=== PATIENT | female | born 1960 | race Caucasian/White ===

== ENCOUNTER 2016-08-14 12:41 | Emergency (ER) | payer MEDICARE, MEDICAID ==
[2016-08-14 13:06] VITALS: BP 107/64
--- NOTE | 2016-08-14 13:34 | ERNOTE ---
Medical Problem HPI - Narrative Date of Service: 08/14/16 - General Chief Complaint: Diabetes Related Problem Time Seen by Provider: 08/14/16 13:24 Source: patient Exam Limitations: no limitations - Immun/Allergies/Home Medications Immunizations: IMMUNIZATION HX Immunizations Up to Date Yes History of Influenza Vaccine Yes Hx Pneumococcal Vaccination Yes Allergies/Adverse Reactions: Allergies bee venom (honey bee) Allergy (Severe, Verified 04/22/15 00:54) Anaphylaxis cefaclor [Cefaclor] Allergy (Severe, Verified 04/22/15 00:54) THROAT SWELLING, SOB penicillin G Allergy (Severe, Verified 04/22/15 00:54) Anaphylaxis Penicillins Allergy (Severe, Verified 04/22/15 00:54) Anaphylaxis codeine Allergy (Intermediate, Verified 04/22/15 00:54) Shortness of Breath meperidine [Meperidine] Allergy (Intermediate, Verified 04/22/15 00:54) HIVES, CANT BREATHE nabumetone [Nabumetone] Allergy (Intermediate, Verified 04/22/15 00:54) DIFF BREATHING prochlorperazine Allergy (Intermediate, Verified 04/22/15 00:54) Shortness of Breath bethanechol [Bethanechol] Allergy (Mild, Verified 04/22/15 00:54) HIVES, MIGRAINES chlorpheniramine maleate [From Ornade] Allergy (Mild, Verified 04/22/15 00:54) Hives chocolate flavor Allergy (Mild, Verified 04/22/15 00:54) Hives ciprofloxacin Allergy (Mild, Verified 04/22/15 00:54) Hives digoxin Allergy (Mild, Verified 04/22/15 00:54) Hives doxycycline Allergy (Mild, Verified 04/22/15 00:54) Hives Fish Containing Products Allergy (Mild, Verified 04/22/15 00:54) Hives FISH latex Allergy (Mild, Verified 04/22/15 00:54) Hives metoclopramide Allergy (Mild, Verified 04/22/15 00:54) HIVES, CANT BREATHE metolazone [Metolazone] Allergy (Mild, Verified 04/22/15 00:54) Hives phenylpropanolamine HCl [From Ornade] Allergy (Mild, Verified 04/22/15 00:54) Hives salmeterol Allergy (Mild, Verified 04/22/15 00:54) HIVES, LEG CRAMPS strawberry [[place]] Allergy (Mild, Verified 04/22/15 00:54) Hives sulfamethoxazole Allergy (Mild, Verified 04/22/15 00:54) Hives trimethoprim Allergy (Mild, Verified 04/22/15 00:54) Hives bumetanide Allergy (Unknown, Verified 04/22/15 00:54) chlorpheniramine Allergy (Unknown, Verified 04/22/15 00:54) furosemide Allergy (Unknown, Verified 04/22/15 00:54) phenazopyridine [Phenazopyridine] Allergy (Unknown, Verified 04/22/15 00:54) phenylpropanolamine Allergy (Unknown, Verified 04/22/15 00:54) atorvastatin Adverse Reaction (Mild, Verified 04/22/15 00:54) LEG CRAMPS cisapride [Cisapride] Adverse Reaction (Mild, Verified 04/22/15 00:54) Vomiting fenofibrate Adverse Reaction (Mild, Verified 04/22/15 00:54) LEG CRAMPS gabapentin Adverse Reaction (Mild, Verified 04/22/15 00:54) MIGRAINE, SEVERE LETHARGY glyburide Adverse Reaction (Mild, Verified 04/22/15 00:54) Vomiting hydrochlorothiazide Adverse Reaction (Mild, Verified 04/22/15 00:54) LEG CRAMPS, MIGRAINE irbesartan Adverse Reaction (Mild, Verified 04/22/15 00:54) Hives omeprazole Adverse Reaction (Mild, Verified 04/22/15 00:54) Vomiting repaglinide Adverse Reaction (Mild, Verified 04/22/15 00:54) LEG CRAMPS rosuvastatin Adverse Reaction (Mild, Verified 04/22/15 00:54) LEG CRAMPS triamterene [Triamterene] Adverse Reaction (Mild, Verified 04/22/15 00:54) LEG CRAMPS, MIGRAINES Home Medications: HOME MEDICATIONS Aspirin [Aspirin Enteric Coated] 81 mg PO DAILY 12/29/14 [Last Taken 12/29/14] Diclofenac Sodium 75 mg PO BID 12/29/14 [Last Taken 12/29/14] Docusate Sodium [Stool Softener] 100 mg PO TID 12/29/14 [Last Taken 12/29/14] Hydroxychloroquine Sulfate [Plaquenil] 200 mg PO BID 12/29/14 [Last Taken ] Lactobacillus Combo No.10 [Probiotic] 1 each PO DAILY 12/29/14 [Last Taken 12/29] Omeprazole [Prilosec] 40 mg PO DAILY 12/29/14 [Last Taken 12/28/14] Rosuvastatin Calcium [Crestor] 40 mg PO DAILY 12/29/14 [Last Taken 12/29/14] Topiramate [Topiragen] 150 mg PO BID 12/29/14 [Last Taken 12/29/14] metFORMIN HCL [Glucophage] 1,000 mg PO BID 12/29/14 [Last Taken 12/29/14] Albuterol Sulfate [Proair Hfa] 2 puff IH Q4H PRN 01/19/15 [Last Taken Unknown] Blood Sugar Diagnostic, Drum [Accu-Chek Compact] 1 each [facility] 01/19/15 [Last Taken Unknown] Butalb/Acetaminophen/Caffeine [Fioricet 50-300-40 mg Capsule] 1 - 2 each PO Q4H PRN 01/19/15 [Last Taken Unknown] EPINEPHrine [Epipen] 0.3 mg IM ONCE PRN 01/19/15 [Last Taken Unknown] Glucagon,Human Recombinant [Glucagen] 1 mg IJ ONCE PRN 01/19/15 [Last Taken Unknown] Levothyroxine Sodium [Synthroid] 88 mcg PO DAILY 01/19/15 [Last Taken Unknown] Acetaminophen [Tylenol] 650 mg PO QID PRN #0 tablet 03/28/15 [Last Taken Unknown ] Fluconazole [Diflucan] 200 mg PO DAILY PRN #30 tablet 03/28/15 [Last Taken Unknown] Ondansetron [Zofran Odt] 8 mg PO Q6H #1 tab.rapdis 03/28/15 [Last Taken Unknown] Polyethylene Glycol 3350 [Miralax] 17 gm PO DAILY btl 03/28/15 [Last Taken Unknown] Polyvinyl Alcohol [Artificial Tears] 1 drop EACHEYE Q1H PRN #0 btl 03/28/15 [ Last Taken Unknown] Insulin Glargine,Hum.rec.anlog [Lantus] 25 units SC BID #4 vial 04/22/15 [Last Taken Unknown] Insulin Regular, Human [Humulin R U-500] 12 unit SC AC #1 vial 04/22/15 [Last Taken Unknown] Clindamycin HCl [Cleocin HCl] 300 mg PO Q8H #30 capsule 08/14/16 [Last Taken Unknown] Duloxetine HCl [Cymbalta] 30 mg PO DAILY 08/14/16 [Last Taken Unknown] - Pain Score Pain Score #1 Pain Score: 6 - History of Present History Narrative: 55yo, F reports to ED for onset of blisters to 1st, 2nd and 3rd toes. She reports having no blisters to the the area yesterday am. States she went to [place] for doctors appts and "light shopping", when she returned home she removed her shoes and socks and noted 3 large blisters to 1st, 2nd and 3rd toes. Minimal serous drainage from 3rd toe, otherwise no dc. No erythema, no fever or warmth. She does have some burning discomfort at 6/10, which is slight more intense than her usual neuropathy. She denies any changes in her shoes, socks or medications. Review of Systems - Review of Systems Constitutional: Absent: fever, chills, weakness, fatigue, malaise ENT: Absent: throat swelling, other - no oral lesions Respiratory: Absent: shortness of breath, cough Cardiology: Absent: chest pain, edema Gastrointestinal/Abdominal: Absent: nausea, vomiting Skin: Present: other - blisters. Absent: rash - no itching, change in color - Patient's Past Medical History Patient History - Medical: Anemia, Chronic Pain, Diabetes Type 2 Insulin Dependent, GERD, Headache, Hypothyroidism, Liver Disease, Renal Disease, Other Patient History - Cardiac/Respiratory: Asthma, Pneumonia Patient History - Cancer: No Hx of Cancer Patient History - Surgical Procedures: Appendectomy, Cholecystectomy, Colon Resection, , EGD, Hysterectomy, Other - Family History Mother Family History - Medical: Diabetes Type 2 Family History - Cardiac/Respiratory: No pertinent hx Father Family History - Medical: , Renal Disease, Renal Failure Family History - Cardiac/Respiratory: COPD - Social History Living Situations: alone Alcohol Use: none Drug Use: none Physical Exam - Physical Exam General Appearance: Present: wd/wn, alert, no apparent distress Ears, Nose, Throat: Absent: pharyngeal erythema, pharyngeal swelling, other - mucous membranes moist and intact Respiratory: Present: normal breath sounds, lungs clear. Absent: rales, rhonchi , wheezing Cardiovascular/Chest: Present: regular rate, rhythm Extremity Exam: Present: no edema, other - mild tenderness over distal aspect R. foot. Absent: calf tenderness Neurological Exam: Present: alert, oriented, normal mood/affect Skin Exam: Present: normal color, warm/dry, other - bullae to r. foot 1st toe, 2nd toe and 3rd toe, no erythema, no warmth, scant amt of serous dc draining from 3rd toe, otherwise no dc ED Progress - Date and Time Seen: Date and Time: 08/14/16 15:30 Discussed discharge plan and tx with pt. She is scheduled to see Dr. Stanley on , discussed that she would need to have him recheck her R. foot at appt, as she may require wound care appt if symptoms not improving or wounds developed. - Results and Orders Patient's Lab Results:: I have reviewed the patient's lab results. Results and Orders: Labs reviewed, no acute changes in comparison to lab studies over the past year. - Vital Signs Patient's Vital Signs:: I have reviewed the patient's vital signs. Vital Signs: Vital Signs 08/14/16 12:58 Temperature 34.6 C L Pulse Rate 82 Respiratory 16 Rate Blood Pressure 107/64 O2 Sat by Pulse 100 Oximetry - X-Ray X-Ray #1 X-Ray: foot Interpretation: Reviewed by me X-ray Comments: Patient Patient Name:LORETO AREVALO Date: 1960 Sex: F Order Number: [id number] Unique Exam ID: [id number] Exam Requested: [id number] - Foot 3 Views RT * Date Scheduled: Study Priority: Requesting Service: Requesting Physician: Awilda Foreman Reason for Exam: Radiological Report : Exam Date: 08/14/2016 13:40 Ordering Physician: Awilda Foreman HISTORY/INDICATION: Tenderness and blisters on foot. No history of injury. Patient is diabetic. TECHNIQUE: 3 views of the right foot. COMPARISONS: 10/02/15 Foot 3 Views RT * No definable fracture lucency or cortical discontinuity. Joint spaces are in gross normal alignment without subluxation or dislocation. Lisfranc joint grossly intact. Lateral view demonstrates pes planus. Soft tissue swelling of the first through fifth toes noted. IMPRESSION: 1. Soft tissue swelling of the right toes. Consider infection. 2. No definite radiographic signs of acute osteomyelitis. If there is a persistent concern, consider further evaluation by MRI or bone scan as clinically indicated. 3. Pes planus, stable. Electronically signed by Frankie Prince M.D.. Approved by: Approval Date: 08-14-2016 Approval Time: 02:35 PM - Progress/Reassessment Chief Complaint: Diabetes Related Problem Departure - Departure Clinical Impression: Bullous eruption, localized Disposition: Home self-care Condition: Good Instructions: Diabetes and Foot Care Additional Instructions: Change dressing and exam foot daily, monitor for redness or worsening of symptoms Do not wear tight fitting shoes or shoes that touch blister sites. keep leg elevated as much as possible Keep your appointment with Dr. Satnley next week, it is essential that you have him recheck your foot at your appointment, as further testing and treatment may be needed Schedule follow up with Dermatology to evaluate Return to ER if symptoms worsen, you develop fever, redness, or increased swelling to foot or leg Referrals: Mateusz Stanley DO [Primary Care Provider] - Sami Gamble MD [Staff Physician] - Prescriptions: Clindamycin HCl [Cleocin HCl] 300 mg PO Q8H #30 capsule
[2016-08-14 14:04] LABS: Hematocrit 31.9 % (37.0-47.0); Mean Cell Volume 87.9 fl (78-100); Mean Corpuscular Hemoglobin 27.5 pg (27-31); Mean Corpuscular Hgb Conc 31.3 g/dl (32-36); Mean Platelet Volume 12.5 fl (6.0-9.5); Neutrophil # 5.8 K/mm3 (1.3-6.0); Neutrophil % 47.9 % (42-75.0); Platelet Count 252 K/mm3 (150-450); Red Blood Count 3.63 M/mm3 (4.2-5.4); Red Cell Distribution Width 14.6 % (11.5-14.0); White Blood Count 12.1 K/mm3 (4.0-10.5)
[2016-08-14 14:16] LABS: Albumin * 3.4 gm/dl (3.4-5.0); Anion Gap 17.9 mmol/L (6.8-13.8); BUN/Creatinine Ratio 25.7 (9.0-21.6); Bilirubin, Total 0.2 mg/dL (0.0-1.1); Ca. Corrected For Albumin 9.2 mg/dL (8.4-10.2); Carbon Dioxide 19.4 mmol/L (24-32.6); Potassium 4.3 mmol/L (3.4-4.6)
== END 2016-08-14 15:45 | disposition home or self-care (01) ==
LOC: ER 12:41
DX: L13.8 Other specified bullous disorders (principal); R21 Rash and other nonspecific skin eruption; Z90.49 Acquired absence of other specified parts of digestive tract; Z90.710 Acquired absence of both cervix and uterus; E11.9 Type 2 diabetes mellitus without complications; Z79.4 Long term (current) use of insulin; E03.9 Hypothyroidism, unspecified; K21.9 Gastro-esophageal reflux disease without esophagitis

== ENCOUNTER 2016-08-28 11:10 | Emergency (ER) | payer MEDICARE, MEDICAID ==
--- NOTE | 2016-08-28 11:31 | ERNOTE ---
Medical Problem HPI - Narrative Date of Service: 08/28/16 - General Chief Complaint: Nausea/Vomiting Time Seen by Provider: 08/28/16 11:24 Source: patient Exam Limitations: no limitations - Immun/Allergies/Home Medications Immunizations: IMMUNIZATION HX Immunizations Up to Date Yes History of Influenza Vaccine Yes Hx Pneumococcal Vaccination Yes Allergies/Adverse Reactions: Allergies bee venom (honey bee) Allergy (Severe, Verified 08/28/16 11:18) Anaphylaxis cefaclor [Cefaclor] Allergy (Severe, Verified 08/28/16 11:18) THROAT SWELLING, SOB penicillin G Allergy (Severe, Verified 08/28/16 11:18) Anaphylaxis Penicillins Allergy (Severe, Verified 08/28/16 11:18) Anaphylaxis codeine Allergy (Intermediate, Verified 08/28/16 11:18) Shortness of Breath meperidine [Meperidine] Allergy (Intermediate, Verified 08/28/16 11:18) HIVES, CANT BREATHE nabumetone [Nabumetone] Allergy (Intermediate, Verified 08/28/16 11:18) DIFF BREATHING prochlorperazine Allergy (Intermediate, Verified 08/28/16 11:18) Shortness of Breath bethanechol [Bethanechol] Allergy (Mild, Verified 08/28/16 11:18) HIVES, MIGRAINES chlorpheniramine maleate [From Ornade] Allergy (Mild, Verified 08/28/16 11:18) Hives chocolate flavor Allergy (Mild, Verified 08/28/16 11:18) Hives ciprofloxacin Allergy (Mild, Verified 08/28/16 11:18) Hives digoxin Allergy (Mild, Verified 08/28/16 11:18) Hives doxycycline Allergy (Mild, Verified 08/28/16 11:18) Hives Fish Containing Products Allergy (Mild, Verified 08/28/16 11:18) Hives FISH latex Allergy (Mild, Verified 08/28/16 11:18) Hives metoclopramide Allergy (Mild, Verified 08/28/16 11:18) HIVES, CANT BREATHE metolazone [Metolazone] Allergy (Mild, Verified 08/28/16 11:18) Hives phenylpropanolamine HCl [From Ornade] Allergy (Mild, Verified 08/28/16 11:18) Hives salmeterol Allergy (Mild, Verified 08/28/16 11:18) HIVES, LEG CRAMPS strawberry [[place]] Allergy (Mild, Verified 08/28/16 11:18) Hives sulfamethoxazole Allergy (Mild, Verified 08/28/16 11:18) Hives trimethoprim Allergy (Mild, Verified 08/28/16 11:18) Hives bumetanide Allergy (Unknown, Verified 08/28/16 11:18) chlorpheniramine Allergy (Unknown, Verified 08/28/16 11:18) furosemide Allergy (Unknown, Verified 08/28/16 11:18) phenazopyridine [Phenazopyridine] Allergy (Unknown, Verified 08/28/16 11:18) phenylpropanolamine Allergy (Unknown, Verified 08/28/16 11:18) atorvastatin Adverse Reaction (Mild, Verified 08/28/16 11:18) LEG CRAMPS cisapride [Cisapride] Adverse Reaction (Mild, Verified 08/28/16 11:18) Vomiting fenofibrate Adverse Reaction (Mild, Verified 08/28/16 11:18) LEG CRAMPS gabapentin Adverse Reaction (Mild, Verified 08/28/16 11:18) MIGRAINE, SEVERE LETHARGY glyburide Adverse Reaction (Mild, Verified 08/28/16 11:18) Vomiting hydrochlorothiazide Adverse Reaction (Mild, Verified 08/28/16 11:18) LEG CRAMPS, MIGRAINE irbesartan Adverse Reaction (Mild, Verified 08/28/16 11:18) Hives omeprazole Adverse Reaction (Mild, Verified 08/28/16 11:18) Vomiting repaglinide Adverse Reaction (Mild, Verified 08/28/16 11:18) LEG CRAMPS rosuvastatin Adverse Reaction (Mild, Verified 08/28/16 11:18) LEG CRAMPS triamterene [Triamterene] Adverse Reaction (Mild, Verified 08/28/16 11:18) LEG CRAMPS, MIGRAINES Home Medications: HOME MEDICATIONS Aspirin [Aspirin Enteric Coated] 81 mg PO DAILY 12/29/14 [Last Taken 12/29/14] Diclofenac Sodium 75 mg PO BID 12/29/14 [Last Taken 12/29/14] Docusate Sodium [Stool Softener] 100 mg PO TID 12/29/14 [Last Taken 12/29/14] Hydroxychloroquine Sulfate [Plaquenil] 200 mg PO BID 12/29/14 [Last Taken ] Lactobacillus Combo No.10 [Probiotic] 1 each PO DAILY 12/29/14 [Last Taken 12/29] Omeprazole [Prilosec] 40 mg PO DAILY 12/29/14 [Last Taken 12/28/14] Rosuvastatin Calcium [Crestor] 40 mg PO DAILY 12/29/14 [Last Taken 12/29/14] Topiramate [Topiragen] 150 mg PO BID 12/29/14 [Last Taken 12/29/14] metFORMIN HCL [Glucophage] 1,000 mg PO BID 12/29/14 [Last Taken 12/29/14] Albuterol Sulfate [Proair Hfa] 2 puff IH Q4H PRN 01/19/15 [Last Taken Unknown] Blood Sugar Diagnostic, Drum [Accu-Chek Compact] 1 each [facility] 01/19/15 [Last Taken Unknown] Butalb/Acetaminophen/Caffeine [Fioricet 50-300-40 mg Capsule] 1 - 2 each PO Q4H PRN 01/19/15 [Last Taken Unknown] EPINEPHrine [Epipen] 0.3 mg IM ONCE PRN 01/19/15 [Last Taken Unknown] Glucagon,Human Recombinant [Glucagen] 1 mg IJ ONCE PRN 01/19/15 [Last Taken Unknown] Levothyroxine Sodium [Synthroid] 88 mcg PO DAILY 01/19/15 [Last Taken Unknown] Acetaminophen [Tylenol] 650 mg PO QID PRN #0 tablet 03/28/15 [Last Taken Unknown ] Fluconazole [Diflucan] 200 mg PO DAILY PRN #30 tablet 03/28/15 [Last Taken Unknown] Ondansetron [Zofran Odt] 8 mg PO Q6H #1 tab.rapdis 03/28/15 [Last Taken Unknown] Polyethylene Glycol 3350 [Miralax] 17 gm PO DAILY btl 03/28/15 [Last Taken Unknown] Polyvinyl Alcohol [Artificial Tears] 1 drop EACHEYE Q1H PRN #0 btl 03/28/15 [ Last Taken Unknown] Insulin Glargine,Hum.rec.anlog [Lantus] 25 units SC BID #4 vial 04/22/15 [Last Taken Unknown] Insulin Regular, Human [Humulin R U-500] 12 unit SC AC #1 vial 04/22/15 [Last Taken Unknown] Clindamycin HCl [Cleocin HCl] 300 mg PO Q8H #30 capsule 08/14/16 [Last Taken Unknown] Duloxetine HCl [Cymbalta] 30 mg PO DAILY 08/14/16 [Last Taken Unknown] Levofloxacin [Levaquin] 500 mg PO DAILY #10 tablet 08/28/16 [Last Taken Unknown] - Pain Score Pain Score #1 Pain Score: 5 - History of Present History Narrative: 56yo, F, presents to ED for evaluation of N/V, which has been present since 08/24. She reports having approx 5-6 episodes of vomiting per day since onset. She denies any abdominal pain, but is having some R. flank pain for the past 2 weeks. States she has had some intermittent nausea and vomiting for 2 weeks. Date (Duration): 08/24/16 Review of Systems - Review of Systems Constitutional: Present: chills, weakness - generalized. Absent: fever Respiratory: Absent: shortness of breath, cough, wheezing Cardiology: Present: chest pain - heaviness, intermittently occuring, improves after vomiting Gastrointestinal/Abdominal: Present: nausea, vomiting, other - last BM 08/27/16, which she reports as a normal soft stool. Absent: diarrhea, constipation, abdominal pain Genitourinary: Absent: frequency, pain, dysuria, hematuria Musculoskeletal: Present: back pain - R. flank Skin: Absent: rash - Patient's Past Medical History Patient History - Medical: Anemia, Chronic Pain, Diabetes Type 2 Insulin Dependent, GERD, Headache, Hypothyroidism, Liver Disease, Renal Disease, Other Patient History - Cardiac/Respiratory: Asthma, Pneumonia Patient History - Cancer: No Hx of Cancer Patient History - Surgical Procedures: Appendectomy, Cholecystectomy, Colon Resection, , EGD, Hysterectomy, Other - Family History Mother Family History - Medical: Diabetes Type 2 Family History - Cardiac/Respiratory: No pertinent hx Father Family History - Medical: , Renal Disease, Renal Failure Family History - Cardiac/Respiratory: COPD - Social History Living Situations: alone Smoking Status: Never smoker Have you smoked in the past 12 months: No Alcohol Use: none Drug Use: none Physical Exam - Physical Exam General Appearance: Present: wd/wn, alert, no apparent distress Respiratory: Present: no respiratory distress, normal breath sounds, no accessory muscle use, lungs clear. Absent: crackles, rhonchi, wheezing Cardiovascular/Chest: Present: regular rate, rhythm, no murmur Gastrointestinal/Abdominal: Present: normal bowel sounds, nondistended, soft, tenderness - mild to LUQ and LLQ Back Exam: Present: CVA tenderness (R) Skin Exam: Present: warm/dry ED Progress - Date and Time Seen: Date and Time: 08/28/16 13:[address] results with pt. Levaquin infusing, tolerated well. Did have 50ml of emesis, will repeat Zofran. 08/28/16 14:31 Pt reports some improvement of nausea since taking Zofran. Did have 1 episode of vomiting very shortly after second dose of Zofran administered. Does continue to have some R. flank pain. She reports tolerating Ibuprofen well in the past and would like Ibuprofen. 08/28/16 16:15 Feeling improved. Tolerating 7up in room. No further vomiting episodes. As she tolerating PO will start outpt tx for pyelonephritis. Discussed dc POC and that if symptoms worsen to return to ER - Results and Orders Patient's Lab Results:: I have reviewed the patient's lab results. - Vital Signs Patient's Vital Signs:: I have reviewed the patient's vital signs. Vital Signs: Vital Signs 08/28/16 11:16 Temperature 35.2 C L Pulse Rate 72 Respiratory 14 Rate Blood Pressure 158/93 O2 Sat by Pulse 100 Oximetry - CT/Ultrasound CT/Ultrasound Narrative: [facility] PATIENT RADIOLOGY STUDY REPORT Patient Patient Name:LORETO AREVALO Date: 1960 Sex: F Order Number: [id number] Unique Exam ID: [id number] Exam Requested: [id number] - CT Abdomen/Pelvis W/O Contrast Date Scheduled: Study Priority: Requesting Service: Requesting Physician: Awilda Foreman Reason for Exam: Radiological Report : Exam Date: 08/28/2016 11:38 Ordering Physician: Awilda Foreman History: Right flank pain. Nausea. Vomiting. Stage III kidney disease. Technique: 3 mm axial imaging from a level above the kidneys through the bladder performed without IV contrast enhancement per kidney stone protocol. Comparison: 06/19/2011 Findings: There are no renal, ureteral, or bladder calcifications. There is no hydronephrosis or hydroureter. Evaluation of the remainder of the abdomen and pelvis is otherwise limited by noncontrast protocol. There are atherosclerotic calcifications. Patient is status post splenectomy. There are surgical clips in the gallbladder fossa. Patient is status post hysterectomy. There are degenerative changes in the lumbar spine. There are changes of diverticulosis. There is no bowel obstruction or free air. IMPRESSION: NO KIDNEY STONES OR ASSOCIATED COMPLICATIONS IDENTIFIED. DIVERTICULOSIS. ATHEROSCLEROTIC DISEASE. Electronically signed by Maxim Umaña M.D.. Approved by: Approval Date: 08-28-2016 Approval Time: 12:18 PM THIS REPORT WAS RECEIVED FROM THE [employer] SYSTEM - Progress/Reassessment Chief Complaint: Nausea/Vomiting Progress:: Improved Departure - Departure Clinical Impression: Pyelonephritis Disposition: Home self-care Condition: Good Instructions: Pyelonephritis, Adult, [id number] Additional Instructions: Frequent, small amounts of fluid such as gatorade. May advance to BRAT diet ( bananas, rice, applesauce, toast), as tolerated Start antibiotics tomorrow am, as first dose given in ER Return to ER if you are vomiting and unable to keep down oral fluids or antibiotics, or if symptoms worsen Schedule follow up with your doctor next week Referrals: Mateusz Stanley DO [Primary Care Provider] - Prescriptions: Levofloxacin [Levaquin] 500 mg PO DAILY #10 tablet
[2016-08-28] MEDS ORDERED: ONDANSETRON HCL/PF 2 MG/ML VIAL IV ONE ×2 (11:37→13:32)
[2016-08-28] MEDS ORDERED: NORMAL SALINE 1,000 ML IV ONE (11:37)
[2016-08-28] MEDS ORDERED: ONDANSETRON HCL/PF 2 MG/ML VIAL ONE ×2 (11:43→13:40)
[2016-08-28 11:50] LABS: Hematocrit 36.8 % (37.0-47.0); Hemoglobin 11.3 gm/dL (12.5-16.0); Mean Cell Volume 88.2 fl (78-100); Mean Corpuscular Hemoglobin 27.1 pg (27-31); Mean Corpuscular Hgb Conc 30.7 g/dl (32-36); Mean Platelet Volume 13.3 fl (6.0-9.5); Neutrophil # 11.1 K/mm3 (1.3-6.0); Neutrophil % 68.4 % (42-75.0); Platelet Count 291 K/mm3 (150-450); Red Blood Count 4.17 M/mm3 (4.2-5.4); Red Cell Distribution Width 14.5 % (11.5-14.0); White Blood Count 16.2 K/mm3 (4.0-10.5)
[2016-08-28 12:11] LABS: Urine Bilirubin 1 mg/dl (NEGATIVE); Urine Blood Negative /ul (NEGATIVE); Urine Ketone 5 mg/dL (NEGATIVE); Urine Nitrite Negative (NEGATIVE); Urine Protein 100 mg/dL (NEGATIVE); Urine Specific Gravity >=1.030 SP.GR. (1.005-1.010); Urine Urobilinogen Normal (NORMAL)
[2016-08-28 12:13] LABS: ALT 166 U/L (19-67); AST 116 U/L (0-48); Albumin * 3.8 gm/dl (3.4-5.0); Alkaline Phosphatase * 94 U/L (50-170); Amylase * 34 U/L (25-115); Anion Gap 14.1 mmol/L (6.8-13.8); BUN/Creatinine Ratio 19.3 (9.0-21.6); Bilirubin, Total 0.3 mg/dL (0.0-1.1); Blood Urea Nitrogen 21 mg/dL (3-23); Ca. Corrected For Albumin 9.4 mg/dL (8.4-10.2); Calcium * 9.6 mg/dL (7.9-10.9); Carbon Dioxide 25.3 mmol/L (24-32.6); Chloride 109 mmol/L (97-106); Glucose * 140 mg/dL (70-110); Lipase 86 U/L (73-393); Potassium 4.4 mmol/L (3.4-4.6); Sodium 144 mmol/L (132-142); Total Protein 7.3 gm/dL (6.2-8.2); Troponin I Less than 0.017 ng/ml (0.00-0.10)
[2016-08-28 12:17] LABS: Urine Appearance Slightly Cloudy; Urine Bacteria 2+; Urine Color Yellow; Urine Mucus Moderate - 2+; Urine RBC 0-5 /hpf (0-5); Urine Renal Epithelial Cell Few - 1+ /hpf
[2016-08-28] MEDS ORDERED: LEVOFLOXACIN/D5W 500 MG/100 ML BAG IV SCH (12:45)
[2016-08-28] MEDS ORDERED: IBUPROFEN 400 MG TABLET PO ONE (14:27)
[2016-08-28] MEDS ORDERED: IBUPROFEN 600 MG TABLET ONE (14:35)
[2016-08-28 15:39] VITALS: BP 119/67
== END 2016-08-28 16:29 | disposition home or self-care (01) ==
LOC: ER 11:10
DX: N12 Tubulo-interstitial nephritis, not specified as acute or chronic (principal); Z90.710 Acquired absence of both cervix and uterus

== ENCOUNTER 2016-09-07 15:51 | Emergency (ER) | payer MEDICARE, MEDICAID ==
[2016-09-07 16:26] LABS: Hematocrit 33.7 % (37.0-47.0); Hemoglobin 10.6 gm/dL (12.5-16.0); Mean Cell Volume 87.1 fl (78-100); Mean Corpuscular Hemoglobin 27.4 pg (27-31); Mean Corpuscular Hgb Conc 31.5 g/dl (32-36); Mean Platelet Volume 12.7 fl (6.0-9.5); Neutrophil # 6.1 K/mm3 (1.3-6.0); Neutrophil % 53.2 % (42-75.0); Platelet Count 213 K/mm3 (150-450); Red Blood Count 3.87 M/mm3 (4.2-5.4); Red Cell Distribution Width 15.2 % (11.5-14.0); White Blood Count 11.4 K/mm3 (4.0-10.5)
[2016-09-07] MEDS: NORMAL SALINE 1,000 ML IV ONE (16:34)
[2016-09-07 16:41] LABS: Albumin * 3.5 gm/dl (3.4-5.0); Anion Gap 10.9 mmol/L (6.8-13.8); BUN/Creatinine Ratio 16.7 (9.0-21.6); Bilirubin, Total 0.2 mg/dL (0.0-1.1); Ca. Corrected For Albumin 9.3 mg/dL (8.4-10.2); Calcium * 9.2 mg/dL (7.9-10.9); Carbon Dioxide 26.9 mmol/L (24-32.6); Potassium 3.8 mmol/L (3.4-4.6); Total Protein 6.7 gm/dL (6.2-8.2)
[2016-09-07 17:06] LABS: Urine Bilirubin 1 mg/dl (NEGATIVE); Urine Blood Negative /ul (NEGATIVE); Urine Ketone 5 mg/dL (NEGATIVE); Urine Nitrite Negative (NEGATIVE); Urine Protein 100 mg/dL (NEGATIVE); Urine Specific Gravity >=1.030 SP.GR. (1.005-1.010); Urine Urobilinogen Normal (NORMAL)
[2016-09-07 17:18] LABS: Urine Appearance Cloudy; Urine Bacteria TRACE; Urine Color Yellow; Urine RBC None Seen /hpf (0-5); Urine WBC 0-5 /hpf (0-5)
[2016-09-07 17:19] LABS: Urine Mucus Few - 1+
[2016-09-07 17:51] VITALS: BP 153/76
--- NOTE | 2016-09-07 17:53 | ERNOTE ---
Medical Problem HPI - Narrative Date of Service: 09/07/16 - General Chief Complaint: General Assessment Time Seen by Provider: 09/07/16 16:06 Source: patient Exam Limitations: no limitations - Immun/Allergies/Home Medications Immunizations: IMMUNIZATION HX Immunizations Up to Date Yes History of Influenza Vaccine Yes Hx Pneumococcal Vaccination Yes Allergies/Adverse Reactions: Allergies bee venom (honey bee) Allergy (Severe, Verified 09/07/16 16:03) Anaphylaxis cefaclor [Cefaclor] Allergy (Severe, Verified 09/07/16 16:03) THROAT SWELLING, SOB penicillin G Allergy (Severe, Verified 09/07/16 16:03) Anaphylaxis Penicillins Allergy (Severe, Verified 09/07/16 16:03) Anaphylaxis codeine Allergy (Intermediate, Verified 09/07/16 16:03) Shortness of Breath meperidine [Meperidine] Allergy (Intermediate, Verified 09/07/16 16:03) HIVES, CANT BREATHE nabumetone [Nabumetone] Allergy (Intermediate, Verified 09/07/16 16:03) DIFF BREATHING prochlorperazine Allergy (Intermediate, Verified 09/07/16 16:03) Shortness of Breath bethanechol [Bethanechol] Allergy (Mild, Verified 09/07/16 16:03) HIVES, MIGRAINES chlorpheniramine maleate [From Ornade] Allergy (Mild, Verified 09/07/16 16:03) Hives chocolate flavor Allergy (Mild, Verified 09/07/16 16:03) Hives ciprofloxacin Allergy (Mild, Verified 09/07/16 16:03) Hives digoxin Allergy (Mild, Verified 09/07/16 16:03) Hives doxycycline Allergy (Mild, Verified 09/07/16 16:03) Hives Fish Containing Products Allergy (Mild, Verified 09/07/16 16:03) Hives FISH latex Allergy (Mild, Verified 09/07/16 16:03) Hives metoclopramide Allergy (Mild, Verified 09/07/16 16:03) HIVES, CANT BREATHE metolazone [Metolazone] Allergy (Mild, Verified 09/07/16 16:03) Hives phenylpropanolamine HCl [From Ornade] Allergy (Mild, Verified 09/07/16 16:03) Hives salmeterol Allergy (Mild, Verified 09/07/16 16:03) HIVES, LEG CRAMPS strawberry [[place]] Allergy (Mild, Verified 09/07/16 16:03) Hives sulfamethoxazole Allergy (Mild, Verified 09/07/16 16:03) Hives trimethoprim Allergy (Mild, Verified 09/07/16 16:03) Hives bumetanide Allergy (Unknown, Verified 09/07/16 16:03) chlorpheniramine Allergy (Unknown, Verified 09/07/16 16:03) furosemide Allergy (Unknown, Verified 09/07/16 16:03) phenazopyridine [Phenazopyridine] Allergy (Unknown, Verified 09/07/16 16:03) phenylpropanolamine Allergy (Unknown, Verified 09/07/16 16:03) atorvastatin Adverse Reaction (Mild, Verified 09/07/16 16:03) LEG CRAMPS cisapride [Cisapride] Adverse Reaction (Mild, Verified 09/07/16 16:03) Vomiting fenofibrate Adverse Reaction (Mild, Verified 09/07/16 16:03) LEG CRAMPS gabapentin Adverse Reaction (Mild, Verified 09/07/16 16:03) MIGRAINE, SEVERE LETHARGY glyburide Adverse Reaction (Mild, Verified 09/07/16 16:03) Vomiting hydrochlorothiazide Adverse Reaction (Mild, Verified 09/07/16 16:03) LEG CRAMPS, MIGRAINE irbesartan Adverse Reaction (Mild, Verified 09/07/16 16:03) Hives omeprazole Adverse Reaction (Mild, Verified 09/07/16 16:03) Vomiting repaglinide Adverse Reaction (Mild, Verified 09/07/16 16:03) LEG CRAMPS rosuvastatin Adverse Reaction (Mild, Verified 09/07/16 16:03) LEG CRAMPS triamterene [Triamterene] Adverse Reaction (Mild, Verified 09/07/16 16:03) LEG CRAMPS, MIGRAINES Home Medications: HOME MEDICATIONS Aspirin [Aspirin Enteric Coated] 81 mg PO DAILY 12/29/14 [Last Taken 12/29/14] Diclofenac Sodium 75 mg PO BID 12/29/14 [Last Taken 12/29/14] Docusate Sodium [Stool Softener] 100 mg PO TID 12/29/14 [Last Taken 12/29/14] Hydroxychloroquine Sulfate [Plaquenil] 200 mg PO BID 12/29/14 [Last Taken ] Lactobacillus Combo No.10 [Probiotic] 1 each PO DAILY 12/29/14 [Last Taken 12/29] Omeprazole [Prilosec] 40 mg PO DAILY 12/29/14 [Last Taken 12/28/14] Rosuvastatin Calcium [Crestor] 40 mg PO DAILY 12/29/14 [Last Taken 12/29/14] Topiramate [Topiragen] 150 mg PO BID 12/29/14 [Last Taken 12/29/14] metFORMIN HCL [Glucophage] 1,000 mg PO BID 12/29/14 [Last Taken 12/29/14] Albuterol Sulfate [Proair Hfa] 2 puff IH Q4H PRN 01/19/15 [Last Taken Unknown] Blood Sugar Diagnostic, Drum [Accu-Chek Compact] 1 each ACHS 01/19/15 [Last Taken Unknown] Butalb/Acetaminophen/Caffeine [Fioricet 50-300-40 mg Capsule] 1 - 2 each PO Q4H PRN 01/19/15 [Last Taken Unknown] EPINEPHrine [Epipen] 0.3 mg IM ONCE PRN 01/19/15 [Last Taken Unknown] Glucagon,Human Recombinant [Glucagen] 1 mg IJ ONCE PRN 01/19/15 [Last Taken Unknown] Levothyroxine Sodium [Synthroid] 88 mcg PO DAILY 01/19/15 [Last Taken Unknown] Acetaminophen [Tylenol] 650 mg PO QID PRN #0 tablet 03/28/15 [Last Taken Unknown ] Fluconazole [Diflucan] 200 mg PO DAILY PRN #30 tablet 03/28/15 [Last Taken Unknown] Ondansetron [Zofran Odt] 8 mg PO Q6H #1 tab.rapdis 03/28/15 [Last Taken Unknown] Polyethylene Glycol 3350 [Miralax] 17 gm PO DAILY btl 03/28/15 [Last Taken Unknown] Polyvinyl Alcohol [Artificial Tears] 1 drop EACHEYE Q1H PRN #0 btl 03/28/15 [ Last Taken Unknown] Insulin Glargine,Hum.rec.anlog [Lantus] 25 units SC BID #4 vial 04/22/15 [Last Taken Unknown] Insulin Regular, Human [Humulin R U-500] 12 unit SC AC #1 vial 04/22/15 [Last Taken Unknown] Clindamycin HCl [Cleocin HCl] 300 mg PO Q8H #30 capsule 08/14/16 [Last Taken Unknown] Duloxetine HCl [Cymbalta] 30 mg PO DAILY 08/14/16 [Last Taken Unknown] Levofloxacin [Levaquin] 500 mg PO DAILY #10 tablet 08/28/16 [Last Taken Unknown] - History of Present History Narrative: Patient presents to the ED feeling dehydrated. She relates she had recent UTI and just finished 10 days of Levaquin. She relates some mild diarrhea from the antibiotic. She states she was having right back tim nwith the UTI and had a CT for this with no kidney stone and still has some of that pain on the right side. No fever. No vomiting. She states she just feels like she needs some fluids. Nothing really seems to make this better or worse for her. Timing: constant Severity: moderate Modifying Factors - (Improves): Present: other - none Modifying Factors - (Worsens): Present: other - none Review of Systems - Review of Systems Constitutional: Absent: fever ENT: Present: no symptoms reported Respiratory: Absent: shortness of breath Cardiology: Absent: chest pain Gastrointestinal/Abdominal: Present: nausea. Absent: abdominal pain Genitourinary: Present: other - recent UTI Musculoskeletal: Present: other - right low back pain Skin: Absent: rash Neurological: Present: other - mild generalized weakness - Patient's Past Medical History Patient History - Medical: Anemia, Chronic Pain, Diabetes Type 2 Insulin Dependent, GERD, Headache, Hypothyroidism, Liver Disease, Renal Disease, Other Patient History - Cardiac/Respiratory: No pertinent hx, Pneumonia Patient History - Cancer: No Hx of Cancer Patient History - Surgical Procedures: Appendectomy, Cholecystectomy, Colon Resection, , EGD, Hysterectomy, Other Patient History - Other: None - Family History Mother Family History - Medical: Diabetes Type 2 Family History - Cardiac/Respiratory: No pertinent hx Father Family History - Medical: , Renal Disease, Renal Failure Family History - Cardiac/Respiratory: COPD - Social History Living Situations: alone Smoking Status: Never smoker Have you smoked in the past 12 months: No Do you dip or chew tobacco: No Patient requests Smoking Cessation Consult: No Initiate information on Smoking Cessation: No Alcohol Use: none Drug Use: none - Immunizations Immunizations Up to Date: Yes Hx Pneumococcal Vaccination: Yes History of Influenza Vaccine: Yes Physical Exam - Physical Exam General Appearance: Present: alert, no apparent distress Eye Exam: Normal inspection: bilateral, PERRL: bilateral Ears, Nose, Throat: Present: normal ENT inspection. Absent: dry mucous membranes Neck: Present: normal inspection Respiratory: Present: no respiratory distress, normal breath sounds, no accessory muscle use, lungs clear Cardiovascular/Chest: Present: regular rate, rhythm Gastrointestinal/Abdominal: Present: normal bowel sounds, nontender, soft, no organomegaly. Absent: tenderness, guarding, rebound Back Exam: Present: other - Tenderness right low back paraspinal musculature. 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 Absent: motor weakness Skin Exam: Absent: skin rash ED Progress - Results and Orders Patient's Lab Results:: I have reviewed the patient's lab results. - Vital Signs Patient's Vital Signs:: I have reviewed the patient's vital signs. Vital Signs: Vital Signs 09/07/16 15:56 Temperature 35.7 C L Pulse Rate 73 Respiratory 14 Rate Blood Pressure 124/66 O2 Sat by Pulse 99 Oximetry - Progress/Reassessment Chief Complaint: General Assessment Progress:: Improved Progress Note-Subjective: 09/07/16 17:50 At 1750 she feels much better. She wishes to go home. I discussed a repeat CT but she is not interested in this. She is stable, non-toxic and in no distress. She wishes to go home. She has an appointment within 48 hours with her PCP. I discussed warning signs and reasons to return as well as the need for close f/u. Departure - Departure Clinical Impression: Generalized weakness Disposition: Home self-care Condition: Stable Instructions: Dehydration, Adult, [id number] Additional Instructions: Rest. FLuids. Keep your appointment with your primary doctor Thursday. Return for fever, vomiting, abdominal pain or if your condition worsens or changes in any way. Referrals: Mateusz Stanley DO [Primary Care Provider] -
== END 2016-09-07 18:01 | disposition home or self-care (01) ==
LOC: ER 15:51
DX: R53.1 Weakness (principal); Z90.49 Acquired absence of other specified parts of digestive tract; Z90.710 Acquired absence of both cervix and uterus; E03.9 Hypothyroidism, unspecified; E11.9 Type 2 diabetes mellitus without complications; Z79.4 Long term (current) use of insulin; K21.9 Gastro-esophageal reflux disease without esophagitis

== ENCOUNTER 2016-09-19 14:33 | Emergency (ER) | payer MEDICARE, MEDICAID ==
[2016-09-19 15:01] VITALS: BP 112/66
--- OUTSIDE RECORDS SUMMARY | 2016-09-19 15:54 | XMS REPORT | Continuity of Care Document ---
:1960 Author Organization [facility] [place] [address] Care Team Providers Name Role Phone Yajaira Quinton Merle Primary Care Provider [phone] Source Comments This disclosure is being made pursuant to the [employer] program and maynot contain all information available regarding this patient.[facility] Active Allergies and Adverse Reactions Not on File Current Medications Be aware that medications may not be up to date as of this document. Alwaysverify current medications with the patient. Not on file Active Problems Not on file Social History Tobacco Use Types Packs/Day Years Used Date Never Smoker Last Filed Vital Signs Vital Sign Reading Time Taken Blood Pressure 132/85 11/05/2011 9:22 AM CDT Pulse 104 11/05/2011 9:22 AM CDT Temperature - - Respiratory Rate - - Height - - Weight 79.379 kg (175 lb) 11/05/2011 9:22 AM CDT Body Mass Index - - Oxygen Saturation - - Plan of Care Health Maintenance Due Date Last Done Comments Lab-Lipids 1960 LAB-HgA1C 1966 Eye (Ophthalmology) Exam 1971 Foot Exam 1971 Retired-Pertussis Vaccine Adult 1980 Retired-Tetanus Vaccine Adult 1980 Pap Smear 1982 Mammogram 2001 Colonoscopy 2011 Well Adult Visit 2011 Retired-INFLUENZA VACCINE 04/10/2015 Results from Last 3 Months Not on file
[2016-09-19 15:55] LABS: Hematocrit 31.3 % (37.0-47.0); Hemoglobin 9.7 gm/dL (12.5-16.0); Mean Cell Volume 88.7 fl (78-100); Mean Corpuscular Hemoglobin 27.5 pg (27-31); Mean Platelet Volume 12.2 fl (6.0-9.5); Neutrophil % 45.2 % (42-75.0); Platelet Count 284 K/mm3 (150-450); Red Blood Count 3.53 M/mm3 (4.2-5.4); Red Cell Distribution Width 15.1 % (11.5-14.0); White Blood Count 8.8 K/mm3 (4.0-10.5)
--- OUTSIDE RECORDS SUMMARY | 2016-09-19 15:55 | XMS REPORT | Continuity of Care Document ---
:1960 Author Organization ([facility]) Address [address] [place] [address] Phone [phone] Care Team Providers Name Role Phone Mateusz Stanley Primary Care Provider [phone] Source Comments This disclosure is being made pursuant to the Care Everywhere program, applicable federal and state laws, and may not contain all informaitonavailable regarding this patient. ([facility]) Active Allergies and Adverse Reactions Allergen Noted Date Severity Reactions Comments Atorvastatin OTHER leg muscle aches Bethanechol Urticaria (Hives) Cefaclor Urticaria (Hives),Unknown Celecoxib Unknown Chlorpheniramine-Dm Respiratory Distress Chocolate Flavor Urticaria (Hives) Ciprofloxacin Unknown Cisapride Respiratory Distress Codeine Urticaria (Hives),Unknown Digoxin Respiratory Distress Doxycycline Nausea & Vomiting Fish Containing Products Nausea & Vomiting,Stomach Pain Furosemide OTHER depleats pottassium level Gabapentin Agitation Glyburide OTHER,Unknown unknown Hydrochlorothiazide OTHER LOW BLOOD SUGAR Irbesartan Respiratory Distress Latex, Natural Rubber Urticaria (Hives) Meperidine Respiratory Distress Metoclopramide Respiratory Distress Metolazone Respiratory Distress Omeprazole Unknown Other Agent 06/22/2012 Rash [place] and green pepper Penicillins Respiratory Distress Phenazopyridine Unknown Phenylpropanolamine Respiratory Distress Prochlorperazine Respiratory Distress Repaglinide OTHER LOW BLOOD SUGAR Salmeterol Respiratory Distress [place] Urticaria (Hives) Sulfamethoxazole Nausea & Vomiting Triamterene OTHER LOW BLOOD SUGAR Trimethoprim Nausea & Vomiting Unclassified Drug Urticaria Tuna and peppers (Hives),Nausea & cause rash or Vomiting vomiting Current Medications Prescription Sig. Disp. Refills Start End Status Date Date LACTOBACILLUS Take by mouth 2 times Active RHAMNOSUS GG daily. (PROBIOTIC PO) aspirin 81 mg EC Take 81 mg by mouth Active tablet daily. EPINEPHrine inject 0.3 mg Active (EPI-PEN) 0.3 mg/0.3 intramuscularly once mL injection syringe as needed. glucagon (GLUCAGEN inject 1 Kit Active HYPOKIT) 1 mg intramuscularly once 014 injection as needed. Indications: HYPOGLYCEMIC DISORDER SUPPLY KETOSTIX test For use in the event 50 Strip Active strips of sustained 014 hyperglycemia Indications: DIAGNOSTIC TEST FOR KETONURIA topiramate 100 mg Take 150 mg by mouth 2 Active tablet times daily. Taking 100 mg tab omeprazole 40 mg Take 40 mg by mouth Active extended release daily. Indications: capsule GASTROESOPHAGEAL REFLUX levothyroxine 88 mcg Take 88 mcg by mouth Active tablet every morning before breakfast multivitamin with Take 1 Tab by mouth Active minerals (HAIR,SKIN daily. & NAILS) tablet docusate 100 mg Take 100 mg by mouth 3 Active capsule times daily as needed. cholecalciferol Take 1,000 Units by Active (VITAMIN D3) 2,000 mouth daily . unit tablet rosuvastatin Take 1 Tab by mouth 90 Tab 3 Active (CRESTOR) 40 mg daily. Indications: 014 tablet HYPERCHOLESTEROLEMIA hydroxychloroquine Take 200 mg by mouth 2 Active 200 mg tablet times daily diclofenac 75 mg EC Take 75 mg by mouth 2 Active tablet times daily. SUPPLY FREESTYLE For fingerstick 1 Each 0 Active FREEDOM LITE meter glucose testing 015 Indications: TYPE 2 DIABETES MELLITUS metFORMIN 500 mg Take 2 Tabs (1,000 mg 360 Tab 3 Active tablet total) by mouth 2 015 times daily with meals LYRICA 200 mg Take 200 mg by mouth 3 Active capsule times daily. 015 SUPPLY FREESTYLE 4 times daily 400 Strip 3 Active LITE test strips 015 SUPPLY lancets Use to check blood 300 Each 3 Active sugar 4 times daily. 015 PSEUDOEPHEDRINE HCL Take by mouth as Active (SUDOGEST PO) needed. traMADol 50 mg Take 1 tablet (50 mg 60 tablet 1 Active tablet total) by mouth 3 016 times daily as needed. lubiprostone Take 24 mcg by mouth 2 Active (AMITIZA) 24 mcg times daily. Take with capsule food and water. sulfaSALAzine 500 mg Start with 1 tabs 120 1 Active EC tablet daily, titrate up to 2 tablet 016 tab twice a day as tolerated. magnesium citrate Take 148 mL by mouth Active solution once. TAKES EVERY THREE DAYS bumetanide 2 mg Take 2 mg by mouth Active tablet daily. PRN for edema, insulin aspart Take three times per 40 mL 11 Active (NovoLOG) 100 day before meals. 016 unit/mL injection Total daily dose vial approximately 100U. cyclobenzaprine 5 mg Take 1 tablet (5 mg 30 tablet 0 Active tablet total) by mouth 2 016 times daily as needed for Muscle spasms. etanercept (ENBREL Inject 50 mg 12 Each 3 Active SURECLICK) 50 mg/mL subcutaneously every 016 injection pen week. ondansetron 8 mg Take 1 tablet (8 mg 60 tablet 1 Active tablet total) by mouth every 016 12 hours as needed. SUPPLY insulin Inject subcutaneously 300 3 Active syringe w/ needle 3 times daily. Syringe 016 U-100 0.5 mL 30 g x 5/16" lactulose 10 g/15 mL Take 30 mL (20 g 1892 mL 11 Active solution total) by mouth 2 017 times daily. insulin glargine Use as directed twice 15 mL Active (BASAGLAR KWIKPEN) daily. Total daily 017 100 unit/mL (3 mL) dose approximately 50 injection pen units per day. SUPPLY BD insulin UF Use to inject insulin 200 Each 3 Active short 31 X 8 MM pen 2 times daily. 017 needle Insulin dependent. Diagnosis code E11.21 LANTUS 100 unit/mL Take twice per day. 40 mL 11 injection vial Total daily dose 016 2016 approximately 100U per day. Active Problems Problem Noted Date Inflammatory arthritis 05/19/2016 Overview: Has hand pain. Responded to HCQ and then addition of enbrel. Low back pain is from DDD and given PT for it. Long-term use of immunosuppressant medication 05/19/2016 Overview: Enbrel. Diabetes mellitus, type 2 11/06/2015 Arthralgia of both ankles 10/22/2015 Overview: Also in the back and hands Slow transit constipation 09/03/2015 Diabetic peripheral neuropathy 07/28/2013 Lymphocytosis 05/03/2013 Leukocytosis 05/03/2013 Anemia associated with acute blood loss 06/28/2012 Warm reactive antibody 06/22/2012 Overview: Anti-Jka antibody is identified in this patient's plasma. As a result, approximately 24% of type specific donors will be antigen compatible, and a complete antiglobulin crossmatch is necessary befor e blood is transfused. Extra time will be required to find compatible blood. If you anticipate transfusion needs, please notify the blood bank as soon as possible to facilitate the acquisition of compatible units. Splenic laceration, s/p splenectomy 06/20/2012 Multiple fractures of ribs of left side #5 thru #8 (2012) 06/20/2012 Gastroparesis 05/12/2012 DEEPTI (obstructive sleep apnea) 05/05/2011 Overview: * unable to tolerable CPAP Hypothyroidism 05/05/2011 Obstructive airway disease, believed to be asthma. 05/05/2011 Overview: Features of asthma / copd Bone tumor (benign) 05/05/2011 Overview: * endochondroma of left humerus Diverticulosis 05/05/2011 Overview: * s/p partial colon resection of diverticulitis Recurrent infections, including UTI (monthly) and sinus (every 2 months) 05/05 infections Syncope 05/05/2011 Overview: * orthostatic with - tilt table, echo, holter * ? Autonomic dysfunction from DM Erosive gastritis 07/10/2009 Overview: History of EGD: 2004: Gastritis 2006: gastritis; diverticulum in duodenum Fatty Liver, biopsy 200612/18/2008 Overview: Formatting of this note may be different from the original. * associated with intermittently + LFTs [id number] Jul 19, 2007 1:00 PM COIL WINDER REPAIR Component Results DIAGNOSIS: Liver, biopsy: Fragmented core of hepatic parenchyma with marked macrovesicular steatosis and mild active inflammation (see comment). Comment: Lakeshia Jones M.D., R1 Marco Antonio Chowdhury M.D. Date reported: 07/22/07 Pathologist (Electronic Signature) COMMENT: The fragmentation of the core strongly suggests the presence of cirrhosis despite the relative paucity of the fibrosis as indicated by the trichrome stain. The histologic appearance suggests steatohepatitis as the underlying etiology. Migraine 12/18/2008 Thyroid Nodule, 200712/18/2008 Overview: FNA negative 06/17 Vitamin D Deficiency 09/07/2008 Agoraphobia with panic disorder 05/15/2008 Depression 05/15/2008 Traumatic Arthropathy, Shoulder 02/07/2008 Hyperlipidemia 01/19/2008 Dysphagia, pharyngeal phase 01/17/2008 Overview: For both solids and liquids. Due to diabetes neuropathy. Mixed Incontinence Urge and Stress 11/19/2007 Hypertension, history of 08/12/2006 Type 2 diabetes mellitus with renal manifestations 05/26/2005 Overview: * with peripheral neuropathy & gastoparesis * on insulin pump Cervical spondylosis without myelopathy 07/27/2001 Resolved Problems Problem Noted Date Resolved Date S/P splenectomy 06/23/2012 07/08/2012 Hyperkalemia 06/21/2012 07/08/2012 Hyperglycemia 06/21/2012 07/08/2012 Delirium 05/27/2012 07/08/2012 Personality Disorder, Medication non-compliance 12/18/2008 07/08/2012 Overview: She has long history of not taking medication as prescribed leading to poor diabetes control; see endocrine note of Sep 2008. Acute pharyngitis 10/24/2008 12/18/2008 Leukorrhea, not specified as infective 10/18/2008 05/05/2011 Type II or unspecified type diabetes mellitus without mention 09/19/200806/2009 of complication, not stated as uncontrolled Nontoxic uninodular goiter 05/16/2008 05/05/2011 Pain in joint, hand 01/18/2008 12/18/2008 Urinary frequency 01/10/2008 05/05/2011 Cervicalgia 12/23/2007 12/18/2008 Lumbago 12/23/2007 12/18/2008 Ulceration of Vulva 11/19/2007 05/05/2011 Other specified disorder of intestines 09/23/2007 12/18/2008 Urinary Incontinence 09/23/2007 12/18/2008 Abdominal pain, unspecified site 07/19/2007 12/18/2008 Other nonspecific abnormal serum enzyme levels 07/13/2007 12/18/2008 Unspecified deformity of ankle and foot, acquired 06/01/2007 12/18/2008 Hepatitis, unspecified 05/17/2007 12/18/2008 Pain in joint, shoulder region 12/21/2006 12/18/2008 Dysuria 08/22/2006 12/18/2008 Retention of urine, unspecified 08/21/2006 07/10/2009 Disorders of bursae and tendons in shoulder region, unspecified 07/29/2001 Endochondroma of humerus 07/05/2001 12/18/2008 Pain in limb 07/05/2001 12/18/2008 Disorder of bone and cartilage, unspecified 07/05/2001 12/18/2008 Most Recent Encounters Date Type Specialty Providers Description 09/02/2016 Telephone Med Rheumatology Amina Crandall Chief Comp: Oliver ZAMBRANO Prior Authorization 08/28/2016 Refill Diabetes Services Zurdo Cunningham Dx: 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 (Primary Dx) 08/28/2016 Telephone Diabetes Services Zurdo Cunningham Chief Comp: Clarify MD Manuel Medications/orders 08/22/2016 Refill Diabetes Services Zurdo Cunningham Dx: Type II or MD Manuel unspecified type diabetes mellitus without mention of complication, uncontrolled (Primary Dx) 08/13/2016 Office Visit Pathology Cresencio Chief Comp: Patient MD Enrike Reported Reason For Lab Services, Visit Irl 08/13/2016 Office Visit Med GI/Hepatology Cresencio, Dx: Diverticulosis of MD Enrike large intestine without hemorrhage (Primary Dx) 08/08/2016 Refill Diabetes Services Zurdo Cunningham Dx: Type 2 diabetes MD Manuel mellitus without complication (Primary Dx) 08/07/2016 Telephone Diabetes Services Ashanti Bellamy Chief Comp: Follow- up YVAN Porras 08/06/2016 Telephone Diabetes Services Zurdo Cunningham Chief Comp: Follow- up MD Manuel 08/01/2016 Telephone Diabetes Services Zurdo Cunningham Chief Comp: Other MD Manuel 07/25/2016 Refill Med GI/Hepatology Fer Chavez Dx: Nausea (Primary Dx) 07/11/2016 Telephone Renal and Jihan Ureña Chief Comp: Discuss Hypertension MD Sandeep Test Results 07/11/2016 Telephone Diabetes Services Zurdo Cunningham Chief Comp: Lab MD Manuel Results 07/11/2016 Telephone Renal and Jihan Ureña Chief Comp: Discuss Hypertension MD Sandeep Test Results 07/07/2016 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, with long-term current use of insulin (Primary Dx) 06/27/2016 Telephone Diabetes Services Violette Alcantara Chief Comp: Patient TMD Concern Immunizations Name Dates Previously Given Next Due Hepatitis B, adult 10/16/2014 Hepatitis B, pediatric/adolescent 12/18/2014 Hib, PRP-T 06/23/2012 Influenza, quadrivalent PF 05/19/2016 Influenza, unspecified 06/10/2015,05/24/2014,06/10/2013,,06/03/2007,05/10/2006,1993 Meningococcal Conjugate, MCV4P 06/23/2012 (Menactra) Pneumococcal Conjugate, PCV13 (Prevnar 02/24/2016 13) Pneumococcal Polysaccharide, PPSV23 06/23/2012 (Pneumovax 23) Pneumococcal, unspecified 06/14/2013,06/03/2007,05/27/1994 Td, adult unspecified 06/03/2007 Tdap 06/23/2012 Zoster, live (Zostavax) 02/24/2016 Social History Tobacco Use Types Packs/Day Years Used Date Former Smoker Cigarettes 0.5 0.5 Quit: 08/10/1983 Smokeless Tobacco: Never Used Tobacco Cessation:Counseling Given: No Comments: Alcohol Use Drinks/Week oz/Week Comments No Last Filed Vital Signs Vital Sign Reading Time Taken Blood Pressure 97/63 08/13/2016 11:10 AM COIL WINDER REPAIR Pulse 74 08/13/2016 11:10 AM COIL WINDER REPAIR Temperature 35 C (95 F) 08/13/2016 11:10 AM COIL WINDER REPAIR Respiratory Rate 14 04/20/2013 4:14 PM CDT Height 1.702 m (5' 7") 08/13/2016 11:10 AM COIL WINDER REPAIR Weight 55.9 kg (123 lb 3.8 oz) 08/13/2016 11:10 AM COIL WINDER REPAIR Body Mass Index 19.3 08/13/2016 11:10 AM COIL WINDER REPAIR Oxygen Saturation 96% 04/27/2014 11:28 AM CDT Plan of Care Date Type Specialty Providers Description 10/13/2016 Appointment Radiology Chief Comp: Patient Reported Reason For Visit 10/13/2016 Appointment Med GI/Hepatology Default, Other [facility] [address] [place] [address] [phone] (Fax) Chief Comp: Patient Nila Suarez PA-C [address] [place] [address] [phone] (Fax) Reported Reason For Visit 11/10/2016 Appointment Diabetes Services Zurdo Cunningham, Chief Comp: Patient Reported Reason For [address] [place] [address] [phone] (Fax) 12/11/2016 Appointment Renal and Hypertension Default, Other [facility] - [facility] [address] [place] [address] [phone] (Fax) Chief Comp: Patient Jihan Ureña MD Reported Reason For Visit 12/22/2016 Appointment [facility] Jenise Peck, Chief Comp: Patient Reported Reason For [address] [place] [address] [phone] (Fax) 12/22/2016 Appointment Med Rheumatology Amina Crandall MD [address] [place] [address] [phone] (Fax) Chief Comp: Patient Jakob Ugalde PA-C [address] [place] [address] [phone] (Fax) Reported Reason For Visit 02/18/2017 Appointment Med GI/Hepatology Enrike Dupont, Chief Comp: Patient Reported Reason For [address] [place] [address] [phone] (Fax) 05/18/2017 Appointment Med Rheumatology Amina Crandall MD Chief Comp: Patient [address] [place] [address] Visit [phone] (Fax) Health Maintenance Due Date Last Done Comments MMR Vaccine 1978 Mammogram 10/02/2009 10/02/2008, 10/04/2003 Cervical Cancer Screening 09/23/2010 09/23/2007, 10/04/2003 DIABETIC: Foot Exam 01/21/2011 DIABETIC: Retinal Eye Exam 01/21/2011 Meningococcal Vaccine (2 - 08/23/2012 06/23/2012 MenACWY High Risk Adult Series) DIABETIC: Microalbumin 06/20/2014 06/20/2013, Additional history exists 04/10/2009, 01/11/2008 Hepatitis B Vaccine (3 of 3 - 02/12/2015 12/18/2014, Primary Series) 10/16/2014 DIABETIC: Hemoglobin A1C 11/11/2016 05/13/2016, Additional history exists 11/06/2015, 11/03/2014 DIABETIC: Cholesterol 05/13/2017 05/13/2016, Additional history exists 01/07/2012, 07/30/2011 Diabetic: Hdl 05/13/2017 05/13/2016, Additional history exists 01/07/2012, 07/30/2011 Diabetic: Ldl 05/13/2017 05/13/2016, Additional history exists 06/20/2013, 01/07/2012 DIABETIC: Triglycerides 05/13/2017 05/13/2016, Additional history exists 01/07/2012, 07/30/2011 Pneumococcal Vaccine (3 of 3 06/23/2017 02/24/2016, - PPSV23) 06/23/2012 Colonoscopy 09/07/2017 09/07/2007, 02/19/2004 Td Vaccine 06/23/2022 06/23/2012, 06/03/2007 Hib Vaccine Completed 06/23/2012 Tdap Vaccine Completed 06/23/2012 HCV Screening Completed 10/22/2015, 06/23/2007, 05/17/2007 Influenza Vaccine: Seasonal Completed 05/19/2016, Additional history exists 06/10/2015, 05/24/2014 Results from Last 3 Months DIFFERENTIAL (08/13/2016 12:24 PM) Component Value Range % Neutrophils-Auto Diff 46.3 % Neutrophils-Auto Diff 5280 0800-0408 /MM3 % Lymphocytes-Auto Diff 37.9 % Lymphocytes-Auto Diff 4320(H) 875-3300 /MM3 % Monocytes-Auto Diff 9.1 % Monocytes-Auto Diff 1040(H) 130-860 /MM3 % Eosinophils-Auto Diff 5.7 % Eosinophils-Auto Diff 650(H) 40-390 /MM3 % Basophils 0.8 % Basophils-Auto Diff 90 10-136 /MM3 % Immature Granulocytes-Auto Diff 0.2 % Immature Granulocytes-Auto Diff 20 /MM3 Specimen Whole Blood CBC (COMPLETE BLOOD COUNT) (08/13/2016 12:24 PM) Component Value Range WBC Count 11.4(H) 3.7-10.5 K/MM3 RBC Count 3.92(L) 4.00-5.20 M/MM3 Hemoglobin 10.6(L) 11.9-15.5 g/dL Hematocrit 34(L) 35-47 % MCV (Mean Corpuscular Volume) 88 82-99 FL MCH (Mean Corpuscular Hemoglobin) 27 25-35 PG MCHC (Mean Corpuscular Hemoglobin Concentration) 31(L) 32-36 % Platelet Count 239 150-400 K/MM3 MPV (Mean Platelet Volume) 13.4(H) 9.4-12.3 FL RBC Dist Width-STD 46.7(H) 36.4-46.3 FL RBC Distrib Width 14.9(H) 9.0-14.5 % Specimen Whole Blood CBC WITH DIFFERENTIAL (08/13/2016 12:24 PM) Specimen Whole Blood Narrative The following orders were created for panel order CBC WITH DIFFERENTIAL. Procedure Abnormality Status --------- ------ CBC (COMPLETE BLOOD COUNT)[[id number]] AbnormalFinal result DIFFERENTIAL[[id number]] AbnormalFinal result Please view results for these tests on the individual orders. US RETROPERITONEAL COMP AND RENAL ARTERY DOPPLER ([id number]) (07/07/2016 4: 10 PM) Impressions Impression: 1. Bilateral microvascular renal disease, indicated by high end segmental renal arterial resistive indices. 2. Small right lower pole hyperechoic lesion likely represents an angiomyolipoma. 3. Small right upper pole and left upper pole cysts. 4. Otherwise normal bilateral renal grayscale ultrasound, no evidence of significant renal artery stenosis and no evidence of occlusive renal vein thrombosis. --- Final --- Narrative [facility] Department of Radiology Ultrasound Division [address] [place] [address] ULTRASOUND REPORT NAME:JODI AREVALO Date of Service: 07/07/2016 MRN NO.: [id number] Review Date: 07/07/2016 Patient's : 2Resident/Tech: [id number] Tejas Garcia Patient's Age: 55 years Referring MD:JIHAN UREÑA Indication: 55 F, hx of CKD stage 3, hx of bilateral cysts. Technique: Renal grayscale ultrasound with spectral and color Doppler analysis. Findings: Kidney: + + + + + :Structure :Features:Right : Left : + + + + + :Kidney:Present/Absent:Present :Present : + + + + + ::Size (cm) :10.0 x 4.4 x 4.0:: + + + + + ::Location:Normal: Normal : + + + + + ::Shape :Normal:Normal: + + + + + :Cortex:Echogenicity:Normal:Normal : + + + + + :Renal Pelvis::No hydronephrosis.:No hydronephrosis.: + + + + + ::: :: + + + + + :Ureters ::Normal. :Normal. : + + + + + + + + + + :Right Kidney:Location:Size (cm):Echogenicity: + + + + + :Lesion 1:right lower pole:0.4 x 0.3 x 0.4:hyperechoic : + + + + + :Lesion 2:right upper pole:1.0 x 0.6 x 0.7:anechoic: + + + + + + + + + + :Left Kidney:Location :Size (cm):Echogenicity: + + + + + :Lesion 1 :left upper pole:0.6 x 0.6 x 0.8:anechoic: + + + + + Renal Doppler: Aortic PSV=98.9. + + + + ::Right Kidney :Left Kidney : + + + + :Renal artery PSV:57.7 cm/s. :103 cm/s: + + + + :MRV :biphasic and antegrade :biphasic and antegrade: + + + + + +--------+-------+--------+--------+-------+--------+ : :R Kidney: ::L Kidney: :: + +--------+-------+--------+--------+-------+--------+ : :Superior:Mid:Inferior:Superior:Mid:Inferior: + +--------+-------+--------+--------+-------+--------+ :AT (<70 ms):30:38 :44:52:26 :38: + +--------+-------+--------+--------+-------+--------+ :Acceleration (>3 m/s/s):10.3:8.5:4.7 :4.9 :6.1:5.0 : + +--------+-------+--------+--------+-------+--------+ :Early systolic peak:Normal. :Normal.:Normal. :Normal. :Normal.: Normal. : + +--------+-------+--------+--------+-------+--------+ :RI (0.55 - 0.70) :0.74:0.72 :0.72:0.72:0.78 :0.75: + +--------+-------+--------+--------+-------+--------+ Urinary Bladder: + + + :Size :Nondistended. : + + + :Wall :Normal. : + + + :Ureteral Jets:Bilateral ureteral jets were demonstrated.: + + + Procedure Note Eleazar, Incoming Imaging Results - ThuJul 07, 2016 4:47 PM COIL WINDER REPAIR [facility] Department of Radiology Ultrasound Division [address] [place] [address] ULTRASOUND REPORT NAME: JODI AREVALO Date of Service: 07/07/2016 MRN NO.: [id number] Review Date: 07/07/2016 Patient's : 1960 Resident/Tech: [id number] Tejas Garcia Patient's Age: 55 years Referring MD: JIHAN UREÑA Indication: 55 F, hx of CKD stage 3, hx of bilateral cysts. Technique: Renal grayscale ultrasound with spectral and color Doppler analysis. Findings: Kidney: + + + + + :Structure :Features : Right : Left : + + + + + :Kidney :Present/Absent:Present :Present : + + + + + : :Size (cm) :10.0 x 4.4 x 4.0 : : + + + + + : :Location :Normal :Normal : + + + + + : :Shape :Normal :Normal : + + + + + :Cortex :Echogenicity :Normal :Normal : + + + + + :Renal Pelvis: :No hydronephrosis.:No hydronephrosis.: + + + + + : : : : : + + + + + :Ureters : :Normal. :Normal. : + + + + + + + + + + :Right Kidney:Location :Size (cm) :Echogenicity: + + + + + :Lesion 1 :right lower pole:0.4 x 0.3 x 0.4:hyperechoic : + + + + + :Lesion 2 :right upper pole:1.0 x 0.6 x 0.7:anechoic : + + + + + + + + + + :Left Kidney:Location :Size (cm) :Echogenicity: + + + + + :Lesion 1 :left upper pole:0.6 x 0.6 x 0.8:anechoic : + + + + + Renal Doppler: Aortic PSV=98.9. + + + + : :Right Kidney :Left Kidney : + + + + :Renal artery PSV:57.7 cm/s. :103 cm/s : + + + + :MRV :biphasic and antegrade :biphasic and antegrade: + + + + + +--------+-------+--------+--------+-------+--------+ : :R Kidney: : :L Kidney: :: + +--------+-------+--------+--------+-------+--------+ : :Superior:Mid :Inferior:Superior:Mid:Inferior: + +--------+-------+--------+--------+-------+--------+ :AT (<70 ms) :30 :38 :44 :52 :26 :38: + +--------+-------+--------+--------+-------+--------+ :Acceleration (>3 m/s/s):10.3 :8.5 :4.7 :4.9 :6.1 :5.0: + +--------+-------+--------+--------+-------+--------+ :Early systolic peak :Normal. :Normal.:Normal. :Normal.:Normal.:Normal. : + +--------+-------+--------+--------+-------+--------+ :RI (0.55 - 0.70) :0.74 :0.72 :0.72 :0.72 :0.78 :0.75: + +--------+-------+--------+--------+-------+--------+ Urinary Bladder: + + + :Size :Nondistended. : + + + :Wall :Normal. : + + + :Ureteral Jets:Bilateral ureteral jets were demonstrated.: + + + IMPRESSION Impression: 1. Bilateral microvascular renal disease, indicated by high end segmental renal arterial resistive indices. 2. Small right lower pole hyperechoic lesion likely represents an angiomyolipoma. 3. Small right upper pole and left upper pole cysts. 4. Otherwise normal bilateral renal grayscale ultrasound, no evidence of significant renal artery stenosis and no evidence of occlusive renal vein thrombosis. --- Final --- FRUCTOSAMINE (07/01/2016 11:30 AM) Component Value Range Fructosamine 246Comment: 170-285 umol/L INTERPRETIVE INFORMATION:Fructosamine Variations in levels of serum proteins (albumin and immunoglobulins) may affect fructosamine results. Performed by [facility], [address] [place] [id number] [email or web address], Arnulfo Freeman MD, Lab. Director Specimen Blood Narrative Source: BLOOD Client Accession number: [id number]
--- OUTSIDE RECORDS SUMMARY | 2016-09-19 15:56 | XMS REPORT | Summary of Care ---
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 Refill(s) , Start Date: 02/19/15 10:05:00 CDT Special Instructions: 50mg in the AM and 50mg in the PM Start Date: 02/19/15 Status: Orderedtorsemide Oral, Daily, 0 Refill(s), Start Date: 05/01/15 10:14:00 CDT Start Date: 05/01/15 Stop Date: 09/18/15 Status: Completedtorsemide 10 mg oral tablet 1 tab(s), Oral, BID, # 60 tab(s), 0 Refill(s), Pharmacy: [place], [place] Start Date: 12/30/13 Stop Date: 03/08/14 Status: Discontinuedtorsemide 10 mg oral tablet 1 tab(s), Oral, BID, # 60 tab(s), 0 Refill(s), Pharmacy: [place], [place] Start Date: 12/14/13 Stop Date: 12/30/13 Status: Completedtorsemide 10 mg oral tablet 1 tab(s), Oral, Daily, # 30 tab(s), 0 Refill(s) Start Date: 11/24/13 Stop Date: 12/14/13 Status: Discontinuedtorsemide 20 mg oral tablet 2 tab(s), Oral, Daily, 0 Refill(s), Start Date: 09/18/15 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 Start Date: 09/18/15 Stop Date: 12/25/15 Status: Discontinuedtorsemide 20 mg oral tablet 2 tab(s), Oral, Daily, # 60 tab(s), 0 Refill(s), Start Date: 12/25/15 14:15:00 CDT, other reason (Rx) Start Date: 12/25/15 Status: OrderedtraMADol 50 mg oral tablet tab(s), Oral, q4hr interval, take 1 - 2 Tablet (50MG) by oral route every 8 hours as needed, 0 Refill(s) Special Instructions: take 1 - 2 Tablet (50MG) by oral route every 8 hours as needed Start Date: 11/24/13 Stop Date: 03/08/14 Status: DiscontinuedtraMADol 50 mg oral tablet 1 tab(s), Oral, q4hr interval, PRN for pain, 0 Refill(s), Start Date: 05/01/15 10:14:00 CDT Start Date: 05/01/15 Status: OrderedUltram 50 mg oral tablet See Instructions, PRN for pain, 1-2 tabs QID prn, 0 Refill(s), Start Date: 01/15 10:57:00 CDT Special Instructions: 1-2 tabs QID prn Start Date: 01/15/15 Stop Date: 06/18/15 Status: CompletedVagifem 10 mcg vaginal tablet 1 EA, Vaginal, 2x/Wk, # 9 tab(s), 11 Refill(s), Start Date: 12/11/14 13:48:00 CDT, [facility] [place] Start Date: 12/11/14 Stop Date: 01/15/15 Status: CompletedVitamin C 0 Refill(s) Start Date: 12/14/13 Stop Date: 01/13/14 Status: DiscontinuedVitamin D3 1000 intl units oral tablet 1 tab(s), Oral, Daily, # 30 tab(s), 0 Refill(s), Start Date: 11/24/13 10:11:00 CDT Start Date: 11/24/13 Status: OrderedVoltaren 1% topical gel 1 chastity, Topical, QID, apply 2 grams, # 100 gm, 0 Refill(s), Start Date: 05/23/15 13:39:00 CDT, Pharmacy: [place], [place] Special Instructions: apply 2 grams Start Date: 05/23/15 Stop Date: 09/18/15 Status: CompletedZanaflex 4 mg oral capsule 1 cap(s), Oral, TID, # 90 cap(s), 0 Refill(s) Start Date: 11/24/13 Stop Date: 01/13/14 Status: DiscontinuedZofran 0 Refill(s), Start Date: 05/01/15 10:15:00 CDT Start Date: 05/01/15 Stop Date: 09/18/15 Status: Completedzolpidem 10 mg oral tablet 1 tab(s), Oral, HS, PRN for sleep, 0 Refill(s) Start Date: 11/24/13 Stop Date: 03/08/14 Status: DiscontinuedZyrTEC 10 mg oral tablet 1 tab(s), Oral, Daily, # 30 tab(s), 1 Refill(s), Start Date: 05/29/14 15:33:00 CDT, [facility] [place] Start Date: 05/29/14 Stop Date: 10/18/14 Status: CompletedZyrTEC 10 mg oral tablet 1 tab(s), Oral, Daily, # 30 tab(s), 0 Refill(s) Start Date: 11/24/13 Stop Date: 01/13/14 Status: Discontinued Results No data available for this section Immunizations Vaccine Date Refusal Reason haemophilus b conjugate (PRP-T) vaccine 06/23/12 influenza virus vaccine, inactivated 05/29/14 influenza virus vaccine, inactivated 05/25/13 meningococcal conjugate vaccine 06/23/12 pneumococcal 23-polyvalent vaccine 05/25/13 tetanus/diphtheria/pertussis, acel(Tdap) 06/23/12 tetanus-diphth toxoids (Td) adult/adol 06/03/07 Procedures Procedure Date Related Diagnosis Body Site Release Trigger Finger (Left, Thumb L)1 09/19/15 Release Carpal Tunnel (Left, Hand L)2 10/23/14 Arthroplasty Metacarpal (Right)3 02/15/14 Release Carpal Tunnel (Right)4 12/07/13 Release Cubital Tunnel (Right)5 12/07/13 Eye surgery 1998 Cholecystectomy and exploration of bile duct 1988 CS - section 1987 Hysterectomy/salpingo-oophorectomy 1987 Appendectomy 1979 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 Esophagoduodenostomy with biopsy Foot examination performed (includes examination through visual inspection, sensory exam with monofilament, and pulse exam - report when any of the three components are completed) (DM) Pelvic sling Splenectomy Tonsillectomy Total hysterectomy 1auto-populated from documented surgical [id number] from documented surgical [id number] from documented surgical [id number] from documented surgical [id number] from documented surgical case Social History No data available for this section Assessment and Plan No data available for this section
--- OUTSIDE RECORDS SUMMARY | 2016-09-19 15:57 | XMS REPORT | Summary of Care ---
:1960 Author Organization [facility] Address [address] [place] [address]- Care Team Providers Name Role Phone Jaden Mateusz Bloom Primary Care Physician Encounter Date(s): 12/25/15 - 12/25/[address] [address]- [facility] Discharge Disposition: Discharged to Home or Self Care Attending Physician: Job Velasco MD Admitting Physician: Job Velasco MD Vital Signs No data available for this section Problem List Condition Effective Dates Status Health [...] Vomiting Active 1Abstraction tool stated Bee Sting [id number] Gtutzqntj9PXFF CONTAINING THJCWXZF2Mfzitzveltgg Medications albuterol CFC free 90 mcg/inh inhalation [...] Daily, 0 Refill(s), Start Date: 10/02/14 11:11:00 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 Start Date: 10/02/14 Stop Date: 02/20/15 Status: [...] Refill(s), Start Date: 05/29/14 15:37:00 CDT, [facility] [facility] [place] [place] Start Date: 05/29/14 Stop Date: 10/18/14 [...] tab(s), 0 Refill(s), Start Date: 10/02/14 11:11:00 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 Start Date: 10/02/14 Stop Date: 02/13/15 Status: CompletedDitropan 5 mg oral tablet 1 tab(s), Oral, TID, # 90 tab(s), 11 Refill(s), [facility] [place] [place] Start Date: 11/30/13 Stop Date: 12/11/14 Status: YlsglrtbwfbuFmn-L-Spff 100 mg oral capsule 1 cap(s), Oral, [...] Refill(s), Start Date: 02/13/15 12:46:00 CDT, [facility] [place] [place] Start Date: 02/13/15 Stop Date: 02/20/15 [...] days, # 5 mL, 0 Refill(s), [facility] [place] Start Date: 05/02/14 Stop Date: 05/09/14 [...] units., # 1 QS, 0 Refill(s), Pharmacy: [place], [place] Special Instructions: AM 50 units noon [...] qPM, 0 Refill(s), Start Date: 09/18/15 10:12:00 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 Start Date: 09/18/15 Status: OrderedLantus 25 untis, Subcutaneous, qAM, 0 Refill(s), Start Date: 09/18/15 10:12:00 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 Start Date: 09/18/15 Status: Orderedlevothyroxine 112 mcg [...] cap(s), 0 Refill(s), Start Date: 08/07/14 15:01:00 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, [facility] [facility] [place] [place] Start Date: 08/07/14 Stop Date: 11/13/14 [...] HS, # 30 cap(s), 11 Refill(s), [facility] [place] Start Date: 01/13/14 Stop Date: 03/08/14 Status: Discontinuedomeprazole 40 mg oral delayed release capsule 1 cap(s), Oral, BID, # 30 cap(s), 11 Refill(s), Pharmacy: [place], [place] Start Date: 03/08/14 Stop Date: 03/29/14 Status: Completedomeprazole 40 mg oral delayed release capsule 1 cap(s), Oral, Daily, # 30 cap(s), 11 Refill(s), Pharmacy: [place], [place] Start Date: 03/29/14 Status: Orderedondansetron 8 [...] tab(s), 0 Refill(s), Start Date: 09/19/15 7:02:00 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, Pharmacy: [place], [place] Special Instructions: not to exceed 4000 [...] Start Date: 01/03/15 9:13:29 CDT , Pharmacy: [facility] Start Date: 01/03/15 Stop Date: 06/18/15 Status: CompletedPlaquenil Sulfate 200 mg oral tablet 1 tab(s), Oral, BID, # 180 tab(s), 3 Refill(s), Start Date: 10/11/15 13:38:34 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, Pharmacy: [facility] [place] [place] Start Date: 10/11/15 Stop Date: 10/15/15 Status: CompletedPlaquenil Sulfate 200 mg oral tablet 1 tab(s), Oral, BID, 0 Refill(s), Start Date: 09/17/15 13:24:00 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 Start Date: 09/17/15 Stop Date: 12/03/15 Status: CompletedPlaquenil Sulfate 200 mg oral tablet 1 tab(s), Oral, BID, # 180 tab(s), 3 Refill(s), Start Date: 10/15/15 16:41:40 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, Pharmacy: [facility] [place] [place] Start Date: 10/15/15 Status: OrderedPlaquenil Sulfate 200 mg oral tablet 1 tab(s), Oral, BID, # 60 tab(s), 3 Refill(s), Start Date: 09/01/14 9:49:00 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 , Pharmacy: [facility] [place] [place] Start Date: 09/01/14 Stop Date: 10/02/14 Status: CompletedPlaquenil Sulfate 200 mg oral tablet 1 tab(s), Oral, BID, # 360 tab(s), 3 Refill(s), Start Date: 10/02/14 12:01:00 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, Pharmacy: [facility] [place] [place] Start Date: 10/02/14 Stop Date: 01/03/15 [...] 2x/Wk, # 42 gm, 4 Refill(s), [facility] [place] [place] Start Date: 11/30/13 Stop Date: 10/18/14 [...] tab(s), 11 Refill(s), Start Date: 09/20/14 8:43:11 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, [facility] [place] [place] Start Date: 09/20/14 Status: Orderedranitidine 150 mg oral tablet 0.5 tab(s), Oral, BID, # 30 tab(s), 0 Refill(s), Start Date: 05/29/14 14:45:00 CDT, other reason (Rx) Start Date: 05/29/14 Stop Date: 06/07/14 Status: Completedranitidine 150 mg oral tablet 0.5 tab(s), Oral, BID, # 30 tab(s), 0 Refill(s), Start Date: 06/07/14 11:00:27 CDT, Pharmacy: [facility] [place], [place] Start Date: 06/07/14 Stop Date: 07/04/14 Status: Completedranitidine 150 mg oral tablet 0.5 tab(s), Oral, BID, # 30 tab(s), 0 Refill(s), Start Date: 07/04/14 11:43:04 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, [facility] [place] [place] Start Date: 07/04/14 Stop Date: 08/16/14 Status: Completedranitidine 150 mg oral tablet tab(s), Oral, BID, 0 Refill(s) Start Date: 12/14/13 Stop Date: 05/29/14 Status: Discontinuedranitidine 150 mg oral tablet 0.5 tab(s), Oral, BID, # 30 tab(s), 0 Refill(s), Start Date: 08/16/14 8:21:25 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, [facility] [place] [place] Start Date: 08/16/14 Stop Date: 09/20/14 Status: Completedranitidine 75 mg oral tablet 1 tab(s), Oral, BID, # 60 tab(s), 0 Refill(s), [facility] [place] [place] Start Date: 05/08/14 Stop Date: 05/29/14 Status: Discontinuedranitidine 75 mg oral tablet tab(s), Oral, BID, 0 Refill(s) Start Date: 05/08/14 Stop Date: 05/08/14 Status: Discontinuedranitidine 75 mg oral tablet 1 tab(s), Oral, BID, # 60 tab(s), 0 Refill(s), Pharmacy: [facility] [place] [place] Start Date: 03/29/14 Stop Date: 04/20/14 [...] BID, # 60 tab(s), 0 Refill(s), Pharmacy: [place], [place] Start Date: 12/30/13 Stop Date: 03/08/14 Status: Discontinuedtorsemide 10 mg oral tablet 1 tab(s), Oral, BID, # 60 tab(s), 0 Refill(s), Pharmacy: [place], [place] Start Date: 12/14/13 Stop Date: 12/30/13 Status: Completedtorsemide 10 mg oral tablet 1 tab(s), Oral, Daily, # 30 tab(s), 0 Refill(s) Start Date: 11/24/13 Stop Date: 12/14/13 Status: Discontinuedtorsemide 20 mg oral tablet 2 tab(s), Oral, Daily, 0 Refill(s), Start Date: 09/18/15 10:13:00 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 Start Date: 09/18/15 Stop Date: 12/25/15 Status: [...] Refill(s), Start Date: 12/11/14 13:48:00 CDT, Pharmacy: [place], [place] Start Date: 12/11/14 Stop Date: 01/15/15 [...] Refill(s), Start Date: 05/23/15 13:39:00 CDT, Pharmacy: [place], [place] Special Instructions: apply 2 grams Start [...] Refill(s), Start Date: 05/29/14 15:33:00 CDT, [facility] [facility] [place] Start Date: 05/29/14 Stop Date: 10/18/14 Status: CompletedZyrTEC 10 mg oral tablet 1 tab(s), Oral, Daily, # 30 tab(s), 0 Refill(s) Start Date: 11/24/13 Stop Date: 01/13/14 Status: Discontinued Results Patient Viewable Results Most recent to oldest [Reference Range]: 1 WBC [4.8-10.8 thou/mm3] 9.2 thou/mm3 (12/25/15 10:18 AM) RBC [4.20-5.40 Mil/mm3] 3.89 Mil/mm3 *LOW* (12/25/15 10:18 AM) Hgb [12.0-16.0 g/dL] 10.6 g/dL *LOW* (12/25/15 10:18 AM) Hct [37.0-47.0 %] 34.2 % *LOW* (12/25/15 10:18 AM) MCV [80.0-94.0 fL] 87.9 fL (12/25/15 10:18 AM) MCH [25.0-38.0 pg/cell] 27.2 pg/cell (12/25/15 10:18 AM) MCHC [31.0-37.0 g/dL] 31.0 g/dL (12/25/15 10:18 AM) RDW [1.0-48.0 fL] 54.3 fL *HI* (12/25/15 10:18 AM) Platelet [130-400 thou/mm3] 317 thou/mm3 (12/25/15 10:18 AM) Neutrophils % Auto [50.0-75.0 %] 42.6 % *LOW* (12/25/15 10:18 AM) Immature Granulocyte Auto [0.1-2.0 %] 0.2 % (12/25/15 10:18 AM) Lymphocytes % Auto [15.0-41.0 %] 38.3 % (12/25/15 10:18 AM) Monocytes % Auto [2.0-10.0 %] 9.0 % (12/25/15 10:18 AM) Eosinophils % Auto [0.0-6.0 %] 8.6 % *HI* (12/25/15 10:18 AM) Basophil % Auto [0.0-1.0 %] 1.3 % *HI* (12/25/15:18 AM) Neutrophils Absolute [1.5-5.9 thou/mm3] 3.9 thou/mm3 (12/25/15 10:18 AM) Immature Gran Absolute [0.01-0.03 thou/mm3] 0.02 thou/mm3 (12/25/15 10:18 AM) Lymphocytes Absolute [1.5-4.0 thou/mm3] 3.5 thou/mm3 (12/25/15 10:18 AM) Monocytes Absolute [0.0-0.9 thou/mm3] 0.8 thou/mm3 (12/25/15 10:18 AM) Eosinophil Absolute [0.0-0.7 thou/mm3] 0.8 thou/mm3 *HI* (12/25/15:18 AM) Basophil Absolute [0.0-0.2 thou/mm3] 0.1 thou/mm3 (12/25/15 10:18 AM) Sodium Lvl [135-144 mEq/L] 142 mEq/L (12/25/15 10:18 AM) Potassium Lvl [3.3-4.8 mEq/L] 4.3 mEq/L (12/25/15:18 AM) Chloride Lvl [98-107 mEq/L] 111 mEq/L *HI* (12/25/15 10:18 AM) Bicarbonate Lvl [22-30 mmol/L] 20 mmol/L *LOW* (12/25/15:18 AM) Anion Gap [10.0-20.0] 15.3 (12/25/15 10:18 AM) Glucose Lvl [70-108 mg/dL] 124 mg/dL *HI* (12/25/15:18 AM) BUN [7-21 mg/dL] 32 mg/dL *HI* (12/25/15:18 AM) Creatinine Lvl [0.50-1.20 mg/dL] 1.12 mg/dL (12/25/15:18 AM) BUN/Creat Ratio 28.6 *NA* (12/25/15:18 AM) eGFR AA [>=60] >60 (12/25/15 10:18 AM) eGFR NICCI [>=60] 51 *LOW* (12/25/15: AM) Calcium Lvl [8.6-10.2 mg/dL] 9.1 mg/dL (12/25/15:18 AM) PTH, Intact [14-72 pg/mL] 28 pg/mL (12/25/15: AM) Vitamin D 25 OH [20-100 ng/mL] 38 ng/mL (12/25/15: AM) Albumin Lvl [3.5-5.2 g/dL] 3.9 g/dL (12/25/15:18 AM) Magnesium Lvl [1.6-2.4 mg/dL] 1.8 mg/dL (12/25/15:18 AM) Phosphorus Lvl [2.7-4.5 mg/dL] 3.6 mg/dL (12/25/15:18 AM) FE [50-170 mcg/dL] 72 mcg/dL (12/25/15:18 AM) Iron Binding Capacity, Total [228-428 mcg/dL] 281 mcg/dL (12/25/15 10:18 AM) % Iron Saturation [20-50 %] 26 % (12/25/15:18 AM) Ferritin Lvl [10-291 ng/mL] 79 ng/mL (12/25/15:18 AM) Microalbumin, Ur <12 mg/L *NA* (12/25/15 10:25 AM) Creatinine, Urine MA 70.9 mg/dL *NA* (12/25/15 10:25 AM) Ur Microalb/Creat Ratio [0-29 mg/g Cr] <17 mg/g Cr (12/25/15 10:25 AM) Estimated Creatinine Clearance 55.69 mL/min (12/25/15 10:57 AM) Immunizations Vaccine Date Refusal Reason haemophilus b [...] Tonsillectomy Total hysterectomy 1auto-populated from documented surgical [id number] from documented surgical [id number] from documented surgical [id number] from documented surgical [id number] from documented surgical case Social History No data available for this section Assessment and Plan No data available for this section
--- OUTSIDE RECORDS SUMMARY | 2016-09-19 15:59 | XMS REPORT | Summary of Care ---
:1960 Author Organization [facility] Address [address] [place] [address] Care Team Providers Name Role Phone Mateusz Stanley Primary Care Physician Encounter Date(s): 12/25/15 - 12/25/15 [facility], [address] [place], [place] [address] Discharge Diagnosis: Anemia Discharge Disposition: 01 Discharged to Home or Self Care Attending Physician: Job Velasco MD Referring Physician: Job Velasco MD Vital Signs Most recent to oldest [Reference Range]: 1 Temperature Temporal Artery [36.5-38.0 DegC] 36.3 DegC *LOW* (12/25/15 10:53 AM) Peripheral Pulse Rate [60-100 bpm] 74 bpm (12/25/15 10:53 AM) Respiratory Rate [12-20 br/min] 18 br/min (12/25/15 10:53 AM) SpO2 98 % (12/25/15 10:53 AM) Blood Pressure [90-130/60-90 mmHg] 110/64mmHg (12/25/15 10:53 AM) Mean Arterial Pressure, Cuff 79 mmHg (12/25/15 10:53 AM) Most recent to oldest [Reference Range]: 1 Height/Length Measured 170 cm (12/25/15 10:53 AM) Height/Length Estimated 170 cm (12/25/15 10:53 AM) Weight Estimated 63.8 kg (12/25/15 10:53 AM) Weight Dosing 63.8 kg (12/25/15 10:53 AM) Weight Measured 63.8 kg (5/17/16 10:53 AM) BSA Measured 1.74 m2 (12/25/15 10:53 AM) BSA Estimated 1.74 m2 (12/25/15 10:53 AM) Body Mass Index Measured 22.08 kg/m2 (12/25/15 10:53 AM) Body Mass Index Estimated 22.08 kg/m2 (12/25/15 10:53 AM) Problem List Condition Effective Dates Status Health [...] Vomiting Active 1Abstraction tool stated Bee Sting Lsd8Dixcuhihn Uyhowzwkn6FVBK CONTAINING LXBLTMIS7Nknyrezfebrn Medications albuterol CFC free 90 mcg/inh inhalation [...] Daily, 0 Refill(s), Start Date: 10/02/14 11:11:00 TURBINE SUBASSEMBLER Start Date: 10/02/14 Stop Date: 02/20/15 Status: [...] Refill(s), Start Date: 05/29/14 15:37:00 CDT, [facility] [place] Start Date: 05/29/14 Stop Date: 10/18/14 [...] tab(s), 0 Refill(s), Start Date: 10/02/14 11:11:00 TURBINE SUBASSEMBLER Start Date: 10/02/14 Stop Date: 02/13/15 Status: CompletedDitropan 5 mg oral tablet 1 tab(s), Oral, TID, # 90 tab(s), 11 Refill(s), [facility] [facility] Start Date: 11/30/13 Stop Date: 12/11/14 Status: LsdugcqgebocPxp-H-Dpuj 100 mg oral capsule 1 cap(s), Oral, [...] Refill(s), Start Date: 02/13/15 12:46:00 CDT, Pharmacy: [place], [place] Start Date: 02/13/15 Stop Date: 02/20/15 [...] days, # 5 mL, 0 Refill(s), Pharmacy: [place] Start Date: 05/02/14 Stop Date: 05/09/14 [...] units., # 1 QS, 0 Refill(s), Pharmacy: [place], [place] Special Instructions: AM 50 units noon [...] qPM, 0 Refill(s), Start Date: 09/18/15 10:12:00 TURBINE SUBASSEMBLER Start Date: 09/18/15 Status: OrderedLantus 25 untis, Subcutaneous, qAM, 0 Refill(s), Start Date: 09/18/15 10:12:00 TURBINE SUBASSEMBLER Start Date: 09/18/15 Status: Orderedlevothyroxine 112 mcg [...] cap(s), 0 Refill(s), Start Date: 08/07/14 15:01:00 TURBINE SUBASSEMBLER, Pharmacy: [place], [place] Start Date: 08/07/14 Stop Date: 11/13/14 [...] HS, # 30 cap(s), 11 Refill(s), Pharmacy: [place], [place] Start Date: 01/13/14 Stop Date: 03/08/14 Status: Discontinuedomeprazole 40 mg oral delayed release capsule 1 cap(s), Oral, BID, # 30 cap(s), 11 Refill(s), Pharmacy: [place], [place] Start Date: 03/08/14 Stop Date: 03/29/14 Status: Completedomeprazole 40 mg oral delayed release capsule 1 cap(s), Oral, Daily, # 30 cap(s), 11 Refill(s), [facility] [place] Start Date: 03/29/14 Status: Orderedondansetron 8 [...] tab(s), 0 Refill(s), Start Date: 09/19/15 7:02:00 TURBINE SUBASSEMBLER, Pharmacy: [facility], [place] Special Instructions: not to exceed 4000 [...] tab(s), 3 Refill(s), Start Date: 10/11/15 13:38:34 TURBINE SUBASSEMBLER, Pharmacy: [facility] [place], [place] Start Date: 10/11/15 Stop Date: 10/15/15 Status: CompletedPlaquenil Sulfate 200 mg oral tablet 1 tab(s), Oral, BID, 0 Refill(s), Start Date: 09/17/15 13:24:00 TURBINE SUBASSEMBLER Start Date: 09/17/15 Stop Date: 12/03/15 Status: CompletedPlaquenil Sulfate 200 mg oral tablet 1 tab(s), Oral, BID, # 180 tab(s), 3 Refill(s), Start Date: 10/15/15 16:41:40 TURBINE SUBASSEMBLER, Pharmacy: [facility] [place], [place] Start Date: 10/15/15 Status: OrderedPlaquenil Sulfate 200 mg oral tablet 1 tab(s), Oral, BID, # 60 tab(s), 3 Refill(s), Start Date: 09/01/14 9:49:00 TURBINE SUBASSEMBLER , Pharmacy: [facility] [place], [place] Start Date: 09/01/14 Stop Date: 10/02/14 Status: CompletedPlaquenil Sulfate 200 mg oral tablet 1 tab(s), Oral, BID, # 360 tab(s), 3 Refill(s), Start Date: 10/02/14 12:01:00 TURBINE SUBASSEMBLER, Pharmacy: [facility] [place], [place] Start Date: 10/02/14 Stop Date: 01/03/15 [...] 2x/Wk, # 42 gm, 4 Refill(s), [facility] [facility] [place] Start Date: 11/30/13 Stop Date: 10/18/14 [...] tab(s), 11 Refill(s), Start Date: 09/20/14 8:43:11 TURBINE SUBASSEMBLER, Pharmacy: [facility] [place], [place] Start Date: 09/20/14 Status: Orderedranitidine 150 mg oral tablet 0.5 tab(s), Oral, BID, # 30 tab(s), 0 Refill(s), Start Date: 05/29/14 14:45:00 CDT, other reason (Rx) Start Date: 05/29/14 Stop Date: 06/07/14 Status: Completedranitidine 150 mg oral tablet 0.5 tab(s), Oral, BID, # 30 tab(s), 0 Refill(s), Start Date: 06/07/14 11:00:27 CDT, Pharmacy: [facility] [place], [place] Start Date: 06/07/14 Stop Date: 07/04/14 Status: Completedranitidine 150 mg oral tablet 0.5 tab(s), Oral, BID, # 30 tab(s), 0 Refill(s), Start Date: 07/04/14 11:43:04 TURBINE SUBASSEMBLER, Pharmacy: [place], [place] Start Date: 07/04/14 Stop Date: 08/16/14 Status: Completedranitidine 150 mg oral tablet tab(s), Oral, BID, 0 Refill(s) Start Date: 12/14/13 Stop Date: 05/29/14 Status: Discontinuedranitidine 150 mg oral tablet 0.5 tab(s), Oral, BID, # 30 tab(s), 0 Refill(s), Start Date: 08/16/14 8:21:25 TURBINE SUBASSEMBLER, Pharmacy: [place], [place] Start Date: 08/16/14 Stop Date: 09/20/14 Status: Completedranitidine 75 mg oral tablet 1 tab(s), Oral, BID, # 60 tab(s), 0 Refill(s), Pharmacy: [place], [place] Start Date: 05/08/14 Stop Date: 05/29/14 Status: Discontinuedranitidine 75 mg oral tablet tab(s), Oral, BID, 0 Refill(s) Start Date: 05/08/14 Stop Date: 05/08/14 Status: Discontinuedranitidine 75 mg oral tablet 1 tab(s), Oral, BID, # 60 tab(s), 0 Refill(s), Pharmacy: [place] Start Date: 03/29/14 Stop Date: 04/20/14 [...] BID, # 60 tab(s), 0 Refill(s), Pharmacy: [place] Start Date: 12/30/13 Stop Date: 03/08/14 Status: Discontinuedtorsemide 10 mg oral tablet 1 tab(s), Oral, BID, # 60 tab(s), 0 Refill(s), Pharmacy: [place], [place] Start Date: 12/14/13 Stop Date: 12/30/13 Status: Completedtorsemide 10 mg oral tablet 1 tab(s), Oral, Daily, # 30 tab(s), 0 Refill(s) Start Date: 11/24/13 Stop Date: 12/14/13 Status: Discontinuedtorsemide 20 mg oral tablet 2 tab(s), Oral, Daily, 0 Refill(s), Start Date: 09/18/15 10:13:00 [employer] Start Date: 09/18/15 Stop Date: 12/25/15 Status: [...] Refill(s), Start Date: 12/11/14 13:48:00 CDT, [facility]acy: [facility] [place], [place] Start Date: 12/11/14 Stop Date: 01/15/15 [...] Refill(s), Start Date: 05/23/15 13:39:00 CDT, [facility]acy: [facility] [place], [place] Special Instructions: apply 2 grams Start [...] Start Date: 05/29/14 15:33:00 CDT, [facility]acy: [facility] [place] [place] Start Date: 05/29/14 Stop Date: 10/18/14 Status: CompletedZyrTEC 10 mg oral tablet 1 tab(s), Oral, Daily, # 30 tab(s), 0 Refill(s) Start Date: 11/24/13 Stop Date: 01/13/14 Status: Discontinued Results Patient Viewable Results Most recent to oldest [Reference Range]: 1 Estimated Creatinine Clearance 61.76 mL/min (12/25/15 10:54 AM) Immunizations Vaccine Date Refusal Reason haemophilus [...] Tonsillectomy Total hysterectomy 1auto-populated from documented surgical [id number] from documented surgical [id number] from documented surgical [id number] from documented surgical [id number] from documented surgical case Social History No data available for this section Assessment and Plan No data available for this section
[2016-09-19 16:15] LABS: Albumin * 3.4 gm/dl (3.4-5.0); Anion Gap 12.7 mmol/L (6.8-13.8); BUN/Creatinine Ratio 19.4 (9.0-21.6); Bilirubin, Total 0.2 mg/dL (0.0-1.1); Ca. Corrected For Albumin 9.5 mg/dL (8.4-10.2); Calcium * 9.3 mg/dL (7.9-10.9); Carbon Dioxide 24.5 mmol/L (24-32.6); Potassium 4.2 mmol/L (3.4-4.6); Total Protein 6.5 gm/dL (6.2-8.2)
[2016-09-19 16:18] LABS: Urine Bilirubin Negative (NEGATIVE); Urine Blood Negative /ul (NEGATIVE); Urine Color Yellow; Urine Ketone Negative (NEGATIVE); Urine Nitrite Negative (NEGATIVE); Urine Protein Negative (NEGATIVE); Urine Urobilinogen Normal (NORMAL)
[2016-09-19 16:19] LABS: Urine Bacteria 1+; Urine RBC None Seen /hpf (0-5)
[2016-09-19 16:20] LABS: Urine Appearance Slightly Cloudy
--- NOTE | 2016-09-19 17:04 | ERNOTE ---
Medical Problem HPI - Narrative Date of Service: 09/19/16 - General Chief Complaint: General Assessment Time Seen by Provider: 09/19/16 15:33 Source: patient Exam Limitations: no limitations - Immun/Allergies/Home Medications Immunizations: IMMUNIZATION HX Immunizations Up to Date Yes History of Influenza Vaccine Yes Hx Pneumococcal Vaccination Yes Allergies/Adverse Reactions: Allergies bee venom (honey bee) Allergy (Severe, Verified 09/19/16 15:01) Anaphylaxis cefaclor [Cefaclor] Allergy (Severe, Verified 09/19/16 15:01) THROAT SWELLING, SOB penicillin G Allergy (Severe, Verified 09/19/16 15:01) Anaphylaxis Penicillins Allergy (Severe, Verified 09/19/16 15:01) Anaphylaxis codeine Allergy (Intermediate, Verified 09/19/16 15:01) Shortness of Breath meperidine [Meperidine] Allergy (Intermediate, Verified 09/19/16 15:01) HIVES, CANT BREATHE nabumetone [Nabumetone] Allergy (Intermediate, Verified 09/19/16 15:01) DIFF BREATHING prochlorperazine Allergy (Intermediate, Verified 09/19/16 15:01) Shortness of Breath bethanechol [Bethanechol] Allergy (Mild, Verified 09/19/16 15:01) HIVES, MIGRAINES chlorpheniramine maleate [From Ornade] Allergy (Mild, Verified 09/19/16 15:01) Hives chocolate flavor Allergy (Mild, Verified 09/19/16 15:01) Hives ciprofloxacin Allergy (Mild, Verified 09/19/16 15:01) Hives digoxin Allergy (Mild, Verified 09/19/16 15:01) Hives doxycycline Allergy (Mild, Verified 09/19/16 15:01) Hives Fish Containing Products Allergy (Mild, Verified 09/19/16 15:01) Hives FISH latex Allergy (Mild, Verified 09/19/16 15:01) Hives metoclopramide Allergy (Mild, Verified 09/19/16 15:01) HIVES, CANT BREATHE metolazone [Metolazone] Allergy (Mild, Verified 09/19/16 15:01) Hives phenylpropanolamine HCl [From Ornade] Allergy (Mild, Verified 09/19/16 15:01) Hives salmeterol Allergy (Mild, Verified 09/19/16 15:01) HIVES, LEG CRAMPS strawberry [[place]] Allergy (Mild, Verified 09/19/16 15:) Hives sulfamethoxazole Allergy (Mild, Verified 09/19/16 15:) Hives trimethoprim Allergy (Mild, Verified 09/19/16 15:) Hives bumetanide Allergy (Unknown, Verified 09/19/16 15:) chlorpheniramine Allergy (Unknown, Verified 09/19/16 15:) furosemide Allergy (Unknown, Verified 09/19/16 15:01) phenazopyridine [Phenazopyridine] Allergy (Unknown, Verified 09/19/16 15:) phenylpropanolamine Allergy (Unknown, Verified 09/19/16 15:) atorvastatin Adverse Reaction (Mild, Verified 09/19/16 15:) LEG CRAMPS cisapride [Cisapride] Adverse Reaction (Mild, Verified 09/19/16 15:) Vomiting fenofibrate Adverse Reaction (Mild, Verified 09/19/16 15:) LEG CRAMPS gabapentin Adverse Reaction (Mild, Verified 09/19/16 15:) MIGRAINE, SEVERE LETHARGY glyburide Adverse Reaction (Mild, Verified 09/19/16 15:) Vomiting hydrochlorothiazide Adverse Reaction (Mild, Verified 09/19/16 15:) LEG CRAMPS, MIGRAINE irbesartan Adverse Reaction (Mild, Verified 09/19/16 15:) Hives omeprazole Adverse Reaction (Mild, Verified 09/19/16 15:) Vomiting repaglinide Adverse Reaction (Mild, Verified 09/19/16 15:01) LEG CRAMPS rosuvastatin Adverse Reaction (Mild, Verified 09/19/16 15:01) LEG CRAMPS triamterene [Triamterene] Adverse Reaction (Mild, Verified 09/19/16 15:01) LEG CRAMPS, MIGRAINES Home Medications: HOME MEDICATIONS Aspirin [Aspirin Enteric Coated] 81 mg PO DAILY 12/29/14 [Last Taken 12/29/14] Diclofenac Sodium 75 mg PO BID 12/29/14 [Last Taken 12/29/14] Docusate Sodium [Stool Softener] 100 mg PO TID 12/29/14 [Last Taken 12/29/14] Hydroxychloroquine Sulfate [Plaquenil] 200 mg PO BID 12/29/14 [Last Taken ] Lactobacillus Combo No.10 [Probiotic] 1 each PO DAILY 12/29/14 [Last Taken 12/29] Omeprazole [Prilosec] 40 mg PO DAILY 12/29/14 [Last Taken 12/28/14] Rosuvastatin Calcium [Crestor] 40 mg PO DAILY 12/29/14 [Last Taken 12/29/14] Topiramate [Topiragen] 150 mg PO BID 12/29/14 [Last Taken 12/29/14] metFORMIN HCL [Glucophage] 1,000 mg PO BID 12/29/14 [Last Taken 12/29/14] Albuterol Sulfate [Proair Hfa] 2 puff IH Q4H PRN 01/19/15 [Last Taken Unknown] Blood Sugar Diagnostic, Drum [Accu-Chek Compact] 1 each ACHS 01/19/15 [Last Taken Unknown] Butalb/Acetaminophen/Caffeine [Fioricet 50-300-40 mg Capsule] 1 - 2 each PO Q4H PRN 01/19/15 [Last Taken Unknown] EPINEPHrine [Epipen] 0.3 mg IM ONCE PRN 01/19/15 [Last Taken Unknown] Glucagon,Human Recombinant [Glucagen] 1 mg IJ ONCE PRN 01/19/15 [Last Taken Unknown] Levothyroxine Sodium [Synthroid] 88 mcg PO DAILY 01/19/15 [Last Taken Unknown] Acetaminophen [Tylenol] 650 mg PO QID PRN #0 tablet 03/28/15 [Last Taken Unknown ] Fluconazole [Diflucan] 200 mg PO DAILY PRN #30 tablet 03/28/15 [Last Taken Unknown] Ondansetron [Zofran Odt] 8 mg PO Q6H #1 tab.rapdis 03/28/15 [Last Taken Unknown] Polyethylene Glycol 3350 [Miralax] 17 gm PO DAILY btl 03/28/15 [Last Taken Unknown] Polyvinyl Alcohol [Artificial Tears] 1 drop EACHEYE Q1H PRN #0 btl 03/28/15 [ Last Taken Unknown] Insulin Glargine,Hum.rec.anlog [Lantus] 25 units SC BID #4 vial 04/22/15 [Last Taken Unknown] Insulin Regular, Human [Humulin R U-500] 12 unit SC AC #1 vial 04/22/15 [Last Taken Unknown] Clindamycin HCl [Cleocin HCl] 300 mg PO Q8H #30 capsule 08/14/16 [Last Taken Unknown] Duloxetine HCl [Cymbalta] 30 mg PO DAILY 08/14/16 [Last Taken Unknown] Levofloxacin [Levaquin] 500 mg PO DAILY #10 tablet 08/28/16 [Last Taken Unknown] Ciprofloxacin HCl [Cipro] 500 mg PO BID #20 tab 09/19/16 [Last Taken Unknown] - History of Present History Narrative: Patient presents to the ED feeling fatigued. She relates that she has been feeling fatigued over the last several days. This is how she felt when she had a UTI and is concerned that she may have another UTI. No fever. Nothing really makes her Sx better or worse. 2 days ago she had some vomiting and diarrhea, resolved. She gets occasional low abdominal cramps and low back pains but debi now. No CP or SOB. has not seen anyone else for this. No syncope. Timing: intermittent Severity: mild Modifying Factors - (Improves): Present: other - nothing Modifying Factors - (Worsens): Present: other - nothing Review of Systems - Review of Systems Constitutional: Absent: fever ENT: Present: no symptoms reported Respiratory: Absent: shortness of breath Cardiology: Absent: chest pain Gastrointestinal/Abdominal: Present: See HPI Genitourinary: Present: See HPI Musculoskeletal: Present: See HPI Skin: Absent: rash Neurological: Absent: weakness Endocrine: Absent: other - fatigue - Patient's Past Medical History Patient History - Medical: Anemia, Chronic Pain, Diabetes Type 2 Insulin Dependent, GERD, Headache, Hypothyroidism, Liver Disease, Renal Disease, Other Patient History - Cardiac/Respiratory: No pertinent hx, Pneumonia Patient History - Cancer: No Hx of Cancer Patient History - Surgical Procedures: Appendectomy, Cholecystectomy, Colon Resection, , EGD, Hysterectomy, Other Patient History - Other: None LMP (females 10-50): Menopausal - Family History Mother Family History - Medical: Diabetes Type 2 Family History - Cardiac/Respiratory: No pertinent hx Father Family History - Medical: , Renal Disease, Renal Failure Family History - Cardiac/Respiratory: COPD - Social History Living Situations: home Abuse History: No History of abuse Psych History: No pertinent hx, Current tx/ever been on anti-depressants or anti -anxiety meds Smoking Status: Former smoker Alcohol Use: none Drug Use: none - Immunizations Immunizations Up to Date: Yes Hx Pneumococcal Vaccination: Yes History of Influenza Vaccine: Yes Physical Exam - Physical Exam General Appearance: Present: alert, no apparent distress, other - Sitting in the chair, watching TV. No distress, non-toxic, well hydrated. Eye Exam: Normal inspection: bilateral, PERRL: bilateral Ears, Nose, Throat: Present: normal ENT inspection. Absent: dry mucous membranes Neck: Present: normal inspection Respiratory: Present: no respiratory distress, no accessory muscle use, lungs clear Cardiovascular/Chest: Present: regular rate, rhythm Gastrointestinal/Abdominal: Present: normal bowel sounds, nontender, nondistended, soft Back Exam: Absent: CVA tenderness (R), CVA tenderness (L) Extremity Exam: Present: normal inspection Neurological Exam: Present: alert, normal mood/affect, no motor/sensory deficits , light technician II-XII nml as tested. Absent: motor weakness Skin Exam: Present: normal color. Absent: skin rash ED Progress - Results and Orders Patient's Lab Results:: I have reviewed the patient's lab results. - Vital Signs Patient's Vital Signs:: I have reviewed the patient's vital signs. Vital Signs: Vital Signs 09/19/16 14:54 Temperature 35.8 C L Pulse Rate 71 Respiratory 16 Rate Blood Pressure 112/66 O2 Sat by Pulse 98 Oximetry - Progress/Reassessment Chief Complaint: General Assessment Progress Note-Subjective: 09/19/16 16:58 Patient relates her anemia is chronic and she has been lower than 9. Denies active bleeding. now abdomen non-tender, no clinical findings of sepsis or toxicity. Nothing to suggest kidney stone. Repeat UTI noted. She feels like going home. Will re-start ABx. I discussed warning signs and reasons to return as well as the need for close f/u. Departure - Departure Clinical Impression: UTI (urinary tract infection) Disposition: Home self-care Instructions: Urinary Tract Infection, Adult, [id number] Additional Instructions: Rest. Fluids. Follow-up with primary doctor Thursday for a re-check. Return for fever, vomiting, flank pain or if your condition worsens or changes in any way. Referrals: Mateusz Stanley DO [Primary Care Provider] - Prescriptions: Ciprofloxacin HCl [Cipro] 500 mg PO BID #20 tab
== END 2016-09-19 17:20 | disposition home or self-care (01) ==
LOC: ER 14:33
DX: N39.0 Urinary tract infection, site not specified (principal); E11.9 Type 2 diabetes mellitus without complications; Z79.4 Long term (current) use of insulin; E03.9 Hypothyroidism, unspecified; Z87.891 Personal history of nicotine dependence; K21.9 Gastro-esophageal reflux disease without esophagitis

== ENCOUNTER 2016-10-08 11:31 | Day surgery (SDC) | payer MEDICARE, MEDICAID ==
--- OUTSIDE RECORDS SUMMARY | 2016-10-08 11:34 | XMS REPORT | Continuity of Care Document ---
:1960 Author Organization [employer] [place] [address] Care Team Providers Name Role Phone Yajaira Quinton Merle Primary Care Provider [phone] Source Comments This disclosure is being made pursuant to the [employer] program and maynot contain all information available regarding this patient.[employer] Active Allergies and Adverse Reactions Not on [...] Eye (Ophthalmology) Exam 1971 Foot Exam 1971 Tetanus/Pertussis (1 - Tdap) 1980 Pap Smear 1982 Colonoscopy 2011 Mammogram 2011 Well Adult Visit 2011 Influenza Immunization (#1) 2016 Results from Last 3 Months Not on file
--- OUTSIDE RECORDS SUMMARY | 2016-10-08 11:35 | XMS REPORT | Continuity of Care Document ---
:1960 Author Organization [facility] ([facility]) Address [address] [place] [address] Phone [phone] Care Team Providers Name Role Phone Mateusz Stanley Primary Care Provider [phone] Source Comments This disclosure is being made pursuant to the Care Everywhere program, applicable federal and state laws, and may not contain all informaitonavailable regarding this patient.[facility] ([facility]) Active Allergies and Adverse Reactions Allergen [...] Distress Omeprazole Unknown Other Agent 06/22/2012 Rash [place] and green pepper Penicillins Respiratory Distress Phenazopyridine Unknown Phenylpropanolamine Respiratory Distress Prochlorperazine Respiratory Distress Repaglinide OTHER LOW BLOOD SUGAR Salmeterol Respiratory Distress [place] Urticaria (Hives) Sulfamethoxazole Nausea & Vomiting Triamterene [...] mg by mouth Active tablet daily. EPINEPHrine (EPI-PEN) inject 0.3 mg Active 0.3 mg/0.3 mL intramuscularly once as injection syringe needed. glucagon (GLUCAGEN inject intramuscularly 1 Kit 04/27/20 Active HYPOKIT) 1 mg once as needed. 14 injection Indications: HYPOGLYCEMIC DISORDER SUPPLY KETOSTIX test For use in the event of 50 Strip 04/27/20 Active strips sustained hyperglycemia 14 Indications: DIAGNOSTIC TEST FOR KETONURIA topiramate 100 mg Take 150 mg by mouth 2 Active tablet times daily. Taking 100 mg tab omeprazole 40 mg Take 40 mg by mouth Active extended release daily. Indications: capsule GASTROESOPHAGEAL REFLUX levothyroxine 88 mcg Take 88 mcg by mouth Active tablet every morning before breakfast multivitamin with Take 1 Tab by mouth Active minerals (HAIR,SKIN & daily. NAILS) tablet docusate 100 mg Take 100 mg by mouth 3 Active capsule times daily as needed. cholecalciferol Take 1,000 Units by Active (VITAMIN D3) 2,000 mouth daily . unit tablet rosuvastatin (CRESTOR) Take 1 Tab by mouth 90 Tab 3 07/03/20 Active 40 mg tablet daily. Indications: 14 HYPERCHOLESTEROLEMIA hydroxychloroquine 200 Take 200 mg by mouth 2 Active mg tablet times daily diclofenac 75 mg EC Take 75 mg by mouth 2 Active tablet times daily. SUPPLY FREESTYLE For fingerstick glucose 1 Each 0 11/04/19 Active FREEDOM LITE meter testing Indications: 15 TYPE 2 DIABETES MELLITUS metFORMIN 500 mg Take 2 Tabs (1,000 mg 360 Tab 3 12/30/19 Active tablet total) by mouth 2 times 15 daily with meals LYRICA 200 mg capsule Take 200 mg by mouth 3 01/06/20 Active times daily. 15 SUPPLY FREESTYLE LITE 4 times daily 400 Strip 3 02/02/20 Active test strips 15 SUPPLY lancets Use to check blood 300 Each 3 02/02/20 Active sugar 4 times daily. 15 PSEUDOEPHEDRINE HCL Take by mouth as Active (SUDOGEST PO) needed. traMADol 50 mg tablet Take 1 tablet (50 mg 60 tablet 1 11/19/19 Active total) by mouth 3 times 16 daily as needed. lubiprostone (AMITIZA) Take 24 mcg by mouth 2 Active 24 mcg capsule times daily. Take with food and water. sulfaSALAzine 500 mg Start with 1 tabs 120 tablet 1 02/04/20 Active EC tablet daily, titrate up to 2 16 tab twice a day as tolerated. magnesium citrate Take 148 mL by mouth Active solution once. TAKES EVERY THREE DAYS bumetanide 2 mg tablet Take 2 mg by mouth Active daily. PRN for edema, insulin aspart Take three times per 40 mL 11 05/13/20 Active (NovoLOG) 100 unit/mL day before meals. Total 16 injection vial daily dose approximately 100U. cyclobenzaprine 5 mg Take 1 tablet (5 mg 30 tablet 0 05/13/20 Active tablet total) by mouth 2 times 16 daily as needed for Muscle spasms. etanercept (ENBREL Inject 50 mg 12 Each 3 05/19/20 Active SURECLICK) 50 mg/mL subcutaneously every 16 injection pen week. ondansetron 8 mg Take 1 tablet (8 mg 60 tablet 1 07/25/20 Active tablet total) by mouth every 16 12 hours as needed. SUPPLY insulin syringe Inject subcutaneously 3 300 3 08/08/20 Active w/ needle U-100 0.5 mL times daily. Syringe 16 30 g x 5/16" lactulose 10 g/15 mL Take 30 mL (20 g total) 1892 mL 11 08/13/19 Active solution by mouth 2 times daily. 17 insulin glargine Use as directed twice 15 mL 11 08/26/19 Active (BASAGLAR KWIKPEN) 100 daily. Total daily dose 17 unit/mL (3 mL) approximately 50 units injection pen per day. SUPPLY BD insulin UF Use to inject insulin 2 200 Each 3 08/29/19 Active short 31 X 8 MM pen times daily. Insulin 17 needle dependent. Diagnosis code E11.21 Active Problems Problem Noted Date Inflammatory arthritis [...] original. 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) 08/28/2016 Telephone Diabetes Services Zurdo Cunningham, Chief Comp: Clarify MD Medications/orders 08/22/2016 Refill Diabetes Services Zurdo Cunningham Dx: Type II or MD unspecified type diabetes mellitus without mention of complication, uncontrolled (Primary Dx) 08/13/2016 Office Visit Pathology Enrike Dupont, Chief Comp: Patient MD Reported Reason For Lab Services, Irl Visit 08/13/2016 Office Visit Med GI/Hepatology Enrike Dupont Dx: Diverticulosis of MD large intestine without hemorrhage (Primary Dx) 08/08/2016 Refill Diabetes Services Zurdo Cunningham Dx: Type 2 diabetes MD mellitus without complication (Primary Dx) 08/07/2016 Telephone Diabetes Services Ashanti Bellamy Chief Comp: Follow- up YVAN Porras 08/06/2016 Telephone Diabetes Services Zurdo Cunningham Chief Comp: Follow-up MD 08/01/2016 Telephone Diabetes Services Zurdo Cunningham, Chief Comp: Other MD 07/25/2016 Refill Med GI/Hepatology Fer Chavez Dx: Nausea (Primary Dx) 07/11/2016 Telephone Renal and Twyla Ureña, Chief Comp: Discuss Hypertension MD Test Results 07/11/2016 Telephone Diabetes Services Zurdo Cunningham, Chief Comp: Lab MD Results 07/11/2016 Telephone Renal and Twyla Ureña, Chief Comp: Discuss Hypertension Test Results Immunizations Name Dates Previously Given Next Due [...] Taken Blood Pressure 97/63 08/13/2016 11:10 AM REFERRAL NURSE Pulse 74 08/13/2016 11:10 AM REFERRAL NURSE Temperature 35 C (95 F) 08/13/2016 11:10 AM REFERRAL NURSE Respiratory Rate 14 04/20/2013 4:14 PM CDT Height 1.702 m (5' 7") 08/13/2016 11:10 AM REFERRAL NURSE Weight 55.9 kg (123 lb 3.8 oz) 08/13/2016 11:10 AM REFERRAL NURSE Body Mass Index 19.3 08/13/2016 11:10 AM REFERRAL NURSE Oxygen Saturation 96% 04/27/2014 11:28 AM CDT Plan of Care Date Type Specialty Providers Description 10/13/2016 Appointment Radiology Subj: Upcoming Appt Reminder 10/13/2016 Appointment Med GI/Hepatology Default, Other [facility] [address] [place] [address] [phone] (Fax) Subj: Upcoming Appt Nila Suarez PA-C [address] [place] [address] [phone] (Fax) Reminder 12/22/2016 Appointment [facility] Jenise Peck, Chief Comp: Patient Reported Reason For [address] [facility] [place] [address] [phone] (Fax) 12/22/2016 Appointment Med Rheumatology Amina Crandall MD [address] [place] [address] [phone] (Fax) Chief Comp: Patient Jakob Ugalde PA-C [address] [place] [address] [phone] (Fax) Reported Reason For Visit 01/08/2017 Appointment Renal and Hypertension Default, Other [facility] [address] [place] [address] [phone] (Fax) Chief Comp: Patient Twyla Ureña MD Reported Reason For Visit 02/18/2017 Appointment Med GI/Hepatology Enrike Dupont, Chief Comp: Patient Reported Reason For [address] [place] [address] [phone] (Fax) 03/02/2017 Appointment Diabetes Services Zurdo Cunningham, Chief Comp: Patient Reported Reason For [address] [place] [address] [phone] (Fax) 05/18/2017 Appointment Med Rheumatology Amina Crandall MD Chief Comp: Patient [address] [place] [address] Visit [phone] (Fax) Health Maintenance Due Date Last Done [...] Neutrophils-Auto Diff 46.3 % Neutrophils-Auto Diff 5280 [id number] /MM3 % Lymphocytes-Auto Diff 37.9 % Lymphocytes-Auto [...] Abnormality Status --------- ------ CBC (COMPLETE BLOOD COUNT)[[id number]] AbnormalFinal result DIFFERENTIAL[[id number]] AbnormalFinal result Please view results for these tests on the individual orders.
[2016-10-08] MEDS ORDERED: LIDOCAINE HCL 10 APPL CARTRIDGE TP ONE (13:50)
--- NOTE | 2016-10-08 14:13 | OR ---
Operative Report - Dictated Report Narrative: Location: Main OR Anesthesia: Location: Main OR Anesthesia: None Preoperative Diagnosis: Bladder filling defect on CT Postoperative Diagnosis: No cystoscopic correlation, empties well, there is an abnormal right posterior wall almost diverticular-like look to the bladder but it is isolated. Not sure if prior injury or something but definitely different from the rest of the bladder but looks well-healed without any mesh material or other abnormal findings. Procedure: #1 flexible cystoscopy with washing for cytology and culture Indications: 56-year-old female chronic urinary/pelvic symptomatology possible recurrent infection. Prior sling. Recent CT with possible bladder mass. Above -mentioned procedures indicated to assess bladder Description: Consent obtained. Placed in the frog-leg position. Prepped and draped. Time-out taken . Vaginal introitus significantly narrowed. Voided urine is likely contaminated. Scope inserted into the urethra and navigated to the bladder with ease. No tumors stones or suspicious lesions. bladder was nice and empty. Prior biopsy site well-healed. Mucosa pristine. Right posterior wall has an isolated diverticular-like area on the bladder. Different than the rest. I inspected it thoroughly and there is no visible mesh no other abnormalities. Suspect probably normal for her less likely some sort of prior injury or isolated congenital diverticulum. No other real trabeculation. Ureters normal in number and position, effluxing clear urine Normal bladder neck, no cystocele change Normal urethra without excessive angulation EBL: 0 Specimen: Washing for cytology and culture Condition: tolerate procedure Important Findings: Narrowed introitus with likely contamination and voided urines. Some urethral inflammation externally, would probably benefit from estrogen. Empty normal bladder with the exception of the isolated right posterior wall diverticular finding. My plan is to put her back on an anticholinergic, strongly consider topical estrogen which I do think will help her, and prophylaxis if we document that this is really infectious. I do not believe that is the case to this point. FOLLOW UP: 2 weeks for pathology results, strongly consider estrogen. Add anticholinergic. Condition: tolerate procedure
[2016-10-08 14:48] VITALS: BP 110/66
== END 2016-10-08 11:32 | disposition home or self-care (01) ==
LOC: AMB 11:31
PROVIDERS: ATTEND Urology
PROC: 3E1K88X Irrigation of Genitourinary Tract using Irrigating Substance, Via Natural or Artificial Opening Endoscopic, Diagnostic (ICD-10-PCS; 2016-10-08)
PROC: 0TJB8ZZ Inspection of Bladder, Via Natural or Artificial Opening Endoscopic (ICD-10-PCS; principal; 2016-10-08 18:35)
DX: R30.0 Dysuria (principal)

== ENCOUNTER 2016-10-09 15:31 | Observation (INO) | payer MEDICARE, MEDICAID ==
[2016-10-09] MEDS ORDERED: ALBUTEROL SULFATE/IPRATROPIUM 3 ML NEBU IH ONE ×2 (16:31→16:56)
[2016-10-09] MEDS ORDERED: NORMAL SALINE 1,000 ML IV ONE ×2 (16:34→17:24)
--- OUTSIDE RECORDS SUMMARY | 2016-10-09 16:42 | XMS REPORT | Continuity of Care Document ---
:1960 Author Organization [employer] [place] [address] Care Team Providers Name Role Phone Quinton Gates Merle Primary Care Provider [phone] Source Comments This disclosure is being made pursuant to the [employer] program and maynot contain all information available regarding this patient.[employer] Active Allergies and Adverse Reactions Not on [...]
--- OUTSIDE RECORDS SUMMARY | 2016-10-09 16:43 | XMS REPORT | Continuity of Care Document ---
:1960 Author Organization [facility] ([facility]) Address [address] [place] [address] Phone [phone] Care Team Providers Name Role Phone Mateusz Stanley Primary Care Provider [phone] Source Comments This disclosure is being made pursuant to the Care Everywhere program, applicable federal and state laws, and may not contain all informaitonavailable regarding this patient.[facility] ([facility]) Active Allergies and Adverse Reactions Allergen [...] Distress Omeprazole Unknown Other Agent 06/22/2012 Rash [place] and green pepper Penicillins Respiratory Distress Phenazopyridine Unknown Phenylpropanolamine Respiratory Distress Prochlorperazine Respiratory Distress Repaglinide OTHER LOW BLOOD SUGAR Salmeterol Respiratory Distress [place] Urticaria (Hives) Sulfamethoxazole Nausea & Vomiting Triamterene [...] original. * associated with intermittently + LFTs [id number] Jul 19, 2007 1:00 PM FACILITY SECURITY OFFICER Component Results DIAGNOSIS: Liver, biopsy: Fragmented core [...] Taken Blood Pressure 97/63 08/13/2016 11:10 AM FACILITY SECURITY OFFICER Pulse 74 08/13/2016 11:10 AM FACILITY SECURITY OFFICER Temperature 35 C (95 F) 08/13/2016 11:10 AM FACILITY SECURITY OFFICER Respiratory Rate 14 04/20/2013 4:14 PM CDT Height 1.702 m (5' 7") 08/13/2016 11:10 AM FACILITY SECURITY OFFICER Weight 55.9 kg (123 lb 3.8 oz) 08/13/2016 11:10 AM FACILITY SECURITY OFFICER Body Mass Index 19.3 08/13/2016 11:10 AM FACILITY SECURITY OFFICER Oxygen Saturation 96% 04/27/2014 11:28 AM CDT Plan of Care Date Type Specialty Providers Description 10/13/2016 Appointment Radiology Subj: Upcoming Appt Reminder 10/13/2016 Appointment Med GI/Hepatology Default, Other Billg - Defo [address] [place] [address] [phone] (Fax) Subj: Upcoming Appt Nila Suarez PA-C [address] [place] [address] [phone] (Fax) Reminder 12/22/2016 Appointment [facility] Jenise Peck, Chief Comp: Patient Reported Reason For [address] [facility] [address] [phone] (Fax) 12/22/2016 Appointment Med Rheumatology Amina Crandall MD [address] [place] [address] [phone] (Fax) Chief Comp: Patient Jakob Ugalde PA-C [address] [place] [address] [phone] (Fax) Reported Reason For Visit 01/08/2017 Appointment Renal and Hypertension Default, Other Billg - Defo [address] [place] [address] [phone] (Fax) Chief Comp: Patient Twyla Ureña MD Reported Reason For Visit 02/18/2017 Appointment Med GI/Hepatology Enrike Dupont, Chief Comp: Patient Reported Reason For [address] [place] [address] [phone] (Fax) 03/02/2017 Appointment Diabetes Services Zurdo Cunningham, Chief Comp: Patient Reported Reason For [address] [place] [address] [phone] (Fax) 05/18/2017 Appointment Med Rheumatology Amina Crandall MD Chief Comp: Patient [address] [place] [address] Visit [phone] (Fax) Health Maintenance Due Date Last Done [...] Neutrophils-Auto Diff 46.3 % Neutrophils-Auto Diff 5280 [id number] /MM3 % Lymphocytes-Auto Diff 37.9 % Lymphocytes-Auto [...] Abnormality Status --------- ------ CBC (COMPLETE BLOOD COUNT)[[id number]] AbnormalFinal result DIFFERENTIAL[[id number]] AbnormalFinal result Please view results for these tests on the individual orders.
--- OUTSIDE RECORDS SUMMARY | 2016-10-09 16:44 | XMS REPORT | Summary of Care ---
:1960 Author Organization [facility] Address [address] [place] [address]- Care Team Providers Name Role Phone Jaden Mateusz Bloom Primary Care Physician Encounter Date(s): 10/06/16 - 10/06/16 [facility] [address] [place] [address]- [facility] Discharge Disposition: Discharged to Home or Self Care Attending Physician: JAYDEN Patel Admitting Physician: JAYDEN Patel Vital Signs Most recent to oldest [Reference Range]: 1 2 Temperature Temporal Artery [36-38 DegC] 36.8 DegC (10/06/16 9:57 AM) Peripheral Pulse Rate [60-100 bpm] 70 bpm 82 bpm (10/06/16 12:08 PM) (10/06/16 9:57 AM) Respiratory Rate [12-20 br/min] 16 br/min (10/06/16 9:57 AM) Blood Pressure [90-130/60-90 mmHg] 119/69mmHg 111/69mmHg (10/06/16 12:08 PM) (10/06/16 9:57 AM) Mean Arterial Pressure, Cuff 86 mmHg 83 mmHg (10/06/16 12:08 PM) (10/06/16 9:57 AM) Blood Pressure Location Left arm (10/06/16 9:57 AM) Problem List Condition Effective Dates Status [...] Active neuropathy(Confirmed) Disease of thyroid gland NOS/thyroid 2008 Active nodule(Confirmed) Diverticulosis(Confirmed) 07/07/12 Active DM - [...] Vomiting Active 1Abstraction tool stated Bee Sting Kci6Sflbebazq [id number] CONTAINING AFLVVRZE7Kplnfmgdkicg Medications albuterol CFC free 90 mcg/inh inhalation [...] Daily, 0 Refill(s), Start Date: 10/02/14 11:11:00 SUBASSEMBLER Start Date: 10/02/14 Stop Date: 02/20/15 Status: Discontinuedazithromycin 250 mg oral tablet 0 Refill(s), Start Date: 02/20/15 9:04:00 CDT Start Date: 02/20/15 Stop Date: 06/18/15 Status: Completedbumetanide 2 mg oral tablet 1 tab(s), Oral, Daily, 0 Refill(s), Start Date: 03/18/16 14:01:00 CDT Start Date: 03/18/16 Status: Orderedcapsaicin 0.025% topical cream 1 chastity, Topical, TID, [...] Refill(s), Start Date: 05/29/14 15:37:00 CDT, Pharmacy: [place], [place] Start Date: 05/29/14 Stop Date: 10/18/14 [...] tab(s), 0 Refill(s), Start Date: 10/02/14 11:11:00 SUBASSEMBLER Start Date: 10/02/14 Stop Date: 02/13/15 Status: CompletedDitropan 5 mg oral tablet 1 tab(s), Oral, TID, # 90 tab(s), 11 Refill(s), Pharmacy: [place], [place] Start Date: 11/30/13 Stop Date: 12/11/14 Status: ErazivvnzsepZek-N-Gbsh 100 mg oral capsule 1 cap(s), Oral, BID, PRN for constipation, # 20 cap(s), 0 Refill(s), Start Date : 05/01/15 10:14:00 CDT Start Date: 05/01/15 Stop Date: 06/18/15 Status: Completeddocusate sodium 100 mg oral capsule 1 cap(s), Oral, BID, PRN for constipation, 0 Refill(s), Start Date: 11/24/13 7: 57:00 CDT Start Date: 11/24/13 Status: OrderedEnbrel SureClick 50 mg/mL subcutaneous solution 1 mL, Subcutaneous, qWeek, 0 Refill(s), Start Date: 03/18/16 14:01:00 CDT Start Date: 03/18/16 Status: OrderedEpiPen Auto-Injector 0.3 mg injectable kit See Instructions, inject 0.3 milliliter (0.3MG) by intramuscular route once as needed for anaphylaxis, 0 Refill(s) Special Instructions: inject 0.3 milliliter (0.3MG) by intramuscular route once as needed for anaphylaxis Start Date: 11/24/13 Status: OrderedFioricet oral tablet 2 tab(s), Oral, q6hr interval, PRN for pain, # 100 tab(s), 0 Refill(s), Start Date: 02/13/15 12:46:00 CDT, Pharmacy: [facility],[place], [place] Start Date: 02/13/15 Stop Date: 02/20/15 [...] days, # 5 mL, 0 Refill(s), [facility] [facility] [place] Start Date: 05/02/14 Stop Date: 05/09/14 [...] units., # 1 QS, 0 Refill(s), Pharmacy: [place], [place] Special Instructions: AM 50 units noon [...] qPM, 0 Refill(s), Start Date: 09/18/15 10:12:00 SUBASSEMBLER Start Date: 09/18/15 Status: OrderedLantus 25 untis, Subcutaneous, qAM, 0 Refill(s), Start Date: 09/18/15 10:12:00 SUBASSEMBLER Start Date: 09/18/15 Status: Orderedlevothyroxine 112 [...] cap(s), 0 Refill(s), Start Date: 08/07/14 15:01:00 SUBASSEMBLER, Pharmacy: [facility],[place], [place] Start Date: 08/07/14 Stop Date: 11/13/14 [...] 10/18/14 16:11:00 CDT Start Date: 10/18/14 Status: Orderedmidodrine 10 mg oral tablet TK 1 T PO TID Special Instructions: TK 1 T PO TID Start Date: 09/30/16 Status: Orderedmontelukast 10 mg oral tablet 1 [...] HS, # 30 cap(s), 11 Refill(s), Pharmacy: [place], [place] Start Date: 01/13/14 Stop Date: 03/08/14 Status: Discontinuedomeprazole 40 mg oral delayed release capsule 1 cap(s), Oral, BID, # 30 cap(s), 11 Refill(s), Pharmacy: [place], [place] Start Date: 03/08/14 Stop Date: 03/29/14 Status: Completedomeprazole 40 mg oral delayed release capsule 1 cap(s), Oral, Daily, # 30 cap(s), 11 Refill(s), Pharmacy: [place], [place] Start Date: 03/29/14 Status: Orderedondansetron 8 [...] tab(s), 0 Refill(s), Start Date: 09/19/15 7:02:00 SUBASSEMBLER, Pharmacy: [facility] [place], [place] Special Instructions: not to exceed 4000 [...] tab(s), 3 Refill(s), Start Date: 10/11/15 13:38:34 SUBASSEMBLER, Pharmacy: [facility],[place], [place] Start Date: 10/11/15 Stop Date: 10/15/15 Status: CompletedPlaquenil Sulfate 200 mg oral tablet 1 tab(s), Oral, BID, 0 Refill(s), Start Date: 09/17/15 13:24:00 SUBASSEMBLER Start Date: 09/17/15 Stop Date: 12/03/15 Status: CompletedPlaquenil Sulfate 200 mg oral tablet 1 tab(s), Oral, BID, # 180 tab(s), 3 Refill(s), Start Date: 10/15/15 16:41:40 SUBASSEMBLER, Pharmacy: [facility] [place], [place] Start Date: 10/15/15 Status: OrderedPlaquenil Sulfate 200 mg oral tablet 1 tab(s), Oral, BID, # 60 tab(s), 3 Refill(s), Start Date: 09/01/14 9:49:00 SUBASSEMBLER , Pharmacy: [facility] [place], [place] Start Date: 09/01/14 Stop Date: 10/02/14 Status: CompletedPlaquenil Sulfate 200 mg oral tablet 1 tab(s), Oral, BID, # 360 tab(s), 3 Refill(s), Start Date: 10/02/14 12:01:00 SUBASSEMBLER, Pharmacy: [facility] [place], [place] Start Date: 10/02/14 Stop Date: 01/03/15 [...] # 42 gm, 4 Refill(s), Pharmacy: [facility] [place], [place] Start Date: 11/30/13 Stop Date: 10/18/14 [...] tab(s), 11 Refill(s), Start Date: 09/20/14 8:43:11 SUBASSEMBLER, Pharmacy: [facility] [place], [place] Start Date: 09/20/14 Status: Orderedranitidine 150 mg oral tablet 0.5 tab(s), Oral, BID, # 30 tab(s), 0 Refill(s), Start Date: 05/29/14 14:45:00 CDT, other reason (Rx) Start Date: 05/29/14 Stop Date: 06/07/14 Status: Completedranitidine 150 mg oral tablet 0.5 tab(s), Oral, BID, # 30 tab(s), 0 Refill(s), Start Date: 06/07/14 11:00:27 CDT, Pharmacy: [facility] [place], [place] Start Date: 06/07/14 Stop Date: 07/04/14 Status: Completedranitidine 150 mg oral tablet 0.5 tab(s), Oral, BID, # 30 tab(s), 0 Refill(s), Start Date: 07/04/14 11:43:04 SUBASSEMBLER, Pharmacy: [facility] [place], [place] Start Date: 07/04/14 Stop Date: 08/16/14 Status: Completedranitidine 150 mg oral tablet tab(s), Oral, BID, 0 Refill(s) Start Date: 12/14/13 Stop Date: 05/29/14 Status: Discontinuedranitidine 150 mg oral tablet 0.5 tab(s), Oral, BID, # 30 tab(s), 0 Refill(s), Start Date: 08/16/14 8:21:25 SUBASSEMBLER, Pharmacy: [place], [place] Start Date: 08/16/14 Stop Date: 09/20/14 Status: Completedranitidine 75 mg oral tablet 1 tab(s), Oral, BID, # 60 tab(s), 0 Refill(s), [facility] [place] Start Date: 05/08/14 Stop Date: 05/29/14 Status: Discontinuedranitidine 75 mg oral tablet tab(s), Oral, BID, 0 Refill(s) Start Date: 05/08/14 Stop Date: 05/08/14 Status: Discontinuedranitidine 75 mg oral tablet 1 tab(s), Oral, BID, # 60 tab(s), 0 Refill(s), [facility] [place] Start Date: 03/29/14 Stop Date: 04/20/14 [...] BID, # 60 tab(s), 0 Refill(s), Pharmacy: [place], [place] Start Date: 12/30/13 Stop Date: 03/08/14 Status: Discontinuedtorsemide 10 mg oral tablet 1 tab(s), Oral, BID, # 60 tab(s), 0 Refill(s), Pharmacy: [place], [place] Start Date: 12/14/13 Stop Date: 12/30/13 Status: Completedtorsemide 10 mg oral tablet 1 tab(s), Oral, Daily, # 30 tab(s), 0 Refill(s) Start Date: 11/24/13 Stop Date: 12/14/13 Status: Discontinuedtorsemide 20 mg oral tablet 2 tab(s), Oral, Daily, 0 Refill(s), Start Date: 09/18/15 10:13:00 SUBASSEMBLER Start Date: 09/18/15 Stop Date: 12/25/15 [...] Start Date: 12/11/14 13:48:00 CDT, Pharmacy: [facility] [place], [place] Start Date: 12/11/14 Stop Date: 01/15/15 [...] Refill(s), Start Date: 05/23/15 13:39:00 CDT, [facility] [place] [place] Special Instructions: apply 2 grams Start [...] Date: 05/29/14 15:33:00 CDT, Pharmacy: [facility] [place], [place] Start Date: 05/29/14 Stop Date: 10/18/14 [...] Tonsillectomy Total hysterectomy 1auto-populated from documented surgical [id number] from documented surgical [id number] from documented surgical [id number] from documented surgical [id number] from documented surgical case Social History No data available for this section Assessment and Plan No data available for this section
--- OUTSIDE RECORDS SUMMARY | 2016-10-09 16:46 | XMS REPORT | Summary of Care ---
:1960 Author Organization [facility] Address [address] [place] [address]- Care Team Providers Name Role Phone Stanley Mateusz Bloom Primary Care Physician Encounter Date(s): 09/30/16 - 09/30/16 [facility] [address] [place] [address]- [facility] Discharge Disposition: Discharged to Home or Self Care Attending Physician: JYADEN Patel Admitting Physician: JAYDEN Patel Vital Signs No data available for this [...] Vomiting Active 1Abstraction tool stated Bee Sting Uvo7Npobqxlff Raqcjfihn1IIAE CONTAINING FKFSMIWC1Inhzkvnjkgut Medications albuterol CFC free 90 mcg/inh inhalation [...] Daily, 0 Refill(s), Start Date: 10/02/14 11:11:00 DAIRY FARM SUPERVISOR Start Date: 10/02/14 Stop Date: 02/20/15 Status: [...] Refill(s), Start Date: 05/29/14 15:37:00 CDT, Pharmacy: [place], [place] Start Date: 05/29/14 Stop Date: 10/18/14 [...] tab(s), 0 Refill(s), Start Date: 10/02/14 11:11:00 DAIRY FARM SUPERVISOR Start Date: 10/02/14 Stop Date: 02/13/15 Status: CompletedDitropan 5 mg oral tablet 1 tab(s), Oral, TID, # 90 tab(s), 11 Refill(s), Pharmacy: [place], [place] Start Date: 11/30/13 Stop Date: 12/11/14 Status: MhhcvhqetiagYch-S-Evvz 100 mg oral capsule 1 cap(s), Oral, [...] Refill(s), Start Date: 02/13/15 12:46:00 CDT, [facility] [place] Start Date: 02/13/15 Stop Date: 02/20/15 [...] days, # 5 mL, 0 Refill(s), [place] [place] Start Date: 05/02/14 Stop Date: 05/09/14 [...] units., # 1 QS, 0 Refill(s), Pharmacy: [place], [place] Special Instructions: AM 50 units noon [...] qPM, 0 Refill(s), Start Date: 09/18/15 10:12:00 DAIRY FARM SUPERVISOR Start Date: 09/18/15 Status: OrderedLantus 25 untis, Subcutaneous, qAM, 0 Refill(s), Start Date: 09/18/15 10:12:00 DAIRY FARM SUPERVISOR Start Date: 09/18/15 Status: Orderedlevothyroxine 112 mcg [...] cap(s), 0 Refill(s), Start Date: 08/07/14 15:01:00 DAIRY FARM SUPERVISOR, [place] [facility] [place] Start Date: 08/07/14 Stop Date: 11/13/14 [...] HS, # 30 cap(s), 11 Refill(s), [facility] [place] [place] Start Date: 01/13/14 Stop Date: 03/08/14 Status: Discontinuedomeprazole 40 mg oral delayed release capsule 1 cap(s), Oral, BID, # 30 cap(s), 11 Refill(s), Pharmacy: [place], [place] Start Date: 03/08/14 Stop Date: 03/29/14 Status: Completedomeprazole 40 mg oral delayed release capsule 1 cap(s), Oral, Daily, # 30 cap(s), 11 Refill(s), Pharmacy: [place] Start Date: 03/29/14 Status: Orderedondansetron 8 [...] tab(s), 0 Refill(s), Start Date: 09/19/15 7:02:00 DAIRY FARM SUPERVISOR, Pharmacy: [facility] [place], [place] Special Instructions: not to exceed 4000 [...] tab(s), 3 Refill(s), Start Date: 10/11/15 13:38:34 DAIRY FARM SUPERVISOR, Pharmacy: [place], [place] Start Date: 10/11/15 Stop Date: 10/15/15 Status: CompletedPlaquenil Sulfate 200 mg oral tablet 1 tab(s), Oral, BID, 0 Refill(s), Start Date: 09/17/15 13:24:00 DAIRY FARM SUPERVISOR Start Date: 09/17/15 Stop Date: 12/03/15 Status: CompletedPlaquenil Sulfate 200 mg oral tablet 1 tab(s), Oral, BID, # 180 tab(s), 3 Refill(s), Start Date: 10/15/15 16:41:40 DAIRY FARM SUPERVISOR, Pharmacy: [place], [place] Start Date: 10/15/15 Status: OrderedPlaquenil Sulfate 200 mg oral tablet 1 tab(s), Oral, BID, # 60 tab(s), 3 Refill(s), Start Date: 09/01/14 9:49:00 DAIRY FARM SUPERVISOR , Pharmacy: [place], [place] Start Date: 09/01/14 Stop Date: 10/02/14 Status: CompletedPlaquenil Sulfate 200 mg oral tablet 1 tab(s), Oral, BID, # 360 tab(s), 3 Refill(s), Start Date: 10/02/14 12:01:00 DAIRY FARM SUPERVISOR, [facility] [place] [place] Start Date: 10/02/14 Stop Date: 01/03/15 [...] # 42 gm, 4 Refill(s), Pharmacy: [facility] [place], [place] Start Date: 11/30/13 Stop Date: 10/18/14 [...] tab(s), 11 Refill(s), Start Date: 09/20/14 8:43:11 DAIRY FARM SUPERVISOR, Pharmacy: [facility] [place], [place] Start Date: 09/20/14 Status: Orderedranitidine 150 mg oral tablet 0.5 tab(s), Oral, BID, # 30 tab(s), 0 Refill(s), Start Date: 05/29/14 14:45:00 CDT, other reason (Rx) Start Date: 05/29/14 Stop Date: 06/07/14 Status: Completedranitidine 150 mg oral tablet 0.5 tab(s), Oral, BID, # 30 tab(s), 0 Refill(s), Start Date: 06/07/14 11:00:27 CDT, Pharmacy: [facility] [place], [place] Start Date: 06/07/14 Stop Date: 07/04/14 Status: Completedranitidine 150 mg oral tablet 0.5 tab(s), Oral, BID, # 30 tab(s), 0 Refill(s), Start Date: 07/04/14 11:43:04 DAIRY FARM SUPERVISOR, Pharmacy: [facility] [place], [place] Start Date: 07/04/14 Stop Date: 08/16/14 Status: Completedranitidine 150 mg oral tablet tab(s), Oral, BID, 0 Refill(s) Start Date: 12/14/13 Stop Date: 05/29/14 Status: Discontinuedranitidine 150 mg oral tablet 0.5 tab(s), Oral, BID, # 30 tab(s), 0 Refill(s), Start Date: 08/16/14 8:21:25 DAIRY FARM SUPERVISOR, Pharmacy: [facility] [place], [place] Start Date: 08/16/14 Stop Date: 09/20/14 Status: Completedranitidine 75 mg oral tablet 1 tab(s), Oral, BID, # 60 tab(s), 0 Refill(s), Pharmacy: [facility] [place], [place] Start Date: 05/08/14 Stop Date: 05/29/14 Status: Discontinuedranitidine 75 mg oral tablet tab(s), Oral, BID, 0 Refill(s) Start Date: 05/08/14 Stop Date: 05/08/14 Status: Discontinuedranitidine 75 mg oral tablet 1 tab(s), Oral, BID, # 60 tab(s), 0 Refill(s), [place] [facility] [place] Start Date: 03/29/14 Stop Date: 04/20/14 [...] BID, # 60 tab(s), 0 Refill(s), [facility] [place] [place] Start Date: 12/30/13 Stop Date: 03/08/14 Status: Discontinuedtorsemide 10 mg oral tablet 1 tab(s), Oral, BID, # 60 tab(s), 0 Refill(s), [facility] [place] [place] Start Date: 12/14/13 Stop Date: 12/30/13 Status: Completedtorsemide 10 mg oral tablet 1 tab(s), Oral, Daily, # 30 tab(s), 0 Refill(s) Start Date: 11/24/13 Stop Date: 12/14/13 Status: Discontinuedtorsemide 20 mg oral tablet 2 tab(s), Oral, Daily, 0 Refill(s), Start Date: 09/18/15 10:13:00 DAIRY FARM SUPERVISOR Start Date: 09/18/15 Stop Date: 12/25/15 Status: [...] Refill(s), Start Date: 12/11/14 13:48:00 CDT, Pharmacy: [place], [place] Start Date: 12/11/14 Stop Date: 01/15/15 [...] Refill(s), Start Date: 05/23/15 13:39:00 CDT, [facility] [place] [place] Special Instructions: apply 2 grams Start [...] Refill(s), Start Date: 05/29/14 15:33:00 CDT, [facility] [place] [place] Start Date: 05/29/14 Stop Date: 10/18/14 Status: CompletedZyrTEC 10 mg oral tablet 1 tab(s), Oral, Daily, # 30 tab(s), 0 Refill(s) Start Date: 11/24/13 Stop Date: 01/13/14 Status: Discontinued Results Patient Viewable Results Most recent to oldest [Reference Range]: 1 WBC [4.8-10.8 thou/mm3] 10.4 thou/mm3 (09/30/16 2:22 PM) RBC [4.20-5.40 Mil/mm3] 3.64 Mil/mm3 *LOW* (09/30/16 2:22 PM) Hgb [12.0-16.0 g/dL] 10.0 g/dL *LOW* (09/30/16 2:22 PM) Hct [37.0-47.0 %] 32.0 % *LOW* (09/30/16 2:22 PM) MCV [80.0-94.0 fL] 87.9 fL (2/21/17 2:22 PM) MCH [25.0-38.0 pg/cell] 27.5 pg/cell (09/30/16 2:22 PM) MCHC [31.0-37.0 g/dL] 31.3 g/dL (09/30/16 2:22 PM) RDW [1.0-48.0 fL] 49.9 fL *HI* (09/30/16 2:22 PM) Platelet [130-400 thou/mm3] 246 thou/mm3 (09/30/16 2:22 PM) Neutrophils % Auto [50.0-75.0 %] 43.8 % *LOW* (09/30/16:22 PM) Immature Granulocyte Auto [0.1-2.0 %] 0.3 % (09/30/16:22 PM) Lymphocytes % Auto [15.0-41.0 %] 38.8 % (09/30/16 2:22 PM) Monocytes % Auto [2.0-10.0 %] 13.1 % *HI* (09/30/16 2:22 PM) Eosinophils % Auto [0.0-6.0 %] 3.5 % (09/30/16 2:22 PM) Basophil % Auto [0.0-1.0 %] 0.5 % (09/30/16:22 PM) Neutrophils Absolute [1.5-5.9 thou/mm3] 4.6 thou/mm3 (09/30/16 2:22 PM) Immature Gran Absolute [0.01-0.03 thou/mm3] 0.03 thou/mm3 (09/30/16 2:22 PM) Lymphocytes Absolute [1.5-4.0 thou/mm3] 4.0 thou/mm3 (09/30/16 2:22 PM) Monocytes Absolute [0.0-0.9 thou/mm3] 1.4 thou/mm3 *HI* (09/30/16 2:22 PM) Eosinophil Absolute [0.0-0.7 thou/mm3] 0.4 thou/mm3 (09/30/16 2:22 PM) Basophil Absolute [0.0-0.2 thou/mm3] 0.0 thou/mm3 (09/30/16 2:22 PM) FE [50-170 mcg/dL] 26 mcg/dL *LOW* (09/30/16 2:22 PM) Iron Binding Capacity, Total [228-428 mcg/dL] 296 mcg/dL (09/30/16 2:22 PM) % Iron Saturation [20-50 %] 9 % *LOW* (09/30/16 2:22 PM) Ferritin Lvl [10-291 ng/mL] 35 ng/mL (09/30/16 2:22 PM) Immunizations Vaccine Date Refusal Reason haemophilus b [...] Tonsillectomy Total hysterectomy 1auto-populated from documented surgical [id number] from documented surgical [id number] from documented surgical [id number] from documented surgical [id number] from documented surgical case Social History No data available for this section Assessment and Plan No data available for this section
--- OUTSIDE RECORDS SUMMARY | 2016-10-09 16:49 | XMS REPORT | Summary of Care ---
:1960 Author Organization [facility] Address [address] [facility] [place] [address] Care Team Providers Name Role Phone Mateusz Stanley Primary Care Physician Encounter Date(s): 09/30/16 - 09/30/16 [facility], [address] [place], [place] [address] Discharge Disposition: Discharged to Home or Self Care Attending Physician: JAYDEN Patel Referring Physician: Mateusz Stanley DO Vital Signs Most recent to oldest [Reference Range]: 1 Temperature Oral [35.8-37.3 DegC] 36.2 DegC (09/30/16 2:28 PM) Peripheral Pulse Rate [60-100 bpm] 78 bpm (09/30/16 2:28 PM) Respiratory Rate [12-20 br/min] 18 br/min (09/30/16 2:28 PM) SpO2 [90-100 %] 100 % (09/30/16 2:28 PM) Blood Pressure [90-130/60-90 mmHg] 130/65mmHg (09/30/16 2:28 PM) Mean Arterial Pressure, Cuff 87 mmHg (09/30/16 2:28 PM) Most recent to oldest [Reference Range]: 1 Height/Length Measured 165 cm (09/30/16 2:28 PM) Height/Length Estimated 165 cm (09/30/16 2:28 PM) Weight Estimated 53.4 kg (09/30/16 2:28 PM) Weight Dosing 53.4 kg (09/30/16 2:28 PM) Weight Measured 53.4 kg (09/30/16 2:28 PM) BSA Measured 1.58 m2 (09/30/16 2:28 PM) BSA Estimated 1.56 m2 (09/30/16 2:28 PM) Body Mass Index Measured 19.61 kg/m2 (09/30/16 2:28 PM) Body Mass Index Estimated 19.61 kg/m2 (09/30/16 2:28 PM) Problem List Condition Effective Dates Status [...] Vomiting Active 1Abstraction tool stated Bee Sting Hef8Upmlzieiz [id number] CONTAINING TIYEELIW5Mxbnhkmmppvh Medications albuterol CFC free 90 mcg/inh inhalation [...] Daily, 0 Refill(s), Start Date: 10/02/14 11:11:00 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 Start Date: 10/02/14 Stop Date: 02/20/15 Status: [...] Refill(s), Start Date: 05/29/14 15:37:00 CDT, Pharmacy: [place], [place] Start Date: 05/29/14 Stop Date: 10/18/14 [...] tab(s), 0 Refill(s), Start Date: 10/02/14 11:11:00 [facility] [place] Start Date: 10/02/14 Stop Date: 02/13/15 Status: CompletedDitropan 5 mg oral tablet 1 tab(s), Oral, TID, # 90 tab(s), 11 Refill(s), [facility] [place] Start Date: 11/30/13 Stop Date: 12/11/14 Status: BomrpvpgicyaYdb-N-Eiiu 100 mg oral capsule 1 cap(s), Oral, [...] Refill(s), Start Date: 02/13/15 12:46:00 CDT, Pharmacy: [place], [place] Start Date: 02/13/15 Stop Date: 02/20/15 [...] days, # 5 mL, 0 Refill(s), [facility] [place] Start Date: 05/02/14 Stop Date: 05/09/14 [...] units., # 1 QS, 0 Refill(s), [facility] [place] Special Instructions: AM 50 units noon [...] qPM, 0 Refill(s), Start Date: 09/18/15 10:12:00 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 Start Date: 09/18/15 Status: OrderedLantus 25 untis, Subcutaneous, qAM, 0 Refill(s), Start Date: 09/18/15 10:12:00 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 Start Date: 09/18/15 Status: Orderedlevothyroxine 112 mcg [...] cap(s), 0 Refill(s), Start Date: 08/07/14 15:01:00 [employer]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, [facility] [place] Start Date: 08/07/14 Stop Date: 11/13/14 [...] HS, # 30 cap(s), 11 Refill(s), Pharmacy: [facility] [place], [place] Start Date: 01/13/14 Stop Date: 03/08/14 Status: Discontinuedomeprazole 40 mg oral delayed release capsule 1 cap(s), Oral, BID, # 30 cap(s), 11 Refill(s), Pharmacy: [facility] [place], [place] Start Date: 03/08/14 Stop Date: 03/29/14 Status: Completedomeprazole 40 mg oral delayed release capsule 1 cap(s), Oral, Daily, # 30 cap(s), 11 Refill(s), Pharmacy: [facility] [place], [place] Start Date: 03/29/14 Status: Orderedondansetron 8 [...] tab(s), 0 Refill(s), Start Date: 09/19/15 7:02:00 [employer]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, Pharmacy: [facility] [place], [place] Special Instructions: not to exceed 4000 [...] tab(s), 3 Refill(s), Start Date: 10/11/15 13:38:34 [employer]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, [facility] [place] [place] Start Date: 10/11/15 Stop Date: 10/15/15 Status: CompletedPlaquenil Sulfate 200 mg oral tablet 1 tab(s), Oral, BID, 0 Refill(s), Start Date: 09/17/15 13:24:00 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 Start Date: 09/17/15 Stop Date: 12/03/15 Status: CompletedPlaquenil Sulfate 200 mg oral tablet 1 tab(s), Oral, BID, # 180 tab(s), 3 Refill(s), Start Date: 10/15/15 16:41:40 [employer]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, [facility] [facility] [place] Start Date: 10/15/15 Status: OrderedPlaquenil Sulfate 200 mg oral tablet 1 tab(s), Oral, BID, # 60 tab(s), 3 Refill(s), Start Date: 09/01/14 9:49:00 [employer]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 , Pharmacy: [facility] [place], [place] Start Date: 09/01/14 Stop Date: 10/02/14 Status: CompletedPlaquenil Sulfate 200 mg oral tablet 1 tab(s), Oral, BID, # 360 tab(s), 3 Refill(s), Start Date: 10/02/14 12:01:00 COR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, Pharmacy: [facility] [place], [place] Start Date: 10/02/14 Stop Date: 01/03/15 [...] 42 gm, 4 Refill(s), Pharmacy: [facility] [place], [place] Start Date: 11/30/13 Stop Date: 10/18/14 [...] tab(s), 11 Refill(s), Start Date: 09/20/14 8:43:11 COR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, [facility] [place] [place] Start Date: 09/20/14 Status: Orderedranitidine 150 mg oral tablet 0.5 tab(s), Oral, BID, # 30 tab(s), 0 Refill(s), Start Date: 05/29/14 14:45:00 CDT, other reason (Rx) Start Date: 05/29/14 Stop Date: 06/07/14 Status: Completedranitidine 150 mg oral tablet 0.5 tab(s), Oral, BID, # 30 tab(s), 0 Refill(s), Start Date: 06/07/14 11:00:27 CDT, Pharmacy: [facility] [place], [place] Start Date: 06/07/14 Stop Date: 07/04/14 Status: Completedranitidine 150 mg oral tablet 0.5 tab(s), Oral, BID, # 30 tab(s), 0 Refill(s), Start Date: 07/04/14 11:43:04 [employer]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, [facility] [place] [place] Start Date: 07/04/14 Stop Date: 08/16/14 Status: Completedranitidine 150 mg oral tablet tab(s), Oral, BID, 0 Refill(s) Start Date: 12/14/13 Stop Date: 05/29/14 Status: Discontinuedranitidine 150 mg oral tablet 0.5 tab(s), Oral, BID, # 30 tab(s), 0 Refill(s), Start Date: 08/16/14 8:21:25 [employer]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, Pharmacy: [facility] [place], [place] Start Date: 08/16/14 Stop Date: 09/20/14 Status: Completedranitidine 75 mg oral tablet 1 tab(s), Oral, BID, # 60 tab(s), 0 Refill(s), [facility] [place] [place] Start Date: 05/08/14 Stop Date: 05/29/14 Status: Discontinuedranitidine 75 mg oral tablet tab(s), Oral, BID, 0 Refill(s) Start Date: 05/08/14 Stop Date: 05/08/14 Status: Discontinuedranitidine 75 mg oral tablet 1 tab(s), Oral, BID, # 60 tab(s), 0 Refill(s), Pharmacy: [facility] [place], [place] Start Date: 03/29/14 Stop Date: 04/20/14 [...] BID, # 60 tab(s), 0 Refill(s), Pharmacy: [place], [place] Start Date: 12/30/13 Stop Date: 03/08/14 Status: Discontinuedtorsemide 10 mg oral tablet 1 tab(s), Oral, BID, # 60 tab(s), 0 Refill(s), Pharmacy: [place], [place] Start Date: 12/14/13 Stop Date: 12/30/13 Status: Completedtorsemide 10 mg oral tablet 1 tab(s), Oral, Daily, # 30 tab(s), 0 Refill(s) Start Date: 11/24/13 Stop Date: 12/14/13 Status: Discontinuedtorsemide 20 mg oral tablet 2 tab(s), Oral, Daily, 0 Refill(s), Start Date: 09/18/15 10:13:00 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 Start Date: 09/18/15 Stop Date: 12/25/15 Status: [...] Refill(s), Start Date: 12/11/14 13:48:00 CDT, Pharmacy: [place], [place] Start Date: 12/11/14 Stop Date: 01/15/15 [...] Refill(s), Start Date: 05/23/15 13:39:00 CDT, Pharmacy: [place], [place] Special Instructions: apply 2 grams Start [...] Start Date: 05/29/14 15:33:00 CDT, [place] [facility] [place] Start Date: 05/29/14 Stop Date: 10/18/14 Status: CompletedZyrTEC 10 mg oral tablet 1 tab(s), Oral, Daily, # 30 tab(s), 0 Refill(s) Start Date: 11/24/13 Stop Date: 01/13/14 Status: Discontinued Results Patient Viewable Results Most recent to oldest [Reference Range]: 1 Estimated Creatinine Clearance 47.84 mL/min (09/30/16 2:28 PM) Immunizations Vaccine Date Refusal Reason haemophilus [...] Tonsillectomy Total hysterectomy 1auto-populated from documented surgical [id number] from documented surgical [id number] from documented surgical [id number] from documented surgical [id number] from documented surgical case Social History No data available for this section Assessment and Plan No data available for this section
[2016-10-09 16:51] LABS: Hematocrit 30.7 % (37.0-47.0); Hemoglobin 9.6 gm/dL (12.5-16.0); Mean Corpuscular Hemoglobin 27.8 pg (27-31); Mean Corpuscular Hgb Conc 31.3 g/dl (32-36); Mean Platelet Volume 13.1 fl (6.0-9.5); Platelet Count 185 K/mm3 (150-450); Red Blood Count 3.45 M/mm3 (4.2-5.4); Red Cell Distribution Width 15.9 % (11.5-14.0); White Blood Count 8.7 K/mm3 (4.0-10.5)
[2016-10-09 16:57] LABS: Total Cells Counted 100
--- NOTE | 2016-10-09 17:07 | ERNOTE ---
Date of Service: 10/09/16 Time Seen by Provider: 10/09/16 16:28 Stated Complaint: CONFUSION, DIZZINESS, COLD Presenting Symptoms:: cough, other - Low Blood Pressure Source: patient Exam Limitations: no limitations Immunizations: IMMUNIZATION HX Immunizations Up to Date Yes History of Influenza Vaccine Yes Hx Pneumococcal Vaccination Yes Allergies/Adverse Reactions: Allergies bee venom (honey bee) Allergy (Severe, Verified 10/09/16 16:04) Anaphylaxis cefaclor [Cefaclor] Allergy (Severe, Verified 10/09/16 16:04) THROAT SWELLING, SOB penicillin G Allergy (Severe, Verified 10/09/16 16:04) Anaphylaxis Penicillins Allergy (Severe, Verified 10/09/16 16:04) Anaphylaxis codeine Allergy (Intermediate, Verified 10/09/16 16:04) Shortness of Breath meperidine [Meperidine] Allergy (Intermediate, Verified 10/09/16 16:04) HIVES, CANT BREATHE nabumetone [Nabumetone] Allergy (Intermediate, Verified 10/09/16 16:04) DIFF BREATHING prochlorperazine Allergy (Intermediate, Verified 10/09/16 16:04) Shortness of Breath bethanechol [Bethanechol] Allergy (Mild, Verified 10/09/16 16:04) HIVES, MIGRAINES chlorpheniramine maleate [From Ornade] Allergy (Mild, Verified 10/09/16 16:04) Hives chocolate flavor Allergy (Mild, Verified 10/09/16 16:04) Hives ciprofloxacin Allergy (Mild, Verified 10/09/16 16:04) Hives digoxin Allergy (Mild, Verified 10/09/16 16:04) Hives doxycycline Allergy (Mild, Verified 10/09/16 16:04) Hives Fish Containing Products Allergy (Mild, Verified 10/09/16 16:04) Hives Tuna Fish latex Allergy (Mild, Verified 10/09/16 16:04) Hives metoclopramide Allergy (Mild, Verified 10/09/16 16:04) HIVES, CANT BREATHE metolazone [Metolazone] Allergy (Mild, Verified 10/09/16 16:04) Hives phenylpropanolamine HCl [From Ornade] Allergy (Mild, Verified 10/09/16 16:04) Hives salmeterol Allergy (Mild, Verified 10/09/16 16:04) HIVES, LEG CRAMPS strawberry [[place]] Allergy (Mild, Verified 10/09/16 16:04) Hives sulfamethoxazole Allergy (Mild, Verified 10/09/16 16:04) Hives trimethoprim Allergy (Mild, Verified 10/09/16 16:04) Hives bumetanide Allergy (Unknown, Verified 10/09/16 16:04) chlorpheniramine Allergy (Unknown, Verified 10/09/16 16:04) furosemide Allergy (Unknown, Verified 10/09/16 16:04) phenazopyridine [Phenazopyridine] Allergy (Unknown, Verified 10/09/16 16:04) phenylpropanolamine Allergy (Unknown, Verified 10/09/16 16:04) atorvastatin Adverse Reaction (Mild, Verified 10/09/16 16:04) LEG CRAMPS cisapride [Cisapride] Adverse Reaction (Mild, Verified 10/09/16 16:04) Vomiting fenofibrate Adverse Reaction (Mild, Verified 10/09/16 16:04) LEG CRAMPS gabapentin Adverse Reaction (Mild, Verified 10/09/16 16:04) MIGRAINE, SEVERE LETHARGY glyburide Adverse Reaction (Mild, Verified 10/09/16 16:04) Vomiting hydrochlorothiazide Adverse Reaction (Mild, Verified 10/09/16 16:04) LEG CRAMPS, MIGRAINE irbesartan Adverse Reaction (Mild, Verified 10/09/16 16:04) Hives omeprazole Adverse Reaction (Mild, Verified 10/09/16 16:04) Vomiting repaglinide Adverse Reaction (Mild, Verified 10/09/16 16:04) LEG CRAMPS rosuvastatin Adverse Reaction (Mild, Verified 10/09/16 16:04) LEG CRAMPS triamterene [Triamterene] Adverse Reaction (Mild, Verified 10/09/16 16:04) LEG CRAMPS, MIGRAINES Home Medications: HOME MEDICATIONS Aspirin [Aspirin Enteric Coated] 81 mg PO DAILY 12/29/14 [Last Taken 12/29/14] Lactobacillus Combo No.10 [Probiotic] 1 each PO DAILY 12/29/14 [Last Taken 12/29] Rosuvastatin Calcium [Crestor] 40 mg PO DAILY 12/29/14 [Last Taken 12/29/14] Topiramate [Topiragen] 150 mg PO BID 12/29/14 [Last Taken 12/29/14] metFORMIN HCL [Glucophage] 1,000 mg PO BID 12/29/14 [Last Taken 12/29/14] Albuterol Sulfate [Proair Hfa] 2 puff IH Q4H PRN 01/19/15 [Last Taken Unknown] Blood Sugar Diagnostic, Drum [Accu-Chek Compact] 1 each [facility] 01/19/15 [Last Taken Unknown] EPINEPHrine [Epipen] 0.3 mg IM ONCE PRN 01/19/15 [Last Taken Unknown] Glucagon,Human Recombinant [Glucagen] 1 mg IJ ONCE PRN 01/19/15 [Last Taken Unknown] Levothyroxine Sodium [Synthroid] 88 mcg PO DAILY 01/19/15 [Last Taken Unknown] Acetaminophen [Tylenol] 650 mg PO QID PRN #0 tablet 03/28/15 [Last Taken Unknown ] Polyvinyl Alcohol [Artificial Tears] 1 drop EACHEYE Q1H PRN #0 btl 03/28/15 [ Last Taken Unknown] Insulin Glargine,Hum.rec.anlog [Lantus] 25 units SC BID #4 vial 04/22/15 [Last Taken Unknown] Duloxetine HCl [Cymbalta] 30 mg PO DAILY 08/14/16 [Last Taken Unknown] Bisacodyl [Dulcolax Suppository] 10 mg RC DAILY PRN 10/08/16 [Last Taken Unknown ] Bumetanide 2 mg PO DAILY MDD FLUID 10/08/16 [Last Taken Unknown] Cholecalciferol [Vitamin D] 1,000 unit PO DAILY 10/08/16 [Last Taken Unknown] Etanercept [Enbrel] 50 mg IJ 2XW 10/08/16 [Last Taken Unknown] Fluticasone Propionate [Flonase] 1 spray NS DAILY 10/08/16 [Last Taken Unknown] Insulin Aspart [Novolog] 12 units SC TIDWM 10/08/16 [Last Taken Unknown] Iron Sucrose Complex [Venofer] 50 mg IV ONCE 10/08/16 [Last Taken Unknown] Lactulose [Enulose] 30 ml PO BID 10/08/16 [Last Taken Unknown] Lubiprostone [Amitiza] 24 mcg PO BID 10/08/16 [Last Taken Unknown] Meclizine HCl [Antivert] 25 mg PO QID PRN 10/08/16 [Last Taken Unknown] Midodrine HCl 10 mg PO TID 10/08/16 [Last Taken Unknown] Montelukast Sodium [Singulair] 10 mg PO DAILY 10/08/16 [Last Taken Unknown] Ondansetron [Zofran Odt] 4 mg PO Q6H PRN 10/08/16 [Last Taken Unknown] Pantoprazole Sodium [Protonix] 40 mg PO DAILY 10/08/16 [Last Taken Unknown] Vitamin B Complex & Vit C No.4 [Super B Complex] 150 mg PO DAILY 10/08/16 [Last Taken Unknown] traMADol HCL [Ultram] 50 - 100 mg PO QID PRN 10/08/16 [Last Taken Unknown] - History of Present Ilness Narrative: Patient was send from the clinic due to low blood pressure. Patient reported that she has been coughing and that her chest hurts with each cough. Patient reported that while her BP was low she felt dizzy. Patient did not loss consciousness at any moment and she has been aware of her surrounding at all times. Patient denies any vomiting and no diarrhea. Timing: gone now Severity: moderate Frequency/Possible Cause: Reports: no prior episodes. Denies: foreign travel Modifying Factors - Improves: Reports: rest Modifying Factors - Worsens: Reports: activity, coughing Associated Symptoms: Reports: chest pain/soreness - on coughing, cough, dizziness. Denies: shortness of breath, wheezing, facial pain, nasal congestion , nasal drainage, lightheadedness, earache, headache, sore throat, muscle aches , fever/chills, other Prior Treatment: Reports: recently seen - patient was seen recently due to coughing Review of Systems - Review of Systems Constitutional: Present: weakness. Absent: fever, chills, diaphoresis, fatigue , malaise, weight loss EYE: Present: no symptoms reported ENT: Present: no symptoms reported Respiratory: Present: cough. Absent: shortness of breath Cardiology: Present: chest pain - on palpation and on coughing only Gastrointestinal/Abdominal: Absent: nausea, vomiting, diarrhea, abdominal pain Genitourinary: Present: no symptoms reported Musculoskeletal: Present: no symptoms reported Skin: Present: no symptoms reported Neurological: Present: dizziness/light-headedness, weakness. Absent: anxiety, depressed, emotional problems, headache, seizure, numbness, tingling, tremors, pre-existing deficit Endocrine: Present: no symptoms reported Hematologic/Lymphatic: Present: no symptoms reported Psych: Present: no symptoms reported All Other Systems: All systems neg except as marked - Patient's Past Medical History Patient History - Medical: Anemia, Chronic Pain, Diabetes Type 2 Insulin Dependent, GERD, Headache, Hypothyroidism, Liver Disease, Renal Disease, Other Patient History - Cardiac/Respiratory: No pertinent hx, Pneumonia Patient History - Cancer: No Hx of Cancer Patient History - Surgical Procedures: Appendectomy, Cholecystectomy, Colon Resection, , EGD, Hysterectomy, Other Patient History - Other: None LMP (females 10-50): Menopausal - Family History Mother Family History - Medical: Diabetes Type 2 Family History - Cardiac/Respiratory: No pertinent hx Father Family History - Medical: , Renal Disease, Renal Failure Family History - Cardiac/Respiratory: COPD Family History - Cancer: No pertinent family hx - Social History Living Situations: home Abuse History: No History of abuse Psych History: Current tx/ever been on anti-depressants or anti-anxiety meds Smoking Status: Former smoker Alcohol Use: none Drug Use: none - Immunizations Immunizations Up to Date: Yes Hx Pneumococcal Vaccination: Yes History of Influenza Vaccine: Yes Physical Exam - Physical Exam General Appearance: Present: wd/wn, alert, no apparent distress Eye Exam: Normal inspection: bilateral, PERRL: bilateral, EOMI: bilateral Ears, Nose, Throat: Present: normal ENT inspection, normal pharynx Neck: Present: normal inspection, nontender. Absent: carotid bruit Respiratory: Present: no respiratory distress, normal breath sounds, no accessory muscle use, lungs clear, chest tenderness - on the frontal chest area , expiration (prolonged) - mild. Absent: crackles, rales, rhonchi, wheezing Cardiovascular/Chest: Present: regular rate, rhythm, no murmur, normal peripheral pulses. Absent: JVD Gastrointestinal/Abdominal: Present: normal bowel sounds, nontender, nondistended, soft, no organomegaly Back Exam: Present: normal inspection, no CVA tenderness Extremity Exam: Present: normal inspection, non-tender, normal range of motion, no edema Neurological Exam: Present: alert, oriented, normal mood/affect, no motor/ sensory deficits Skin Exam: Present: normal color, warm/dry Lymphatic Exam: Present: no adenopathy ED Progress - Date and Time Seen: Date and Time: 10/09/16 17:15 Chest X-ray was done yesterday: No acute pathology reported on Radiologist Report 10/09/16 17:25 Call to Hospitalist was placed. 10/09/16 17:43 Case accepted by Hospitalist - Results and Orders Patient's Lab Results:: I have reviewed the patient's lab results. Results and Orders: CBC: Anemia CMP: Hypernatremia Trop: 0.023 - Vital Signs Patient's Vital Signs:: I have reviewed the patient's vital signs. Vital Signs: Vital Signs 10/09/16 16:00 Temperature 36.5 C Pulse Rate 80 Respiratory 16 Rate Blood Pressure 81/49 O2 Sat by Pulse 100 Oximetry - EKG EKG: NSR EKG read: Interp. by me EKG Comments: HR: 82, T waves inversion on V2 to V6 new when compared to 03/11/2015, LAD, LVH , No ST Elevation - Progress/Reassessment Chief Complaint: Upper Respiratory Symptoms Progress:: Unchanged - Transfer of Care Expected Disposition: Admit Plan - Plan Plan: Observation for CP and Hydration Departure - Departure Clinical Impression: Dizziness Chest pain Qualifiers: Chest pain type: unspecified Qualified Code(s): R07.9 - Chest pain, unspecified Hypotension Qualifiers: Hypotension type: unspecified hypotension type Qualified Code(s): I95.9 - Hypotension, unspecified Disposition: [facility] Condition: Fair Referrals: Mateusz Stanley DO [Primary Care Provider] -
[2016-10-09 17:10] LABS: Anion Gap 18.1 mmol/L (6.8-13.8); Bilirubin, Total 0.2 mg/dL (0.0-1.1); Ca. Corrected For Albumin 8.6 mg/dL (8.4-10.2); Calcium * 8.1 mg/dL (7.9-10.9); Carbon Dioxide 21.7 mmol/L (24-32.6); Potassium 3.8 mmol/L (3.4-4.6); Total Protein 6.3 gm/dL (6.2-8.2); Troponin I 0.023 ng/ml (0.00-0.10)
[2016-10-09 17:12] LABS: Urine Bilirubin Negative (NEGATIVE); Urine Blood Negative /ul (NEGATIVE); Urine Ketone 5 mg/dL (NEGATIVE); Urine Nitrite Negative (NEGATIVE); Urine Protein 30 mg/dL (NEGATIVE); Urine Specific Gravity >=1.030 SP.GR. (1.005-1.010); Urine Urobilinogen Normal (NORMAL); Urine pH 5.5 pH (5.0-7.0)
[2016-10-09] MEDS ORDERED: ASPIRIN 81 MG TAB.CHEW PO ONE (17:23)
[2016-10-09 17:37] LABS: Urine Amorphous Sediment TRACE (NONE-FEW); Urine Appearance Clear; Urine Bacteria None Seen; Urine Color Amber; Urine RBC None Seen /hpf (0-5); Urine WBC None Seen /hpf (0-5)
[2016-10-09 17:39] LABS: Atypical (Reactive) Lymph 8 % (0-2); Eosinophil 8 % (0-3); Lymphocyte 35 % (20-51); Monocyte 8 % (0-9); Neutrophil 41 % (42-75); Neutrophil # 3.6 K/mm3 (1.3-6.0)
[2016-10-09 17:40] LABS: Anisocytosis 1+; Hypochromia 1+; Schistocytes 1+; Target Cells Trace
[2016-10-09 17:41] LABS: Poikilocytosis 2+
[2016-10-09] MEDS ORDERED: ASPIRIN 81 MG TAB.CHEW ONE (17:41)
[2016-10-09 17:42] LABS: Platelet Estimate Normal (NORMAL)
--- OUTSIDE RECORDS SUMMARY | 2016-10-09 17:49 | XMS REPORT | Continuity of Care Document ---
:1960 Author Organization [facility] [place] [address] Care Team Providers Name Role Phone Quinton Gates Merle Primary Care Provider [phone] Source Comments This disclosure is being made pursuant to the [employer] program and maynot contain all information available regarding this patient.[facility] Active Allergies and Adverse Reactions Not on [...]
--- OUTSIDE RECORDS SUMMARY | 2016-10-09 17:50 | XMS REPORT | Continuity of Care Document ---
:1960 Author Organization [facility] ([facility]) Address [address] [place] [address] Phone [phone] Care Team Providers Name Role Phone Mateusz Stanley Primary Care Provider [phone] Source Comments This disclosure is being made pursuant to the Care Everywhere program, applicable federal and state laws, and may not contain all informaitonavailable regarding this patient.[facility] ([facility]) Active Allergies and Adverse Reactions Allergen Noted [...] Distress Omeprazole Unknown Other Agent 06/22/2012 Rash Ecru and green pepper Penicillins Respiratory Distress Phenazopyridine Unknown Phenylpropanolamine Respiratory Distress Prochlorperazine Respiratory Distress Repaglinide OTHER LOW BLOOD SUGAR Salmeterol Respiratory Distress [place] Urticaria (Hives) Sulfamethoxazole Nausea & Vomiting Triamterene [...] original. * associated with intermittently + LFTs [id number] Jul 19, 2007 1:00 PM FITNESS COORDINATOR Component Results DIAGNOSIS: Liver, biopsy: Fragmented core [...] Taken Blood Pressure 97/63 08/13/2016 11:10 AM FITNESS COORDINATOR Pulse 74 08/13/2016 11:10 AM FITNESS COORDINATOR Temperature 35 C (95 F) 08/13/2016 11:10 AM FITNESS COORDINATOR Respiratory Rate 14 04/20/2013 4:14 PM CDT Height 1.702 m (5' 7") 08/13/2016 11:10 AM FITNESS COORDINATOR Weight 55.9 kg (123 lb 3.8 oz) 08/13/2016 11:10 AM FITNESS COORDINATOR Body Mass Index 19.3 08/13/2016 11:10 AM FITNESS COORDINATOR Oxygen Saturation 96% 04/27/2014 11:28 AM CDT Plan of Care Date Type Specialty Providers Description 10/13/2016 Appointment Radiology Subj: Upcoming Appt Reminder 10/13/2016 Appointment Med GI/Hepatology Default, Other [facility] - [facility] [address] [place] [address] [phone] (Fax) Subj: Upcoming Appt Nila Suarez PA-C [address] [place] [address] [phone] (Fax) Reminder 12/22/2016 Appointment [facility] Jenise Peck, Chief Comp: Patient Reported Reason For [address] [facility] [place] [address] [phone] (Fax) 12/22/2016 Appointment Med Rheumatology Amina Crandall MD [address] [place] [address] [phone] (Fax) Chief Comp: Patient Jakob Ugalde PA-C [address] [place] [address] [phone] (Fax) Reported Reason For Visit 01/08/2017 Appointment Renal and Hypertension Default, Other Billg - [facility] [address] [place] [address] [phone] (Fax) Chief Comp: Patient Twyla Ureña MD Reported Reason For Visit 02/18/2017 Appointment Med GI/Hepatology Enrike Dupont, Chief Comp: Patient Reported Reason For [address] [place] [address] [phone] (Fax) 03/02/2017 Appointment Diabetes Services Zurdo Cunningham, Chief Comp: Patient Reported Reason For [address] [place] [address] [phone] (Fax) 05/18/2017 Appointment Med Rheumatology Amina Crandall MD Chief Comp: Patient [address] [place] [address] Visit [phone] (Fax) Health Maintenance Due Date Last Done [...] Neutrophils-Auto Diff 46.3 % Neutrophils-Auto Diff 5280 [id number] /MM3 % Lymphocytes-Auto Diff 37.9 % Lymphocytes-Auto [...] Abnormality Status --------- ------ CBC (COMPLETE BLOOD COUNT)[[id number]] AbnormalFinal result DIFFERENTIAL[[id number]] AbnormalFinal result Please view results for these tests on the individual orders.
[2016-10-09] MEDS: DEXTROSE 5 % IN WATER 1,000 ML IV PRN (19:42)
[2016-10-09] MEDS ORDERED: DEXTROSE 5 % IN WATER 1,000 ML IV PRN (19:52)
[2016-10-09] MEDS ORDERED: ALBUTEROL SULFATE 200 PUFF INHALER IH PRN (19:54)
[2016-10-09] MEDS ORDERED: POLYVINYL ALCOHOL 150 DROP BTL EACHEYE PRN (19:54)
[2016-10-09] MEDS ORDERED: MAGNESIUM HYDROXIDE 30 ML UDC PO ONE (19:54)
[2016-10-09] MEDS ORDERED: BISACODYL 10 MG SUPP.RECT RC PRN (19:54)
--- NOTE | 2016-10-09 21:46 | HP ---
Chief Complaint - Chief Complaint Date of Service: 10/09/16 Time of Service: 21:36 Chief Complaint: cough, dizziness, hypotensive History of Present Illness: 56 years old female adm to the hospital from ER with reports of recurrent cough x 2-3 days, facial pain, nasal congestion and throat soreness. pt stated she went to the walkin clinic earlier today due to discomfort. While at clinic her BP was low and she was feeling dizzy. She had venofer transfusion earlier in [facility] due to iron deficiency anemia. She was concern about persistent s/s and was sent to the ER. PMH significant for CKD stage III, uncontrolled diabetes, anxiety, depression, GERD, RA, migraine and hypothyroidism. In ER Hypernatremia, EKG with T wave inversion. - Patient's Past Medical History Patient History - Medical: Anemia, Arthritis, Chronic Pain, Diabetes Type 2 Insulin Dependent, GERD, Headache, Hypothyroidism, Liver Disease, Migraines, Osteoarthritis, Renal Disease - stage III, Rheumatoid Arthritis, UTI'S - recurrent due to ureter stricture Patient History - Cardiac/Respiratory: No pertinent hx, Bronchitis, Pneumonia Patient History - Cancer: No Hx of Cancer Patient History - Surgical Procedures: Appendectomy, Cholecystectomy, Colon Resection - secondary to diverticulosis, , EGD, Hysterectomy, Other - spleenectomy Patient History - Other: None LMP (females 10-50): Menopausal - Family History Mother Family History - Medical: Diabetes Type 2 Family History - Cardiac/Respiratory: No pertinent hx Family History - Cancer: Breast Father Family History - Medical: , Diabetes Type 2 Insulin Dependent, Renal Disease, Renal Failure Family History - Cardiac/Respiratory: COPD Family History - Cancer: No pertinent family hx - Social History Living Situations: alone Abuse History: No History of abuse Psych History: Current tx/ever been on anti-depressants or anti-anxiety meds Smoking Status: Former smoker Have you smoked in the past 12 months: No Do you dip or chew tobacco: No Alcohol Use: none Drug Use: none - Immunizations Immunizations Up to Date: Yes Hx Pneumococcal Vaccination: Yes History of Influenza Vaccine: Yes Review Of Systems (GEN) - Review of Systems Generalized/Overall Review: Present: No Symptoms Reported EENTM: Present: Nose Congestion, Throat Pain Respiratory: Present: Cough - productive with yellow mucus Cardiac: Present: No Symptoms Reported Abdominal: Present: Constipation Genitourinary: Present: Retention Musculoskeletal: Present: No Symptoms Reported Neurological: Present: No Symptoms Reported Skin: Present: No Symptoms Reported Endocrine: Present: No Symptoms Reported Immunizations: IMMUNIZATION HX Immunizations Up to Date Yes History of Influenza Vaccine Yes Hx Pneumococcal Vaccination Yes Allergies/Adverse Reactions: Allergies Allergy/AdvReac Type Severity Reaction Status Date / Time bee venom (honey bee) Allergy Severe Anaphylaxis Verified 10/09/16 16:04 cefaclor [Cefaclor] Allergy Severe THROAT Verified 10/09/16 16:04 SWELLING, SOB penicillin G Allergy Severe Anaphylaxis Verified 10/09/16 16:04 Penicillins Allergy Severe Anaphylaxis Verified 10/09/16 16:04 codeine Allergy Intermediate Shortness Verified 10/09/16 16:04 of Breath meperidine [Meperidine] Allergy Intermediate HIVES, Verified 10/09/16 16:04 CANT BREATHE nabumetone [Nabumetone] Allergy Intermediate DIFF Verified 10/09/16 16:04 BREATHING prochlorperazine Allergy Intermediate Shortness Verified 10/09/16 16:04 of Breath bethanechol [Bethanechol] Allergy Mild HIVES, Verified 10/09/16 16:04 MIGRAINES chlorpheniramine maleate Allergy Mild Hives Verified 10/09/16 16:04 [From Ornade] chocolate flavor Allergy Mild Hives Verified 10/09/16 16:04 ciprofloxacin Allergy Mild Hives Verified 10/09/16 16:04 digoxin Allergy Mild Hives Verified 10/09/16 16:04 doxycycline Allergy Mild Hives Verified 10/09/16 16:04 Fish Containing Products Allergy Mild Hives Verified 10/09/16 16:04 latex Allergy Mild Hives Verified 10/09/16 16:04 metoclopramide Allergy Mild HIVES, Verified 10/09/16 16:04 CANT BREATHE metolazone [Metolazone] Allergy Mild Hives Verified 10/09/16 16:04 phenylpropanolamine HCl Allergy Mild Hives Verified 10/09/16 16:04 [From Ornade] salmeterol Allergy Mild HIVES, LEG Verified 10/09/16 16:04 CRAMPS strawberry [[place]] Allergy Mild Hives Verified 10/09/16 16:04 sulfamethoxazole Allergy Mild Hives Verified 10/09/16 16:04 trimethoprim Allergy Mild Hives Verified 10/09/16 16:04 bumetanide Allergy Unknown Verified 10/09/16 16:04 chlorpheniramine Allergy Unknown Verified 10/09/16 16:04 furosemide Allergy Unknown Verified 10/09/16 16:04 phenazopyridine Allergy Unknown Verified 10/09/16 16:04 [Phenazopyridine] phenylpropanolamine Allergy Unknown Verified 10/09/16 16:04 atorvastatin AdvReac Mild LEG CRAMPS Verified 10/09/16 16:04 cisapride [Cisapride] AdvReac Mild Vomiting Verified 10/09/16 16:04 fenofibrate AdvReac Mild LEG CRAMPS Verified 10/09/16 16:04 gabapentin AdvReac Mild MIGRAINE, Verified 10/09/16 16:04 SEVERE LETHARGY glyburide AdvReac Mild Vomiting Verified 10/09/16 16:04 hydrochlorothiazide AdvReac Mild LEG Verified 10/09/16 16:04 CRAMPS, MIGRAINE irbesartan AdvReac Mild Hives Verified 10/09/16 16:04 omeprazole AdvReac Mild Vomiting Verified 10/09/16 16:04 repaglinide AdvReac Mild LEG CRAMPS Verified 10/09/16 16:04 rosuvastatin AdvReac Mild LEG CRAMPS Verified 10/09/16 16:04 triamterene [Triamterene] AdvReac Mild LEG Verified 10/09/16 16:04 CRAMPS, MIGRAINES Home Medications: HOME MEDICATIONS Aspirin [Aspirin Enteric Coated] 81 mg PO DAILY 12/29/14 [Last Taken 12/29/14] Lactobacillus Combo No.10 [Probiotic] 1 each PO DAILY 12/29/14 [Last Taken 12/29] Rosuvastatin Calcium [Crestor] 40 mg PO DAILY 12/29/14 [Last Taken 12/29/14] Topiramate [Topiragen] 150 mg PO BID 12/29/14 [Last Taken 12/29/14] metFORMIN HCL [Glucophage] 1,000 mg PO BID 12/29/14 [Last Taken 12/29/14] Albuterol Sulfate [Proair Hfa] 2 puff IH Q4H PRN 01/19/15 [Last Taken Unknown] Blood Sugar Diagnostic, Drum [Accu-Chek Compact] 1 each ACHS 01/19/15 [Last Taken Unknown] EPINEPHrine [Epipen] 0.3 mg IM ONCE PRN 01/19/15 [Last Taken Unknown] Glucagon,Human Recombinant [Glucagen] 1 mg IJ ONCE PRN 01/19/15 [Last Taken Unknown] Levothyroxine Sodium [Synthroid] 88 mcg PO DAILY 01/19/15 [Last Taken Unknown] Acetaminophen [Tylenol] 650 mg PO QID PRN #0 tablet 03/28/15 [Last Taken Unknown ] Polyvinyl Alcohol [Artificial Tears] 1 drop EACHEYE Q1H PRN #0 btl 03/28/15 [ Last Taken Unknown] Insulin Glargine,Hum.rec.anlog [Lantus] 25 units SC BID #4 vial 04/22/15 [Last Taken Unknown] Duloxetine HCl [Cymbalta] 30 mg PO DAILY 08/14/16 [Last Taken Unknown] Bisacodyl [Dulcolax Suppository] 10 mg RC DAILY PRN 10/08/16 [Last Taken Unknown ] Bumetanide 2 mg PO DAILY MDD FLUID 10/08/16 [Last Taken Unknown] Cholecalciferol [Vitamin D] 1,000 unit PO DAILY 10/08/16 [Last Taken Unknown] Etanercept [Enbrel] 50 mg IJ 2XW 10/08/16 [Last Taken Unknown] Fluticasone Propionate [Flonase] 1 spray NS DAILY 10/08/16 [Last Taken Unknown] Insulin Aspart [Novolog] 12 units SC TIDWM 10/08/16 [Last Taken Unknown] Iron Sucrose Complex [Venofer] 50 mg IV ONCE 10/08/16 [Last Taken Unknown] Lactulose [Enulose] 30 ml PO BID 10/08/16 [Last Taken Unknown] Lubiprostone [Amitiza] 24 mcg PO BID 10/08/16 [Last Taken Unknown] Meclizine HCl [Antivert] 25 mg PO QID PRN 10/08/16 [Last Taken Unknown] Midodrine HCl 10 mg PO TID 10/08/16 [Last Taken Unknown] Montelukast Sodium [Singulair] 10 mg PO DAILY 10/08/16 [Last Taken Unknown] Ondansetron [Zofran Odt] 4 mg PO Q6H PRN 10/08/16 [Last Taken Unknown] Pantoprazole Sodium [Protonix] 40 mg PO DAILY 10/08/16 [Last Taken Unknown] Vitamin B Complex & Vit C No.4 [Super B Complex] 150 mg PO DAILY 10/08/16 [Last Taken Unknown] traMADol HCL [Ultram] 50 - 100 mg PO QID PRN 10/08/16 [Last Taken Unknown] Exam - Exam Vital Signs: Vital Signs - Last Taken Temp 36.6 C 10/09/16 19:43 Pulse 90 10/09/16 20:34 Resp 18 10/09/16 19:43 BP 139/58 10/09/16 20:34 Pulse Ox 96 10/09/16 19:43 Constitutional: Present: Alert, Oriented x3, Cooperative, Well developed, No distress ENT Exam: Present: nasal congestion, nasal drainage, moist mucous membranes Eye Exam: bilateral eye: PERRL Neck: Present: full range of motion Back Exam: Present: normal inspection, no CVA tenderness Respiratory: Present: chest non-tender, normal breath sounds, no respiratory distress, No wheezing Cardiovascular/Chest: Present: normal peripheral pulses, regular rate, rhythm, no chest tenderness, no edema, no gallop Peripheral Pulses: dorsalis-pedis (R): 3+, dorsalis-pedis (L): 3+ Abdomen: Present: Normal bowel sounds, soft, nontender, nondistended /Rectal: Present: Exam deferred Extremity: Present: normal range of motion, non-tender, normal inspection, no pedal edema, no calf tenderness Skin Exam: Present: normal color, warm/dry, no cyanosis Neurologic: Present: oriented x 3 Appearance: Present: appropriate appearance, appropriate insight Eye contact: Present: cooperative, good eye contact Thoughts: Present: normal thought pattern Diagnostic Studies: Laboratory Results WBC 8.7 K/mm3 (4.0-10.5) 10/09/16 16:45 RBC 3.45 M/mm3 (4.2-5.4) L 10/09/16 16:45 Hgb 9.6 gm/dL (12.5-16.0) L 10/09/16 16:45 Hct 30.7 % (37.0-47.0) L 10/09/16 16:45 MCV 89.0 fl (78-100) 10/09/16 16:45 MCH 27.8 pg (27-31) 10/09/16 16:45 MCHC 31.3 g/dl (32-36) L 10/09/16 16:45 RDW 15.9 % (11.5-14.0) H 10/09/16 16:45 Plt Count 185 K/mm3 (150-450) 10/09/16 16:45 MPV 13.1 fl (6.0-9.5) H 10/09/16 16:45 Neutrophils % (Manual) 41 % (42-75) L 10/09/16 16:45 Lymphocytes % (Manual) 35 % (20-51) 10/09/16 16:45 Monocytes % (Manual) 8 % (0-9) 10/09/16 16:45 Eosinophils % (Manual) 8 % (0-3) H 10/09/16 16:45 Neutrophils # (Manual) 3.6 K/mm3 (1.3-6.0) 10/09/16 16:45 Lymphocytes # (Manual) 3.0 k/mm3 (1.5-3.5) 10/09/16 16:45 Monocytes # (Manual) 0.7 k/mm3 (0.0-1.0) 10/09/16 16:45 Eosinophils # (Manual) 0.7 k/mm3 (0.0-0.7) 10/09/16 16:45 Atypic/Reactive Lymphs 8 % (0-2) H 10/09/16 16:45 Platelet Estimate Normal (NORMAL) 10/09/16 16:45 Hypochromasia 1+ 10/09/16 16:45 Poikilocytosis 2+ 10/09/16 16:45 Anisocytosis 1+ 10/09/16 16:45 Target Cells Trace 10/09/16 16:45 Elliptocytes 1+ 10/09/16 16:45 Schistocytes 1+ 10/09/16 16:45 Sodium 150 mmol/L (132-142) H 10/09/16 16:45 Plasma Sodium 150 mmol/L (130-142) H 10/09/16 16:45 Potassium 3.8 mmol/L (3.4-4.6) 10/09/16 16:45 Chloride 114 mmol/L (97-106) H 10/09/16 16:45 Carbon Dioxide 21.7 mmol/L (24-32.6) L 10/09/16 16:45 Anion Gap 18.1 mmol/L (6.8-13.8) H 10/09/16 16:45 BUN 24 mg/dL (3-23) H 10/09/16 16:45 Creatinine 1.33 mg/dL (0.4-1.4) 10/09/16 16:45 Est GFR (Non-Af Amer) 44 mL/min (60-130) L D 10/09/16 16:45 BUN/Creatinine Ratio 18.0 (9.0-21.6) 10/09/16 16:45 Random Glucose 119 mg/dL (70-110) H 10/09/16 16:45 Calcium 8.1 mg/dL (7.9-10.9) 10/09/16 16:45 Calcium Adj for Albumin 8.6 mg/dL (8.4-10.2) 10/09/16 16:45 Total Bilirubin 0.2 mg/dL (0.0-1.1) 10/09/16 16:45 AST 49 U/L (0-48) H 10/09/16 16:45 ALT 47 U/L (19-67) 10/09/16 16:45 Alkaline Phosphatase 77 U/L (50-170) 10/09/16 16:45 CK-MB (CK-2) 2.4 ng/mL (0.0-9.0) 10/09/16 20:15 Troponin I 0.023 ng/ml (0.00-0.10) 10/09/16 16:45 Total Protein 6.3 gm/dL (6.2-8.2) 10/09/16 16:45 Albumin 3.0 gm/dl (3.4-5.0) L 10/09/16 16:45 Urine Color Brittany 10/09/16 16:54 Urine Appearance Clear 10/09/16 16:54 Urine pH 5.5 pH (5.0-7.0) 10/09/16 16:54 Ur Specific [place] >=1.030 SP.GR. (1.005-1.010) 10/09/16 16:54 Urine Protein 30 mg/dL (NEGATIVE) H 10/09/16 16:54 Urine Glucose (UA) Negative mg/dL (NEGATIVE) 10/09/16 16:54 Urine Ketones 5 mg/dL (NEGATIVE) 10/09/16 16:54 Urine Blood Negative /ul (NEGATIVE) 10/09/16 16:54 Urine Nitrate Negative (NEGATIVE) 10/09/16 16:54 Urine Bilirubin Negative mg/dl (NEGATIVE) 10/09/16 16:54 Prot Sulfosalicylic Acd Negative mg/dL (0) 10/09/16 16:54 Urine Urobilinogen Normal EU/dl (NORMAL) 10/09/16 16:54 Ur Leukocyte Esterase Negative /ul (NEGATIVE) 10/09/16 16:54 Urine RBC None seen /hpf (0-5) 10/09/16 16:54 Urine WBC None seen /hpf (0-5) 10/09/16 16:54 Ur Epithelial Cells 0-5 /hpf (0-5) 10/09/16 16:54 Amorphous Sediment Trace (NONE-FEW) 10/09/16 16:54 Urine Bacteria None seen (NONE) 10/09/16 16:54 Urine Culture Comments No culture indicated 10/09/16 16:54 Assessment/Plan - Narrative Narrative: Moderate Dehydration- likely due to decreased oral intake and URI Continue with IVF and monitor cmp in am On adm Bun/ Cre--->24/1.33 GFR 44 URI vs Viral Rhinosinusitis Influenza antigen pending Flonase spray comfort care with s/s management (Initiate flonase, claritin and mucinex) Hypotensive- due to dehydration On adm to ER BP 81/49 Continue with IV and monitor vital signs. Diabetes Monitor Accu-check AC+HS Hold home dose of metformin and insulin for now and continue to monitor overnight. Consistent carb diet Anemia of chronic disease-S/P spleenectomy several years ago, CKD 10/09/16 venofer infusion in [facility] Continue with oral iron tabs and stool softeners Pt reports constipation MOM given Asthma stable continue with home medications Encourage use of I/S Chronic Recurrent UTI 10/08/16 S/P cystoscopy showing uterine stricture Urinalysis unremarkable Chronic Hypernatemia 03/24 -- 04/24 Na+ ---->143/145previous adm On adm Na+ 150, continue IVF and monitor CMP in am Code status: Full VTE ppx SCD and ambulate GI ppx: Protonix Anticipate discharge 1-3 days Time 45 minutes - Assessment/Plan (1) Diabetes Problem: Chronic Qualifiers: Diabetes mellitus type: type 2 (2) Hypotension Problem: Acute Qualifiers: Hypotension type: unspecified hypotension type Qualified Code(s): I95.9 - Hypotension, unspecified (3) Dehydration, moderate Problem: Acute (4) Anemia of chronic disease Problem: Chronic (5) Hypothyroidism Problem: Chronic
[2016-10-09] MEDS: LORATADINE 10 MG TABLET PO SCH (21:57)
[2016-10-09] MEDS: BENZONATATE 100 MG CAPSULE PO PRN (21:57)
[2016-10-09] MEDS: FLUTICASONE PROPIONATE 120 SPRAY INHALER NS SCH (21:57)
[2016-10-09] MEDS ORDERED: MECLIZINE HCL 25 MG TABLET PO PRN (22:12)
[2016-10-09] MEDS ORDERED: ONDANSETRON 4 MG TAB.RAPDIS PO PRN (22:12)
[2016-10-09 22:25] LABS: Troponin I 0.059 ng/ml (0.00-0.10)
[2016-10-09] MEDS: INSULIN GLARGINE,HUM.REC.ANLOG 100 UNITS/ML VIAL SC SCH (22:47)
[2016-10-10] MEDS: ACETAMINOPHEN 325 MG TABLET PO PRN ×2 (02:23→09:04)
[2016-10-10] MEDS: BENZONATATE 100 MG CAPSULE PO PRN (04:52)
[2016-10-10] MEDS: DEXTROSE 5 % IN WATER 1,000 ML IV PRN (05:53)
[2016-10-10 06:10] LABS: Albumin * 2.4 gm/dl (3.4-5.0); Anion Gap 13.3 mmol/L (6.8-13.8); BUN/Creatinine Ratio 19.3 (9.0-21.6); Bilirubin, Total 0.1 mg/dL (0.0-1.1); Ca. Corrected For Albumin 8.2 mg/dL (8.4-10.2); Calcium * 7.2 mg/dL (7.9-10.9); Carbon Dioxide 22.2 mmol/L (24-32.6); Potassium 3.5 mmol/L (3.4-4.6); Total Protein 5.1 gm/dL (6.2-8.2)
[2016-10-10] MEDS ORDERED: LEVOTHYROXINE SODIUM 88 MCG TABLET PO SCH (07:00)
[2016-10-10] MEDS: LORATADINE 10 MG TABLET PO SCH (08:44)
[2016-10-10] MEDS: MIDODRINE HCL 2.5 MG TABLET PO SCH ×2 (08:45→12:00)
[2016-10-10] MEDS: FLUTICASONE PROPIONATE 120 SPRAY INHALER NS SCH (08:48)
[2016-10-10] MEDS: INSULIN GLARGINE,HUM.REC.ANLOG 100 UNITS/ML VIAL SC SCH (08:52)
[2016-10-10] MEDS: INSULIN ASPART 100 UNITS/ML VIAL SC SCH ×2 (08:54→11:59)
[2016-10-10] MEDS ORDERED: PANTOPRAZOLE SODIUM 40 MG TABLET.EC PO SCH (09:00)
[2016-10-10] MEDS ORDERED: LACTOBACILLUS ACIDOPHILUS 100 CAP BTL PO SCH (09:00)
[2016-10-10] MEDS ORDERED: MONTELUKAST SODIUM 10 MG TABLET PO SCH ×2 (09:00→21:00)
[2016-10-10] MEDS ORDERED: ROSUVASTATIN CALCIUM 10 MG TABLET PO SCH (09:00)
[2016-10-10] MEDS ORDERED: ASPIRIN 81 MG TABLET.DR PO SCH (09:00)
[2016-10-10] MEDS ORDERED: VITAMIN B COMP W-C 1 TAB TABLET PO SCH (09:00)
[2016-10-10] MEDS ORDERED: LACTULOSE 10 G/15 ML BTL PO SCH (09:00)
[2016-10-10] MEDS ORDERED: TOPIRAMATE 50 MG TABLET PO SCH (09:00)
[2016-10-10] MEDS ORDERED: CHOLECALCIFEROL 1,000 UNIT CAPSULE PO SCH (09:00)
[2016-10-10] MEDS ORDERED: DULoxetine HCL 30 MG CAPSULE.SA PO SCH (09:00)
[2016-10-10] MEDS ORDERED: BUMETANIDE 1 MG TABLET PO SCH (09:00)
[2016-10-10] MEDS ORDERED: LUBIPROSTONE 24 MCG PO SCH (09:00)
[2016-10-10] MEDS ORDERED: FLUTICASONE PROPIONATE 120 SPRAY INHALER NS SCH (09:00)
[2016-10-10 11:12] VITALS: BP 113/63
--- NOTE | 2016-10-10 12:49 | DS ---
(1) Hypernatremia Diagnosis(s): Jodi is a 56 yo female who was admitted for hypernatremia of 150. She had reported no drinking very well. Suspected this to be the cause. She was treated with IVF and sodium was monitored and corrected. It improved to 143. She presented to the ER with symptoms of weakness and dizziness and it was suspected that these were caused from the hypernatremia. At discharge this symptoms were resolved. Patient educated to stay well hydrated. Problem: Acute (2) Dehydration, moderate Problem: Acute (3) Bronchitis Problem: Acute Procedures Performed: none Discharge Disposition: Home self care Disposition: Home self-care Condition: Good Discharge Activity: Activity as tolerated Discharge Diet: Consistent carbs Referrals: Mateusz Stanley DO [Primary Care Provider] - (Keep scheduled appointment if in next two weeks, otherwise schedule) Problem Oriented Discharge Instructions to Patient/Family: Dehydration, Adult, [id number] Additional Patient Instructions (free text): Follow up with Dr. Stanley on October at 9:45 AM. Prescriptions (Any new or edited meds): Benzonatate [Tessalon] 100 mg PO TID PRN #60 capsule PRN Reason: Cough Complete Home Medications List: Complete Home Medication List: Aspirin [Aspirin Enteric Coated] 81 mg PO DAILY 12/29/14 Lactobacillus Combo No.10 [Probiotic] 1 each PO DAILY 12/29/14 Rosuvastatin Calcium [Crestor] 40 mg PO DAILY 12/29/14 metFORMIN HCL [Glucophage] 1,000 mg PO BID 12/29/14 Albuterol Sulfate [Proair Hfa] 2 puff IH Q4H PRN 01/19/15 Blood Sugar Diagnostic, Drum [Accu-Chek Compact] 1 each MC ACHS 01/19/15 EPINEPHrine [Epipen] 0.3 mg IM ONCE PRN 01/19/15 Glucagon,Human Recombinant [Glucagen] 1 mg IJ ONCE PRN 01/19/15 Levothyroxine Sodium [Synthroid] 88 mcg PO DAILY 01/19/15 Acetaminophen [Tylenol] 650 mg PO QID PRN #0 tablet 03/28/15 Polyvinyl Alcohol [Artificial Tears] 1 drop EACHEYE Q1H PRN #0 btl 03/28/15 Insulin Glargine,Hum.rec.anlog [Lantus] 25 units SC BID #4 vial 04/22/15 Duloxetine HCl [Cymbalta] 30 mg PO DAILY 08/14/16 Bisacodyl [Dulcolax Suppository] 10 mg RC DAILY PRN 10/08/16 Cholecalciferol [Vitamin D] 1,000 unit PO DAILY 10/08/16 Etanercept [Enbrel] 50 mg IJ 2XW 10/08/16 Fluticasone Propionate [Flonase] 1 spray NS DAILY 10/08/16 Insulin Aspart [Novolog] 12 units SC TIDWM 10/08/16 Iron Sucrose Complex [Venofer] 50 mg IV ONCE 10/08/16 Lactulose [Enulose] 30 ml PO BID 10/08/16 Lubiprostone [Amitiza] 24 mcg PO BID 10/08/16 Meclizine HCl [Antivert] 25 mg PO QID PRN 10/08/16 Montelukast Sodium [Singulair] 10 mg PO DAILY 10/08/16 Ondansetron [Zofran Odt] 4 mg PO Q6H PRN 10/08/16 Pantoprazole Sodium [Protonix] 40 mg PO DAILY 10/08/16 Vitamin B Complex Vit C No.4 [Super B Complex] 150 mg PO DAILY 10/08/16 traMADol HCL [Ultram] 50 - 100 mg PO QID PRN 10/08/16 Benzonatate [Tessalon] 100 mg PO TID PRN #60 capsule 10/10/16
[2016-10-11] MEDS ORDERED: LACTOBACILLUS ACIDOPHILUS 100 CAP BTL PO SCH (09:00)
== END 2016-10-10 13:59 | disposition home or self-care (01) ==
LOC: ER 15:31 → MS 17:43
PROVIDERS: ADMIT Internal Medicine; ATTEND Family Medicine
DX: E86.0 Dehydration (principal); E87.0 Hyperosmolality and hypernatremia; J20.9 Acute bronchitis, unspecified; N18.3 Chronic kidney disease, stage 3 (moderate); Z87.891 Personal history of nicotine dependence; D63.8 Anemia in other chronic diseases classified elsewhere; J45.909 Unspecified asthma, uncomplicated
CPT/HCPCS: 36415; 80053; 81001; 82550; 82553; 84484; 85025; 87400; 93005; 94760; 96360; 96361; 96372; 99284; G0378

== ENCOUNTER 2017-03-03 10:42 | Emergency (ER) | payer MEDICARE, MEDICAID ==
[2017-03-03] MEDS ORDERED: NORMAL SALINE 1,000 ML IV ONE ×2 (10:53→13:11)
--- OUTSIDE RECORDS SUMMARY | 2017-03-03 10:58 | XMS REPORT | Summary of Care ---
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) Agoraphobia with [...] REGION(Confirmed) Urge incontinence of urine(Confirmed) 07/07/12 Active Other abnormal findings in Active urine(Confirmed) Vitamin D deficiency(Confirmed) 07/07/12 Active Allergies, Adverse [...] Vomiting Active 1Abstraction tool stated Bee Sting [id number] CONTAINING [id number] Medications albuterol CFC free 90 mcg/inh inhalation aerosol with adapter 2 puff(s), Inhale, q4hr, PRN for wheezing, 0 Refill(s) Start Date: 11/24/13 Stop Date: 01/13/14 Status: DiscontinuedAmitiza 8 mcg, Oral, BID, 0 Refill(s), Start Date: 01/15/15 10:56:00 CDT Start Date: 01/15/15 Stop Date: 06/18/15 Status: CompletedAmitiza 24 mcg oral capsule 1 cap(s), Oral, BID, # 60 cap(s), 0 Refill(s), Start Date: 11/25/16 11:01:00 CDT Start Date: 11/25/16 Status: OrderedAmitiza 8 mcg oral capsule 1 cap(s), Oral, BID, # 60 tab(s), 0 Refill(s), Start Date: 12/25/15 10:54:00 CDT Start Date: 12/25/15 Stop Date: 11/25/16 Status: Completedascorbic acid 0 Refill(s) Start Date: 11/24/13 Stop Date: 05/29/14 Status: Discontinuedaspirin 81 mg oral delayed release capsule 1 cap(s), Oral, Daily, # 120 cap(s), 0 Refill(s) Start Date: 11/24/13 Stop Date: 12/09/16 Status: DiscontinuedAspirin Enteric Coated 325 mg oral delayed release tablet See Instructions, 1 tab(s) Oral BID for 4 weeks, then 1 tab once a day for 2 weeks take with 6 to 8 ounces of plain water, # 70 tab(s), 0 Refill(s), Start Date: 12/08/16 7:13:00 CDT Special Instructions: 1 tab(s) Oral BID for 4 weeks, then 1 tab once a day for 2 weeks take with 6 to 8 ounces of plain water Start Date: 12/08/16 Status: Orderedazithromycin 250 mg oral tablet 1 tab, Oral, Daily, 0 Refill(s), Start Date: 10/02/14 11:11:00 VENEER REDRIER Start Date: 10/02/14 Stop Date: 02/20/15 Status: Discontinuedazithromycin 250 mg oral tablet 0 Refill(s), Start Date: 02/20/15 9:04:00 CDT Start Date: 02/20/15 Stop Date: 06/18/15 Status: Completedbumetanide 2 mg oral tablet 1 tab(s), Oral, Daily, PRN for fluid retention, 0 Refill(s), Start Date: 14:01:00 CDT Start Date: 03/18/16 Status: Orderedcapsaicin [...] Start Date: 05/29/14 15:37:00 CDT, Pharmacy: [facility] [place] [place] Start Date: 05/29/14 Stop Date: 10/18/14 Status: Completedclobetasol 0.05% topical cream 1 chastity, Topical, BID, apply by topical route 2 times every day a thin layer to the affected area(s), 0 Refill(s) Special Instructions: apply by topical route 2 times every day a thin layer to the affected area(s) Start Date: 11/24/13 Stop Date: 01/13/14 Status: DiscontinuedcloNIDine 0.1 mg/24 hr transdermal film, extended release 1 patch(es), Topical, q7day, # 12 patch(es), 0 Refill(s), Start Date: 12/04/16 15:36:00 CDT Start Date: 12/04/16 Status: OrderedCranberry oral capsule 1 tab, Oral, BID, 0 [...] Date: 12/25/15 14:02:00 CDT Start Date: 12/25/15 Stop Date: 11/25/16 Status: Completeddiclofenac sodium 75 mg oral delayed release tablet 1 tab(s), Oral, BID, # 60 tab(s), 0 Refill(s), Start Date: 10/02/14 11:11:00 VENEER REDRIER Start Date: 10/02/14 Stop Date: 02/13/15 Status: CompletedDitropan 5 mg oral tablet 1 tab(s), Oral, TID, # 90 tab(s), 11 Refill(s), Pharmacy: [facility] ,[place], [place] Start Date: 11/30/13 Stop Date: 12/11/14 Status: DiscontinuedJAZMINE zuleta See Instructions, Diagnosis Code:M16.11 Length of Need:99, # 1 EA, 0 Refill(s), 12/10/16 6:34:00 CDT, Supply Special Instructions: Diagnosis Code:M16.11 Length of Need: 99 Start Date: 12/10/16 Status: ZenobsoXjs-P-Gvux 100 mg oral capsule 1 cap(s), Oral, BID, PRN for constipation, # 20 cap(s), 0 Refill(s), Start Date : 05/01/15 10:14:00 CDT Start Date: 05/01/15 Stop Date: 06/18/15 Status: Completeddocusate sodium 100 mg oral capsule 2 cap(s), Oral, BID, 0 Refill(s), Start Date: 11/24/13 7:57:00 CDT Start Date: 11/24/13 Status: OrderedDULoxetine 30 mg oral delayed release capsule 1 cap(s), Oral, Daily, 0 Refill(s), Start Date: 11/25/16 11:01:00 CDT Start Date: 11/25/16 Status: OrderedEnbrel SureClick 50 mg/mL subcutaneous solution 1 mL, Subcutaneous, qWeek, 0 Refill(s), Start Date: 03/18/16 14:01:00 CDT Start Date: 03/18/16 Status: OrderedEpiPen Auto-Injector 0.3 mg injectable kit See Instructions, inject 0.3 milliliter (0.3MG) by intramuscular route once as needed for anaphylaxis, 0 Refill(s) Special Instructions: inject 0.3 milliliter (0.3MG) by intramuscular route once as needed for anaphylaxis Start Date: 11/24/13 Status: OrderedEstrace Vaginal 0.1 mg/g vaginal cream 0.5 gm, Vaginal, 2x/Wk, # 43 gm, 3 Refill(s), Start Date: 10/22/16 10:48:00 CDT , [facility] [facility] [place] Start Date: 10/22/16 Stop Date: 11/25/16 Status: CompletedFioricet oral tablet 2 tab(s), Oral, q6hr interval, PRN for pain, # 100 tab(s), 0 Refill(s), Start Date: 02/13/15 12:46:00 CDT, [place] Start Date: 02/13/15 Stop Date: 02/20/15 [...] days, # 5 mL, 0 Refill(s), Pharm[place] Start Date: 05/02/14 Stop Date: 05/09/14 Status: CompletedGlucagon Emergency Kit for Low Blood Sugar 1 mg, Subcutaneous, ONETIME, PRN hypoglycemia, 0 Refill(s), Start Date: 6:23:00 CDT Start Date: 10/23/14 Stop Date: 11/25/16 Status: CompletedHair, Skin and Nail Vitamin Hair, Skin and Nail Vitamin, 1 tab, Oral, BID, 0 Refill(s), Compound Start Date: 10/23/14 Stop Date: 11/25/16 Status: CompletedHumaLOG KwikPen 100 units/mL subcutaneous solution 5 unit(s), [...] units., # 1 QS, 0 Refill(s), Pharmacy: [place], [place] Special Instructions: AM 50 units noon [...] Start Date: 11/24/13 Stop Date: 06/18/15 Status: Completedlactulose 10 g/15 mL oral syrup 30 mL, Oral, BID, 0 Refill(s), Start Date: 11/25/16 11:06:00 CDT Start Date: 11/25/16 Status: OrderedLancets Other (See Comment) inject 1 by Transdermal route 8 times daily. Use blood glucose lancets as directed for diabetic testing, 0 Refill(s) Special Instructions: inject 1 by Transdermal route 8 times daily. Use blood glucose lancets as directed for diabetic testing Start Date: 11/24/13 Status: OrderedLantus 28 units, Subcutaneous, qPM, 0 Refill(s), Start Date: 09/18/15 10:12:00 VENEER REDRIER Start Date: 09/18/15 Stop Date: 11/25/16 Status: CompletedLantus 25 untis, Subcutaneous, BID, 0 Refill(s), Start Date: 09/18/15 10:12:00 VENEER REDRIER Start Date: 09/18/15 Status: Orderedlevothyroxine 112 mcg [...] cap(s), 0 Refill(s), Start Date: 08/07/14 15:01:00 VENEER REDRIER, Pharmacy: [place], [place] Start Date: 08/07/14 Stop Date: 11/13/14 Status: DiscontinuedLyrica 200 mg oral capsule 1 cap(s), Oral, TID, 0 Refill(s), Start Date: 10/23/14 6:13:00 CDT Start Date: 10/23/14 Stop Date: 11/25/16 Status: CompletedLyrica 225 mg oral capsule 1 cap(s), Oral, BID, 0 Refill(s) Start Date: 12/14/13 Stop Date: 10/23/14 Status: DiscontinuedMapap 325 mg oral tablet 2 tab(s), Oral, q6hr interval, PRN for pain or fever, 0 Refill(s), Start Date: 12/25/15 14:03:00 CDT [...] 1 T PO TID Start Date: 09/30/16 Stop Date: 11/25/16 Status: Discontinuedmontelukast 10 mg oral tablet 1 tab(s), Oral, [...] HS, # 30 cap(s), 11 Refill(s), [facility] [place] [place] Start Date: 01/13/14 Stop Date: 03/08/14 Status: Discontinuedomeprazole 40 mg oral delayed release capsule 1 cap(s), Oral, BID, # 30 cap(s), 11 Refill(s), [facility] [place] [place] Start Date: 03/08/14 Stop Date: 03/29/14 Status: Completedomeprazole 40 mg oral delayed release capsule 1 cap(s), Oral, Daily, # 30 cap(s), 11 Refill(s), [facility] [place] [place] Start Date: 03/29/14 Stop Date: 11/25/16 Status: Completedondansetron 8 mg oral tablet tab(s), Oral, BID, [...] Start Date: 02/22/14 Stop Date: 05/29/14 Status: Discontinuedpantoprazole 40 mg oral delayed release tablet 1 tab(s), Oral, Daily, 0 Refill(s), Start Date: 11/25/16 10:58:00 CDT Start Date: 11/25/16 Status: OrderedPercocet 5/325 oral tablet 2 tab(s), Oral, q6hr, PRN for pain, not to exceed 4000 mg acetaminophen per day , # 60 tab(s), 0 Refill(s), Start Date: 09/19/15 7:02:00 VENEER REDRIER, Pharmacy: [facility] [place] [place] Special Instructions: not to exceed 4000 [...] oral tablet See Instructions, 1-2 tab(s) Oral q4-6hr interval not to exceed 4000 mg acetaminophen per day, # 40 tab(s), 0 Refill(s), Start Date: 12/26/16 11:48:56 CDT, Pharmacy: [place], [place] Special Instructions: 1-2 tab(s) Oral q4-6hr interval not to exceed 4000 mg acetaminophen per day Start Date: 12/26/16 Status: OrderedPercocet 5/325 oral tablet See Instructions, 1-2 tab(s) Oral q4-6hr, # 40 tab(s), 0 Refill(s) Special Instructions: 1-2 tab(s) Oral q4-6hr Start Date: 02/28/14 Stop Date: 05/29/14 Status: DiscontinuedPercocet 5/325 oral tablet See Instructions, 1-2 tab(s) Oral q4-6hr interval not to exceed 4000 mg acetaminophen per day, # 120 tab(s), 0 Refill(s), Start Date: 12/08/16 7:02:00 CDT Special Instructions: 1-2 tab(s) Oral q4-6hr interval not to exceed 4000 mg acetaminophen per day Start Date: 12/08/16 Stop Date: 12/26/16 Status: Completedpilocarpine 5 mg, Oral, BID, 0 Refill(s), Start [...] tab(s), 3 Refill(s), Start Date: 10/11/15 13:38:34 VENEER REDRIER, Pharmacy: [facility] [place] [place] Start Date: 10/11/15 Stop Date: 10/15/15 Status: CompletedPlaquenil Sulfate 200 mg oral tablet 1 tab(s), Oral, BID, 0 Refill(s), Start Date: 09/17/15 13:24:00 VENEER REDRIER Start Date: 09/17/15 Stop Date: 12/03/15 Status: CompletedPlaquenil Sulfate 200 mg oral tablet 1 tab(s), Oral, BID, # 180 tab(s), 3 Refill(s), Start Date: 10/15/15 16:41:40 VENEER REDRIER, Pharmacy: [facility] [place] [place] Start Date: 10/15/15 Status: OrderedPlaquenil Sulfate 200 mg oral tablet 1 tab(s), Oral, BID, # 60 tab(s), 3 Refill(s), Start Date: 09/01/14 9:49:00 VENEER REDRIER , Pharmacy: [facility] [place] [place] Start Date: 09/01/14 Stop Date: 10/02/14 Status: CompletedPlaquenil Sulfate 200 mg oral tablet 1 tab(s), Oral, BID, # 360 tab(s), 3 Refill(s), Start Date: 10/02/14 12:01:00 VENEER REDRIER, Pharmacy: [facility] [place] [place] Start Date: 10/02/14 Stop Date: 01/03/15 [...] 2x/Wk, # 42 gm, 4 Refill(s), [facility] [place] [place] Start Date: 11/30/13 Stop Date: 10/18/14 Status: CompletedProAir HFA puff(s), Inhale, QID, 0 Refill(s), Start Date: 12/12/14 11:18:00 CDT Start Date: 12/12/14 Stop Date: 06/18/15 Status: CompletedProAir HFA 2 puff(s), Inhale, q4hr interval, PRN as needed for wheezing, 0 Refill(s), Start Date: 11/25/16 11:12:00 CDT Start Date: 11/25/16 Status: OrderedProbiotic Formula oral capsule cap(s), Oral, Daily, 0 [...] tab(s), 11 Refill(s), Start Date: 09/20/14 8:43:11 VENEER REDRIER, Pharmacy: [facility] [place] [place] Start Date: 09/20/14 Stop Date: 11/25/16 Status: Completedranitidine 150 mg oral tablet 0.5 tab(s), Oral, BID, # 30 tab(s), 0 Refill(s), Start Date: 05/29/14 14:45:00 CDT, other reason (Rx) Start Date: 05/29/14 Stop Date: 06/07/14 Status: Completedranitidine 150 mg oral tablet 0.5 tab(s), Oral, BID, # 30 tab(s), 0 Refill(s), Start Date: 06/07/14 11:00:27 CDT, Pharmacy: [facility] [place] Start Date: 06/07/14 Stop Date: 07/04/14 Status: Completedranitidine 150 mg oral tablet 0.5 tab(s), Oral, BID, # 30 tab(s), 0 Refill(s), Start Date: 07/04/14 11:43:04 VENEER REDRIER, Pharmacy: [facility] [place] Start Date: 07/04/14 Stop Date: 08/16/14 Status: Completedranitidine 150 mg oral tablet tab(s), Oral, BID, 0 Refill(s) Start Date: 12/14/13 Stop Date: 05/29/14 Status: Discontinuedranitidine 150 mg oral tablet 0.5 tab(s), Oral, BID, # 30 tab(s), 0 Refill(s), Start Date: 08/16/14 8:21:25 VENEER REDRIER, Pharmacy: [facility] [place] [place] Start Date: 08/16/14 Stop Date: 09/20/14 Status: Completedranitidine 75 mg oral tablet 1 tab(s), Oral, BID, # 60 tab(s), 0 Refill(s), Pharmacy: [facility] [place] Start Date: 05/08/14 Stop Date: 05/29/14 Status: Discontinuedranitidine 75 mg oral tablet tab(s), Oral, BID, 0 Refill(s) Start Date: 05/08/14 Stop Date: 05/08/14 Status: Discontinuedranitidine 75 mg oral tablet 1 tab(s), Oral, BID, # 60 tab(s), 0 Refill(s), [place] [facility] Start Date: 03/29/14 Stop Date: 04/20/14 [...] 50mg in the PM Start Date: 02/19/15 Stop Date: 11/25/16 Status: Completedtorsemide Oral, Daily, 0 Refill(s), Start Date: 05/01/15 10:14:00 CDT Start Date: 05/01/15 Stop Date: 09/18/15 Status: Completedtorsemide 10 mg oral tablet 1 tab(s), Oral, BID, # 60 tab(s), 0 Refill(s), Pharmacy: [place], [place] Start Date: 12/30/13 Stop Date: 03/08/14 Status: Discontinuedtorsemide 10 mg oral tablet 1 tab(s), Oral, BID, # 60 tab(s), 0 Refill(s), Pharmacy: [place], [place] Start Date: 12/14/13 Stop Date: 12/30/13 Status: Completedtorsemide 10 mg oral tablet 1 tab(s), Oral, Daily, # 30 tab(s), 0 Refill(s) Start Date: 11/24/13 Stop Date: 12/14/13 Status: Discontinuedtorsemide 20 mg oral tablet 2 tab(s), Oral, Daily, 0 Refill(s), Start Date: 09/18/15 10:13:00 VENEER REDRIER Start Date: 09/18/15 Stop Date: 12/25/15 Status: Discontinuedtorsemide 20 mg oral tablet 2 tab(s), Oral, Daily, # 60 tab(s), 0 Refill(s), Start Date: 12/25/15 14:15:00 CDT, other reason (Rx) Start Date: 12/25/15 Stop Date: 11/25/16 Status: CompletedtraMADol 50 mg oral tablet tab(s), Oral, q4hr interval, take 1 - 2 Tablet (50MG) by oral route every 8 hours as needed, 0 Refill(s) Special Instructions: take 1 - 2 Tablet (50MG) by oral route every 8 hours as needed Start Date: 11/24/13 Stop Date: 03/08/14 Status: DiscontinuedtraMADol 50 mg oral tablet 2 tab(s), Oral, TID, PRN for pain, 0 Refill(s), Start Date: [...] Refill(s), Start Date: 12/11/14 13:48:00 CDT, Pharmacy: [place], [place] Start Date: 12/11/14 Stop Date: 01/15/15 Status: CompletedVitamin C 0 Refill(s) Start Date: 12/14/13 Stop Date: 01/13/14 Status: DiscontinuedVitamin D3 1000 intl units oral tablet 1 tab(s), Oral, Daily, # 30 tab(s), 0 Refill(s), Start Date: 11/24/13 10:11:00 CDT Start Date: 11/24/13 Stop Date: 11/25/16 Status: DiscontinuedVitamin D3 5000 intl units oral tablet 1 tab(s), Oral, Daily, # 100 tab(s), 0 Refill(s), Start Date: 11/25/16 11:10:00 CDT Start Date: 11/25/16 Status: OrderedVoltaren 1% topical gel 1 chastity, Topical, QID, apply 2 grams, # 100 gm, 0 Refill(s), Start Date: 05/23/15 13:39:00 CDT, Pharmacy: [place], [place] Special Instructions: apply 2 grams Start Date: 05/23/15 Stop Date: 09/18/15 Status: Completedwarfarin 5 mg oral tablet See Instructions, Take 1 tab orally at 6pm evening before surgery, # 1 tab(s), 0 Refill(s), Start Date: 11/05/16 8:04:00 CDT, [facility] [place] Special Instructions: Take 1 tab orally at 6pm evening before surgery Start Date: 11/05/16 Stop Date: 12/09/16 Status: DiscontinuedZanaflex 4 mg oral capsule 1 cap(s), Oral, [...] Refill(s), Start Date: 05/29/14 15:33:00 CDT, [facility] [place] Start Date: 05/29/14 Stop Date: 10/18/14 Status: CompletedZyrTEC 10 mg oral tablet 1 tab(s), Oral, Daily, # 30 tab(s), 0 Refill(s) Start Date: 11/24/13 Stop Date: 01/13/14 Status: Discontinued Results Patient Viewable Results Most recent to oldest [Reference Range]: 1 WBC [4.8-10.8 thou/mm3] 12.0 thou/mm3 *HI* (01/17/17 9:23 AM) RBC [4.20-5.40 Mil/mm3] 3.81 Mil/mm3 *LOW* (01/17/17 9:23 AM) Hgb [12.0-16.0 g/dL] 10.8 g/dL *LOW* (01/17/17 9:23 AM) Hct [37.0-47.0 %] 35.1 % *LOW* (01/17/17:23 AM) MCV [80.0-94.0 fL] 92.1 fL (01/17/17:23 AM) MCH [25.0-38.0 pg/cell] 28.3 pg/cell (01/17/17:23 AM) MCHC [31.0-37.0 g/dL] 30.8 g/dL *LOW* (01/17/17:23 AM) RDW [1.0-48.0 fL] 47.0 fL (01/17/17 9:23 AM) Platelet [130-400 thou/mm3] 328 thou/mm3 (01/17/17 9:23 AM) Neutrophils % Auto [50.0-75.0 %] 47.9 % *LOW* (01/17/17 9:23 AM) Immature Granulocyte Auto [0.1-2.0 %] 0.3 % (01/17/17:23 AM) Lymphocytes % Auto [15.0-41.0 %] 37.4 % (01/17/17 9:23 AM) Monocytes % Auto [2.0-10.0 %] 8.7 % (01/17/17 9:23 AM) Eosinophils % Auto [0.0-6.0 %] 5.4 % (01/17/17 9:23 AM) Basophil % Auto [0.0-1.0 %] 0.3 % (01/17/17 9:23 AM) Neutrophils Absolute [1.5-5.9 thou/mm3] 5.7 thou/mm3 (01/17/17 9:23 AM) Immature Gran Absolute [0.01-0.03 thou/mm3] 0.03 thou/mm3 (01/17/17 9:23 AM) Lymphocytes Absolute [1.5-4.0 thou/mm3] 4.5 thou/mm3 *HI* (01/17/1723 AM) Monocytes Absolute [0.0-0.9 thou/mm3] 1.0 thou/mm3 *HI* (01/17/1723 AM) Eosinophil Absolute [0.0-0.7 thou/mm3] 0.6 thou/mm3 (01/17/17:23 AM) Basophil Absolute [0.0-0.2 thou/mm3] 0.0 thou/mm3 (01/17/1723 AM) Sodium Lvl [135-144 mEq/L] 143 mEq/L (01/17/17 AM) Potassium Lvl [3.3-4.8 mEq/L] 4.3 mEq/L (01/17/17 AM) Chloride Lvl [98-107 mEq/L] 102 mEq/L (01/17/17 AM) Bicarbonate Lvl [22-30 mmol/L] 31 mmol/L *HI* (01/17/17 AM) Anion Gap [10.0-20.0] 14.3 (01/17/1723 AM) Glucose Lvl [70-108 mg/dL] 113 mg/dL *HI* (01/17/1723 AM) BUN [7-21 mg/dL] 18 mg/dL (01/17/1723 AM) Creatinine Lvl [0.50-1.20 mg/dL] 0.80 mg/dL (01/17/17:23 AM) BUN/Creat Ratio 22.5 *NA* (01/17/17 AM) eGFR AA [>=60] >60 (01/17/17:23 AM) eGFR NICCI [>=60] >60 (01/17/17:23 AM) Calcium Lvl [8.6-10.2 mg/dL] 9.4 mg/dL (01/17/1723 AM) Albumin Lvl [3.5-5.2 g/dL] 4.1 g/dL (01/17/17:23 AM) Phosphorus Lvl [2.7-4.5 mg/dL] 4.5 mg/dL (01/17/1723 AM) Estimated Creatinine Clearance 69.99 mL/min (01/17/17 10:28 AM) Immunizations Vaccine Date Refusal Reason haemophilus b conjugate (PRP-T) vaccine 06/23/12 influenza virus vaccine, inactivated 05/19/16 influenza virus vaccine, inactivated 05/29/14 influenza virus vaccine, inactivated 05/25/13 meningococcal conjugate vaccine 06/23/12 pneumococcal 23-polyvalent vaccine 05/25/13 tetanus/diphtheria/pertussis, acel(Tdap) 06/23/12 tetanus-diphth toxoids (Td) adult/adol 06/03/07 Procedures Procedure Date Related Diagnosis Body Site Arthroplasty Hip Total (SCIP) (Right)1 12/08/16 Release Trigger Finger (Left, Thumb L)2 09/19/15 Release Carpal Tunnel (Left, Hand L)3 10/23/14 Arthroplasty Metacarpal (Right)4 02/15/14 Release Carpal Tunnel (Right)5 12/07/13 Release Cubital Tunnel (Right)6 12/07/13 Eye surgery 1998 Cholecystectomy and exploration of bile duct 1988 CS - section 1987 Hysterectomy/salpingo-oophorectomy 1987 Appendectomy 1979 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 Esophagoduodenostomy with biopsy Foot examination performed (includes examination through visual inspection, sensory exam with monofilament, and pulse exam - report when any of the three components are completed) (DM) Pelvic sling Splenectomy Tonsillectomy 1auto-populated from documented surgical [id number] from documented surgical [id number] from documented surgical [id number] from documented surgical [id number] from documented surgical [id number] from documented surgical case Social History No data available for this section Assessment and Plan No data available for this section
--- OUTSIDE RECORDS SUMMARY | 2017-03-03 10:59 | XMS REPORT | Summary of Care ---
:1960 Author Organization [facility] Care Team Providers Name Role Phone Mateusz Stanley Primary Care Physician Encounter Date(s): 11/25/16 - 11/25/16 [place] [id number] Discharge Disposition: Discharged to Home or Self Care Attending Physician: New Moreno DO Admitting Physician: New Moreno DO Vital Signs No data available for this [...] Vomiting Active 1Abstraction tool stated Bee Sting [id number] [id number] CONTAINING [id number] Medications albuterol CFC free 90 mcg/inh inhalation [...] Daily, 0 Refill(s), Start Date: 10/02/14 11:11:00 SENIOR RESEARCH ANALYST Start Date: 10/02/14 Stop Date: 02/20/15 Status: [...] Refill(s), Start Date: 05/29/14 15:37:00 CDT, [facility] [place] Start Date: 05/29/14 Stop Date: 10/18/14 [...] tab(s), 0 Refill(s), Start Date: 10/02/14 11:11:00 SENIOR RESEARCH ANALYST Start Date: 10/02/14 Stop Date: 02/13/15 Status: CompletedDitropan 5 mg oral tablet 1 tab(s), Oral, TID, # 90 tab(s), 11 Refill(s), Pharmacy: [facility] [place] Start Date: 11/30/13 Stop Date: 12/11/14 Status: XpxvmuaqhaxyHuc-W-Gykc 100 mg oral capsule 1 cap(s), Oral, [...] Start Date: 10/22/16 10:48:00 CDT , [facility] [place] Start Date: 10/22/16 Stop Date: 11/25/16 Status: CompletedFioricet oral tablet 2 tab(s), Oral, q6hr interval, PRN for pain, # 100 tab(s), 0 Refill(s), Start Date: 02/13/15 12:46:00 CDT, Pharmacy: [facility], [place] Start Date: 02/13/15 Stop Date: 02/20/15 [...] days, # 5 mL, 0 Refill(s), [place] Start Date: 05/02/14 Stop Date: 05/09/14 [...] units., # 1 QS, 0 Refill(s), Pharmacy: [place], [place] Special Instructions: AM 50 units noon [...] qPM, 0 Refill(s), Start Date: 09/18/15 10:12:00 SENIOR RESEARCH ANALYST Start Date: 09/18/15 Stop Date: 11/25/16 Status: CompletedLantus 25 untis, Subcutaneous, BID, 0 Refill(s), Start Date: 09/18/15 10:12:00 SENIOR RESEARCH ANALYST Start Date: 09/18/15 Status: Orderedlevothyroxine 112 mcg [...] cap(s), 0 Refill(s), Start Date: 08/07/14 15:01:00 SENIOR RESEARCH ANALYST, [facility] [place] Start Date: 08/07/14 Stop Date: 11/13/14 [...] # 30 cap(s), 11 Refill(s), Pharmacy: [facility],[place], [place] Start Date: 01/13/14 Stop Date: 03/08/14 Status: Discontinuedomeprazole 40 mg oral delayed release capsule 1 cap(s), Oral, BID, # 30 cap(s), 11 Refill(s), Pharmacy: [place], [place] Start Date: 03/08/14 Stop Date: 03/29/14 Status: Completedomeprazole 40 mg oral delayed release capsule 1 cap(s), Oral, Daily, # 30 cap(s), 11 Refill(s), Pharmacy: [place], [place] Start Date: 03/29/14 Stop Date: 11/25/16 [...] tab(s), 0 Refill(s), Start Date: 09/19/15 7:02:00 SENIOR RESEARCH ANALYST, [facility] [place] [place] Special Instructions: not to exceed 4000 [...] Date: 01/03/15 9:13:29 CDT , [facility]: [facility] Start Date: 01/03/15 Stop Date: 06/18/15 Status: CompletedPlaquenil Sulfate 200 mg oral tablet 1 tab(s), Oral, BID, # 180 tab(s), 3 Refill(s), Start Date: 10/11/15 13:38:34 SENIOR RESEARCH ANALYST, Pharmacy: [facility] [place] Start Date: 10/11/15 Stop Date: 10/15/15 Status: CompletedPlaquenil Sulfate 200 mg oral tablet 1 tab(s), Oral, BID, 0 Refill(s), Start Date: 09/17/15 13:24:00 SENIOR RESEARCH ANALYST Start Date: 09/17/15 Stop Date: 12/03/15 Status: CompletedPlaquenil Sulfate 200 mg oral tablet 1 tab(s), Oral, BID, # 180 tab(s), 3 Refill(s), Start Date: 10/15/15 16:41:40 SENIOR RESEARCH ANALYST, Pharmacy: [facility] [place] Start Date: 10/15/15 Status: OrderedPlaquenil Sulfate 200 mg oral tablet 1 tab(s), Oral, BID, # 60 tab(s), 3 Refill(s), Start Date: 09/01/14 9:49:00 SENIOR RESEARCH ANALYST , Pharmacy: [facility] [place] Start Date: 09/01/14 Stop Date: 10/02/14 Status: CompletedPlaquenil Sulfate 200 mg oral tablet 1 tab(s), Oral, BID, # 360 tab(s), 3 Refill(s), Start Date: 10/02/14 12:01:00 SENIOR RESEARCH ANALYST, Pharmacy: [facility] [place] Start Date: 10/02/14 Stop Date: 01/03/15 [...] # 42 gm, 4 Refill(s), Pharmacy: [facility],[place], [place] Start Date: 11/30/13 Stop Date: 10/18/14 [...] tab(s), 11 Refill(s), Start Date: 09/20/14 8:43:11 SENIOR RESEARCH ANALYST, Pharmacy: [facility] [place] Start Date: 09/20/14 Stop Date: 11/25/16 Status: Completedranitidine 150 mg oral tablet 0.5 tab(s), Oral, BID, # 30 tab(s), 0 Refill(s), Start Date: 05/29/14 14:45:00 CDT, other reason (Rx) Start Date: 05/29/14 Stop Date: 06/07/14 Status: Completedranitidine 150 mg oral tablet 0.5 tab(s), Oral, BID, # 30 tab(s), 0 Refill(s), Start Date: 06/07/14 11:00:27 CDT, Pharmacy: [facility] [place] Start Date: 06/07/14 Stop Date: 07/04/14 Status: Completedranitidine 150 mg oral tablet 0.5 tab(s), Oral, BID, # 30 tab(s), 0 Refill(s), Start Date: 07/04/14 11:43:04 SENIOR RESEARCH ANALYST, Pharmacy: [facility] [place] Start Date: 07/04/14 Stop Date: 08/16/14 Status: Completedranitidine 150 mg oral tablet tab(s), Oral, BID, 0 Refill(s) Start Date: 12/14/13 Stop Date: 05/29/14 Status: Discontinuedranitidine 150 mg oral tablet 0.5 tab(s), Oral, BID, # 30 tab(s), 0 Refill(s), Start Date: 08/16/14 8:21:25 SENIOR RESEARCH ANALYST, Pharmacy: [facility] [place] Start Date: 08/16/14 Stop Date: 09/20/14 Status: Completedranitidine 75 mg oral tablet 1 tab(s), Oral, BID, # 60 tab(s), 0 Refill(s), Pharmacy: [facility] [place] Start Date: 05/08/14 Stop Date: 05/29/14 Status: Discontinuedranitidine 75 mg oral tablet tab(s), Oral, BID, 0 Refill(s) Start Date: 05/08/14 Stop Date: 05/08/14 Status: Discontinuedranitidine 75 mg oral tablet 1 tab(s), Oral, BID, # 60 tab(s), 0 Refill(s), [place] Start Date: 03/29/14 Stop Date: 04/20/14 [...] BID, # 60 tab(s), 0 Refill(s), Pharmacy: [place], [place] Start Date: 12/30/13 Stop Date: 03/08/14 Status: Discontinuedtorsemide 10 mg oral tablet 1 tab(s), Oral, BID, # 60 tab(s), 0 Refill(s), Pharmacy: [place], [place] Start Date: 12/14/13 Stop Date: 12/30/13 Status: Completedtorsemide 10 mg oral tablet 1 tab(s), Oral, Daily, # 30 tab(s), 0 Refill(s) Start Date: 11/24/13 Stop Date: 12/14/13 Status: Discontinuedtorsemide 20 mg oral tablet 2 tab(s), Oral, Daily, 0 Refill(s), Start Date: 09/18/15 10:13:00 SENIOR RESEARCH ANALYST Start Date: 09/18/15 Stop Date: 12/25/15 Status: [...] Refill(s), Start Date: 12/11/14 13:48:00 CDT, Pharmacy: [place], [place] Start Date: 12/11/14 Stop Date: 01/15/15 [...] Refill(s), Start Date: 05/23/15 13:39:00 CDT, Pharmacy: [place], [place] Special Instructions: apply 2 grams Start Date: 05/23/15 Stop Date: 09/18/15 Status: Completedwarfarin 5 mg oral tablet See Instructions, Take 1 tab orally at 6pm evening before surgery, # 1 tab(s), 0 Refill(s), Start Date: 11/05/16 8:04:00 CDT, [facility] [place] Special Instructions: Take 1 tab orally at 6pm evening before surgery Start Date: 11/05/16 Status: OrderedZanaflex 4 mg oral capsule 1 cap(s), Oral, [...] Refill(s), Start Date: 05/29/14 15:33:00 CDT, Pharmacy: [place], [place] Start Date: 05/29/14 Stop Date: 10/18/14 Status: CompletedZyrTEC 10 mg oral tablet 1 tab(s), Oral, Daily, # 30 tab(s), 0 Refill(s) Start Date: 11/24/13 Stop Date: 01/13/14 Status: Discontinued Results Patient Viewable Results Most recent to oldest [Reference Range]: 1 WBC [4.8-10.8 thou/mm3] 9.2 thou/mm3 (11/25/16 7:50 AM) RBC [4.20-5.40 Mil/mm3] 3.90 Mil/mm3 *LOW* (11/25/16 7:50 AM) Hgb [12.0-16.0 g/dL] 11.1 g/dL *LOW* (11/25/16 7:50 AM) Hct [37.0-47.0 %] 35.6 % *LOW* (11/25/16 7:50 AM) MCV [80.0-94.0 fL] 91.3 fL (11/25/16 7:50 AM) MCH [25.0-38.0 pg/cell] 28.5 pg/cell (11/25/16 7:50 AM) MCHC [31.0-37.0 g/dL] 31.2 g/dL (11/25/16 7:50 AM) RDW [1.0-48.0 fL] 46.8 fL (11/25/16 7:50 AM) Platelet [130-400 thou/mm3] 288 thou/mm3 (11/25/16 7:50 AM) Neutrophils % Auto [50.0-75.0 %] 37.5 % *LOW* (11/25/16 7:50 AM) Immature Granulocyte Auto [0.1-2.0 %] 0.2 % (11/25/16 7:50 AM) Lymphocytes % Auto [15.0-41.0 %] 47.1 % *HI* (11/25/16 7:50 AM) Monocytes % Auto [2.0-10.0 %] 10.5 % *HI* (11/25/16 7:50 AM) Eosinophils % Auto [0.0-6.0 %] 4.2 % (11/25/16 7:50 AM) Basophil % Auto [0.0-1.0 %] 0.5 % (11/25/16 7:50 AM) Neutrophils Absolute [1.5-5.9 thou/mm3] 3.4 thou/mm3 (11/25/16 7:50 AM) Immature Gran Absolute [0.01-0.03 thou/mm3] 0.02 thou/mm3 (11/25/16 7:50 AM) Lymphocytes Absolute [1.5-4.0 thou/mm3] 4.3 thou/mm3 *HI* (11/25/16 7:50 AM) Monocytes Absolute [0.0-0.9 thou/mm3] 1.0 thou/mm3 *HI* (11/25/16 7:50 AM) Eosinophil Absolute [0.0-0.7 thou/mm3] 0.4 thou/mm3 (11/25/16 7:50 AM) Basophil Absolute [0.0-0.2 thou/mm3] 0.0 thou/mm3 (11/25/16 7:50 AM) INR [0.9-1.1 INR] 1.0 INR (11/25/16 7:50 AM) Sodium Lvl [135-144 mEq/L] 144 mEq/L (11/25/16 7:50 AM) Potassium Lvl [3.3-4.8 mEq/L] 3.6 mEq/L (11/25/16 7:50 AM) Chloride Lvl [98-107 mEq/L] 104 mEq/L (11/25/16 7:50 AM) Bicarbonate Lvl [22-30 mmol/L] 31 mmol/L *HI* (11/25/16 7:50 AM) Anion Gap [10.0-20.0] 12.6 (11/25/16 7:50 AM) Glucose Lvl [70-108 mg/dL] 156 mg/dL *HI* (11/25/16 7:50 AM) BUN [7-21 mg/dL] 17 mg/dL (11/25/16 7:50 AM) Creatinine Lvl [0.50-1.20 mg/dL] 0.85 mg/dL (11/25/16 7:50 AM) BUN/Creat Ratio 20.0 *NA* (11/25/16 7:50 AM) eGFR AA [>=60] >60 (11/25/16 7:50 AM) eGFR NICCI [>=60] >60 (11/25/16 7:50 AM) Calcium Lvl [8.6-10.2 mg/dL] 9.3 mg/dL (11/25/16 7:50 AM) Total Protein [6.4-8.3 g/dL] 6.3 g/dL *LOW* (11/25/16 7:50 AM) Albumin Lvl [3.5-5.2 g/dL] 4.0 g/dL (11/25/16 7:50 AM) Globulin 2.3 *NA* (11/25/16 7:50 AM) A/G Ratio [0.9-1.8] 1.7 (11/25/16 7:50 AM) Bilirubin Total [0.1-1.0 mg/dL] 0.2 mg/dL (11/25/16 7:50 AM) Alkaline Phosphatase [39-129 unit/L] 82 unit/L (11/25/16 7:50 AM) AST [0-39 unit/L] 18 unit/L (11/25/16 7:50 AM) ALT [0-40 unit/L] 14 unit/L (11/25/16 7:50 AM) Estimated Creatinine Clearance 63.87 mL/min (11/25/16 8:27 AM) MRSA Screen by PCR [Negative] Negative (11/25/16 7:50 AM) ABO/Rh O POS *Unknown* (11/25/16 7:50 AM) Antibody Screen Negative ABSC (11/25/16 7:50 AM) Immunizations Vaccine Date Refusal Reason haemophilus [...] sling Splenectomy Tonsillectomy 1auto-populated from documented surgical [id number] from documented surgical [id number] from documented surgical [id number] from documented surgical [id number] from documented surgical case Social History No data available for this section Assessment and Plan No data available for this section
--- OUTSIDE RECORDS SUMMARY | 2017-03-03 10:59 | XMS REPORT | Summary of Care ---
:[address] 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 Discharge Disposition: 01 Discharged to Home or Self Care Attending Physician: GRISELDA Landis Admitting Physician: GRISELDA Landis Vital Signs Most recent to oldest 1 2 3 [Reference Range]: Temperature Temporal Artery 36.2 DegC [36.0-38.0 DegC] (02/03/17 5:15 PM) Heart Rate Monitored [60-100 78 bpm 76 bpm 77 bpm bpm] (02/03/17 8:10 PM) (02/03/17 7:54 PM) (02/03/17 7:45 PM) Respiratory Rate [12-20 br/min] 20 br/min 19 br/min 18 br/min (02/03/17 8:10 PM) (02/03/17 7:54 PM) (02/03/17 7:45 PM) SpO2 [90-100 %] 100 % 100 % 100 % (02/03/17 8:10 PM) (02/03/17 7:54 PM) (02/03/17 7:45 PM) Blood Pressure [90-130/60-90 180/69mmHg 182/70mmHg 181/69mmHg mmHg] *HI* *>HHI* *HI* (02/03/17 8:10 PM) (02/03/17 7:54 PM) (02/03/17 7:45 PM) Mean Arterial Pressure Monitor 98 mmHg 100 mmHg 99 mmHg Measure (02/03/17 8:10 PM) (02/03/17 7:54 PM) (02/03/17 7:45 PM) Most recent to oldest [Reference Range]: 1 2 3 Weight Estimated 55 kg (02/03/17 5:15 PM) Weight Dosing 55.00 kg1 (02/03/17 5:19 PM) 1Result Comment: This result was because the dosing weight was either not entered or it is>30 days old. This result is based off: Weight Estimated February 03, 2017 17:15:00 CDT by Linda Billings RN Problem List Condition Effective Dates Status Health [...] Vomiting Active 1Abstraction tool stated Bee Sting [id number] [id number] CONTAINING [id number] Medications albuterol CFC free 90 mcg/inh inhalation [...] Date: 11/24/13 Stop Date: 05/29/14 Status: Discontinuedaspirin 325 mg oral tablet 1 tab(s), Oral, Daily, # 30 tab(s), 0 Refill(s), Start Date: 02/03/17 17:49:00 CDT Start Date: 02/03/17 Status: Orderedaspirin 81 mg oral delayed release capsule 1 [...] ounces of plain water Start Date: 12/08/16 Stop Date: 02/03/17 Status: Completedazithromycin 250 mg oral tablet 1 tab, Oral, Daily, 0 Refill(s), Start Date: 10/02/14 11:11:00 PREDICTIVE MAINTENANCE TECHNICIAN Start Date: 10/02/14 Stop Date: 02/20/15 Status: [...] Refill(s), Start Date: 05/29/14 15:37:00 CDT, Pharmacy: [place], [place] Start Date: 05/29/14 Stop Date: 10/18/14 [...] tab(s), 0 Refill(s), Start Date: 10/02/14 11:11:00 PREDICTIVE MAINTENANCE TECHNICIAN Start Date: 10/02/14 Stop Date: 02/13/15 Status: CompletedDitropan 5 mg oral tablet 1 tab(s), Oral, TID, # 90 tab(s), 11 Refill(s), Pharmacy: [place], [place] Start Date: 11/30/13 Stop Date: 12/11/14 Status: DiscontinuedJAZMINE zuleta See Instructions, Diagnosis Code:M16.11 Length of Need:99, # 1 EA, 0 Refill(s), 12/10/16 6:34:00 CDT, Supply Special Instructions: Diagnosis Code:M16.11 Length of Need: 99 Start Date: 12/10/16 Status: UkslkoxNdp-L-Igta 100 mg oral capsule 1 cap(s), Oral, BID, PRN for constipation, # 20 cap(s), 0 Refill(s), Start Date : 05/01/15 10:14:00 CDT Start Date: 05/01/15 Stop Date: 06/18/15 Status: Completeddocusate sodium 100 mg oral capsule 2 cap(s), Oral, BID, PRN as needed for constipation, 0 Refill(s), Start Date: 7:57:00 CDT Start Date: 11/24/13 Status: OrderedDULoxetine 30 mg oral delayed release capsule 1 cap(s), Oral, Daily, 0 Refill(s), Start Date: 11/25/16 11:01:00 CDT Start Date: 11/25/16 Status: OrderedEnbrel SureClick 50 mg/mL subcutaneous solution 1 mL, Subcutaneous, qWeek, 0 Refill(s), Start Date: 03/18/16 14:01:00 CDT Start Date: 03/18/16 Stop Date: 02/03/17 Status: CompletedEpiPen Auto-Injector 0.3 mg injectable kit See Instructions, inject 0.3 milliliter (0.3MG) by intramuscular route once as needed for anaphylaxis, 0 Refill(s) Special Instructions: inject 0.3 milliliter (0.3MG) by intramuscular route once as needed for anaphylaxis Start Date: 11/24/13 Status: OrderedEstrace Vaginal 0.1 mg/g vaginal cream 0.5 gm, Vaginal, 2x/Wk, # 43 gm, 3 Refill(s), Start Date: 10/22/16 10:48:00 CDT , [facility] [place] Start Date: 10/22/16 Stop Date: 11/25/16 Status: CompletedFioricet oral tablet 2 tab(s), Oral, q6hr interval, PRN for pain, # 100 tab(s), 0 Refill(s), Start Date: 02/13/15 12:46:00 CDT, Pharmacy: [place] Start Date: 02/13/15 Stop Date: 02/20/15 [...] days, # 5 mL, 0 Refill(s), [place] Start Date: 05/02/14 Stop Date: 05/09/14 [...] with severe insulin resistance. Start Date: 05/29/14 Stop Date: 02/03/17 Status: CompletedHumuLIN R (Concentrated) 500 units/mL human recombinant subcutaneous [...] units., # 1 QS, 0 Refill(s), Pharmacy: [place], [place] Special Instructions: AM 50 units noon [...] qPM, 0 Refill(s), Start Date: 09/18/15 10:12:00 PREDICTIVE MAINTENANCE TECHNICIAN Start Date: 09/18/15 Stop Date: 11/25/16 Status: CompletedLantus 25 untis, Subcutaneous, BID, 0 Refill(s), Start Date: 09/18/15 10:12:00 PREDICTIVE MAINTENANCE TECHNICIAN Start Date: 09/18/15 Status: Orderedlevothyroxine 112 mcg [...] cap(s), 0 Refill(s), Start Date: 08/07/14 15:01:00 PREDICTIVE MAINTENANCE TECHNICIAN, Pharmacy: [place], [place] Start Date: 08/07/14 Stop Date: 11/13/14 [...] Date: 10/18/14 16:11:00 CDT Start Date: 10/18/14 Stop Date: 01/20/17 Status: Discontinuedmidodrine 10 mg oral tablet TK 1 T [...] Start Date: 11/24/13 Stop Date: 01/13/14 Status: DiscontinuedNovoLOG sliding scale, Subcutaneous, TIDAC, 0 Refill(s), Start Date: 02/03/17 17:51:00 CDT Start Date: 02/03/17 Status: Orderedomeprazole 40 mg oral delayed release capsule 1 cap(s), Oral, HS, # 30 cap(s), 0 Refill(s) Start Date: 11/24/13 Stop Date: 01/13/14 Status: Discontinuedomeprazole 40 mg oral delayed release capsule 1 cap(s), Oral, HS, # 30 cap(s), 11 Refill(s), Pharmacy: [place], [place] Start Date: 01/13/14 Stop Date: 03/08/14 Status: Discontinuedomeprazole 40 mg oral delayed release capsule 1 cap(s), Oral, BID, # 30 cap(s), 11 Refill(s), Pharmacy: [place], [place] Start Date: 03/08/14 Stop Date: 03/29/14 Status: Completedomeprazole 40 mg oral delayed release capsule 1 cap(s), Oral, Daily, # 30 cap(s), 11 Refill(s), Pharmacy: [place], [place] Start Date: 03/29/14 Stop Date: 11/25/16 [...] tab(s), 0 Refill(s), Start Date: 09/19/15 7:02:00 PREDICTIVE MAINTENANCE TECHNICIAN, Pharmacy: [place], [place] Special Instructions: not to exceed 4000 [...] Date: 02/21/14 Status: CompletedPercocet 5/325 oral tablet 1 tab(s), Oral, q6hr, PRN for pain, X 5 days, # 20 tab(s), 0 Refill(s), Start Date: 02/03/17 19:57:00 CDT Start Date: 02/03/17 Stop Date: 02/08/17 Status: OrderedPercocet 5/325 oral tablet See Instructions, 1-2 tab(s) Oral q4-6hr interval not to exceed 4000 mg acetaminophen per day, # 40 tab(s), 0 Refill(s), Start Date: 12/26/16 11:48:56 CDT, Pharmacy: [place], [place] Special Instructions: 1-2 tab(s) Oral q4-6hr interval not to exceed 4000 mg acetaminophen per day Start Date: 12/26/16 Stop Date: 02/03/17 Status: CompletedPercocet 5/325 oral tablet See Instructions, [...] tab(s), 3 Refill(s), Start Date: 10/11/15 13:38:34 PREDICTIVE MAINTENANCE TECHNICIAN, [place]acy: [place] Start Date: 10/11/15 Stop Date: 10/15/15 Status: CompletedPlaquenil Sulfate 200 mg oral tablet 1 tab(s), Oral, BID, 0 Refill(s), Start Date: 09/17/15 13:24:00 PREDICTIVE MAINTENANCE TECHNICIAN Start Date: 09/17/15 Stop Date: 12/03/15 Status: CompletedPlaquenil Sulfate 200 mg oral tablet 1 tab(s), Oral, BID, # 180 tab(s), 3 Refill(s), Start Date: 10/15/15 16:41:40 PREDICTIVE MAINTENANCE TECHNICIAN, [facility] [place] Start Date: 10/15/15 Status: OrderedPlaquenil Sulfate 200 mg oral tablet 1 tab(s), Oral, BID, # 60 tab(s), 3 Refill(s), Start Date: 09/01/14 9:49:00 PREDICTIVE MAINTENANCE TECHNICIAN , [facility] [place] [place] Start Date: 09/01/14 Stop Date: 10/02/14 Status: CompletedPlaquenil Sulfate 200 mg oral tablet 1 tab(s), Oral, BID, # 360 tab(s), 3 Refill(s), Start Date: 10/02/14 12:01:00 PREDICTIVE MAINTENANCE TECHNICIAN, [facility] [place] [place] Start Date: 10/02/14 Stop Date: 01/03/15 [...] 2x/Wk, # 42 gm, 4 Refill(s), [facility] [place] [place] Start Date: 11/30/13 Stop Date: 10/18/14 [...] tab(s), 11 Refill(s), Start Date: 09/20/14 8:43:11 PREDICTIVE MAINTENANCE TECHNICIAN, Pharmacy: [facility] [place] Start Date: 09/20/14 Stop Date: 11/25/16 Status: Completedranitidine 150 mg oral tablet 0.5 tab(s), Oral, BID, # 30 tab(s), 0 Refill(s), Start Date: 05/29/14 14:45:00 CDT, other reason (Rx) Start Date: 05/29/14 Stop Date: 06/07/14 Status: Completedranitidine 150 mg oral tablet 0.5 tab(s), Oral, BID, # 30 tab(s), 0 Refill(s), Start Date: 06/07/14 11:00:27 CDT, Pharmacy: [facility] [place], [place] Start Date: 06/07/14 Stop Date: 07/04/14 Status: Completedranitidine 150 mg oral tablet 0.5 tab(s), Oral, BID, # 30 tab(s), 0 Refill(s), Start Date: 07/04/14 11:43:04 PREDICTIVE MAINTENANCE TECHNICIAN, [place] [facility] [place] Start Date: 07/04/14 Stop Date: 08/16/14 Status: Completedranitidine 150 mg oral tablet tab(s), Oral, BID, 0 Refill(s) Start Date: 12/14/13 Stop Date: 05/29/14 Status: Discontinuedranitidine 150 mg oral tablet 0.5 tab(s), Oral, BID, # 30 tab(s), 0 Refill(s), Start Date: 08/16/14 8:21:25 PREDICTIVE MAINTENANCE TECHNICIAN, [facility] [facility] [place] Start Date: 08/16/14 Stop Date: 09/20/14 Status: Completedranitidine 75 mg oral tablet 1 tab(s), Oral, BID, # 60 tab(s), 0 Refill(s), Pharmacy: [place], [place] Start Date: 05/08/14 Stop Date: 05/29/14 Status: Discontinuedranitidine 75 mg oral tablet tab(s), Oral, BID, 0 Refill(s) Start Date: 05/08/14 Stop Date: 05/08/14 Status: Discontinuedranitidine 75 mg oral tablet 1 tab(s), Oral, BID, # 60 tab(s), 0 Refill(s), Pharmacy: [place], [place] Start Date: 03/29/14 Stop Date: 04/20/14 [...] BID, # 60 tab(s), 0 Refill(s), [facility] [place] [place] Start Date: 12/30/13 Stop Date: 03/08/14 Status: Discontinuedtorsemide 10 mg oral tablet 1 tab(s), Oral, BID, # 60 tab(s), 0 Refill(s), [facility] [place] [place] Start Date: 12/14/13 Stop Date: 12/30/13 Status: Completedtorsemide 10 mg oral tablet 1 tab(s), Oral, Daily, # 30 tab(s), 0 Refill(s) Start Date: 11/24/13 Stop Date: 12/14/13 Status: Discontinuedtorsemide 20 mg oral tablet 2 tab(s), Oral, Daily, 0 Refill(s), Start Date: 09/18/15 10:13:00 PREDICTIVE MAINTENANCE TECHNICIAN Start Date: 09/18/15 Stop Date: 12/25/15 Status: [...] Refill(s), Start Date: 12/11/14 13:48:00 CDT, Pharmacy: [place], [place] Start Date: 12/11/14 Stop Date: 01/15/15 [...] Refill(s), Start Date: 05/23/15 13:39:00 CDT, [place] [facility] Special Instructions: apply 2 grams Start Date: 05/23/15 Stop Date: 09/18/15 Status: Completedwarfarin 5 mg oral tablet See Instructions, Take 1 tab orally at 6pm evening before surgery, # 1 tab(s), 0 Refill(s), Start Date: 11/05/16 8:04:00 CDT, [facility] [place] Special Instructions: Take 1 tab orally [...] Refill(s), Start Date: 05/29/14 15:33:00 CDT, [place] Start Date: 05/29/14 Stop Date: 10/18/14 Status: CompletedZyrTEC 10 mg oral tablet 1 tab(s), Oral, Daily, # 30 tab(s), 0 Refill(s) Start Date: 11/24/13 Stop Date: 01/13/14 Status: Discontinued Results Patient Viewable Results Most recent to oldest [Reference Range]: 1 Estimated Creatinine Clearance 68.99 mL/min (02/03/17 5:19 PM) Whole Blood Glucose [70-108 mg/dL] 126 mg/dL1 *HI* (02/03/17 7:15 PM) 1Result 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
--- OUTSIDE RECORDS SUMMARY | 2017-03-03 11:00 | XMS REPORT | Summary of Care ---
:1960 Author Organization [facility] Address [address] [place] [address]- Care Team Providers Name Role Phone Stanley Mateusz Bloom Primary Care Physician Encounter Date(s): 10/21/16 - 10/21/16 [facility] [address] [place] [address]- [facility] Discharge Disposition: Discharged to Home or Self Care Attending Physician: JAYDEN Patel Admitting Physician: JAYDEN Patel Vital Signs Most recent to oldest 1 2 3 [Reference Range]: Temperature Temporal Artery 36.5 DegC [36-38 DegC] (10/21/16 10:00 AM) Peripheral Pulse Rate 91 bpm 86 bpm 92 bpm [60-100 bpm] (10/21/16 1:30 PM) (10/21/16 12:14 PM) (10/21/16 10:00 AM) Respiratory Rate [12-20 20 br/min br/min] (10/21/16 10:00 AM) SpO2 [90-100 %] 100 % (10/21/16 10:00 AM) Blood Pressure [90-130/60-90 105/67mmHg 111/63mmHg 104/63mmHg mmHg] (10/21/16 1:30 PM) (10/21/16 12:14 PM) (10/21/16 10:00 AM) Mean Arterial Pressure, Cuff 80 mmHg 77 mmHg (10/21/16 1:30 PM) (10/21/16 10:00 AM) Problem List Condition Effective Dates Status [...] Vomiting Active 1Abstraction tool stated Bee Sting [id number] [id number] CONTAINING [id number] Medications albuterol CFC free 90 mcg/inh inhalation [...] Daily, 0 Refill(s), Start Date: 10/02/14 11:11:00 JOB PLACEMENT OFFICER Start Date: 10/02/14 Stop Date: 02/20/15 Status: [...] Refill(s), Start Date: 05/29/14 15:37:00 CDT, Pharmacy: [place], [place] Start Date: 05/29/14 Stop Date: 10/18/14 [...] tab(s), 0 Refill(s), Start Date: 10/02/14 11:11:00 JOB PLACEMENT OFFICER Start Date: 10/02/14 Stop Date: 02/13/15 Status: CompletedDitropan 5 mg oral tablet 1 tab(s), Oral, TID, # 90 tab(s), 11 Refill(s), [facility]acy: [facility] [place] [place] Start Date: 11/30/13 Stop Date: 12/11/14 Status: DqhkmkqbpqxtBok-Q-Alud 100 mg oral capsule 1 cap(s), Oral, [...] Refill(s), Start Date: 02/13/15 12:46:00 CDT, [facility] [place] Start Date: 02/13/15 Stop Date: 02/20/15 [...] days, # 5 mL, 0 Refill(s), Pharmacy: [place] Start Date: 05/02/14 Stop Date: 05/09/14 [...] units., # 1 QS, 0 Refill(s), Pharmacy: [place], [place] Special Instructions: AM 50 units noon [...] qPM, 0 Refill(s), Start Date: 09/18/15 10:12:00 JOB PLACEMENT OFFICER Start Date: 09/18/15 Status: OrderedLantus 25 untis, Subcutaneous, qAM, 0 Refill(s), Start Date: 09/18/15 10:12:00 JOB PLACEMENT OFFICER Start Date: 09/18/15 Status: Orderedlevothyroxine 112 mcg [...] cap(s), 0 Refill(s), Start Date: 08/07/14 15:01:00 JOB PLACEMENT OFFICER, Pharmacy: [place], [place] Start Date: 08/07/14 Stop Date: 11/13/14 [...] HS, # 30 cap(s), 11 Refill(s), Pharmacy: [place], [place] Start Date: 01/13/14 Stop Date: 03/08/14 Status: Discontinuedomeprazole 40 mg oral delayed release capsule 1 cap(s), Oral, BID, # 30 cap(s), 11 Refill(s), Pharmacy: [place], [place] Start Date: 03/08/14 Stop Date: 03/29/14 Status: Completedomeprazole 40 mg oral delayed release capsule 1 cap(s), Oral, Daily, # 30 cap(s), 11 Refill(s), Pharmacy: [place], [place] Start Date: 03/29/14 Status: Orderedondansetron 8 [...] tab(s), 0 Refill(s), Start Date: 09/19/15 7:02:00 JOB PLACEMENT OFFICER, Pharmacy: [place], [place] Special Instructions: not to exceed 4000 [...] tab(s), 3 Refill(s), Start Date: 10/11/15 13:38:34 JOB PLACEMENT OFFICER, [facility] [place] Start Date: 10/11/15 Stop Date: 10/15/15 Status: CompletedPlaquenil Sulfate 200 mg oral tablet 1 tab(s), Oral, BID, 0 Refill(s), Start Date: 09/17/15 13:24:00 JOB PLACEMENT OFFICER Start Date: 09/17/15 Stop Date: 12/03/15 Status: CompletedPlaquenil Sulfate 200 mg oral tablet 1 tab(s), Oral, BID, # 180 tab(s), 3 Refill(s), Start Date: 10/15/15 16:41:40 JOB PLACEMENT OFFICER, Pharmacy: [facility] [place] [place] Start Date: 10/15/15 Status: OrderedPlaquenil Sulfate 200 mg oral tablet 1 tab(s), Oral, BID, # 60 tab(s), 3 Refill(s), Start Date: 09/01/14 9:49:00 JOB PLACEMENT OFFICER , Pharmacy: [facility] [place] [place] Start Date: 09/01/14 Stop Date: 10/02/14 Status: CompletedPlaquenil Sulfate 200 mg oral tablet 1 tab(s), Oral, BID, # 360 tab(s), 3 Refill(s), Start Date: 10/02/14 12:01:00 JOB PLACEMENT OFFICER, [facility] [place] [place] Start Date: 10/02/14 Stop Date: 01/03/15 [...] 42 gm, 4 Refill(s), Pharmacy: [facility] [place] [place] Start Date: 11/30/13 Stop Date: 10/18/14 [...] tab(s), 11 Refill(s), Start Date: 09/20/14 8:43:11 JOB PLACEMENT OFFICER, Pharmacy: [place], [place] Start Date: 09/20/14 Status: Orderedranitidine 150 mg oral tablet 0.5 tab(s), Oral, BID, # 30 tab(s), 0 Refill(s), Start Date: 05/29/14 14:45:00 CDT, other reason (Rx) Start Date: 05/29/14 Stop Date: 06/07/14 Status: Completedranitidine 150 mg oral tablet 0.5 tab(s), Oral, BID, # 30 tab(s), 0 Refill(s), Start Date: 06/07/14 11:00:27 CDT, Pharmacy: [place], [place] Start Date: 06/07/14 Stop Date: 07/04/14 Status: Completedranitidine 150 mg oral tablet 0.5 tab(s), Oral, BID, # 30 tab(s), 0 Refill(s), Start Date: 07/04/14 11:43:04 JOB PLACEMENT OFFICER, Pharmacy: [facility] [place] [place] Start Date: 07/04/14 Stop Date: 08/16/14 Status: Completedranitidine 150 mg oral tablet tab(s), Oral, BID, 0 Refill(s) Start Date: 12/14/13 Stop Date: 05/29/14 Status: Discontinuedranitidine 150 mg oral tablet 0.5 tab(s), Oral, BID, # 30 tab(s), 0 Refill(s), Start Date: 08/16/14 8:21:25 JOB PLACEMENT OFFICER, Pharmacy: [facility] [place] [place] Start Date: 08/16/14 Stop Date: 09/20/14 Status: Completedranitidine 75 mg oral tablet 1 tab(s), Oral, BID, # 60 tab(s), 0 Refill(s), [facility]acy: [facility] [place] [place] Start Date: 05/08/14 Stop Date: 05/29/14 Status: Discontinuedranitidine 75 mg oral tablet tab(s), Oral, BID, 0 Refill(s) Start Date: 05/08/14 Stop Date: 05/08/14 Status: Discontinuedranitidine 75 mg oral tablet 1 tab(s), Oral, BID, # 60 tab(s), 0 Refill(s), Pharmacy: [facility] [place] [place] Start Date: 03/29/14 Stop Date: 04/20/14 [...] BID, # 60 tab(s), 0 Refill(s), Pharmacy: [place], [place] Start Date: 12/30/13 Stop Date: 03/08/14 Status: Discontinuedtorsemide 10 mg oral tablet 1 tab(s), Oral, BID, # 60 tab(s), 0 Refill(s), Pharmacy: [place], [place] Start Date: 12/14/13 Stop Date: 12/30/13 Status: Completedtorsemide 10 mg oral tablet 1 tab(s), Oral, Daily, # 30 tab(s), 0 Refill(s) Start Date: 11/24/13 Stop Date: 12/14/13 Status: Discontinuedtorsemide 20 mg oral tablet 2 tab(s), Oral, Daily, 0 Refill(s), Start Date: 09/18/15 10:13:00 JOB PLACEMENT OFFICER Start Date: 09/18/15 Stop Date: 12/25/15 Status: [...] Refill(s), Start Date: 12/11/14 13:48:00 CDT, Pharmacy: [place], [place] Start Date: 12/11/14 Stop Date: 01/15/15 [...] Refill(s), Start Date: 05/23/15 13:39:00 CDT, Pharmacy: [place], [place] Special Instructions: apply 2 grams Start [...] Refill(s), Start Date: 05/29/14 15:33:00 CDT, [place] Start Date: 05/29/14 Stop Date: 10/18/14 [...] Tonsillectomy Total hysterectomy 1auto-populated from documented surgical [id number] from documented surgical [id number] from documented surgical [id number] from documented surgical [id number] from documented surgical case Social History No data available for this section Assessment and Plan No data available for this section
--- OUTSIDE RECORDS SUMMARY | 2017-03-03 11:01 | XMS REPORT | Summary of Care ---
:1960 Author Organization [facility] Address [address] [place] [address]- Care Team Providers Name Role Phone Jaden Mateusz Bloom Primary Care Physician Encounter Date(s): 10/09/16 - 10/09/16 [facility] [address] [place] [address]- [facility] Discharge Disposition: Discharged to Home or Self Care Attending Physician: JAYDEN Patel Admitting Physician: JAYDEN Patel Vital Signs Most recent to oldest [Reference Range]: 1 2 Temperature Temporal Artery [36-38 DegC] 36.8 DegC (10/09/16 11:21 AM) Peripheral Pulse Rate [60-100 bpm] 78 bpm 84 bpm (10/09/16 1:30 PM) (10/09/16 11:21 AM) Respiratory Rate [12-20 br/min] 20 br/min (10/09/16 11:21 AM) SpO2 [90-100 %] 100 % (10/09/16 11:21 AM) Blood Pressure [90-130/60-90 mmHg] 91/50mmHg 82/50mmHg (10/09/16 1:30 PM) *LOW* (10/09/16 11:21 AM) Mean Arterial Pressure, Cuff 61 mmHg (10/09/16 11:21 AM) Problem List Condition Effective Dates Status [...] Vomiting Active 1Abstraction tool stated Bee Sting Let1Gzjauryba [id number] CONTAINING [id number] Medications albuterol CFC free 90 mcg/inh inhalation [...] Daily, 0 Refill(s), Start Date: 10/02/14 11:11:00 REMOTE SENSING ANALYST Start Date: 10/02/14 Stop Date: 02/20/15 Status: Discontinuedazithromycin 250 mg oral tablet 0 Refill(s), Start Date: 02/20/15 9:04:00 CDT Start Date: 02/20/15 Stop Date: 06/18/15 Status: Completedbumetanide 2 mg oral tablet 1 tab(s), Oral, Daily, 0 Refill(s), Start Date: 03/18/16 14:01:00 CDT Start Date: 03/18/16 Status: Orderedcapsaicin 0.025% topical cream 1 cahstity, Topical, TID, 0 Refill(s) Start Date: 11/24/13 [...] Refill(s), Start Date: 05/29/14 15:37:00 CDT, [facility] [place] Start Date: 05/29/14 Stop Date: 10/18/14 [...] tab(s), 0 Refill(s), Start Date: 10/02/14 11:11:00 REMOTE SENSING ANALYST Start Date: 10/02/14 Stop Date: 02/13/15 Status: CompletedDitropan 5 mg oral tablet 1 tab(s), Oral, TID, # 90 tab(s), 11 Refill(s), [facility] [place] [place] [place] Start Date: 11/30/13 Stop Date: 12/11/14 Status: HxcmgnnrbydxNsc-O-Rhxm 100 mg oral capsule 1 cap(s), Oral, [...] Refill(s), Start Date: 02/13/15 12:46:00 CDT, Pharmacy: [place], [place] Start Date: 02/13/15 Stop Date: 02/20/15 [...] # 5 mL, 0 Refill(s), [place] Start Date: 05/02/14 Stop Date: 05/09/14 [...] units., # 1 QS, 0 Refill(s), Pharmacy: [place], [place] Special Instructions: AM 50 units noon [...] qPM, 0 Refill(s), Start Date: 09/18/15 10:12:00 REMOTE SENSING ANALYST Start Date: 09/18/15 Status: OrderedLantus 25 untis, Subcutaneous, qAM, 0 Refill(s), Start Date: 09/18/15 10:12:00 REMOTE SENSING ANALYST Start Date: 09/18/15 Status: Orderedlevothyroxine 112 [...] cap(s), 0 Refill(s), Start Date: 08/07/14 15:01:00 REMOTE SENSING ANALYST, Pharmacy: [place] Start Date: 08/07/14 Stop Date: 11/13/14 [...] HS, # 30 cap(s), 11 Refill(s), Pharmacy: [place], [place] Start Date: 01/13/14 Stop Date: 03/08/14 Status: Discontinuedomeprazole 40 mg oral delayed release capsule 1 cap(s), Oral, BID, # 30 cap(s), 11 Refill(s), Pharmacy: [place], [place] Start Date: 03/08/14 Stop Date: 03/29/14 Status: Completedomeprazole 40 mg oral delayed release capsule 1 cap(s), Oral, Daily, # 30 cap(s), 11 Refill(s), [facility] [place] [place] Start Date: 03/29/14 Status: Orderedondansetron 8 [...] tab(s), 0 Refill(s), Start Date: 09/19/15 7:02:00 REMOTE SENSING ANALYST, Pharmacy: [place], [place] Special Instructions: not to exceed 4000 [...] tab(s), 3 Refill(s), Start Date: 10/11/15 13:38:34 REMOTE SENSING ANALYST, [place] [facility] [place] Start Date: 10/11/15 Stop Date: 10/15/15 Status: CompletedPlaquenil Sulfate 200 mg oral tablet 1 tab(s), Oral, BID, 0 Refill(s), Start Date: 09/17/15 13:24:00 REMOTE SENSING ANALYST Start Date: 09/17/15 Stop Date: 12/03/15 Status: CompletedPlaquenil Sulfate 200 mg oral tablet 1 tab(s), Oral, BID, # 180 tab(s), 3 Refill(s), Start Date: 10/15/15 16:41:40 REMOTE SENSING ANALYST, Pharmacy: [facility] [place], [place] Start Date: 10/15/15 Status: OrderedPlaquenil Sulfate 200 mg oral tablet 1 tab(s), Oral, BID, # 60 tab(s), 3 Refill(s), Start Date: 09/01/14 9:49:00 REMOTE SENSING ANALYST , Pharmacy: [facility] [place] [place] Start Date: 09/01/14 Stop Date: 10/02/14 Status: CompletedPlaquenil Sulfate 200 mg oral tablet 1 tab(s), Oral, BID, # 360 tab(s), 3 Refill(s), Start Date: 10/02/14 12:01:00 REMOTE SENSING ANALYST, Pharmacy: [facility] [place] [place] Start Date: 10/02/14 Stop Date: 01/03/15 [...] 42 gm, 4 Refill(s), Pharmacy: [facility] [place] Start Date: 11/30/13 Stop Date: 10/18/14 [...] tab(s), 11 Refill(s), Start Date: 09/20/14 8:43:11 REMOTE SENSING ANALYST, Pharmacy: [facility] [place] [place] Start Date: 09/20/14 Status: Orderedranitidine 150 mg oral tablet 0.5 tab(s), Oral, BID, # 30 tab(s), 0 Refill(s), Start Date: 05/29/14 14:45:00 CDT, other reason (Rx) Start Date: 05/29/14 Stop Date: 06/07/14 Status: Completedranitidine 150 mg oral tablet 0.5 tab(s), Oral, BID, # 30 tab(s), 0 Refill(s), Start Date: 06/07/14 11:00:27 CDT, Pharmacy: [facility] [place] [place] Start Date: 06/07/14 Stop Date: 07/04/14 Status: Completedranitidine 150 mg oral tablet 0.5 tab(s), Oral, BID, # 30 tab(s), 0 Refill(s), Start Date: 07/04/14 11:43:04 REMOTE SENSING ANALYST, Pharmacy: [facility] [place] [place] Start Date: 07/04/14 Stop Date: 08/16/14 Status: Completedranitidine 150 mg oral tablet tab(s), Oral, BID, 0 Refill(s) Start Date: 12/14/13 Stop Date: 05/29/14 Status: Discontinuedranitidine 150 mg oral tablet 0.5 tab(s), Oral, BID, # 30 tab(s), 0 Refill(s), Start Date: 08/16/14 8:21:25 REMOTE SENSING ANALYST, Pharmacy: [facility] [place] [place] Start Date: 08/16/14 Stop Date: 09/20/14 Status: Completedranitidine 75 mg oral tablet 1 tab(s), Oral, BID, # 60 tab(s), 0 Refill(s), Pharmacy: [facility] [place] [place] Start Date: 05/08/14 Stop Date: 05/29/14 Status: Discontinuedranitidine 75 mg oral tablet tab(s), Oral, BID, 0 Refill(s) Start Date: 05/08/14 Stop Date: 05/08/14 Status: Discontinuedranitidine 75 mg oral tablet 1 tab(s), Oral, BID, # 60 tab(s), 0 Refill(s), Pharmacy: [facility] [place] [place] Start Date: 03/29/14 Stop Date: 04/20/14 [...] BID, # 60 tab(s), 0 Refill(s), Pharmacy: [place], [place] Start Date: 12/30/13 Stop Date: 03/08/14 Status: Discontinuedtorsemide 10 mg oral tablet 1 tab(s), Oral, BID, # 60 tab(s), 0 Refill(s), Pharmacy: [place], [place] Start Date: 12/14/13 Stop Date: 12/30/13 Status: Completedtorsemide 10 mg oral tablet 1 tab(s), Oral, Daily, # 30 tab(s), 0 Refill(s) Start Date: 11/24/13 Stop Date: 12/14/13 Status: Discontinuedtorsemide 20 mg oral tablet 2 tab(s), Oral, Daily, 0 Refill(s), Start Date: 09/18/15 10:13:00 REMOTE SENSING ANALYST Start Date: 09/18/15 Stop Date: 12/25/15 [...] Start Date: 12/11/14 13:48:00 CDT, [facility]: [facility] [place] [place] Start Date: 12/11/14 Stop Date: 01/15/15 [...] Refill(s), Start Date: 05/23/15 13:39:00 CDT, [facility] [place] [place] Special Instructions: apply 2 grams Start [...] Date: 05/29/14 15:33:00 CDT, Pharmacy: [facility] [place] [place] Start Date: 05/29/14 Stop Date: 10/18/14 [...] Tonsillectomy Total hysterectomy 1auto-populated from documented surgical [id number] from documented surgical [id number] from documented surgical [id number] from documented surgical [id number] from documented surgical case Social History No data available for this section Assessment and Plan No data available for this section
--- OUTSIDE RECORDS SUMMARY | 2017-03-03 11:01 | XMS REPORT | Summary of Care ---
:1960 Author Organization [facility] Care Team Providers Name Role Phone Mateusz Stanley Primary Care Physician Encounter Date(s): 12/01/16 - 12/01/16 [place] [id number] Discharge Disposition: Discharged to Home [...] Vomiting Active 1Abstraction tool stated Bee Sting [id number] Onbmdajef7HRIU CONTAINING ODJIBJCT5Lxuoukormfgq Medications albuterol CFC free 90 mcg/inh inhalation [...] Daily, 0 Refill(s), Start Date: 10/02/14 11:11:00 REAL ESTATE TRANSACTION COORDINATOR Start Date: 10/02/14 Stop Date: 02/20/15 Status: [...] Refill(s), Start Date: 05/29/14 15:37:00 CDT, [facility] [place] Start Date: 05/29/14 Stop Date: 10/18/14 [...] tab(s), 0 Refill(s), Start Date: 10/02/14 11:11:00 REAL ESTATE TRANSACTION COORDINATOR Start Date: 10/02/14 Stop Date: 02/13/15 Status: CompletedDitropan 5 mg oral tablet 1 tab(s), Oral, TID, # 90 tab(s), 11 Refill(s), [facility]acy: [facility] [place], [place] Start Date: 11/30/13 Stop Date: 12/11/14 Status: DalhfrptiaueNtu-M-Mhpt 100 mg oral capsule 1 cap(s), Oral, [...] Start Date: 10/22/16 10:48:00 CDT , [facility] [place] Start Date: 10/22/16 Stop Date: 11/25/16 Status: CompletedFioricet oral tablet 2 tab(s), Oral, q6hr interval, PRN for pain, # 100 tab(s), 0 Refill(s), Start Date: 02/13/15 12:46:00 CDT, [facility]: [facility], [place] Start Date: 02/13/15 Stop Date: 02/20/15 [...] # 5 mL, 0 Refill(s), [place] Start Date: 05/02/14 Stop Date: 05/09/14 [...] units., # 1 QS, 0 Refill(s), Pharmacy: [place], [place] Special Instructions: AM 50 units noon [...] qPM, 0 Refill(s), Start Date: 09/18/15 10:12:00 REAL ESTATE TRANSACTION COORDINATOR Start Date: 09/18/15 Stop Date: 11/25/16 Status: CompletedLantus 25 untis, Subcutaneous, BID, 0 Refill(s), Start Date: 09/18/15 10:12:00 REAL ESTATE TRANSACTION COORDINATOR Start Date: 09/18/15 Status: Orderedlevothyroxine 112 mcg [...] cap(s), 0 Refill(s), Start Date: 08/07/14 15:01:00 REAL ESTATE TRANSACTION COORDINATOR, [facility] [place] Start Date: 08/07/14 Stop Date: 11/13/14 [...] # 30 cap(s), 11 Refill(s), [facility]acy: [facility], [place] Start Date: 01/13/14 Stop Date: 03/08/14 Status: Discontinuedomeprazole 40 mg oral delayed release capsule 1 cap(s), Oral, BID, # 30 cap(s), 11 Refill(s), Pharmacy: [place], [place] Start Date: 03/08/14 Stop Date: 03/29/14 Status: Completedomeprazole 40 mg oral delayed release capsule 1 cap(s), Oral, Daily, # 30 cap(s), 11 Refill(s), Pharmacy: [place], [place] Start Date: 03/29/14 Stop Date: 11/25/16 [...] tab(s), 0 Refill(s), Start Date: 09/19/15 7:02:00 REAL ESTATE TRANSACTION COORDINATOR, [facility] [place] [place] Special Instructions: not to exceed 4000 [...] Date: 01/03/15 9:13:29 CDT , [facility]: [facility] Start Date: 01/03/15 Stop Date: 06/18/15 Status: CompletedPlaquenil Sulfate 200 mg oral tablet 1 tab(s), Oral, BID, # 180 tab(s), 3 Refill(s), Start Date: 10/11/15 13:38:34 REAL ESTATE TRANSACTION COORDINATOR, Pharmacy: [facility] [place], [place] Start Date: 10/11/15 Stop Date: 10/15/15 Status: CompletedPlaquenil Sulfate 200 mg oral tablet 1 tab(s), Oral, BID, 0 Refill(s), Start Date: 09/17/15 13:24:00 REAL ESTATE TRANSACTION COORDINATOR Start Date: 09/17/15 Stop Date: 12/03/15 Status: CompletedPlaquenil Sulfate 200 mg oral tablet 1 tab(s), Oral, BID, # 180 tab(s), 3 Refill(s), Start Date: 10/15/15 16:41:40 REAL ESTATE TRANSACTION COORDINATOR, Pharmacy: [facility] [place], [place] Start Date: 10/15/15 Status: OrderedPlaquenil Sulfate 200 mg oral tablet 1 tab(s), Oral, BID, # 60 tab(s), 3 Refill(s), Start Date: 09/01/14 9:49:00 REAL ESTATE TRANSACTION COORDINATOR , Pharmacy: [facility] [place], [place] Start Date: 09/01/14 Stop Date: 10/02/14 Status: CompletedPlaquenil Sulfate 200 mg oral tablet 1 tab(s), Oral, BID, # 360 tab(s), 3 Refill(s), Start Date: 10/02/14 12:01:00 REAL ESTATE TRANSACTION COORDINATOR, Pharmacy: [facility] [place], [place] Start Date: 10/02/14 Stop Date: 01/03/15 [...] # 42 gm, 4 Refill(s), Pharmacy: [facility],[place], [place] Start Date: 11/30/13 Stop Date: 10/18/14 [...] tab(s), 11 Refill(s), Start Date: 09/20/14 8:43:11 REAL ESTATE TRANSACTION COORDINATOR, Pharmacy: [facility] [place], [place] Start Date: 09/20/14 Stop Date: 11/25/16 Status: Completedranitidine 150 mg oral tablet 0.5 tab(s), Oral, BID, # 30 tab(s), 0 Refill(s), Start Date: 05/29/14 14:45:00 CDT, other reason (Rx) Start Date: 05/29/14 Stop Date: 06/07/14 Status: Completedranitidine 150 mg oral tablet 0.5 tab(s), Oral, BID, # 30 tab(s), 0 Refill(s), Start Date: 06/07/14 11:00:27 CDT, Pharmacy: [facility] [place], [place] Start Date: 06/07/14 Stop Date: 07/04/14 Status: Completedranitidine 150 mg oral tablet 0.5 tab(s), Oral, BID, # 30 tab(s), 0 Refill(s), Start Date: 07/04/14 11:43:04 REAL ESTATE TRANSACTION COORDINATOR, Pharmacy: [facility] [place], [place] Start Date: 07/04/14 Stop Date: 08/16/14 Status: Completedranitidine 150 mg oral tablet tab(s), Oral, BID, 0 Refill(s) Start Date: 12/14/13 Stop Date: 05/29/14 Status: Discontinuedranitidine 150 mg oral tablet 0.5 tab(s), Oral, BID, # 30 tab(s), 0 Refill(s), Start Date: 08/16/14 8:21:25 REAL ESTATE TRANSACTION COORDINATOR, [facility]acy: [facility] [place] [place] Start Date: 08/16/14 Stop Date: 09/20/14 Status: Completedranitidine 75 mg oral tablet 1 tab(s), Oral, BID, # 60 tab(s), 0 Refill(s), Pharmacy: [facility] [place] [place] Start Date: 05/08/14 Stop Date: 05/29/14 Status: Discontinuedranitidine 75 mg oral tablet tab(s), Oral, BID, 0 Refill(s) Start Date: 05/08/14 Stop Date: 05/08/14 Status: Discontinuedranitidine 75 mg oral tablet 1 tab(s), Oral, BID, # 60 tab(s), 0 Refill(s), [facility] [facility] [place] Start Date: 03/29/14 Stop Date: 04/20/14 [...] BID, # 60 tab(s), 0 Refill(s), Pharmacy: [place], [place] Start Date: 12/30/13 Stop Date: 03/08/14 Status: Discontinuedtorsemide 10 mg oral tablet 1 tab(s), Oral, BID, # 60 tab(s), 0 Refill(s), [facility] [place] Start Date: 12/14/13 Stop Date: 12/30/13 Status: Completedtorsemide 10 mg oral tablet 1 tab(s), Oral, Daily, # 30 tab(s), 0 Refill(s) Start Date: 11/24/13 Stop Date: 12/14/13 Status: Discontinuedtorsemide 20 mg oral tablet 2 tab(s), Oral, Daily, 0 Refill(s), Start Date: 09/18/15 10:13:00 REAL ESTATE TRANSACTION COORDINATOR Start Date: 09/18/15 Stop Date: 12/25/15 Status: [...] Refill(s), Start Date: 12/11/14 13:48:00 CDT, Pharmacy: [place], [place] Start Date: 12/11/14 Stop Date: 01/15/15 [...] 11/25/16 Status: OrderedVoltaren 1% topical gel 1 hcastity, Topical, QID, apply 2 grams, # 100 gm, 0 Refill(s), Start Date: 05/23/15 13:39:00 CDT, Pharmacy: [place], [place] Special Instructions: apply 2 grams Start Date: 05/23/15 Stop Date: 09/18/15 Status: Completedwarfarin 5 mg oral tablet See Instructions, Take 1 tab orally at 6pm evening before surgery, # 1 tab(s), 0 Refill(s), Start Date: 11/05/16 8:04:00 CDT, [facility] [place] Special Instructions: Take 1 tab orally [...] Refill(s), Start Date: 05/29/14 15:33:00 CDT, Pharmacy: [place], [place] Start Date: 05/29/14 Stop Date: 10/18/14 Status: CompletedZyrTEC 10 mg oral tablet 1 tab(s), Oral, Daily, # 30 tab(s), 0 Refill(s) Start Date: 11/24/13 Stop Date: 01/13/14 Status: Discontinued Results Patient Viewable Results Most recent to oldest [Reference Range]: 1 2 WBC [4.8-10.8 thou/mm3] 7.9 thou/mm3 (12/01/16 10:45 AM) RBC [4.20-5.40 Mil/mm3] 4.21 Mil/mm3 (12/01/16 10:45 AM) Hgb [12.0-16.0 g/dL] 11.9 g/dL *LOW* (12/01/16 10:45 AM) Hct [37.0-47.0 %] 38.0 % (12/01/16 10:45 AM) MCV [80.0-94.0 fL] 90.3 fL (12/01/16 10:45 AM) MCH [25.0-38.0 pg/cell] 28.3 pg/cell (12/01/16 10:45 AM) MCHC [31.0-37.0 g/dL] 31.3 g/dL (12/01/16 10:45 AM) RDW [1.0-48.0 fL] 46.2 fL (12/01/16 10:45 AM) Platelet [130-400 thou/mm3] 297 thou/mm3 (12/01/16 10:45 AM) Neutrophils % Auto [50.0-75.0 %] 48.2 % *LOW* (12/01/16 10:45 AM) Immature Granulocyte Auto [0.1-2.0 %] 0.3 % (12/01/16 10:45 AM) Lymphocytes % Auto [15.0-41.0 %] 37.9 % (12/01/16 10:45 AM) Monocytes % Auto [2.0-10.0 %] 8.6 % (12/01/16 10:45 AM) Eosinophils % Auto [0.0-6.0 %] 4.5 % (12/01/16 10:45 AM) Basophil % Auto [0.0-1.0 %] 0.5 % (12/01/16 10:45 AM) Neutrophils Absolute [1.5-5.9 thou/mm3] 3.8 thou/mm3 (12/01/16 10:45 AM) Immature Gran Absolute [0.01-0.03 thou/mm3] 0.02 thou/mm3 (12/01/16 10:45 AM) Lymphocytes Absolute [1.5-4.0 thou/mm3] 3.0 thou/mm3 (12/01/16 10:45 AM) Monocytes Absolute [0.0-0.9 thou/mm3] 0.7 thou/mm3 (12/01/16 10:45 AM) Eosinophil Absolute [0.0-0.7 thou/mm3] 0.4 thou/mm3 (12/01/16 10:45 AM) Basophil Absolute [0.0-0.2 thou/mm3] 0.0 thou/mm3 (12/01/16 10:45 AM) Sodium Lvl [135-144 mEq/L] 144 mEq/L 143 mEq/L (12/01/16 10:45 AM) (12/01/16 10:45 AM) Potassium Lvl [3.3-4.8 mEq/L] 3.5 mEq/L 3.5 mEq/L (12/01/16 10:45 AM) (12/01/16 10:45 AM) Chloride Lvl [98-107 mEq/L] 102 mEq/L 102 mEq/L (12/01/16 10:45 AM) (12/01/16 10:45 AM) Bicarbonate Lvl [22-30 mmol/L] 32 mmol/L 31 mmol/L *HI* *HI* (12/01/16 10:45 AM) (12/01/16 10:45 AM) Anion Gap [10.0-20.0] 13.5 13.5 (12/01/16 10:45 AM) (12/01/16 10:45 AM) Glucose Lvl [70-108 mg/dL] 93 mg/dL 92 mg/dL (12/01/16 10:45 AM) (12/01/16 10:45 AM) BUN [7-21 mg/dL] 11 mg/dL 12 mg/dL (12/01/16 10:45 AM) (12/01/16 10:45 AM) Creatinine Lvl [0.50-1.20 mg/dL] 0.70 mg/dL 0.74 mg/dL (12/01/16 10:45 AM) (12/01/16 10:45 AM) BUN/Creat Ratio 15.7 16.2 *NA* *NA* (12/01/16 10:45 AM) (12/01/16 10:45 AM) eGFR AA [>=60] >60 >60 (12/01/16 10:45 AM) (12/01/16 10:45 AM) eGFR NICCI [>=60] >60 >60 (12/01/16 10:45 AM) (12/01/16 10:45 AM) Calcium Lvl [8.6-10.2 mg/dL] 9.2 mg/dL 9.4 mg/dL (12/01/16 10:45 AM) (12/01/16 10:45 AM) Total Protein [6.4-8.3 g/dL] 6.7 g/dL (12/01/16 10:45 AM) Albumin Lvl [3.5-5.2 g/dL] 4.3 g/dL 4.5 g/dL (12/01/16 10:45 AM) (12/01/16 10:45 AM) Globulin 2.4 *NA* (12/01/16 10:45 AM) A/G Ratio [0.9-1.8] 1.8 (12/01/16 10:45 AM) Bilirubin Total [0.1-1.0 mg/dL] 0.2 mg/dL (12/01/16 10:45 AM) Alkaline Phosphatase [39-129 unit/L] 87 unit/L (12/01/16 10:45 AM) AST [0-39 unit/L] 16 unit/L (12/01/16 10:45 AM) ALT [0-40 unit/L] 11 unit/L (12/01/16 10:45 AM) Phosphorus Lvl [2.7-4.5 mg/dL] 3.8 mg/dL (12/01/16 10:45 AM) Microalbumin, Ur 24 mg/L *NA* (12/01/16 10:50 AM) Creatinine, Urine MA 51.8 mg/dL *NA* (12/01/16 10:50 AM) Ur Microalb/Creat Ratio [0-29 mg/g Cr] 46 mg/g Cr *HI* (12/01/16 10:50 AM) Estimated Creatinine Clearance 73.36 mL/min 77.55 mL/min (12/01/16 11:09 AM) (12/01/16 11:09 AM) Immunizations Vaccine Date Refusal Reason haemophilus [...] sling Splenectomy Tonsillectomy 1auto-populated from documented surgical [id number] from documented surgical [id number] from documented surgical [id number] from documented surgical [id number] from documented surgical case Social History No data available for this section Assessment and Plan No data available for this section
--- OUTSIDE RECORDS SUMMARY | 2017-03-03 11:02 | XMS REPORT | Summary of Care ---
:1960 Author Organization [facility] Address [address] [place] [address] Care Team Providers Name Role Phone Mateusz Stanley Primary Care Physician Encounter Date(s): 01/20/17 - 01/20/17 [facility], [address] [place], [place] [address] Discharge Diagnosis: Chronic kidney disease, stage 2 (mild) Discharge Diagnosis: Benign hypertension with CKD (chronic kidney disease), stage II Discharge Diagnosis: Anemia Discharge Disposition: Discharged to Home or Self Care Attending Physician: JAYDEN Colón Referring Physician: JAYDEN Colón Vital Signs Most recent to oldest [Reference Range]: 1 Temperature Temporal Artery [36.0-38.0 DegC] 36.5 DegC (01/20/17 1:33 PM) Peripheral Pulse Rate [60-100 bpm] 82 bpm (01/20/17 1:33 PM) Respiratory Rate [12-20 br/min] 18 br/min (01/20/17 1:33 PM) Blood Pressure [90-130/60-90 mmHg] 135/73mmHg *HI* (01/20/17 1:33 PM) Mean Arterial Pressure, Cuff 94 mmHg (01/20/17 1:33 PM) Most recent to oldest [Reference Range]: 1 Height/Length Measured 165.1 cm (01/20/17 1:33 PM) Weight Dosing 56.2 kg (01/20/17 1:33 PM) Weight Measured 56.2 kg (01/20/17 1:33 PM) BSA Measured 1.61 m2 (01/20/17 1:33 PM) Body Mass Index Measured 20.62 kg/m2 (01/20/17 1:33 PM) Problem List Condition Effective Dates Status [...] Vomiting Active 1Abstraction tool stated Bee Sting Doa5Qeihigxwe Aydaiotvr2HWZE CONTAINING XMTVOMIP2Tautlivndixs Medications albuterol CFC free 90 mcg/inh inhalation [...] Daily, 0 Refill(s), Start Date: 10/02/14 11:11:00 DISABILITY CASE MANAGER Start Date: 10/02/14 Stop Date: 02/20/15 Status: [...] Refill(s), Start Date: 05/29/14 15:37:00 CDT, Pharmacy: [place], [place] Start Date: 05/29/14 Stop Date: 10/18/14 [...] tab(s), 0 Refill(s), Start Date: 10/02/14 11:11:00 DISABILITY CASE MANAGER Start Date: 10/02/14 Stop Date: 02/13/15 Status: CompletedDitropan 5 mg oral tablet 1 tab(s), Oral, TID, # 90 tab(s), 11 Refill(s), [facility] [place] [place] Start Date: 11/30/13 Stop Date: 12/11/14 Status: DiscontinuedDME - Wheeled walker See Instructions, Diagnosis Code:M16.11 Length of Need:99, # 1 EA, 0 Refill(s), 12/10/16 6:34:00 CDT, Supply Special Instructions: Diagnosis Code:M16.11 Length of Need: 99 Start Date: 12/10/16 Status: RelybibKis-G-Wzeb 100 mg oral capsule 1 cap(s), Oral, [...] Date: 10/22/16 10:48:00 CDT , [facility] [place] Start Date: 10/22/16 Stop Date: 11/25/16 Status: CompletedFioricet oral tablet 2 tab(s), Oral, q6hr interval, PRN for pain, # 100 tab(s), 0 Refill(s), Start Date: 02/13/15 12:46:00 CDT, [facility] [place] Start Date: 02/13/15 Stop Date: 02/20/15 [...] days, # 5 mL, 0 Refill(s), [facility] [place] Start Date: 05/02/14 Stop Date: 05/09/14 [...] at breakfast,lunch,dinner. 0.1mg at bedtime. Prescribed by Nery Horvath. Diabetes Mellistus with severe insulin resistance. Start Date: 04/26/14 Stop Date: 05/29/14 Status: DiscontinuedHumuLIN R 100 units/mL injectable solution Subcutaneous, 0 Refill(s) Start Date: 11/24/13 Stop Date: 04/17/14 Status: DiscontinuedHumuLIN R 100 units/mL injectable solution See Instructions, AM 50 units noon 25 units 40 units., # 1 QS, 0 Refill(s), Pharmacy: [place], [place] Special Instructions: AM 50 units noon [...] qPM, 0 Refill(s), Start Date: 09/18/15 10:12:00 DISABILITY CASE MANAGER Start Date: 09/18/15 Stop Date: 11/25/16 Status: CompletedLantus 25 untis, Subcutaneous, BID, 0 Refill(s), Start Date: 09/18/15 10:12:00 DISABILITY CASE MANAGER Start Date: 09/18/15 Status: Orderedlevothyroxine 112 mcg [...] cap(s), 0 Refill(s), Start Date: 08/07/14 15:01:00 DISABILITY CASE MANAGER, [facility] [facility] [place] Start Date: 08/07/14 Stop Date: 11/13/14 [...] HS, # 30 cap(s), 11 Refill(s), Pharmacy: [place], [place] Start Date: 01/13/14 Stop Date: 03/08/14 Status: Discontinuedomeprazole 40 mg oral delayed release capsule 1 cap(s), Oral, BID, # 30 cap(s), 11 Refill(s), Pharmacy: [place], [place] Start Date: 03/08/14 Stop Date: 03/29/14 Status: Completedomeprazole 40 mg oral delayed release capsule 1 cap(s), Oral, Daily, # 30 cap(s), 11 Refill(s), Pharmacy: [place], [place] Start Date: 03/29/14 Stop Date: 11/25/16 [...] tab(s), 0 Refill(s), Start Date: 09/19/15 7:02:00 DISABILITY CASE MANAGER, [facility] [facility] [place] Special Instructions: not to exceed 4000 [...] Refill(s), Start Date: 12/26/16 11:48:56 CDT, [facility] [place] Special Instructions: 1-2 tab(s) Oral q4-6hr [...] tab(s), 3 Refill(s), Start Date: 10/11/15 13:38:34 DISABILITY CASE MANAGER, [facility] [facility] [place] Start Date: 10/11/15 Stop Date: 10/15/15 Status: CompletedPlaquenil Sulfate 200 mg oral tablet 1 tab(s), Oral, BID, 0 Refill(s), Start Date: 09/17/15 13:24:00 DISABILITY CASE MANAGER Start Date: 09/17/15 Stop Date: 12/03/15 Status: CompletedPlaquenil Sulfate 200 mg oral tablet 1 tab(s), Oral, BID, # 180 tab(s), 3 Refill(s), Start Date: 10/15/15 16:41:40 DISABILITY CASE MANAGER, [facility] [place] Start Date: 10/15/15 Status: OrderedPlaquenil Sulfate 200 mg oral tablet 1 tab(s), Oral, BID, # 60 tab(s), 3 Refill(s), Start Date: 09/01/14 9:49:00 DISABILITY CASE MANAGER , [facility]acy: [facility] [place], [place] Start Date: 09/01/14 Stop Date: 10/02/14 Status: CompletedPlaquenil Sulfate 200 mg oral tablet 1 tab(s), Oral, BID, # 360 tab(s), 3 Refill(s), Start Date: 10/02/14 12:01:00 DISABILITY CASE MANAGER, [facility] [place] [place] Start Date: 10/02/14 Stop Date: 01/03/15 [...] 42 gm, 4 Refill(s), [facility]acy: [facility] [place] Start Date: 11/30/13 Stop Date: 10/18/14 [...] tab(s), 11 Refill(s), Start Date: 09/20/14 8:43:11 DISABILITY CASE MANAGER, [facility] [place] [place] Start Date: 09/20/14 Stop Date: 11/25/16 Status: Completedranitidine 150 mg oral tablet 0.5 tab(s), Oral, BID, # 30 tab(s), 0 Refill(s), Start Date: 05/29/14 14:45:00 CDT, other reason (Rx) Start Date: 05/29/14 Stop Date: 06/07/14 Status: Completedranitidine 150 mg oral tablet 0.5 tab(s), Oral, BID, # 30 tab(s), 0 Refill(s), Start Date: 06/07/14 11:00:27 CDT, [facility] [place] [place] Start Date: 06/07/14 Stop Date: 07/04/14 Status: Completedranitidine 150 mg oral tablet 0.5 tab(s), Oral, BID, # 30 tab(s), 0 Refill(s), Start Date: 07/04/14 11:43:04 DISABILITY CASE MANAGER, Pharmacy: [facility] [place] Start Date: 07/04/14 Stop Date: 08/16/14 Status: Completedranitidine 150 mg oral tablet tab(s), Oral, BID, 0 Refill(s) Start Date: 12/14/13 Stop Date: 05/29/14 Status: Discontinuedranitidine 150 mg oral tablet 0.5 tab(s), Oral, BID, # 30 tab(s), 0 Refill(s), Start Date: 08/16/14 8:21:25 DISABILITY CASE MANAGER, [facility]acy: [facility] [place] Start Date: 08/16/14 Stop Date: 09/20/14 Status: Completedranitidine 75 mg oral tablet 1 tab(s), Oral, BID, # 60 tab(s), 0 Refill(s), [facility] [place] Start Date: 05/08/14 Stop Date: 05/29/14 Status: Discontinuedranitidine 75 mg oral tablet tab(s), Oral, BID, 0 Refill(s) Start Date: 05/08/14 Stop Date: 05/08/14 Status: Discontinuedranitidine 75 mg oral tablet 1 tab(s), Oral, BID, # 60 tab(s), 0 Refill(s), [facility] [place] [place] Start Date: 03/29/14 Stop Date: 04/20/14 [...] BID, # 60 tab(s), 0 Refill(s), Pharmacy: [place], [place] Start Date: 12/30/13 Stop Date: 03/08/14 Status: Discontinuedtorsemide 10 mg oral tablet 1 tab(s), Oral, BID, # 60 tab(s), 0 Refill(s), Pharmacy: [place] Start Date: 12/14/13 Stop Date: 12/30/13 Status: Completedtorsemide 10 mg oral tablet 1 tab(s), Oral, Daily, # 30 tab(s), 0 Refill(s) Start Date: 11/24/13 Stop Date: 12/14/13 Status: Discontinuedtorsemide 20 mg oral tablet 2 tab(s), Oral, Daily, 0 Refill(s), Start Date: 09/18/15 10:13:00 DISABILITY CASE MANAGER Start Date: 09/18/15 Stop Date: 12/25/15 Status: [...] Refill(s), Start Date: 12/11/14 13:48:00 CDT, Pharmacy: [place], [place] Start Date: 12/11/14 Stop Date: 01/15/15 [...] Refill(s), Start Date: 05/23/15 13:39:00 CDT, Pharmacy: [place], [place] Special Instructions: apply 2 grams Start Date: 05/23/15 Stop Date: 09/18/15 Status: Completedwarfarin 5 mg oral tablet See Instructions, Take 1 tab orally at 6pm evening before surgery, # 1 tab(s), 0 Refill(s), Start Date: 11/05/16 8:04:00 CDT, Pharmacy: [place], [place] Special Instructions: Take 1 tab orally [...] Start Date: 05/29/14 15:33:00 CDT, Pharmacy: [facility] [place], [place] Start Date: 05/29/14 Stop Date: 10/18/14 [...] CS - section 1987 Hysterectomy/salpingo-oophorectomy 1987 Appendectomy 1980 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 Esophagoduodenostomy with biopsy Foot examination performed (includes examination through visual inspection, sensory exam with monofilament, and pulse exam - report when any of the three components are completed) (DM) Pelvic sling Splenectomy Tonsillectomy 1auto-populated from documented surgical [id number] from documented surgical [id number] from documented surgical [id number] from documented surgical [id number] from documented surgical grpw1ersn- populated from documented surgical case Social History No data available for this section Assessment and Plan No data available for this section
--- OUTSIDE RECORDS SUMMARY | 2017-03-03 11:02 | XMS REPORT | Summary of Care ---
:1960 Author Organization [facility] Address [address] [place] [address] Care Team Providers Name Role Phone Mateusz Stanley Primary Care Physician Encounter Date(s): 01/23/17 - 01/23/17 [facility] [address] [place], [place] [address] Discharge Disposition: Discharged to Home or Self Care Attending Physician: New Moreno DO Referring Physician: Mateusz Stanley DO Vital Signs Most recent to oldest [Reference Range]: 1 Peripheral Pulse Rate [60-100 bpm] 77 bpm (01/23/17 11:22 AM) Blood Pressure [90-130/60-90 mmHg] 113/72mmHg (01/23/17 11:22 AM) Mean Arterial Pressure, Cuff 86 mmHg (01/23/17 11:22 AM) Most recent to oldest [Reference Range]: 1 Height/Length Measured 165 cm (01/23/17 11:22 AM) Weight Dosing 56.20 kg1 (01/23/17 11:23 AM) Weight Measured 56.2 kg (01/23/17 11:22 AM) BSA Measured 1.61 m2 (01/23/17 11:22 AM) Body Mass Index Measured 20.64 kg/m2 (01/23/17 11:22 AM) 1Result Comment: This result was because the dosing weight was either not entered or it is>30 days old. 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 Start Date: 10/02/14 Stop Date: 02/20/15 Status: [...] Refill(s), Start Date: 05/29/14 15:37:00 CDT, [facility] [place] Start Date: 05/29/14 Stop Date: 10/18/14 [...] tab(s), 0 Refill(s), Start Date: 10/02/14 11:11:00 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 Start Date: 10/02/14 Stop Date: 02/13/15 Status: CompletedDitropan 5 mg oral tablet 1 tab(s), Oral, TID, # 90 tab(s), 11 Refill(s), [facility]acy: [facility] [place] [place] Start Date: 11/30/13 Stop Date: 12/11/14 Status: DiscontinuedDME - Wheeled walker See Instructions, Diagnosis Code:M16.11 Length of Need:99, # 1 EA, 0 Refill(s), 12/10/16 6:34:00 CDT, Supply Special Instructions: Diagnosis Code:M16.11 Length of Need: 99 Start Date: 12/10/16 Status: CgznvmvBqu-M-Milz 100 mg oral capsule 1 cap(s), Oral, [...] Start Date: 10/22/16 10:48:00 CDT , [facility] [place] Start Date: 10/22/16 Stop Date: 11/25/16 Status: CompletedFioricet oral tablet 2 tab(s), Oral, q6hr interval, PRN for pain, # 100 tab(s), 0 Refill(s), Start Date: 02/13/15 12:46:00 CDT, [facility]: [facility] [place] Start Date: 02/13/15 Stop Date: 02/20/15 [...] # 5 mL, 0 Refill(s), [facility] [place] Start Date: 05/02/14 Stop Date: 05/09/14 [...] units., # 1 QS, 0 Refill(s), Pharmacy: [place], [place] Special Instructions: AM 50 units noon [...] qPM, 0 Refill(s), Start Date: 09/18/15 10:12:00 CIRCLE 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 Start Date: 09/18/15 Stop Date: 11/25/16 Status: CompletedLantus 25 untis, Subcutaneous, BID, 0 Refill(s), Start Date: 09/18/15 10:12:00 CIRCLE 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 Start Date: 09/18/15 Status: Orderedlevothyroxine 112 mcg [...] cap(s), 0 Refill(s), Start Date: 08/07/14 15:01:00 CIRCLE 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, Pharmacy: [place], [place] Start Date: 08/07/14 Stop Date: 11/13/14 [...] HS, # 30 cap(s), 11 Refill(s), Pharmacy: [place], [place] Start Date: 01/13/14 Stop Date: 03/08/14 Status: Discontinuedomeprazole 40 mg oral delayed release capsule 1 cap(s), Oral, BID, # 30 cap(s), 11 Refill(s), Pharmacy: [place], [place] Start Date: 03/08/14 Stop Date: 03/29/14 Status: Completedomeprazole 40 mg oral delayed release capsule 1 cap(s), Oral, Daily, # 30 cap(s), 11 Refill(s), Pharmacy: [place], [place] Start Date: 03/29/14 Stop Date: 11/25/16 [...] tab(s), 0 Refill(s), Start Date: 09/19/15 7:02:00 CIRCLE 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, Pharmacy: [place], [place] Special Instructions: not to exceed 4000 [...] Refill(s), Start Date: 12/26/16 11:48:56 CDT, Pharmacy: [place], [place] Special Instructions: 1-2 tab(s) Oral q4-6hr [...] tab(s), 3 Refill(s), Start Date: 10/11/15 13:38:34 CIRCLE 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, [facility]acy: [facility] [place], [place] Start Date: 10/11/15 Stop Date: 10/15/15 Status: CompletedPlaquenil Sulfate 200 mg oral tablet 1 tab(s), Oral, BID, 0 Refill(s), Start Date: 09/17/15 13:24:00 CIRCLE 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 Start Date: 09/17/15 Stop Date: 12/03/15 Status: CompletedPlaquenil Sulfate 200 mg oral tablet 1 tab(s), Oral, BID, # 180 tab(s), 3 Refill(s), Start Date: 10/15/15 16:41:40 CIRCLE 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, Pharmacy: [facility] [place], [place] Start Date: 10/15/15 Status: OrderedPlaquenil Sulfate 200 mg oral tablet 1 tab(s), Oral, BID, # 60 tab(s), 3 Refill(s), Start Date: 09/01/14 9:49:00 CIRCLE 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 , Pharmacy: [facility] [place], [place] Start Date: 09/01/14 Stop Date: 10/02/14 Status: CompletedPlaquenil Sulfate 200 mg oral tablet 1 tab(s), Oral, BID, # 360 tab(s), 3 Refill(s), Start Date: 10/02/14 12:01:00 CIRCLE 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, Pharmacy: [facility] [place], [place] Start Date: 10/02/14 Stop Date: 01/03/15 [...] 42 gm, 4 Refill(s), Pharmacy: [facility] [place], [place] Start Date: 11/30/13 Stop Date: 10/18/14 [...] tab(s), 11 Refill(s), Start Date: 09/20/14 8:43:11 CIRCLE 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, Pharmacy: [facility] [place], [place] Start Date: 09/20/14 Stop Date: 11/25/16 Status: Completedranitidine 150 mg oral tablet 0.5 tab(s), Oral, BID, # 30 tab(s), 0 Refill(s), Start Date: 05/29/14 14:45:00 CDT, other reason (Rx) Start Date: 05/29/14 Stop Date: 06/07/14 Status: Completedranitidine 150 mg oral tablet 0.5 tab(s), Oral, BID, # 30 tab(s), 0 Refill(s), Start Date: 06/07/14 11:00:27 CDT, Pharmacy: [facility] [place], [place] Start Date: 06/07/14 Stop Date: 07/04/14 Status: Completedranitidine 150 mg oral tablet 0.5 tab(s), Oral, BID, # 30 tab(s), 0 Refill(s), Start Date: 07/04/14 11:43:04 CIRCLE 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, Pharmacy: [place], [place] Start Date: 07/04/14 Stop Date: 08/16/14 Status: Completedranitidine 150 mg oral tablet tab(s), Oral, BID, 0 Refill(s) Start Date: 12/14/13 Stop Date: 05/29/14 Status: Discontinuedranitidine 150 mg oral tablet 0.5 tab(s), Oral, BID, # 30 tab(s), 0 Refill(s), Start Date: 08/16/14 8:21:25 CIRCLE 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, Pharmacy: [place], [place] Start Date: 08/16/14 Stop Date: 09/20/14 Status: Completedranitidine 75 mg oral tablet 1 tab(s), Oral, BID, # 60 tab(s), 0 Refill(s), Pharmacy: [place], [place] Start Date: 05/08/14 Stop Date: 05/29/14 Status: Discontinuedranitidine 75 mg oral tablet tab(s), Oral, BID, 0 Refill(s) Start Date: 05/08/14 Stop Date: 05/08/14 Status: Discontinuedranitidine 75 mg oral tablet 1 tab(s), Oral, BID, # 60 tab(s), 0 Refill(s), Pharmacy: [place], [place] Start Date: 03/29/14 Stop Date: 04/20/14 [...] BID, # 60 tab(s), 0 Refill(s), Pharmacy: [place] Start Date: 12/30/13 Stop Date: 03/08/14 Status: Discontinuedtorsemide 10 mg oral tablet 1 tab(s), Oral, BID, # 60 tab(s), 0 Refill(s), Pharmacy: [place] Start Date: 12/14/13 Stop Date: 12/30/13 Status: Completedtorsemide 10 mg oral tablet 1 tab(s), Oral, Daily, # 30 tab(s), 0 Refill(s) Start Date: 11/24/13 Stop Date: 12/14/13 Status: Discontinuedtorsemide 20 mg oral tablet 2 tab(s), Oral, Daily, 0 Refill(s), Start Date: 09/18/15 10:13:00 CIRCLE 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 Start Date: 09/18/15 Stop Date: 12/25/15 Status: [...] Refill(s), Start Date: 12/11/14 13:48:00 CDT, Pharmacy: [place], [place] Start Date: 12/11/14 Stop Date: 01/15/15 [...] Refill(s), Start Date: 05/23/15 13:39:00 CDT, Pharmacy: [place], [place] Special Instructions: apply 2 grams Start Date: 05/23/15 Stop Date: 09/18/15 Status: Completedwarfarin 5 mg oral tablet See Instructions, Take 1 tab orally at 6pm evening before surgery, # 1 tab(s), 0 Refill(s), Start Date: 11/05/16 8:04:00 CDT, Pharmacy: [place], [place] Special Instructions: Take 1 tab orally [...] Date: 05/29/14 15:33:00 CDT, Pharmacy: [facility] [place], [place] Start Date: 05/29/14 Stop Date: 10/18/14 [...] sling Splenectomy Tonsillectomy 1auto-populated from documented surgical [id number] from documented surgical [id number] from documented surgical [id number] from documented surgical [id number] from documented surgical [id number]- populated from documented surgical case Social History No data available for this section Assessment and Plan No data available for this section
--- OUTSIDE RECORDS SUMMARY | 2017-03-03 11:03 | XMS REPORT | Summary of Care ---
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 Start Date: 10/02/14 Stop Date: 02/20/15 Status: [...] Refill(s), Start Date: 05/29/14 15:37:00 CDT, [facility] [place] Start Date: 05/29/14 Stop Date: 10/18/14 [...] tab(s), 0 Refill(s), Start Date: 10/02/14 11:11:00 PATENT LAWYER Start Date: 10/02/14 Stop Date: 02/13/15 Status: CompletedDitropan 5 mg oral tablet 1 tab(s), Oral, TID, # 90 tab(s), 11 Refill(s), [facility] [place] Start Date: 11/30/13 Stop Date: 12/11/14 Status: BzjiiflmgokwFcl-E-Lgra 100 mg oral capsule 1 cap(s), Oral, [...] Start Date: 10/22/16 10:48:00 CDT , Pharmacy: [place], [place] Start Date: 10/22/16 Stop Date: 11/25/16 Status: CompletedFioricet oral tablet 2 tab(s), Oral, q6hr interval, PRN for pain, # 100 tab(s), 0 Refill(s), Start Date: 02/13/15 12:46:00 CDT, [facility] [place] [place] Start Date: 02/13/15 Stop Date: 02/20/15 [...] days, # 5 mL, 0 Refill(s), [facility] [place] [place] Start Date: 05/02/14 Stop Date: 05/09/14 [...] units., # 1 QS, 0 Refill(s), Pharmacy: [place], [place] Special Instructions: AM 50 units [...] qPM, 0 Refill(s), Start Date: 09/18/15 10:12:00 PATENT LAWYER Start Date: 09/18/15 Stop Date: 11/25/16 Status: CompletedLantus 25 untis, Subcutaneous, BID, 0 Refill(s), Start Date: 09/18/15 10:12:00 PATENT LAWYER Start Date: 09/18/15 Status: Orderedlevothyroxine 112 mcg [...] cap(s), 0 Refill(s), Start Date: 08/07/14 15:01:00 PATENT LAWYER, [facility] Start Date: 08/07/14 Stop Date: 11/13/14 [...] HS, # 30 cap(s), 11 Refill(s), Pharmacy: [place], [place] Start Date: 01/13/14 Stop Date: 03/08/14 Status: Discontinuedomeprazole 40 mg oral delayed release capsule 1 cap(s), Oral, BID, # 30 cap(s), 11 Refill(s), Pharmacy: [place], [place] Start Date: 03/08/14 Stop Date: 03/29/14 Status: Completedomeprazole 40 mg oral delayed release capsule 1 cap(s), Oral, Daily, # 30 cap(s), 11 Refill(s), Pharmacy: [place], [place] Start Date: 03/29/14 Stop Date: [...] tab(s), 0 Refill(s), Start Date: 09/19/15 7:02:00 PATENT LAWYER, [facility] Special Instructions: not to exceed 4000 [...] Date: 01/03/15 9:13:29 CDT , Pharmacy: [facility] Start Date: 01/03/15 Stop Date: 06/18/15 Status: CompletedPlaquenil Sulfate 200 mg oral tablet 1 tab(s), Oral, BID, # 180 tab(s), 3 Refill(s), Start Date: 10/11/15 13:38:34 PATENT LAWYER, Pharmacy: [facility] [place] [place] Start Date: 10/11/15 Stop Date: 10/15/15 Status: CompletedPlaquenil Sulfate 200 mg oral tablet 1 tab(s), Oral, BID, 0 Refill(s), Start Date: 09/17/15 13:24:00 PATENT LAWYER Start Date: 09/17/15 Stop Date: 12/03/15 Status: CompletedPlaquenil Sulfate 200 mg oral tablet 1 tab(s), Oral, BID, # 180 tab(s), 3 Refill(s), Start Date: 10/15/15 16:41:40 PATENT LAWYER, Pharmacy: [facility] [place] [place] Start Date: 10/15/15 Status: OrderedPlaquenil Sulfate 200 mg oral tablet 1 tab(s), Oral, BID, # 60 tab(s), 3 Refill(s), Start Date: 09/01/14 9:49:00 PATENT LAWYER , Pharmacy: [facility] [place] [place] Start Date: 09/01/14 Stop Date: 10/02/14 Status: CompletedPlaquenil Sulfate 200 mg oral tablet 1 tab(s), Oral, BID, # 360 tab(s), 3 Refill(s), Start Date: 10/02/14 12:01:00 PATENT LAWYER, [facility]acy: [facility] [place] [place] Start Date: 10/02/14 Stop Date: 01/03/15 [...] # 42 gm, 4 Refill(s), [facility]acy: [facility], [place] Start Date: 11/30/13 Stop Date: 10/18/14 [...] tab(s), 11 Refill(s), Start Date: 09/20/14 8:43:11 PATENT LAWYER, Pharmacy: [facility] [place], [place] Start Date: 09/20/14 Stop Date: 11/25/16 Status: Completedranitidine 150 mg oral tablet 0.5 tab(s), Oral, BID, # 30 tab(s), 0 Refill(s), Start Date: 05/29/14 14:45:00 CDT, other reason (Rx) Start Date: 05/29/14 Stop Date: 06/07/14 Status: Completedranitidine 150 mg oral tablet 0.5 tab(s), Oral, BID, # 30 tab(s), 0 Refill(s), Start Date: 06/07/14 11:00:27 CDT, Pharmacy: [facility] [place] [place] Start Date: 06/07/14 Stop Date: 07/04/14 Status: Completedranitidine 150 mg oral tablet 0.5 tab(s), Oral, BID, # 30 tab(s), 0 Refill(s), Start Date: 07/04/14 11:43:04 PATENT LAWYER, [facility] Start Date: 07/04/14 Stop Date: 08/16/14 Status: Completedranitidine 150 mg oral tablet tab(s), Oral, BID, 0 Refill(s) Start Date: 12/14/13 Stop Date: 05/29/14 Status: Discontinuedranitidine 150 mg oral tablet 0.5 tab(s), Oral, BID, # 30 tab(s), 0 Refill(s), Start Date: 08/16/14 8:21:25 PATENT LAWYER, [facility] Start Date: 08/16/14 Stop Date: 09/20/14 Status: Completedranitidine 75 mg oral tablet 1 tab(s), Oral, BID, # 60 tab(s), 0 Refill(s), Pharmacy: [place], [place] Start Date: 05/08/14 Stop Date: 05/29/14 Status: Discontinuedranitidine 75 mg oral tablet tab(s), Oral, BID, 0 Refill(s) Start Date: 05/08/14 Stop Date: 05/08/14 Status: Discontinuedranitidine 75 mg oral tablet 1 tab(s), Oral, BID, # 60 tab(s), 0 Refill(s), Pharmacy: [place], [place] Start Date: 03/29/14 Stop Date: 04/20/14 [...] 60 tab(s), 0 Refill(s), [facility]acy: [facility] [place] [place] Start Date: 12/30/13 Stop Date: 03/08/14 Status: Discontinuedtorsemide 10 mg oral tablet 1 tab(s), Oral, BID, # 60 tab(s), 0 Refill(s), [facility]acy: [facility] [place] Start Date: 12/14/13 Stop Date: 12/30/13 Status: Completedtorsemide 10 mg oral tablet 1 tab(s), Oral, Daily, # 30 tab(s), 0 Refill(s) Start Date: 11/24/13 Stop Date: 12/14/13 Status: Discontinuedtorsemide 20 mg oral tablet 2 tab(s), Oral, Daily, 0 Refill(s), Start Date: 09/18/15 10:13:00 PATENT LAWYER Start Date: 09/18/15 Stop Date: 12/25/15 Status: [...] Refill(s), Start Date: 12/11/14 13:48:00 CDT, Pharmacy: [place], [place] Start Date: 12/11/14 Stop Date: [...] Refill(s), Start Date: 05/23/15 13:39:00 CDT, Pharmacy: [place], [place] Special Instructions: apply 2 grams Start Date: 05/23/15 Stop Date: 09/18/15 Status: Completedwarfarin 5 mg oral tablet See Instructions, Take 1 tab orally at 6pm evening before surgery, # 1 tab(s), 0 Refill(s), Start Date: 11/05/16 8:04:00 CDT, [facility] [place] Special Instructions: Take 1 tab orally [...] Refill(s), Start Date: 05/29/14 15:33:00 CDT, [facility] [place] Start Date: 05/29/14 Stop Date: 10/18/14 [...] sling Splenectomy Tonsillectomy 1auto-populated from documented surgical [id number] from documented surgical [id number] from documented surgical [id number] from documented surgical [id number] from documented surgical case Social History No data available for this section Assessment and Plan No data available for this section
--- OUTSIDE RECORDS SUMMARY | 2017-03-03 11:04 | XMS REPORT | Summary of Care ---
:1960 Author Organization [facility] Address [address] [place] [address] Care Team Providers Name Role Phone Mateusz Stanley Primary Care Physician Encounter Date(s): 12/26/16 - 12/26/16 [facility] [address] [place], [place] [address] Discharge Disposition: Discharged to Home or Self Care Attending Physician: Sara Mota, PAC Referring Physician: Mateusz Stanley DO Vital Signs Most recent to oldest [Reference Range]: 1 Peripheral Pulse Rate [60-100 bpm] 90 bpm (12/26/16 11:18 AM) Blood Pressure [90-130/60-90 mmHg] 145/80mmHg *HI* (12/26/16 11:18 AM) Mean Arterial Pressure, Cuff 102 mmHg (12/26/16 11:18 AM) Most recent to oldest [Reference Range]: 1 Height/Length Measured 169 cm (12/26/16 11:18 AM) Weight Dosing 55.80 kg1 (12/26/16 11:20 AM) Weight Measured 55.8 kg (12/26/16 11:18 AM) BSA Measured 1.64 m2 (12/26/16 11:18 AM) Body Mass Index Measured 19.54 kg/m2 (12/26/16 11:18 AM) 1Result Comment: This result was because the dosing weight was either not entered or it is>30 days old. This result is based off: Weight Measured December 26, 2016 11:18:00 CDT by Osiris Bonilla CMA Problem List Condition Effective Dates Status [...] Vomiting Active 1Abstraction tool stated Bee Sting [id number] [id number] CONTAINING [id number] Medications albuterol CFC free 90 mcg/inh inhalation [...] Daily, 0 Refill(s), Start Date: 10/02/14 11:11:00 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 Start Date: 10/02/14 Stop Date: 02/20/15 Status: [...] Refill(s), Start Date: 05/29/14 15:37:00 CDT, Pharmacy[place] 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 [place] Start Date: 10/22/16 Stop Date: 11/25/16 Status: CompletedFioricet oral tablet 2 tab(s), Oral, q6hr interval, PRN for pain, # 100 tab(s), 0 Refill(s), Start Date: 02/13/15 12:46:00 CDT, Pharmacy: [facility] Start Date: 02/13/15 Stop Date: 02/20/15 [...] days, # 5 mL, 0 Refill(s), Pharmacy: [place] Start Date: 05/02/14 Stop Date: 05/09/14 [...] units., # 1 QS, 0 Refill(s), Pharmacy: [place], [place] Special Instructions: AM 50 units [...] qPM, 0 Refill(s), Start Date: 09/18/15 10:12:00 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 [place] Start Date: 08/07/14 Stop Date: 4/6/15 Status: DiscontinuedLyrica 200 mg oral capsule 1 [...] HS, # 30 cap(s), 11 Refill(s), Pharmacy: [place], [place] Start Date: 01/13/14 Stop Date: 03/08/14 Status: Discontinuedomeprazole 40 mg oral delayed release capsule 1 cap(s), Oral, BID, # 30 cap(s), 11 Refill(s), Pharmacy: [place], [place] Start Date: 03/08/14 Stop Date: 03/29/14 Status: Completedomeprazole 40 mg oral delayed release capsule 1 cap(s), Oral, Daily, # 30 cap(s), 11 Refill(s), Pharmacy: [place], [place] Start Date: 03/29/14 Stop Date: [...] tab(s), 0 Refill(s), Start Date: 09/19/15 7:02:00 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, Pharmacy: [place], [place] Special Instructions: not to exceed 4000 [...] Refill(s), Start Date: 12/26/16 11:48:56 CDT, Pharmacy: [place], [place] Special Instructions: 1-2 tab(s) Oral q4-6hr [...] tab(s), 3 Refill(s), Start Date: 10/11/15 13:38:34 [employer]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, Pharmacy: [facility] [place], [place] Start Date: 10/11/15 Stop Date: 10/15/15 Status: CompletedPlaquenil Sulfate 200 mg oral tablet 1 tab(s), Oral, BID, 0 Refill(s), Start Date: 09/17/15 13:24:00 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 Start Date: 09/17/15 Stop Date: 12/03/15 Status: CompletedPlaquenil Sulfate 200 mg oral tablet 1 tab(s), Oral, BID, # 180 tab(s), 3 Refill(s), Start Date: 10/15/15 16:41:40 S[employer]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, Pharmacy: [facility] [place], [place] Start Date: 10/15/15 Status: OrderedPlaquenil Sulfate 200 mg oral tablet 1 tab(s), Oral, BID, # 60 tab(s), 3 Refill(s), Start Date: 09/01/14 9:49:00 S[employer]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 , [facility] [place] Start Date: 09/01/14 Stop Date: 10/02/14 Status: CompletedPlaquenil Sulfate 200 mg oral tablet 1 tab(s), Oral, BID, # 360 tab(s), 3 Refill(s), Start Date: 10/02/14 12:01:00 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, Pharmacy: [facility] [place], [place] Start Date: 10/02/14 Stop Date: 01/03/15 [...] 42 gm, 4 Refill(s), Pharmacy: [facility] [place], [place] Start Date: 11/30/13 Stop Date: 10/18/14 [...] tab(s), 11 Refill(s), Start Date: 09/20/14 8:43:11 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, Pharmacy: [facility] [place], [place] Start Date: 09/20/14 Stop Date: 11/25/16 Status: Completedranitidine 150 mg oral tablet 0.5 tab(s), Oral, BID, # 30 tab(s), 0 Refill(s), Start Date: 05/29/14 14:45:00 CDT, other reason (Rx) Start Date: 05/29/14 Stop Date: 06/07/14 Status: Completedranitidine 150 mg oral tablet 0.5 tab(s), Oral, BID, # 30 tab(s), 0 Refill(s), Start Date: 06/07/14 11:00:27 CDT, Pharmacy: [facility] [place], [place] Start Date: 06/07/14 Stop Date: 07/04/14 Status: Completedranitidine 150 mg oral tablet 0.5 tab(s), Oral, BID, # 30 tab(s), 0 Refill(s), Start Date: 07/04/14 11:43:04 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, Pharmacy: [facility] [place], [place] Start Date: 07/04/14 Stop Date: 08/16/14 Status: Completedranitidine 150 mg oral tablet tab(s), Oral, BID, 0 Refill(s) Start Date: 12/14/13 Stop Date: 05/29/14 Status: Discontinuedranitidine 150 mg oral tablet 0.5 tab(s), Oral, BID, # 30 tab(s), 0 Refill(s), Start Date: 08/16/14 8:21:25 [employer]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, Pharmacy: [facility] [place], [place] Start Date: 08/16/14 Stop Date: 09/20/14 Status: Completedranitidine 75 mg oral tablet 1 tab(s), Oral, BID, # 60 tab(s), 0 Refill(s), Pharmacy: [facility] [place], [place] Start Date: 05/08/14 Stop Date: 05/29/14 Status: Discontinuedranitidine 75 mg oral tablet tab(s), Oral, BID, 0 Refill(s) Start Date: 05/08/14 Stop Date: 05/08/14 Status: Discontinuedranitidine 75 mg oral tablet 1 tab(s), Oral, BID, # 60 tab(s), 0 Refill(s), Pharmacy: [facility] [place], [place] Start Date: 03/29/14 Stop Date: 04/20/14 [...] BID, # 60 tab(s), 0 Refill(s), Pharmacy: [place], [place] Start Date: 12/30/13 Stop Date: 03/08/14 Status: Discontinuedtorsemide 10 mg oral tablet 1 tab(s), Oral, BID, # 60 tab(s), 0 Refill(s), Pharmacy: [place], [place] Start Date: 12/14/13 Stop Date: 12/30/13 Status: Completedtorsemide 10 mg oral tablet 1 tab(s), Oral, Daily, # 30 tab(s), 0 Refill(s) Start Date: 11/24/13 Stop Date: 12/14/13 Status: Discontinuedtorsemide 20 mg oral tablet 2 tab(s), Oral, Daily, 0 Refill(s), Start Date: 09/18/15 10:13:00 S[employer]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 Start Date: 09/18/15 Stop Date: 12/25/15 Status: [...] Refill(s), Start Date: 12/11/14 13:48:00 CDT, Pharmacy: [place], [place] Start Date: 12/11/14 Stop Date: [...] Refill(s), Start Date: 05/23/15 13:39:00 CDT, Pharmacy: [place], [place] Special Instructions: apply 2 grams Start Date: 05/23/15 Stop Date: 09/18/15 Status: Completedwarfarin 5 mg oral tablet See Instructions, Take 1 tab orally at 6pm evening before surgery, # 1 tab(s), 0 Refill(s), Start Date: 11/05/16 8:04:00 CDT, Pharmacy: [place], [place] Special Instructions: Take 1 tab orally [...] Date: 05/29/14 15:33:00 CDT, Pharmacy: [facility] [place], [place] Start Date: 05/29/14 Stop Date: 10/18/14 [...] sling Splenectomy Tonsillectomy 1auto-populated from documented surgical [id number] from documented surgical [id number]-wntfdkisp from documented surgical [id number]-kqjekbvrz from documented surgical jrkm6nqhm-qjcfwozdi from documented surgical ygkr2jaju- populated from documented surgical case Social History No data available for this section Assessment and Plan No data available for this section
--- OUTSIDE RECORDS SUMMARY | 2017-03-03 11:04 | XMS REPORT | Summary of Care ---
:1960 Author Organization [facility] Address [address] [place] [address] Care Team Providers Name Role Phone Mateusz Stanley Primary Care Physician Encounter Date(s): 12/01/16 - 12/01/16 [facility], [address] [place], [place] [address] Discharge Diagnosis: Iron deficiency anemia Discharge Disposition: Discharged to Home or Self Care Attending Physician: JAYDEN Patel Referring Physician: Mateusz Stanley DO Vital Signs Most recent to oldest [Reference Range]: 1 Temperature Temporal Artery [36.0-38.0 DegC] 36.7 DegC (12/01/16 11:07 AM) Peripheral Pulse Rate [60-100 bpm] 76 bpm (12/01/16 11:07 AM) Respiratory Rate [12-20 br/min] 17 br/min (12/01/16 11:07 AM) SpO2 [90-100 %] 100 % (12/01/16 11:07 AM) Blood Pressure [90-130/60-90 mmHg] 160/80mmHg *HI* (12/01/16 11:07 AM) Mean Arterial Pressure, Cuff 107 mmHg (12/01/16 11:07 AM) Most recent to oldest [Reference Range]: 1 Height/Length Measured 165 cm (12/01/16 11:07 AM) Height/Length Estimated 165 cm (12/01/16 11:07 AM) Weight Estimated 54.2 kg (12/01/16 11:07 AM) Weight Dosing 54.2 kg (12/01/16 11:07 AM) Weight Measured 54.2 kg (12/01/16 11:07 AM) BSA Measured 1.59 m2 (12/01/16 11:07 AM) BSA Estimated 1.58 m2 (12/01/16 11:07 AM) Body Mass Index Measured 19.91 kg/m2 (12/01/16 11:07 AM) Body Mass Index Estimated 19.91 kg/m2 (12/01/16 11:07 AM) Problem List Condition Effective Dates Status [...] Vomiting Active 1Abstraction tool stated Bee Sting Jxn4Juqvykcut Krvfzvkrd5YTVH CONTAINING FKMYNKVU4Gfkxfshmezpa Medications albuterol CFC free 90 mcg/inh inhalation [...] Daily, 0 Refill(s), Start Date: 10/02/14 11:11:00 HAT MAKER Start Date: 10/02/14 Stop Date: 02/20/15 Status: [...] Refill(s), Start Date: 05/29/14 15:37:00 CDT, Pharmacy: [place], [place] Start Date: 05/29/14 Stop Date: [...] tab(s), 0 Refill(s), Start Date: 10/02/14 11:11:00 HAT MAKER Start Date: 10/02/14 Stop Date: 02/13/15 Status: CompletedDitropan 5 mg oral tablet 1 tab(s), Oral, TID, # 90 tab(s), 11 Refill(s), [place] [facility] Start Date: 11/30/13 Stop Date: 12/11/14 Status: KbutodoudlncNns-L-Sgmt 100 mg oral capsule 1 cap(s), Oral, [...] Start Date: 10/22/16 10:48:00 CDT , [facility] [place] Start Date: 10/22/16 Stop Date: 11/25/16 Status: CompletedFioricet oral tablet 2 tab(s), Oral, q6hr interval, PRN for pain, # 100 tab(s), 0 Refill(s), Start Date: 02/13/15 12:46:00 CDT, Pharmacy: [place] Start Date: 02/13/15 Stop Date: 02/20/15 [...] days, # 5 mL, 0 Refill(s), Pharmacy: [place] Start Date: 05/02/14 Stop Date: 05/09/14 [...] units., # 1 QS, 0 Refill(s), Pharmacy: [place], [place] Special Instructions: AM 50 units noon [...] qPM, 0 Refill(s), Start Date: 09/18/15 10:12:00 HAT MAKER Start Date: 09/18/15 Stop Date: 11/25/16 Status: CompletedLantus 25 untis, Subcutaneous, BID, 0 Refill(s), Start Date: 09/18/15 10:12:00 HAT MAKER Start Date: 09/18/15 Status: Orderedlevothyroxine 112 mcg [...] cap(s), 0 Refill(s), Start Date: 08/07/14 15:01:00 HAT MAKER, Pharmacy: [place] Start Date: 08/07/14 Stop Date: 11/13/14 [...] HS, # 30 cap(s), 11 Refill(s), Pharmacy: [place], [place] Start Date: 01/13/14 Stop Date: 03/08/14 Status: Discontinuedomeprazole 40 mg oral delayed release capsule 1 cap(s), Oral, BID, # 30 cap(s), 11 Refill(s), Pharmacy: [place], [place] Start Date: 03/08/14 Stop Date: 03/29/14 Status: Completedomeprazole 40 mg oral delayed release capsule 1 cap(s), Oral, Daily, # 30 cap(s), 11 Refill(s), Pharmacy: [place], [place] Start Date: 03/29/14 Stop Date: 11/25/16 [...] tab(s), 0 Refill(s), Start Date: 09/19/15 7:02:00 HAT MAKER, Pharmacy: [place], [place] Special Instructions: not to exceed 4000 [...] tab(s), 3 Refill(s), Start Date: 10/11/15 13:38:34 HAT MAKER, Pharmacy: [facility] [place], [place] Start Date: 10/11/15 Stop Date: 10/15/15 Status: CompletedPlaquenil Sulfate 200 mg oral tablet 1 tab(s), Oral, BID, 0 Refill(s), Start Date: 09/17/15 13:24:00 HAT MAKER Start Date: 09/17/15 Stop Date: 12/03/15 Status: CompletedPlaquenil Sulfate 200 mg oral tablet 1 tab(s), Oral, BID, # 180 tab(s), 3 Refill(s), Start Date: 10/15/15 16:41:40 HAT MAKER, Pharmacy: [facility] [place], [place] Start Date: 10/15/15 Status: OrderedPlaquenil Sulfate 200 mg oral tablet 1 tab(s), Oral, BID, # 60 tab(s), 3 Refill(s), Start Date: 09/01/14 9:49:00 HAT MAKER , Pharmacy: [facility] [place], [place] Start Date: 09/01/14 Stop Date: 10/02/14 Status: CompletedPlaquenil Sulfate 200 mg oral tablet 1 tab(s), Oral, BID, # 360 tab(s), 3 Refill(s), Start Date: 10/02/14 12:01:00 HAT MAKER, Pharmacy: [facility] [place], [place] Start Date: [...] # 42 gm, 4 Refill(s), [place] [facility] [place] Start Date: 11/30/13 Stop Date: 10/18/14 [...] tab(s), 11 Refill(s), Start Date: 09/20/14 8:43:11 HAT MAKER, [facility] [facility] [place] Start Date: 09/20/14 Stop Date: 11/25/16 Status: Completedranitidine 150 mg oral tablet 0.5 tab(s), Oral, BID, # 30 tab(s), 0 Refill(s), Start Date: 05/29/14 14:45:00 CDT, other reason (Rx) Start Date: 05/29/14 Stop Date: 06/07/14 Status: Completedranitidine 150 mg oral tablet 0.5 tab(s), Oral, BID, # 30 tab(s), 0 Refill(s), Start Date: 06/07/14 11:00:27 CDT, Pharmacy: [facility] [place], [place] Start Date: 06/07/14 Stop Date: 07/04/14 Status: Completedranitidine 150 mg oral tablet 0.5 tab(s), Oral, BID, # 30 tab(s), 0 Refill(s), Start Date: 07/04/14 11:43:04 HAT MAKER, [facility] [place] [place] Start Date: 07/04/14 Stop Date: 08/16/14 Status: Completedranitidine 150 mg oral tablet tab(s), Oral, BID, 0 Refill(s) Start Date: 12/14/13 Stop Date: 05/29/14 Status: Discontinuedranitidine 150 mg oral tablet 0.5 tab(s), Oral, BID, # 30 tab(s), 0 Refill(s), Start Date: 08/16/14 8:21:25 HAT MAKER, Pharmacy: [facility] [place], [place] Start Date: 08/16/14 Stop Date: 09/20/14 Status: Completedranitidine 75 mg oral tablet 1 tab(s), Oral, BID, # 60 tab(s), 0 Refill(s), Pharmacy: [facility] [place], [place] Start Date: 05/08/14 Stop Date: 05/29/14 Status: Discontinuedranitidine 75 mg oral tablet tab(s), Oral, BID, 0 Refill(s) Start Date: 05/08/14 Stop Date: 05/08/14 Status: Discontinuedranitidine 75 mg oral tablet 1 tab(s), Oral, BID, # 60 tab(s), 0 Refill(s), [facility] [place] [place] Start Date: 03/29/14 Stop Date: 04/20/14 [...] BID, # 60 tab(s), 0 Refill(s), Pharmacy: [place], [place] Start Date: 12/30/13 Stop Date: 03/08/14 Status: Discontinuedtorsemide 10 mg oral tablet 1 tab(s), Oral, BID, # 60 tab(s), 0 Refill(s), Pharmacy: [place], [place] Start Date: 12/14/13 Stop Date: 12/30/13 Status: Completedtorsemide 10 mg oral tablet 1 tab(s), Oral, Daily, # 30 tab(s), 0 Refill(s) Start Date: 11/24/13 Stop Date: 12/14/13 Status: Discontinuedtorsemide 20 mg oral tablet 2 tab(s), Oral, Daily, 0 Refill(s), Start Date: 09/18/15 10:13:00 HAT MAKER Start Date: 09/18/15 Stop Date: 12/25/15 Status: [...] Refill(s), Start Date: 12/11/14 13:48:00 CDT, Pharmacy: [place], [place] Start Date: 12/11/14 Stop Date: [...] Refill(s), Start Date: 05/23/15 13:39:00 CDT, Pharmacy: [place], [place] Special Instructions: apply 2 grams Start Date: 05/23/15 Stop Date: 09/18/15 Status: Completedwarfarin 5 mg oral tablet See Instructions, Take 1 tab orally at 6pm evening before surgery, # 1 tab(s), 0 Refill(s), Start Date: 11/05/16 8:04:00 CDT, [place] Special Instructions: Take 1 tab orally [...] Refill(s), Start Date: 05/29/14 15:33:00 CDT, Pharmacy: [place] Start Date: 05/29/14 Stop Date: 10/18/14 Status: CompletedZyrTEC 10 mg oral tablet 1 tab(s), Oral, Daily, # 30 tab(s), 0 Refill(s) Start Date: 11/24/13 Stop Date: 01/13/14 Status: Discontinued Results Patient Viewable Results Most recent to oldest [Reference Range]: 1 Estimated Creatinine Clearance 73.50 mL/min (12/01/16 11:14 AM) Immunizations Vaccine Date Refusal Reason haemophilus [...] sling Splenectomy Tonsillectomy 1auto-populated from documented surgical [id number] from documented surgical [id number] from documented surgical [id number]-qrzkacixj from documented surgical [id number] from documented surgical case Social History No data available for this section Assessment and Plan No data available for this section
--- OUTSIDE RECORDS SUMMARY | 2017-03-03 11:05 | XMS REPORT | Summary of Care ---
:1960 Author Organization [facility] Address [address] [place] [address] Care Team Providers Name Role Phone Jaden Mateusz Bloom Primary Care Physician Encounter Date(s): 10/22/16 - 10/22/[address] [facility], [address] [place], [place] [address] Discharge Diagnosis: Abnormal findings on diagnostic imaging of urinary organs Discharge Diagnosis: Other abnormal findings in urine Discharge Diagnosis: Urge incontinence of urine Discharge Diagnosis: Chronic kidney disease stage 3 Discharge Disposition: Discharged to Home or Self Care Attending Physician: Tobin Cheng MD Referring Physician: Tobin Cheng MD Vital Signs Most recent to oldest [Reference Range]: 1 Peripheral Pulse Rate [60-100 bpm] 80 bpm (10/22/16 10:42 AM) Blood Pressure [90-130/60-90 mmHg] 100/62mmHg (10/22/16 10:42 AM) Mean Arterial Pressure, Cuff 75 mmHg (10/22/16 10:42 AM) Most recent to oldest [Reference Range]: 1 Height/Length Measured 165 cm (10/22/16 10:42 AM) Weight Dosing 54.1 kg (10/22/16 10:42 AM) Problem List Condition Effective Dates Status [...] Vomiting Active 1Abstraction tool stated Bee Sting Thl1Amtitxnny Cgxwmokmf7UMWT CONTAINING MYLMLNZO5Wjnqiulgkybd Medications albuterol CFC free 90 mcg/inh inhalation [...] Daily, 0 Refill(s), Start Date: 10/02/14 11:11:00 [employer] Start Date: 10/02/14 Stop Date: 02/20/15 [...] Refill(s), Start Date: 05/29/14 15:37:00 CDT, [facility] [place] [place] Start Date: 05/29/14 Stop Date: [...] tab(s), 0 Refill(s), Start Date: 10/02/14 11:11:00 G[employer] PL[employer] TECHNICIAN Start Date: 10/02/14 Stop Date: 02/13/15 Status: CompletedDitropan 5 mg oral tablet 1 tab(s), Oral, TID, # 90 tab(s), 11 Refill(s), [facility] [place] Start Date: 11/30/13 Stop Date: 12/11/14 Status: IrbaratspyzxAsi-G-Uvib 100 mg oral capsule 1 cap(s), Oral, [...] Start Date: 10/22/16 10:48:00 CDT , [facility] [place] Start Date: 10/22/16 Status: OrderedFioricet oral tablet 2 tab(s), Oral, q6hr interval, PRN for pain, # 100 tab(s), 0 Refill(s), Start Date: 02/13/15 12:46:00 CDT, Pharmacy: [facility] [place], [place] Start Date: 02/13/15 Stop Date: 02/20/15 [...] days, # 5 mL, 0 Refill(s), [facility] [place] Start Date: 05/02/14 Stop Date: 05/09/14 [...] Prescribed by [facility]. Diabetes Mellrodneyus with severe insulin resistance. Start Date: 04/26/14 Stop Date: 05/29/14 Status: DiscontinuedHumuLIN R 100 units/mL injectable solution Subcutaneous, 0 Refill(s) Start Date: 11/24/13 Stop Date: 04/17/14 Status: DiscontinuedHumuLIN R 100 units/mL injectable solution See Instructions, AM 50 units noon 25 units 40 units., # 1 QS, 0 Refill(s), Pharmacy: [place], [place] Special Instructions: AM 50 units noon [...] qPM, 0 Refill(s), Start Date: 09/18/15 10:12:00 [employer]CH[employer]ICIAN Start Date: 09/18/15 Status: OrderedLantus 25 untis, Subcutaneous, qAM, 0 Refill(s), Start Date: 09/18/15 10:12:00 [employer] TECHNICIAN Start Date: 09/18/15 Status: Orderedlevothyroxine 112 [...] cap(s), 0 Refill(s), Start Date: 08/07/14 15:01:00 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, Pharmacy: [place], [place] Start Date: 08/07/14 Stop Date: 11/13/14 [...] HS, # 30 cap(s), 11 Refill(s), Pharmacy: [place], [place] Start Date: 01/13/14 Stop Date: 03/08/14 Status: Discontinuedomeprazole 40 mg oral delayed release capsule 1 cap(s), Oral, BID, # 30 cap(s), 11 Refill(s), Pharmacy: [place], [place] Start Date: 03/08/14 Stop Date: 03/29/14 Status: Completedomeprazole 40 mg oral delayed release capsule 1 cap(s), Oral, Daily, # 30 cap(s), 11 Refill(s), Pharmacy: [facility] [place], [place] Start Date: 03/29/14 Status: Orderedondansetron [...] tab(s), 0 Refill(s), Start Date: 09/19/15 7:02:00 [employer] PL[employer] TECHNICIAN, [facility] [place] [place] Special Instructions: not to exceed 4000 [...] tab(s), 3 Refill(s), Start Date: 10/11/15 13:38:34 G[employer] PLANT TECHNICIAN, Pharmacy: [facility], [place] Start Date: 10/11/15 Stop Date: 10/15/15 Status: CompletedPlaquenil Sulfate 200 mg oral tablet 1 tab(s), Oral, BID, 0 Refill(s), Start Date: 09/17/15 13:24:00 [employer]CHNICIAN Start Date: 09/17/15 Stop Date: 12/03/15 Status: CompletedPlaquenil Sulfate 200 mg oral tablet 1 tab(s), Oral, BID, # 180 tab(s), 3 Refill(s), Start Date: 10/15/15 16:41:40 G[employer] PL[employer] TECHNICIAN, Pharmacy: [facility] [place], [place] Start Date: 10/15/15 Status: OrderedPlaquenil Sulfate 200 mg oral tablet 1 tab(s), Oral, BID, # 60 tab(s), 3 Refill(s), Start Date: 09/01/14 9:49:00 G[employer] TECHNICIAN , Pharmacy: [facility] [place], [place] Start Date: 09/01/14 Stop Date: 10/02/14 Status: CompletedPlaquenil Sulfate 200 mg oral tablet 1 tab(s), Oral, BID, # 360 tab(s), 3 Refill(s), Start Date: 10/02/14 12:01:00 GAS PLANT TECHNICIAN, Pharmacy: [facility] [place], [place] Start Date: 10/02/14 Stop Date: 01/03/15 [...] # 42 gm, 4 Refill(s), [place] [facility] [place] Start Date: 11/30/13 Stop Date: 10/18/14 [...] tab(s), 11 Refill(s), Start Date: 09/20/14 8:43:11 G[employer] PL[employer] TECHNICIAN, [facility] [place] [place] Start Date: 09/20/14 Status: Orderedranitidine 150 mg oral tablet 0.5 tab(s), Oral, BID, # 30 tab(s), 0 Refill(s), Start Date: 05/29/14 14:45:00 CDT, other reason (Rx) Start Date: 05/29/14 Stop Date: 06/07/14 Status: Completedranitidine 150 mg oral tablet 0.5 tab(s), Oral, BID, # 30 tab(s), 0 Refill(s), Start Date: 06/07/14 11:00:27 CDT, [facility] [place] [place] Start Date: 06/07/14 Stop Date: 07/04/14 Status: Completedranitidine 150 mg oral tablet 0.5 tab(s), Oral, BID, # 30 tab(s), 0 Refill(s), Start Date: 07/04/14 11:43:04 G[employer] PL[employer] TECHNICIAN, [facility] [place] Start Date: 07/04/14 Stop Date: 08/16/14 Status: Completedranitidine 150 mg oral tablet tab(s), Oral, BID, 0 Refill(s) Start Date: 12/14/13 Stop Date: 05/29/14 Status: Discontinuedranitidine 150 mg oral tablet 0.5 tab(s), Oral, BID, # 30 tab(s), 0 Refill(s), Start Date: 08/16/14 8:21:25 GAS PLANT TECHNICIAN, [facility] [place] Start Date: 08/16/14 Stop Date: 09/20/14 Status: Completedranitidine 75 mg oral tablet 1 tab(s), Oral, BID, # 60 tab(s), 0 Refill(s), [facility] [place] Start Date: 05/08/14 Stop Date: 05/29/14 Status: Discontinuedranitidine 75 mg oral tablet tab(s), Oral, BID, 0 Refill(s) Start Date: 05/08/14 Stop Date: 05/08/14 Status: Discontinuedranitidine 75 mg oral tablet 1 tab(s), Oral, BID, # 60 tab(s), 0 Refill(s), [facility] [place] Start Date: 03/29/14 Stop Date: 04/20/14 [...] BID, # 60 tab(s), 0 Refill(s), Pharmacy: [place], [place] Start Date: 12/30/13 Stop Date: 03/08/14 Status: Discontinuedtorsemide 10 mg oral tablet 1 tab(s), Oral, BID, # 60 tab(s), 0 Refill(s), Pharmacy: [place], [place] Start Date: 12/14/13 Stop Date: 12/30/13 Status: Completedtorsemide 10 mg oral tablet 1 tab(s), Oral, Daily, # 30 tab(s), 0 Refill(s) Start Date: 11/24/13 Stop Date: 12/14/13 Status: Discontinuedtorsemide 20 mg oral tablet 2 tab(s), Oral, Daily, 0 Refill(s), Start Date: 09/18/15 10:13:00 G[employer] TECHNICIAN Start Date: 09/18/15 Stop Date: 12/25/15 [...] Refill(s), Start Date: 12/11/14 13:48:00 CDT, Pharmacy: [place], [place] Start Date: 12/11/14 Stop Date: 01/15/15 [...] Refill(s), Start Date: 05/23/15 13:39:00 CDT, Pharmacy: [place], [place] Special Instructions: apply 2 grams Start [...] Start Date: 05/29/14 15:33:00 CDT, Pharmacy: [facility], [place] Start Date: 05/29/14 Stop Date: 10/18/14 [...] Tonsillectomy Total hysterectomy 1auto-populated from documented surgical [id number] from documented surgical [id number] from documented surgical [id number] from documented surgical [id number] from documented surgical case Social History No data available for this section Assessment and Plan No data available for this section
--- OUTSIDE RECORDS SUMMARY | 2017-03-03 11:05 | XMS REPORT | Summary of Care ---
:1960 Author Organization [facility] Address [address] [place] [address] Care Team Providers Name Role Phone Mateusz Stanley Primary Care Physician Encounter Date(s): 10/08/16 - 10/08/16 [facility] [place], [place] [address] Discharge Diagnosis: Chronic kidney disease stage 3 Discharge Diagnosis: Urge incontinence of urine Discharge Diagnosis: Other abnormal findings in urine Discharge Diagnosis: Abnormal findings on diagnostic imaging of urinary organs Discharge Disposition: Discharged to Home or Self Care Attending Physician: Tobin Cheng MD Referring Physician: Mateusz Stanley DO Vital Signs Most recent to oldest [Reference Range]: 1 Blood Pressure [90-130/60-90 mmHg] 110/60mmHg (10/08/16 11:15 AM) Mean Arterial Pressure, Cuff 77 mmHg (10/08/16 11:15 AM) Most recent to oldest [Reference Range]: 1 Weight Dosing 53.9 kg (10/08/16 11:15 AM) Weight Measured 53.9 kg (10/08/16 11:15 AM) Problem List Condition Effective Dates Status [...] Vomiting Active 1Abstraction tool stated Bee Sting Xni1Sefudnmlw Ydedzoyzz8KLXF CONTAINING WYKLSIRU9Zpiclmssywlh Medications albuterol CFC free 90 mcg/inh inhalation [...] Daily, 0 Refill(s), Start Date: 10/02/14 11:11:00 MACHINE BUNCH MAKER Start Date: 10/02/14 Stop Date: 02/20/15 [...] Refill(s), Start Date: 05/29/14 15:37:00 CDT, Pharmacy: [place], [place] Start Date: 05/29/14 Stop Date: 10/18/14 [...] tab(s), 0 Refill(s), Start Date: 10/02/14 11:11:00 MACHINE B[employer]CH MAKER Start Date: 10/02/14 Stop Date: 02/13/15 Status: CompletedDitropan 5 mg oral tablet 1 tab(s), Oral, TID, # 90 tab(s), 11 Refill(s), Pharmacy: [facility] Start Date: 11/30/13 Stop Date: 12/11/14 Status: NxxfzjkqkwhfJmr-L-Vdix 100 mg oral capsule 1 cap(s), Oral, [...] Refill(s), Start Date: 02/13/15 12:46:00 CDT, [place] Start Date: 02/13/15 Stop Date: 02/20/15 [...] days, # 5 mL, 0 Refill(s), Pharmacy: [place] Start Date: 05/02/14 Stop Date: 05/09/14 [...] units., # 1 QS, 0 Refill(s), Pharmacy: [place], [place] Special Instructions: AM 50 units noon [...] as directed for diabetic testing Start Date: 4/17/14 Status: OrderedLantus 28 units, Subcutaneous, qPM, 0 Refill(s), Start Date: 09/18/15 10:12:00 MACHINE B[employer] MAKER Start Date: 09/18/15 Status: OrderedLantus 25 untis, Subcutaneous, qAM, 0 Refill(s), Start Date: 09/18/15 10:12:00 MACHINE B[employer]CH MAKER Start Date: 09/18/15 Status: Orderedlevothyroxine 112 [...] cap(s), 0 Refill(s), Start Date: 08/07/14 15:01:00 MACHINE BUNCH MAKER, Pharmacy: [place], [place] Start Date: 08/07/14 Stop Date: 11/13/14 [...] HS, # 30 cap(s), 11 Refill(s), Pharmacy: [place], [place] Start Date: 01/13/14 Stop Date: 03/08/14 Status: Discontinuedomeprazole 40 mg oral delayed release capsule 1 cap(s), Oral, BID, # 30 cap(s), 11 Refill(s), Pharmacy: [place], [place] Start Date: 03/08/14 Stop Date: 03/29/14 Status: Completedomeprazole 40 mg oral delayed release capsule 1 cap(s), Oral, Daily, # 30 cap(s), 11 Refill(s), Pharmacy: [place], [place] Start Date: 03/29/14 Status: Orderedondansetron 8 [...] tab(s), 0 Refill(s), Start Date: 09/19/15 7:02:00 MACHINE BUNCH MAKER, Pharmacy: [facility] [place], [place] Special Instructions: not to exceed 4000 [...] tab(s), 3 Refill(s), Start Date: 10/11/15 13:38:34 MACHINE BUNCH MAKER, Pharmacy: [facility] [place], [place] Start Date: 10/11/15 Stop Date: 10/15/15 Status: CompletedPlaquenil Sulfate 200 mg oral tablet 1 tab(s), Oral, BID, 0 Refill(s), Start Date: 09/17/15 13:24:00 MACHINE B[employer]KER Start Date: 09/17/15 Stop Date: 12/03/15 Status: CompletedPlaquenil Sulfate 200 mg oral tablet 1 tab(s), Oral, BID, # 180 tab(s), 3 Refill(s), Start Date: 10/15/15 16:41:40 MACHINE B[employer]CH MAKER, Pharmacy: [facility] [place], [place] Start Date: 10/15/15 Status: OrderedPlaquenil Sulfate 200 mg oral tablet 1 tab(s), Oral, BID, # 60 tab(s), 3 Refill(s), Start Date: 09/01/14 9:49:00 MACHINE B[employer]CH MAKER , Pharmacy: [facility] [place], [place] Start Date: 09/01/14 Stop Date: 10/02/14 Status: CompletedPlaquenil Sulfate 200 mg oral tablet 1 tab(s), Oral, BID, # 360 tab(s), 3 Refill(s), Start Date: 10/02/14 12:01:00 MACHINE BUNCH MAKER, Pharmacy: [facility] [place], [place] Start Date: 10/02/14 Stop Date: 01/03/15 [...] 42 gm, 4 Refill(s), Pharmacy: [facility] [place], [place] Start Date: 11/30/13 Stop Date: 10/18/14 [...] tab(s), 11 Refill(s), Start Date: 09/20/14 8:43:11 MACHINE B[employer]CH MAKER, Pharmacy: [facility] [place], [place] Start Date: 09/20/14 Status: Orderedranitidine 150 mg oral tablet 0.5 tab(s), Oral, BID, # 30 tab(s), 0 Refill(s), Start Date: 05/29/14 14:45:00 CDT, other reason (Rx) Start Date: 05/29/14 Stop Date: 06/07/14 Status: Completedranitidine 150 mg oral tablet 0.5 tab(s), Oral, BID, # 30 tab(s), 0 Refill(s), Start Date: 06/07/14 11:00:27 CDT, Pharmacy: [facility] [place], [place] Start Date: 06/07/14 Stop Date: 07/04/14 Status: Completedranitidine 150 mg oral tablet 0.5 tab(s), Oral, BID, # 30 tab(s), 0 Refill(s), Start Date: 07/04/14 11:43:04 MACHINE BUNCH MAKER, Pharmacy: [facility] [place], [place] Start Date: 07/04/14 Stop Date: 08/16/14 Status: Completedranitidine 150 mg oral tablet tab(s), Oral, BID, 0 Refill(s) Start Date: 12/14/13 Stop Date: 05/29/14 Status: Discontinuedranitidine 150 mg oral tablet 0.5 tab(s), Oral, BID, # 30 tab(s), 0 Refill(s), Start Date: 08/16/14 8:21:25 MACHINE BUNCH MAKER, Pharmacy: [place], [place] Start Date: 08/16/14 Stop Date: 09/20/14 Status: Completedranitidine 75 mg oral tablet 1 tab(s), Oral, BID, # 60 tab(s), 0 Refill(s), [facility] [place] Start Date: 05/08/14 Stop Date: 05/29/14 Status: Discontinuedranitidine 75 mg oral tablet tab(s), Oral, BID, 0 Refill(s) Start Date: 05/08/14 Stop Date: 05/08/14 Status: Discontinuedranitidine 75 mg oral tablet 1 tab(s), Oral, BID, # 60 tab(s), 0 Refill(s), [facility] [place] Start Date: 03/29/14 Stop Date: 04/20/14 [...] BID, # 60 tab(s), 0 Refill(s), Pharmacy: [place], [place] Start Date: 12/30/13 Stop Date: 03/08/14 Status: Discontinuedtorsemide 10 mg oral tablet 1 tab(s), Oral, BID, # 60 tab(s), 0 Refill(s), Pharmacy: [place], [place] Start Date: 12/14/13 Stop Date: 12/30/13 Status: Completedtorsemide 10 mg oral tablet 1 tab(s), Oral, Daily, # 30 tab(s), 0 Refill(s) Start Date: 11/24/13 Stop Date: 12/14/13 Status: Discontinuedtorsemide 20 mg oral tablet 2 tab(s), Oral, Daily, 0 Refill(s), Start Date: 09/18/15 10:13:00 MACHINE B[employer]CH MAKER Start Date: 09/18/15 Stop Date: 12/25/15 [...] Date: 12/11/14 13:48:00 CDT, Pharmacy: [facility] [place], [place] Start Date: 12/11/14 Stop Date: 01/15/15 [...] Refill(s), Start Date: 05/23/15 13:39:00 CDT, [facility] [place] Special Instructions: apply 2 grams Start [...] Date: 05/29/14 15:33:00 CDT, Pharmacy: [facility] [place], [place] Start Date: 05/29/14 Stop Date: 10/18/14 [...] Tonsillectomy Total hysterectomy 1auto-populated from documented surgical [id number] from documented surgical [id number] from documented surgical [id number] from documented surgical [id number] from documented surgical case Social History No data available for this section Assessment and Plan No data available for this section
--- OUTSIDE RECORDS SUMMARY | 2017-03-03 11:06 | XMS REPORT | Summary of Care ---
:1960 Author Organization [facility] Address [address] [place] [address] Care Team Providers Name Role Phone Mateusz Stanley Merle Primary Care Physician Encounter Date(s): 02/05/17 - 02/05/17 [facility] Ruchi Carver, [address] [place], [place] [address] Discharge Disposition: Discharged to Home or Self Care Attending Physician: New Moreno DO Referring Physician: New Moreno DO Vital Signs Most recent to oldest [Reference Range]: 1 Peripheral Pulse Rate [60-100 bpm] 88 bpm (02/05/17 9:40 AM) Blood Pressure [90-130/60-90 mmHg] 114/70mmHg (02/05/17 9:40 AM) Mean Arterial Pressure, Cuff 85 mmHg (02/05/17 9:40 AM) Most recent to oldest [Reference Range]: 1 Height/Length Measured 165 cm (02/05/17 9:40 AM) Weight Dosing 55.00 kg1 (02/05/17 9:43 AM) Weight Measured 55.0 kg (02/05/17 9:40 AM) BSA Measured 1.6 m2 (02/05/17 9:40 AM) Body Mass Index Measured 20.2 kg/m2 (02/05/17 9:40 AM) 1Result Comment: This result was because the dosing weight was either not entered or it is>30 days old. This result is based off: Weight Measured February 05, 2017 09:40:00 CDT by Keila Regalado CMA Problem List [...] Vomiting Active 1Abstraction tool stated Bee Sting [id number] [id number] CONTAINING [id number] Medications albuterol CFC free 90 mcg/inh inhalation [...] Daily, 0 Refill(s), Start Date: 10/02/14 11:11:00 [employer] Start Date: 10/02/14 Stop Date: 02/20/15 Status: [...] Refill(s), Start Date: 05/29/14 15:37:00 CDT, Pharmacy: [place], [place] Start Date: 05/29/14 Stop Date: 10/18/14 [...] tab(s), 0 Refill(s), Start Date: 10/02/14 11:11:00 [employer] Start Date: 10/02/14 Stop Date: 02/13/15 Status: CompletedDitropan 5 mg oral tablet 1 tab(s), Oral, TID, # 90 tab(s), 11 Refill(s), Pharmacy: [place], [place] Start Date: 11/30/13 Stop Date: 12/11/14 Status: DiscontinuedDME - Wheeled walker See Instructions, Diagnosis Code:M16.11 Length of Need:99, # 1 EA, 0 Refill(s), 12/10/16 6:34:00 CDT, Supply Special Instructions: Diagnosis Code:M16.11 Length of Need: 99 Start Date: 12/10/16 Status: FbmissmKom-W-Xhqu 100 mg oral capsule 1 cap(s), Oral, [...] Start Date: 10/22/16 10:48:00 CDT , [facility] [place] Start Date: 10/22/16 Stop Date: 11/25/16 Status: CompletedFioricet oral tablet 2 tab(s), Oral, q6hr interval, PRN for pain, # 100 tab(s), 0 Refill(s), Start Date: 02/13/15 12:46:00 CDT, [facility]: [facility] [place] Start Date: 02/13/15 Stop Date: 02/20/15 [...] days, # 5 mL, 0 Refill(s), [facility] [place] Start Date: 05/02/14 Stop Date: 05/09/14 [...] units., # 1 QS, 0 Refill(s), Pharmacy: [place], [place] Special Instructions: AM 50 units noon [...] qPM, 0 Refill(s), Start Date: 09/18/15 10:12:00 [employer] Start Date: 09/18/15 Stop Date: 11/25/16 Status: CompletedLantus 25 untis, Subcutaneous, BID, 0 Refill(s), Start Date: 09/18/15 10:12:00 [employer] Start Date: 09/18/15 Status: Orderedlevothyroxine 112 mcg [...] cap(s), 0 Refill(s), Start Date: 08/07/14 15:01:00 [employer], [facility] [place] Start Date: 08/07/14 Stop Date: 11/13/14 [...] HS, # 30 cap(s), 11 Refill(s), Pharmacy: [place], [place] Start Date: 01/13/14 Stop Date: 03/08/14 Status: Discontinuedomeprazole 40 mg oral delayed release capsule 1 cap(s), Oral, BID, # 30 cap(s), 11 Refill(s), Pharmacy: [place], [place] Start Date: 03/08/14 Stop Date: 03/29/14 Status: Completedomeprazole 40 mg oral delayed release capsule 1 cap(s), Oral, Daily, # 30 cap(s), 11 Refill(s), Pharmacy: [place] Start Date: 03/29/14 Stop Date: 11/25/16 [...] tab(s), 0 Refill(s), Start Date: 09/19/15 7:02:[address] [facility], Pharmacy: [facility] [place], [place] Special Instructions: not to exceed 4000 [...] Refill(s), Start Date: 12/26/16 11:48:56 CDT, Pharmacy: [place], [place] Special Instructions: 1-2 tab(s) Oral q4-6hr [...] tab(s), 3 Refill(s), Start Date: 10/11/15 13:38:34 [employer], Pharmacy: [facility] [place] [place] Start Date: 10/11/15 Stop Date: 10/15/15 Status: CompletedPlaquenil Sulfate 200 mg oral tablet 1 tab(s), Oral, BID, 0 Refill(s), Start Date: 09/17/15 13:24:00 [employer] Start Date: 09/17/15 Stop Date: 12/03/15 Status: CompletedPlaquenil Sulfate 200 mg oral tablet 1 tab(s), Oral, BID, # 180 tab(s), 3 Refill(s), Start Date: 10/15/15 16:41:40 [employer], Pharmacy: [facility] [place] [place] Start Date: 10/15/15 Status: OrderedPlaquenil Sulfate 200 mg oral tablet 1 tab(s), Oral, BID, # 60 tab(s), 3 Refill(s), Start Date: 09/01/14 9:49:00 [employer] , Pharmacy: [facility] [place] [place] Start Date: 09/01/14 Stop Date: 10/02/14 Status: CompletedPlaquenil Sulfate 200 mg oral tablet 1 tab(s), Oral, BID, # 360 tab(s), 3 Refill(s), Start Date: 10/02/14 12:01:00 [employer], Pharmacy: [facility] [place] [place] Start Date: 10/02/14 Stop Date: 01/03/15 [...] 42 gm, 4 Refill(s), Pharmacy: [facility] [place] [place] Start Date: 11/30/13 Stop Date: 10/18/14 [...] tab(s), 11 Refill(s), Start Date: 09/20/14 8:43:11 [employer], Pharmacy: [facility] [place] [place] Start Date: 09/20/14 Stop Date: 11/25/16 Status: Completedranitidine 150 mg oral tablet 0.5 tab(s), Oral, BID, # 30 tab(s), 0 Refill(s), Start Date: 05/29/14 14:45:00 CDT, other reason (Rx) Start Date: 05/29/14 Stop Date: 06/07/14 Status: Completedranitidine 150 mg oral tablet 0.5 tab(s), Oral, BID, # 30 tab(s), 0 Refill(s), Start Date: 06/07/14 11:00:27 CDT, Pharmacy: [facility] [place] [place] Start Date: 06/07/14 Stop Date: 07/04/14 Status: Completedranitidine 150 mg oral tablet 0.5 tab(s), Oral, BID, # 30 tab(s), 0 Refill(s), Start Date: 07/04/14 11:43:04 [employer], Pharmacy: [facility] [place] [place] Start Date: 07/04/14 Stop Date: 08/16/14 Status: Completedranitidine 150 mg oral tablet tab(s), Oral, BID, 0 Refill(s) Start Date: 12/14/13 Stop Date: 05/29/14 Status: Discontinuedranitidine 150 mg oral tablet 0.5 tab(s), Oral, BID, # 30 tab(s), 0 Refill(s), Start Date: 08/16/14 8:21:25 [employer], Pharmacy: [facility] [place] [place] Start Date: 08/16/14 Stop Date: 09/20/14 Status: Completedranitidine 75 mg oral tablet 1 tab(s), Oral, BID, # 60 tab(s), 0 Refill(s), Pharmacy: [facility] [place] [place] Start Date: 05/08/14 Stop Date: 05/29/14 Status: Discontinuedranitidine 75 mg oral tablet tab(s), Oral, BID, 0 Refill(s) Start Date: 05/08/14 Stop Date: 05/08/14 Status: Discontinuedranitidine 75 mg oral tablet 1 tab(s), Oral, BID, # 60 tab(s), 0 Refill(s), [facility] [place] Start Date: 03/29/14 Stop Date: 04/20/14 [...] BID, # 60 tab(s), 0 Refill(s), Pharmacy: [place] Start Date: 12/30/13 Stop Date: 03/08/14 Status: Discontinuedtorsemide 10 mg oral tablet 1 tab(s), Oral, BID, # 60 tab(s), 0 Refill(s), Pharmacy: [place] Start Date: 12/14/13 Stop Date: 12/30/13 Status: Completedtorsemide 10 mg oral tablet 1 tab(s), Oral, Daily, # 30 tab(s), 0 Refill(s) Start Date: 11/24/13 Stop Date: 12/14/13 Status: Discontinuedtorsemide 20 mg oral tablet 2 tab(s), Oral, Daily, 0 Refill(s), Start Date: 09/18/15 10:13:00 [employer] Start Date: 09/18/15 Stop Date: 12/25/15 Status: [...] Refill(s), Start Date: 12/11/14 13:48:00 CDT, Pharmacy: [facility] Start Date: 12/11/14 Stop Date: 01/15/15 [...] Refill(s), Start Date: 05/23/15 13:39:00 CDT, Pharmacy: [place], [place] Special Instructions: apply 2 grams Start Date: 05/23/15 Stop Date: 09/18/15 Status: Completedwarfarin 5 mg oral tablet See Instructions, Take 1 tab orally at 6pm evening before surgery, # 1 tab(s), 0 Refill(s), Start Date: 11/05/16 8:04:00 CDT, [facility] [place] Special Instructions: Take 1 tab orally [...] Refill(s), Start Date: 05/29/14 15:33:00 CDT, Pharmacy: [place], [place] Start Date: 05/29/14 Stop Date: 10/18/14 [...] sling Splenectomy Tonsillectomy 1auto-populated from documented surgical [id number] from documented surgical [id number] from documented surgical [id number] from documented surgical [id number] from documented surgical [id number]- populated from documented surgical case Social History No data available for this section Assessment and Plan No data available for this section
--- OUTSIDE RECORDS SUMMARY | 2017-03-03 11:06 | XMS REPORT | Summary of Care ---
:1960 Author Organization [facility] Care Team Providers Name Role Phone Mateusz Stanley Primary Care Physician Encounter Date(s): 12/08/16 - 12/11/16 [place] [id number] Discharge Diagnosis: Right shoulder pain Discharge Diagnosis: Left shoulder pain Final: Encounter for preprocedural laboratory examination Discharge Disposition: Discharged/Transferred to [facility] Attending Physician: New Moreno DO Admitting Physician: New Moreno DO Vital Signs Most recent to oldest [Reference 1 2 3 Range]: Temperature Temporal Artery 36.6 DegC 37 DegC 36.9 DegC [36-38 DegC] (12/11/16 7:00 AM) (12/11/16 4:00 AM) (12/11/16 12:17 AM) Heart Rate Monitored [60-100 bpm] 65 bpm 72 bpm 70 bpm (12/11/16 7:00 AM) (12/11/16 4:00 AM) (12/11/16 12:17 AM) Respiratory Rate [12-20 br/min] 18 br/min 18 br/min 18 br/min (12/11/16 7:00 AM) (12/11/16 4:00 AM) (12/11/16 12:17 AM) SpO2 [90-100 %] 99 % 93 % 92 % (12/11/16 7:00 AM) (12/11/16 4:00 AM) (12/11/16 12:17 AM) SpO2 Location Right hand Right hand Right hand (12/11/16 7:00 AM) (12/11/16 4:00 AM) (12/11/16 12:17 AM) Blood Pressure [90-130/60-90 127/61mmHg 108/57mmHg 108/44mmHg mmHg] (12/11/16 7:00 AM) (12/11/16 4:00 AM) (12/11/16 12:17 AM) Blood Pressure Location Left arm Left arm Right arm (12/11/16 7:00 AM) (12/11/16 4:00 AM) (12/10/16 4:00 PM) Most recent to oldest [Reference Range]: 1 2 3 Height/Length Measured 169 cm 169 cm (12/08/16 1:50 PM) (12/08/16 7:01 AM) Height/Length Estimated 170.18 cm (11/19/16 11:55 AM) Weight Estimated 54.4 kg (11/19/16 11:55 AM) Weight Dosing 55.8 kg 55.8 kg (12/08/16 1:50 PM) (12/08/16 7:01 AM) Weight Measured 55.8 kg 55.8 kg (12/08/16 1:50 PM) (12/08/16 7:01 AM) BSA Measured 1.64 m2 1.64 m2 (12/08/16 1:50 PM) (12/08/16 7:01 AM) Body Mass Index Measured 19.54 kg/m2 19.54 kg/m2 (12/08/16 1:50 PM) (12/08/16 7:01 AM) Problem List Condition Effective Dates Status [...] Vomiting Active 1Abstraction tool stated Bee Sting Paw2Asvytuefb [id number] CONTAINING [id number] Medications albuterol CFC free 90 mcg/inh inhalation [...] Daily, 0 Refill(s), Start Date: 10/02/14 11:11:00 [employer]EL[employer] Start Date: 10/02/14 Stop Date: 02/20/15 Status: [...] Refill(s), Start Date: 05/29/14 15:37:00 CDT, [facility] [place] Start Date: 05/29/14 Stop Date: 10/18/14 [...] tab(s), 0 Refill(s), Start Date: 10/02/14 11:11:00 [employer]EL[employer] Start Date: 10/02/14 Stop Date: 02/13/15 Status: CompletedDitropan 5 mg oral tablet 1 tab(s), Oral, TID, # 90 tab(s), 11 Refill(s), [facility]acy: [facility] [place] [place] Start Date: 11/30/13 Stop Date: 12/11/14 Status: DiscontinuedDME - Wheelmauricio walker See Instructions, Diagnosis Code:M16.11 Length of Need:99, # 1 EA, 0 Refill(s), 12/10/16 6:34:00 CDT, Supply Special Instructions: Diagnosis Code:M16.11 Length of Need: 99 Start Date: 12/10/16 Status: PebnppcSfr-O-Hxrp 100 mg oral capsule 1 cap(s), Oral, [...] Start Date: 10/22/16 10:48:00 CDT , [facility] [place] Start Date: 10/22/16 Stop Date: 4/18/17 Status: CompletedFioricet oral tablet 2 tab(s), Oral, q6hr interval, PRN for pain, # 100 tab(s), 0 Refill(s), Start Date: 02/13/15 12:46:00 CDT, [place] [facility] [place] Start Date: 02/13/15 Stop Date: 02/20/15 [...] # 5 mL, 0 Refill(s), [facility] Start Date: 05/02/14 Stop Date: 05/09/14 Status: CompletedGlucagon Emergency Kit for Low Blood Sugar 1 mg, Subcutaneous, ONETIME, PRN hypoglycemia, 0 Refill(s), Start Date: 6:23:00 CDT Start Date: 10/23/14 Stop Date: 11/25/16 Status: CompletedHair, Skin and Nail Vitamin Hair, Skin and Nail Vitamin, 1 tab, Oral, BID, 0 Refill(s), Compound Start Date: 10/23/14 Stop Date: 11/25/16 Status: CompletedHumaLOG AlistairPen 100 units/mL subcutaneous solution 5 unit(s), Subcutaneous, [...] units., # 1 QS, 0 Refill(s), Pharmacy: [place], [place] Special Instructions: AM 50 units noon [...] qPM, 0 Refill(s), Start Date: 09/18/15 10:12:00 [employer] Start Date: 09/18/15 Stop Date: 11/25/16 Status: CompletedLantus 25 untis, Subcutaneous, BID, 0 Refill(s), Start Date: 09/18/15 10:12:00 [employer]EL[employer] Start Date: 09/18/15 Status: Orderedlevothyroxine 112 mcg [...] cap(s), 0 Refill(s), Start Date: 08/07/14 15:01:00 [employer] DEVELOPER, [facility] [facility] [place] Start Date: 08/07/14 Stop Date: 11/13/14 [...] HS, # 30 cap(s), 11 Refill(s), Pharmacy: [place], [place] Start Date: 01/13/14 Stop Date: 03/08/14 Status: Discontinuedomeprazole 40 mg oral delayed release capsule 1 cap(s), Oral, BID, # 30 cap(s), 11 Refill(s), Pharmacy: [place] Start Date: 03/08/14 Stop Date: 03/29/14 Status: Completedomeprazole 40 mg oral delayed release capsule 1 cap(s), Oral, Daily, # 30 cap(s), 11 Refill(s), Pharmacy: [place] Start Date: 03/29/14 Stop Date: 11/25/16 [...] tab(s), 0 Refill(s), Start Date: 09/19/15 7:02:00 [employer]YTHON [employer] DEVELOPER, Pharmacy: [place], [place] Special Instructions: not to exceed 4000 [...] mg acetaminophen per day Start Date: 12/08/16 Status: Orderedpilocarpine 5 mg, Oral, BID, 0 Refill(s), Start Date: 10/23/14 6:15:00 CDT Start Date: 10/23/14 Stop Date: 06/18/15 Status: CompletedPlaquenil Sulfate 200 mg oral tablet 1 tab(s), Oral, BID, # 180 tab(s), 3 Refill(s), Start Date: 01/03/15 9:13:29 CDT , [facility] Start Date: 01/03/15 Stop Date: 06/18/15 Status: CompletedPlaquenil Sulfate 200 mg oral tablet 1 tab(s), Oral, BID, # 180 tab(s), 3 Refill(s), Start Date: 10/11/15 13:38:34 PYTHON [employer]AN[employer] DEVELOPER, Pharmacy: [facility] [place] Start Date: 10/11/15 Stop Date: 10/15/15 Status: CompletedPlaquenil Sulfate 200 mg oral tablet 1 tab(s), Oral, BID, 0 Refill(s), Start Date: 09/17/15 13:24:00 PYTHON [employer]AN[employer] DEVELOPER Start Date: 09/17/15 Stop Date: 12/03/15 Status: CompletedPlaquenil Sulfate 200 mg oral tablet 1 tab(s), Oral, BID, # 180 tab(s), 3 Refill(s), Start Date: 10/15/15 16:41:40 PYTHON DJAN[employer] DEVELOPER, Pharmacy: [facility] [place] Start Date: 10/15/15 Status: OrderedPlaquenil Sulfate 200 mg oral tablet 1 tab(s), Oral, BID, # 60 tab(s), 3 Refill(s), Start Date: 09/01/14 9:49:00 PYTHON DJAN[employer] DEVELOPER , Pharmacy: [facility] [place] [place] Start Date: 09/01/14 Stop Date: 10/02/14 Status: CompletedPlaquenil Sulfate 200 mg oral tablet 1 tab(s), Oral, BID, # 360 tab(s), 3 Refill(s), Start Date: 10/02/14 12:01:00 PYTHON DJAN[employer] DEVELOPER, Pharmacy: [facility] [place] [place] Start Date: 10/02/14 Stop Date: 01/03/15 [...] 42 gm, 4 Refill(s), Pharmacy: [facility] [place] Start Date: 11/30/13 Stop Date: 10/18/14 [...] tab(s), 11 Refill(s), Start Date: 09/20/14 8:43:11 PYTHON DJAN[employer] DEVELOPER, Pharmacy: [facility] [place] Start Date: 09/20/14 Stop Date: 11/25/16 Status: Completedranitidine 150 mg oral tablet 0.5 tab(s), Oral, BID, # 30 tab(s), 0 Refill(s), Start Date: 05/29/14 14:45:00 CDT, other reason (Rx) Start Date: 05/29/14 Stop Date: 06/07/14 Status: Completedranitidine 150 mg oral tablet 0.5 tab(s), Oral, BID, # 30 tab(s), 0 Refill(s), Start Date: 06/07/14 11:00:27 CDT, Pharmacy: [facility] [place] [place] Start Date: 06/07/14 Stop Date: 07/04/14 Status: Completedranitidine 150 mg oral tablet 0.5 tab(s), Oral, BID, # 30 tab(s), 0 Refill(s), Start Date: 07/04/14 11:43:04 PYTHON DJAN[employer] DEVELOPER, Pharmacy: [facility] [place] Start Date: 07/04/14 Stop Date: 08/16/14 Status: Completedranitidine 150 mg oral tablet tab(s), Oral, BID, 0 Refill(s) Start Date: 12/14/13 Stop Date: 05/29/14 Status: Discontinuedranitidine 150 mg oral tablet 0.5 tab(s), Oral, BID, # 30 tab(s), 0 Refill(s), Start Date: 08/16/14 8:21:25 PYTHON DJANGO DEVELOPER, Pharmacy: [facility] [place] Start Date: 08/16/14 Stop Date: 09/20/14 Status: Completedranitidine 75 mg oral tablet 1 tab(s), Oral, BID, # 60 tab(s), 0 Refill(s), Pharmacy: [facility] [place] Start Date: 05/08/14 Stop Date: 05/29/14 Status: Discontinuedranitidine 75 mg oral tablet tab(s), Oral, BID, 0 Refill(s) Start Date: 05/08/14 Stop Date: 05/08/14 Status: Discontinuedranitidine 75 mg oral tablet 1 tab(s), Oral, BID, # 60 tab(s), 0 Refill(s), Pharmacy: [facility] [place] Start Date: 03/29/14 Stop Date: 04/20/14 [...] BID, # 60 tab(s), 0 Refill(s), Pharmacy: [place], [place] Start Date: 12/30/13 Stop Date: 03/08/14 Status: Discontinuedtorsemide 10 mg oral tablet 1 tab(s), Oral, BID, # 60 tab(s), 0 Refill(s), Pharmacy: [place] Start Date: 12/14/13 Stop Date: 12/30/13 Status: Completedtorsemide 10 mg oral tablet 1 tab(s), Oral, Daily, # 30 tab(s), 0 Refill(s) Start Date: 11/24/13 Stop Date: 12/14/13 Status: Discontinuedtorsemide 20 mg oral tablet 2 tab(s), Oral, Daily, 0 Refill(s), Start Date: 09/18/15 10:13:00 PYTHON DJANGO DEVELOPER Start Date: 09/18/15 Stop Date: 12/25/15 Status: [...] Refill(s), Start Date: 12/11/14 13:48:00 CDT, [place] Start Date: 12/11/14 Stop Date: 01/15/15 [...] Refill(s), Start Date: 05/23/15 13:39:00 CDT, [facility] [place] [place] Special Instructions: apply 2 grams Start Date: 05/23/15 Stop Date: 09/18/15 Status: Completedwarfarin 5 mg oral tablet See Instructions, Take 1 tab orally at 6pm evening before surgery, # 1 tab(s), 0 Refill(s), Start Date: 11/05/16 8:04:00 CDT, [facility] [place] Special Instructions: Take 1 tab orally [...] Refill(s), Start Date: 05/29/14 15:33:00 CDT, [facility] [place] [place] Start Date: 05/29/14 Stop Date: 10/18/14 Status: CompletedZyrTEC 10 mg oral tablet 1 tab(s), Oral, Daily, # 30 tab(s), 0 Refill(s) Start Date: 11/24/13 Stop Date: 01/13/14 Status: Discontinued Results Patient Viewable Results Most recent to oldest 1 2 3 [Reference Range]: AN - Fi O2 21 % % 22 % % 22 % % (12/08/16 10:35 AM) (12/08/16 10:30 AM) (12/08/16 10:25 AM) WBC [4.8-10.8 thou/mm3] 14.7 thou/mm3 16.5 thou/mm3 13.1 thou/mm3 *HI* *HI* *HI* (12/11/16 5:29 AM) (12/10/16 5:42 AM) (12/09/16 5:37 AM) RBC [4.20-5.40 Mil/mm3] 3.19 Mil/mm3 3.06 Mil/mm3 3.66 Mil/mm3 *LOW* *LOW* *LOW* (12/11/16 5:29 AM) (12/10/16 5:42 AM) (12/09/16 5:37 AM) Hgb [12.0-16.0 g/dL] 8.9 g/dL 8.6 g/dL 10.5 g/dL *LOW* *LOW* *LOW* (12/11/16 5:29 AM) (12/10/16 5:42 AM) (12/09/16 5:37 AM) Hct [37.0-47.0 %] 28.7 % 27.7 % 33.4 % *LOW* *LOW* *LOW* (12/11/16 5:29 AM) (12/10/16 5:42 AM) (12/09/16 5:37 AM) MCV [80.0-94.0 fL] 90.0 fL 90.5 fL 91.3 fL (12/11/16 5:29 AM) (12/10/16 5:42 AM) (12/09/16 5:37 AM) MCH [25.0-38.0 pg/cell] 27.9 pg/cell 28.1 pg/cell 28.7 pg/cell (12/11/16 5:29 AM) (12/10/16 5:42 AM) (12/09/16 5:37 AM) MCHC [31.0-37.0 g/dL] 31.0 g/dL 31.0 g/dL 31.4 g/dL (12/11/16 5:29 AM) (12/10/16 5:42 AM) (12/09/16 5:37 AM) RDW [1.0-48.0 fL] 45.9 fL 45.8 fL 45.8 fL (12/11/16 5:29 AM) (12/10/16 5:42 AM) (12/09/16 5:37 AM) Platelet [130-400 thou/mm3] 221 thou/mm3 216 thou/mm3 252 thou/mm3 (12/11/16 5:29 AM) (12/10/16 5:42 AM) (12/09/16 5:37 AM) Neutrophils % Auto [50.0-75.0 77.0 % 67.9 % 76.2 % %] *HI* (12/10/16 5:42 AM) *HI* (12/11/16 5:29 AM) (12/09/16 5:37 AM) Immature Granulocyte Auto 0.3 % 0.4 % 0.2 % [0.1-2.0 %] (12/11/16 5:29 AM) (12/10/16 5:42 AM) (12/09/16 5:37 AM) Lymphocytes % Auto [15.0-41.0 13.5 % 18.2 % 13.4 % %] *LOW* (12/10/16 5:42 AM) *LOW* (12/11/16 5:29 AM) (12/09/16 5:37 AM) Monocytes % Auto [2.0-10.0 %] 8.8 % 10.8 % 8.1 % (12/11/16 5:29 AM) *HI* (12/09/16 5:37 AM) (12/10/16 5:42 AM) Eosinophils % Auto [0.0-6.0 %] 0.3 % 2.6 % 1.9 % (12/11/16 5:29 AM) (12/10/16 5:42 AM) (12/09/16 5:37 AM) Basophil % Auto [0.0-1.0 %] 0.1 % 0.1 % 0.2 % (12/11/16 5:29 AM) (12/10/16 5:42 AM) (12/09/16 5:37 AM) Neutrophils Absolute [1.5-5.9 11.3 thou/mm3 11.2 thou/mm3 10.0 thou/mm3 thou/mm3] *HI* *HI* *HI* (12/11/16 5:29 AM) (12/10/16 5:42 AM) (12/09/16 5:37 AM) Immature Gran Absolute 0.05 thou/mm3 0.07 thou/mm3 0.03 thou/mm3 [0.01-0.03 thou/mm3] *HI* *HI* (12/09/16 5:37 AM) (12/11/16 5:29 AM) (12/10/16 5:42 AM) Lymphocytes Absolute [1.5-4.0 2.0 thou/mm3 3.0 thou/mm3 1.8 thou/mm3 thou/mm3] (12/11/16 5:29 AM) (12/10/16 5:42 AM) (12/09/16 5:37 AM) Monocytes Absolute [0.0-0.9 1.3 thou/mm3 1.8 thou/mm3 1.1 thou/mm3 thou/mm3] *HI* *HI* *HI* (12/11/16 5:29 AM) (12/10/16 5:42 AM) (12/09/16 5:37 AM) Eosinophil Absolute [0.0-0.7 0.0 thou/mm3 0.4 thou/mm3 0.2 thou/mm3 thou/mm3] (12/11/16 5:29 AM) (12/10/16 5:42 AM) (12/09/16 5:37 AM) Basophil Absolute [0.0-0.2 0.0 thou/mm3 0.0 thou/mm3 0.0 thou/mm3 thou/mm3] (12/11/16 5:29 AM) (12/10/16 5:42 AM) (12/09/16 5:37 AM) INR [0.9-1.1 INR] 0.9 INR (12/08/16 7:03 AM) Sodium Lvl [135-144 mEq/L] 140 mEq/L 141 mEq/L 142 mEq/L (12/11/16 5:29 AM) (12/10/16 5:42 AM) (12/09/16 5:37 AM) Potassium Lvl [3.3-4.8 mEq/L] 5.0 mEq/L 4.0 mEq/L 4.5 mEq/L *HI* (12/10/16 5:42 AM) (12/09/16 5:37 AM) (12/11/16 5:29 AM) Chloride Lvl [98-107 mEq/L] 103 mEq/L 103 mEq/L 103 mEq/L (12/11/16 5:29 AM) (12/10/16 5:42 AM) (12/09/16 5:37 AM) Bicarbonate Lvl [22-30 mmol/L] 28 mmol/L 30 mmol/L 31 mmol/L (12/11/16 5:29 AM) (12/10/16 5:42 AM) *HI* (12/09/16 5:37 AM) Anion Gap [10.0-20.0] 14.0 12.0 12.5 (12/11/16 5:29 AM) (12/10/16 5:42 AM) (12/09/16 5:37 AM) Glucose Lvl [70-108 mg/dL] 170 mg/dL 75 mg/dL 142 mg/dL *HI* (12/10/16 5:42 AM) *HI* (12/11/16 5:29 AM) (12/09/16 5:37 AM) BUN [7-21 mg/dL] 21 mg/dL 20 mg/dL 13 mg/dL (12/11/16 5:29 AM) (12/10/16 5:42 AM) (12/09/16 5:37 AM) Creatinine Lvl [0.50-1.20 0.83 mg/dL 0.84 mg/dL 0.63 mg/dL mg/dL] (12/11/16 5:29 AM) (12/10/16 5:42 AM) (12/09/16 5:37 AM) BUN/Creat Ratio 25.3 23.8 20.6 *NA* *NA* *NA* (12/11/16 5:29 AM) (12/10/16 5:42 AM) (12/09/16 5:37 AM) eGFR AA [>=60] >60 >60 >60 (12/11/16 5:29 AM) (12/10/16 5:42 AM) (12/09/16 5:37 AM) eGFR NICCI [>=60] >60 >60 >60 (12/11/16 5:29 AM) (12/10/16 5:42 AM) (12/09/16 5:37 AM) Calcium Lvl [8.6-10.2 mg/dL] 9.1 mg/dL 9.0 mg/dL 9.0 mg/dL (12/11/16 5:29 AM) (12/10/16 5:42 AM) (12/09/16 5:37 AM) Estimated Creatinine Clearance 67.46 mL/min 66.66 mL/min 88.88 mL/min (12/11/16 10:50 AM) (12/10/16 6:24 AM) (12/09/16 6:16 AM) Whole Blood Glucose [70-108 138 mg/dL1 212 mg/dL2 110 mg/dL3 mg/dL] *HI* *HI* *HI* (12/11/16 7:54 AM) (12/10/16 8:35 PM) (12/10/16 4:27 PM) 1Result Comment: Professor Of Education: [id number] Juan David Ta [id number] Comment: Professor Of Education : [id number] Billie Quintana [id number] Comment: Professor Of Education: [id number] Kristy Bolton MAST [employer]ER Immunizations Vaccine Date Refusal Reason haemophilus b [...] sling Splenectomy Tonsillectomy 1auto-populated from documented surgical [id number] from documented surgical [id number] from documented surgical [id number] from documented surgical [id number] from documented surgical [id number] from documented surgical case Social History No data available for this section Assessment and Plan No data available for this section
--- OUTSIDE RECORDS SUMMARY | 2017-03-03 11:07 | XMS REPORT | Summary of Care ---
:1960 Author Organization [facility] Address [address] [place] [address]- Care Team Providers Name Role Phone Stanley Mateusz Bloom Primary Care Physician Encounter Date(s): 10/23/16 - 10/23/16 [facility] [address] [place] [id number] [facility] Discharge Disposition: Discharged to Home or Self Care Attending Physician: JAYDEN Patel Admitting Physician: JAYDEN Patel Vital Signs Most recent to oldest 1 2 3 [Reference Range]: Peripheral Pulse Rate [60-100 96 bpm 96 bpm 94 bpm bpm] (10/23/16 3:12 PM) (10/23/16 3:10 PM) (10/23/16 2:00 PM) Respiratory Rate [12-20 20 br/min br/min] (10/23/16 11:48 AM) SpO2 [90-100 %] 100 % (10/23/16 11:48 AM) Blood Pressure [90-130/60-90 118/73mmHg 118/73mmHg 139/74mmHg mmHg] (10/23/16 3:12 PM) (10/23/16 3:10 PM) *HI* (10/23/16 2:00 PM) Problem List Condition Effective Dates Status [...] Vomiting Active 1Abstraction tool stated Bee Sting [id number] CONTAINING [id number] Medications albuterol CFC free 90 mcg/inh inhalation [...] Daily, 0 Refill(s), Start Date: 10/02/14 11:11:00 [employer] ASSESSMENT SPECIALIST Start Date: 10/02/14 Stop Date: 02/20/15 Status: [...] Refill(s), Start Date: 05/29/14 15:37:00 CDT, Pharmacy: [place], [place] Start Date: 05/29/14 Stop Date: 10/18/14 [...] tab(s), 0 Refill(s), Start Date: 10/02/14 11:11:00 SOL[employer] SITE ASSESSMENT SPECIALIST Start Date: 10/02/14 Stop Date: 02/13/15 Status: CompletedDitropan 5 mg oral tablet 1 tab(s), Oral, TID, # 90 tab(s), 11 Refill(s), Pharmacy: [facility], [place] Start Date: 11/30/13 Stop Date: 12/11/14 Status: QnmccpwksatnTin-Q-Fdtd 100 mg oral capsule 1 cap(s), Oral, [...] Start Date: 10/22/16 10:48:00 CDT , [facility] [place] Start Date: 10/22/16 Status: OrderedFioricet oral tablet 2 tab(s), Oral, q6hr interval, PRN for pain, # 100 tab(s), 0 Refill(s), Start Date: 02/13/15 12:46:00 CDT, [facility] [place] Start Date: 02/13/15 Stop Date: 02/20/15 [...] days, # 5 mL, 0 Refill(s), [facility] [place] Start Date: 05/02/14 Stop Date: 05/09/14 [...] units., # 1 QS, 0 Refill(s), Pharmacy: [place], [place] Special Instructions: AM 50 units noon [...] qPM, 0 Refill(s), Start Date: 09/18/15 10:12:00 [employer]ITE ASSESSMENT SPECIALIST Start Date: 09/18/15 Status: OrderedLantus 25 untis, Subcutaneous, qAM, 0 Refill(s), Start Date: 09/18/15 10:12:00 SOL[employer] SITE ASSESSMENT SPECIALIST Start Date: 09/18/15 Status: Orderedlevothyroxine 112 mcg [...] cap(s), 0 Refill(s), Start Date: 08/07/14 15:01:00 SOLAR SITE ASSESSMENT SPECIALIST, [facility] [place] Start Date: 08/07/14 Stop Date: 11/13/14 [...] 30 cap(s), 11 Refill(s), [facility]acy: [facility] [place], [place] Start Date: 01/13/14 Stop Date: 03/08/14 Status: Discontinuedomeprazole 40 mg oral delayed release capsule 1 cap(s), Oral, BID, # 30 cap(s), 11 Refill(s), Pharmacy: [facility] [place], [place] Start Date: 03/08/14 Stop Date: 03/29/14 Status: Completedomeprazole 40 mg oral delayed release capsule 1 cap(s), Oral, Daily, # 30 cap(s), 11 Refill(s), Pharmacy: [place], [place] Start Date: 03/29/14 Status: Orderedondansetron 8 [...] tab(s), 0 Refill(s), Start Date: 09/19/15 7:02:00 SOL[employer] SITE ASSESSMENT SPECIALIST, Pharmacy: [place], [place] Special Instructions: not to exceed 4000 [...] tab(s), 3 Refill(s), Start Date: 10/11/15 13:38:34 SOLAR SITE ASSESSMENT SPECIALIST, Pharmacy: [facility] [place], [place] Start Date: 10/11/15 Stop Date: 10/15/15 Status: CompletedPlaquenil Sulfate 200 mg oral tablet 1 tab(s), Oral, BID, 0 Refill(s), Start Date: 09/17/15 13:24:00 [employer] S[employer] ASSESSMENT SPECIALIST Start Date: 09/17/15 Stop Date: 12/03/15 Status: CompletedPlaquenil Sulfate 200 mg oral tablet 1 tab(s), Oral, BID, # 180 tab(s), 3 Refill(s), Start Date: 10/15/15 16:41:40 SOL[employer] SITE ASSESSMENT SPECIALIST, Pharmacy: [facility] [place], [place] Start Date: 10/15/15 Status: OrderedPlaquenil Sulfate 200 mg oral tablet 1 tab(s), Oral, BID, # 60 tab(s), 3 Refill(s), Start Date: 09/01/14 9:49:00 SOLAR SITE ASSESSMENT SPECIALIST , Pharmacy: [facility] [place], [place] Start Date: 09/01/14 Stop Date: 10/02/14 Status: CompletedPlaquenil Sulfate 200 mg oral tablet 1 tab(s), Oral, BID, # 360 tab(s), 3 Refill(s), Start Date: 10/02/14 12:01:00 SOLAR SITE ASSESSMENT SPECIALIST, [facility] [place] [place] Start Date: 10/02/14 Stop Date: 01/03/15 [...] 42 gm, 4 Refill(s), Pharmacy: [facility] [place], [place] Start Date: 11/30/13 Stop Date: 10/18/14 [...] tab(s), 11 Refill(s), Start Date: 09/20/14 8:43:11 SOL[employer] SITE ASSESSMENT SPECIALIST, Pharmacy: [place], [place] Start Date: 09/20/14 Status: Orderedranitidine 150 mg oral tablet 0.5 tab(s), Oral, BID, # 30 tab(s), 0 Refill(s), Start Date: 05/29/14 14:45:00 CDT, other reason (Rx) Start Date: 05/29/14 Stop Date: 06/07/14 Status: Completedranitidine 150 mg oral tablet 0.5 tab(s), Oral, BID, # 30 tab(s), 0 Refill(s), Start Date: 06/07/14 11:00:27 CDT, Pharmacy: [place], [place] Start Date: 06/07/14 Stop Date: 07/04/14 Status: Completedranitidine 150 mg oral tablet 0.5 tab(s), Oral, BID, # 30 tab(s), 0 Refill(s), Start Date: 07/04/14 11:43:04 SOLAR SITE ASSESSMENT SPECIALIST, Pharmacy: [facility] [place], [place] Start Date: 07/04/14 Stop Date: 08/16/14 Status: Completedranitidine 150 mg oral tablet tab(s), Oral, BID, 0 Refill(s) Start Date: 12/14/13 Stop Date: 05/29/14 Status: Discontinuedranitidine 150 mg oral tablet 0.5 tab(s), Oral, BID, # 30 tab(s), 0 Refill(s), Start Date: 08/16/14 8:21:25 SOLAR SITE ASSESSMENT SPECIALIST, Pharmacy: [facility] [place], [place] Start Date: 08/16/14 Stop Date: 09/20/14 Status: Completedranitidine 75 mg oral tablet 1 tab(s), Oral, BID, # 60 tab(s), 0 Refill(s), Pharmacy: [facility] [place], [place] Start Date: 05/08/14 Stop Date: 05/29/14 Status: Discontinuedranitidine 75 mg oral tablet tab(s), Oral, BID, 0 Refill(s) Start Date: 05/08/14 Stop Date: 05/08/14 Status: Discontinuedranitidine 75 mg oral tablet 1 tab(s), Oral, BID, # 60 tab(s), 0 Refill(s), Pharmacy: [facility] [place], [place] Start Date: 03/29/14 Stop Date: 04/20/14 [...] BID, # 60 tab(s), 0 Refill(s), Pharmacy: [place], [place] Start Date: 12/30/13 Stop Date: 03/08/14 Status: Discontinuedtorsemide 10 mg oral tablet 1 tab(s), Oral, BID, # 60 tab(s), 0 Refill(s), Pharmacy: [place] Start Date: 12/14/13 Stop Date: 12/30/13 Status: Completedtorsemide 10 mg oral tablet 1 tab(s), Oral, Daily, # 30 tab(s), 0 Refill(s) Start Date: 11/24/13 Stop Date: 12/14/13 Status: Discontinuedtorsemide 20 mg oral tablet 2 tab(s), Oral, Daily, 0 Refill(s), Start Date: 09/18/15 10:13:00 SOLAR SITE ASSESSMENT SPECIALIST Start Date: 09/18/15 Stop Date: 12/25/15 Status: [...] Refill(s), Start Date: 12/11/14 13:48:00 CDT, Pharmacy: [place], [place] Start Date: 12/11/14 Stop Date: 01/15/15 [...] Refill(s), Start Date: 05/23/15 13:39:00 CDT, Pharmacy: [place], [place] Special Instructions: apply 2 grams Start [...] Date: 05/29/14 15:33:00 CDT, Pharmacy: [facility] [place], [place] Start Date: 05/29/14 Stop Date: 10/18/14 [...] Tonsillectomy Total hysterectomy 1auto-populated from documented surgical [id number] from documented surgical [id number] from documented surgical [id number] from documented surgical [id number] from documented surgical case Social History No data available for this section Assessment and Plan No data available for this section
[2017-03-03 11:21] LABS: Hematocrit 35.8 % (37.0-47.0); Hemoglobin 11.2 gm/dL (12.5-16.0); Mean Cell Volume 89.9 fl (78-100); Mean Corpuscular Hemoglobin 28.1 pg (27-31); Mean Corpuscular Hgb Conc 31.3 g/dl (32-36); Mean Platelet Volume 11.9 fl (6.0-9.5); Platelet Count 272 K/mm3 (150-450); Red Blood Count 3.98 M/mm3 (4.2-5.4); Red Cell Distribution Width 13.3 % (11.5-14.0); White Blood Count 11.1 K/mm3 (4.0-10.5)
[2017-03-03 11:23] LABS: Total Cells Counted 100
--- NOTE | 2017-03-03 11:26 | ERNOTE ---
Dizziness ER Record Date of Service: 03/03/17 Presenting Symptoms: dizziness Time Seen by Provider: 03/03/17 10:45 Source: patient Immunizations: IMMUNIZATION HX Immunizations Up to Date Yes History of Influenza Vaccine Yes Hx Pneumococcal Vaccination Yes Allergies/Adverse Reactions: Allergies Allergy/AdvReac Type Severity Reaction Status Date / Time cefaclor [Cefaclor] Allergy Severe THROAT Verified 03/03/17 10:50 SWELLING, SOB penicillin G Allergy Severe Anaphylaxis Verified 03/03/17 10:50 Penicillins Allergy Severe Anaphylaxis Verified 03/03/17 10:50 venom-honey bee Allergy Severe Anaphylaxis Verified 03/03/17 10:50 [bee venom (honey bee)] codeine Allergy Intermediate Shortness Verified 03/03/17 10:50 of Breath meperidine [Meperidine] Allergy Intermediate HIVES, Verified 03/03/17 10:50 CANT BREATHE nabumetone [Nabumetone] Allergy Intermediate DIFF Verified 03/03/17 10:50 BREATHING prochlorperazine Allergy Intermediate Shortness Verified 03/03/17 10:50 of Breath bethanechol [Bethanechol] Allergy Mild HIVES, Verified 03/03/17 10:50 MIGRAINES chlorpheniramine maleate Allergy Mild Hives Verified 03/03/17 10:50 [From Ornade] chocolate flavor Allergy Mild Hives Verified 03/03/17 10:50 ciprofloxacin Allergy Mild Hives Verified 03/03/17 10:50 digoxin Allergy Mild Hives Verified 03/03/17 10:50 doxycycline Allergy Mild Hives Verified 03/03/17 10:50 Fish Containing Products Allergy Mild Hives Verified 03/03/17 10:50 latex Allergy Mild Hives Verified 03/03/17 10:50 metoclopramide Allergy Mild HIVES, Verified 03/03/17 10:50 CANT BREATHE metolazone [Metolazone] Allergy Mild Hives Verified 03/03/17 10:50 phenylpropanolamine HCl Allergy Mild Hives Verified 03/03/17 10:50 [From Ornade] salmeterol Allergy Mild HIVES, LEG Verified 03/03/17 10:50 CRAMPS strawberry [[place]] Allergy Mild Hives Verified 03/03/17 10:50 sulfamethoxazole Allergy Mild Hives Verified 03/03/17 10:50 trimethoprim Allergy Mild Hives Verified 03/03/17 10:50 bumetanide Allergy Unknown Verified 03/03/17 10:50 chlorpheniramine Allergy Unknown Verified 03/03/17 10:50 furosemide Allergy Unknown Verified 03/03/17 10:50 phenazopyridine Allergy Unknown Verified 03/03/17 10:50 [Phenazopyridine] phenylpropanolamine Allergy Unknown Verified 03/03/17 10:50 atorvastatin AdvReac Mild LEG CRAMPS Verified 03/03/17 10:50 cisapride [Cisapride] AdvReac Mild Vomiting Verified 03/03/17 10:50 fenofibrate AdvReac Mild LEG CRAMPS Verified 03/03/17 10:50 gabapentin AdvReac Mild MIGRAINE, Verified 03/03/17 10:50 SEVERE LETHARGY glyburide AdvReac Mild Vomiting Verified 03/03/17 10:50 hydrochlorothiazide AdvReac Mild LEG Verified 03/03/17 10:50 CRAMPS, MIGRAINE irbesartan AdvReac Mild Hives Verified 03/03/17 10:50 omeprazole AdvReac Mild Vomiting Verified 03/03/17 10:50 repaglinide AdvReac Mild LEG CRAMPS Verified 03/03/17 10:50 rosuvastatin AdvReac Mild LEG CRAMPS Verified 03/03/17 10:50 triamterene [Triamterene] AdvReac Mild LEG Verified 03/03/17 10:50 CRAMPS, MIGRAINES Home Medications: HOME MEDICATIONS Aspirin [Aspirin Enteric Coated] 81 mg PO DAILY 12/29/14 [Last Taken 12/29/14] Lactobacillus Combo No.10 [Probiotic] 1 each PO DAILY 12/29/14 [Last Taken 12/29] Rosuvastatin Calcium [Crestor] 40 mg PO DAILY 12/29/14 [Last Taken 12/29/14] metFORMIN HCL [Glucophage] 1,000 mg PO BID 12/29/14 [Last Taken 12/29/14] Albuterol Sulfate [Proair Hfa] 2 puff IH Q4H PRN 01/19/15 [Last Taken Unknown] Blood Sugar Diagnostic, Drum [Accu-Chek Compact] 1 each ACHS 01/19/15 [Last Taken Unknown] EPINEPHrine [Epipen] 0.3 mg IM ONCE PRN 01/19/15 [Last Taken Unknown] Glucagon,Human Recombinant [Glucagen] 1 mg IJ ONCE PRN 01/19/15 [Last Taken Unknown] Levothyroxine Sodium [Synthroid] 88 mcg PO DAILY 01/19/15 [Last Taken Unknown] Acetaminophen [Tylenol] 650 mg PO QID PRN #0 tablet 03/28/15 [Last Taken Unknown ] Polyvinyl Alcohol [Artificial Tears] 1 drop EACHEYE Q1H PRN #0 btl 03/28/15 [ Last Taken Unknown] Insulin Glargine,Hum.rec.anlog [Lantus] 25 units SC BID #4 vial 04/22/15 [Last Taken Unknown] Duloxetine HCl [Cymbalta] 30 mg PO DAILY 08/14/16 [Last Taken Unknown] Bisacodyl [Dulcolax Suppository] 10 mg RC DAILY PRN 10/08/16 [Last Taken Unknown ] Cholecalciferol [Vitamin D] 1,000 unit PO DAILY 10/08/16 [Last Taken Unknown] Etanercept [Enbrel] 50 mg IJ 2XW 10/08/16 [Last Taken Unknown] Fluticasone Propionate [Flonase] 1 spray NS DAILY 10/08/16 [Last Taken Unknown] Insulin Aspart [Novolog] 12 units SC TIDWM 10/08/16 [Last Taken Unknown] Iron Sucrose Complex [Venofer] 50 mg IV ONCE 10/08/16 [Last Taken Unknown] Lactulose [Enulose] 30 ml PO BID 10/08/16 [Last Taken Unknown] Lubiprostone [Amitiza] 24 mcg PO BID 10/08/16 [Last Taken Unknown] Meclizine HCl [Antivert] 25 mg PO QID PRN 10/08/16 [Last Taken Unknown] Montelukast Sodium [Singulair] 10 mg PO DAILY 10/08/16 [Last Taken Unknown] Ondansetron [Zofran Odt] 4 mg PO Q6H PRN 10/08/16 [Last Taken Unknown] Pantoprazole Sodium [Protonix] 40 mg PO DAILY 10/08/16 [Last Taken Unknown] Vitamin B Complex Vit C No.4 [Super B Complex] 150 mg PO DAILY 10/08/16 [Last Taken Unknown] traMADol HCL [Ultram] 50 - 100 mg PO QID PRN 10/08/16 [Last Taken Unknown] Clonidine [Catapres-Tts 2] 1 each TD Q7D 03/03/17 [Last Taken Unknown] Hydroxychloroquine Sulfate [Plaquenil] 200 mg PO BID 03/03/17 [Last Taken Unknown] Insulin Glargine,Hum.rec.anlog [Basaglar Kwikpen U-100] 100 unit SQ 03/03/17 [ Last Taken Unknown] Pregabalin [Lyrica] 100 mg PO TID 03/03/17 [Last Taken Unknown] Sennosides [Senna Lax] 8.6 mg PO BID 03/03/17 [Last Taken Unknown] - History of Present Illness Narrative: Patient presents to the ED with dizziness. She relates that she has been dizzy with standing for the last 3 days. She was at Dr Ware's office today and her BP was low so she was sent here. She states she has had this a few times in the past and she has been diagnosed with dehydration when this has happened before. She states this is exactly like what she has had in the past. She denies any associated Sx. No fever. No CP or SOB. no abdominal pain. She states occasional HAs but this is not new. No dysuria. No focal N/T/W. Timing and Duration: gradual onset Severity: max: mild Severity: currently: mild Associated Symptoms: Absent: nausea, vomiting, weakness, numbness, light headedness Decreased ability to stand/walk:: Absent: weak, off balance, cannot walk, cannot stand Modifying Factors - (Improves): Reports: nothing Modifying Factors - (Worsens): Reports: other - standing Prior Treament: Reports: similar symptoms before Review of Systems - Review of Systems Constitutional: Absent: fever ENT: Absent: sore throat Respiratory: Absent: shortness of breath Cardiology: Absent: chest pain Gastrointestinal/Abdominal: Absent: abdominal pain Genitourinary: Absent: dysuria Musculoskeletal: Absent: back pain Skin: Absent: rash Neurological: Absent: weakness - Patient's Past Medical History Patient History - Medical: Anemia, Arthritis, Chronic Pain, Diabetes Type 2 Insulin Dependent, GERD, Headache, Hypothyroidism, Liver Disease, Migraines, Osteoarthritis, Renal Disease, Rheumatoid Arthritis, UTI'S Patient History - Cardiac/Respiratory: No pertinent hx, Bronchitis, Pneumonia Patient History - Cancer: No Hx of Cancer Patient History - Surgical Procedures: Appendectomy, Cholecystectomy, Colon Resection, , EGD, Hysterectomy, Other Patient History - Other: None - Family History Mother Family History - Medical: Diabetes Type 2 Family History - Cardiac/Respiratory: No pertinent hx Family History - Cancer: Breast Father Family History - Medical: , Diabetes Type 2 Insulin Dependent, Renal Disease, Renal Failure Family History - Cardiac/Respiratory: COPD Family History - Cancer: No pertinent family hx - Social History Living Situations: spouse Abuse History: No History of abuse Psych History: Current tx/ever been on anti-depressants or anti-anxiety meds Smoking Status: Never smoker Alcohol Use: none Drug Use: none - Immunizations Immunizations Up to Date: Yes Hx Pneumococcal Vaccination: Yes History of Influenza Vaccine: Yes Physical Exam - Physical Exam General Appearance: Present: alert, no apparent distress Head Exam: Present: normal inspection Eye Exam: Normal inspection: bilateral, PERRL: bilateral Ears, Nose, Throat: Present: dry mucous membranes. Absent: nasal congestion, pharyngeal erythema, tonsillar swelling Neck: Present: normal inspection, nontender Respiratory: Present: no respiratory distress, normal breath sounds, lungs clear Cardiovascular/Chest: Present: regular rate, rhythm, normal peripheral pulses Gastrointestinal/Abdominal: Present: normal bowel sounds, nontender, nondistended, soft Back Exam: Present: no CVA tenderness. Absent: CVA tenderness (R), CVA tenderness (L) Extremity Exam: Present: normal inspection Neurological Exam: Present: alert, normal mood/affect, no motor/sensory deficits , family preservation caseworker II-XII nml as tested Skin Exam: Present: normal color, warm/dry ED Progress - Results and Orders Patient's Lab Results:: I have reviewed the patient's lab results. - Vital Signs Patient's Vital Signs:: I have reviewed the patient's vital signs. Vital Signs: Vital Signs 03/03/17 03/03/17 03/03/17 10:46 10:56 11:05 Temperature 36.6 C Pulse Rate 66 63 66 Respiratory 12 Rate Blood Pressure 101/41 O2 Sat by Pulse 99 Oximetry - EKG EKG: NSR EKG read: Interp. by me EKG Comments: NSR rate 61. Non-specific changes. Appears improved c/w old. No STEMI. No acute ischemic pattern. - Progress/Reassessment Chief Complaint: Dizziness Progress:: Improved Progress Note-Subjective: 07/25/17 14:28 She felt much improved after 2L NS. CLinically dehydration with a Hx of the same. I discussed with her removing her clonidine patch, she declines this and understands risks and benefits. She has no further dizziness with standing and is wishing to go home. We made her an appointment tomorrow with her doctor for a re-check as her Cr was elevated here and will need to be closely followed. Nothing to suggest other acute life threat at this time. I discussed warning signs and reasons to return as well as the need for close f/ u. Departure Clinical Impression: Dizziness, Dehydration - Departure Disposition: Home self-care Condition: Stable Instructions: Dehydration, Adult, [id number] Additional Instructions: Rest. FLuids. You have an appointment tomorrow with Dr Conway, please go to that appointment as directed. Return for pain, lightheadedness or if your condition worsens or changes in any way. Referrals: Mateusz Stanley, [Primary Care Provider] -
[2017-03-03 11:34] LABS: Basophil 1 % (0-1); Eosinophil 5 % (0-3); Immature Granulocyte 1 (0-1); Lymphocyte 38 % (20-51); Monocyte 8 % (0-9); Neutrophil 47 % (42-75); Neutrophil # 5.2 K/mm3 (1.3-6.0)
[2017-03-03 11:35] LABS: Platelet Estimate Normal (NORMAL); RBC Morphology Normal (NORMAL)
[2017-03-03 11:37] LABS: Urine Bilirubin Negative (NEGATIVE); Urine Blood Negative /ul (NEGATIVE); Urine Ketone Negative (NEGATIVE); Urine Nitrite Negative (NEGATIVE); Urine Protein Negative (NEGATIVE); Urine Specific Gravity 1.025 SP.GR. (1.005-1.010); Urine Urobilinogen Normal (NORMAL); Urine pH 5.5 pH (5.0-7.0)
[2017-03-03 11:48] LABS: Urine Appearance Clear; Urine Bacteria None Seen; Urine Color Yellow; Urine RBC None Seen /hpf (0-5); Urine WBC 0-5 /hpf (0-5)
[2017-03-03 12:08] LABS: ALT 113 U/L (19-67); AST 130 U/L (0-48); Albumin * 3.7 gm/dl (3.4-5.0); Alkaline Phosphatase * 116 U/L (50-170); Anion Gap 13.3 mmol/L (6.8-13.8); BUN/Creatinine Ratio 13.8 (9.0-21.6); Bilirubin, Total 0.4 mg/dL (0.0-1.1); Blood Urea Nitrogen 27 mg/dL (3-23); Ca. Corrected For Albumin 9.2 mg/dL (8.4-10.2); Calcium * 9.3 mg/dL (7.9-10.9); Chloride 104 mmol/L (97-106); Glucose * 73 mg/dL (70-110); Potassium 4.3 mmol/L (3.4-4.6); Sodium 144 mmol/L (132-142); Total Protein 7.2 gm/dL (6.2-8.2); Troponin I Less than 0.017 ng/ml (0.00-0.10)
[2017-03-03 14:46] VITALS: BP 126/58
== END 2017-03-03 14:46 | disposition home or self-care (01) ==
LOC: ER 10:42
DX: E86.0 Dehydration (principal); R42 Dizziness and giddiness; E11.9 Type 2 diabetes mellitus without complications; Z79.4 Long term (current) use of insulin; K21.9 Gastro-esophageal reflux disease without esophagitis; E03.9 Hypothyroidism, unspecified; D64.9 Anemia, unspecified; Z87.440 Personal history of urinary (tract) infections; Z79.899 Other long term (current) drug therapy